=== PATIENT | male | born 1945 | race Two or more races ===

== ENCOUNTER 2020-03-31 09:46 | Inpatient (IN) | payer MEDICARE, MEDICAID ==
[~2020-03-31] VITALS: Ht 182.9 cm; Wt 80.6 kg
[~2020-03-31 09:46] MED LIST: 8 HOUR650 MG ORAL; AMIODARONE HCL400 M1 ORAL; ARTIFICIAL TEAR15 ML BOTH EYES; ASCORBIC ACID500 MG ORAL; ASPIRIN81 MG ORAL; BISACODYL10 M1 RC; CEFEPIME-D2 GM/50 ML IVPB; CIPROFLOXACIN500 M2 ORAL; CRESTOR10 M2 ORAL; DOCUSATE SODIU100 MG ORAL; FAMOTIDINE20 MG ORAL; FLOMAX0.4 MG ORAL; GABAPENTIN400 MG ORAL; HEPARIN 50100 UNIT/1 SUBQ; HEPARIN SO5000 UNIT2 SUBQ; Iron Supplement ORAL; JANUVIA25 MG ORAL; LANTUS SOL100 UNIT/1 SUBQ; LIDODERM700 M1 TOPIC; MAGNESIUM OXID400 M1 ORAL; MECLIZINE HCL12.5 MG ORAL; METOPROLOL SUCC25 MG ORAL; METOPROLOL TART25 MG ORAL; METRONIDAZOLE500 MG ORAL; MIRALAX17 G2 ORAL; MULTIVITAMIN1 EACH PO; NAHCO3650 MG ORAL; NEPHROVITE1 TAB ORAL; PRO-STAT LIQUID30 ML ORAL; SODIUM BICARBO650 MG PO; VANCOMYCIN1.5 GM/300 IV; ZINC SULFATE220 M1 ORAL
[2020-03-31 10:08] VITALS: BP 108/62
[2020-03-31 14:24] LABS: BASOPHILS % (AUTO) 2.4 % (0.0-2.0); HEMATOCRIT 30.4 % (42.0-52.0); HEMOGLOBIN 10.1 G/DL (14.2-18.0); LYMPHOCYTES % (AUTO) 18.6 % (20.0-45.0); MEAN CORPUSCULAR VOLUME 93 FL (80-99); MONOCYTES % (AUTO) 6.8 % (1.0-10.0); NEUTROPHILS % (AUTO) 71.3 % (45.0-75.0); PLATELET COUNT 199 K/UL (150-450); RED BLOOD COUNT 3.28 M/UL (4.70-6.10); RED CELL DISTRIBUTION WIDTH 16.6 % (11.6-14.8); WHITE BLOOD COUNT 9.3 K/UL (4.8-10.8)
--- NOTE | 2020-03-31 14:32 | Diagnostic Imaging Report ---
Indication: Cough Technique: One view of the chest Comparison: 03/02/2020 Findings: Hypoventilatory exam, resulting in crowding of bronchovascular markings. Interim development of right infrahilar infiltrate. There may be some infiltrate at the left medial lung base, although suspect that this appearance is an artifact of lack of inflation. Impression: Right basilar infiltrate, suspicious for pneumonia Possible left basilar infiltrate as well
[2020-03-31 14:43] LABS: CALCIUM 8.1 MG/DL (8.5-10.1); CREATININE 1.5 MG/DL (0.55-1.30); POTASSIUM 3.8 MMOL/L (3.5-5.1)
[2020-03-31 14:47] LABS: ALBUMIN 2.2 G/DL (3.4-5.0); ALBUMIN/GLOBULIN RATIO 0.5 (1.0-2.7); BILIRUBIN,TOTAL 0.3 MG/DL (0.2-1.0)
[2020-03-31] MEDS ORDERED: Miralax 17gm pkt ORAL PRN (15:00)
[2020-03-31] MEDS ORDERED: Zolpidem 5mg tab ORAL PRN (15:00)
--- NOTE | 2020-03-31 15:46 | Emergency Room Report ---
History of Present Illness General Chief Complaint: Male Urogenital Problems Source: Patient, EMS Present Illness HPI 74 yo M presents to ED for suprapubic catheter. [facility]. Patient pulled out a suprapubic catheter last night. Patient denies pain. Denies fevers or chills. Denies dysuria. No other aggravating relieving factors. No other associated symptoms Allergies: Coded Allergies: No Known Allergies (Unverified , 03/01/20) COVID-19 Screening Contact w/high risk pt: No Experienced COVID-19 symptoms?: No COVID-19 Testing performed VOIP ENGINEER: No Patient History Past Medical History: DM, HTN Past Surgical History: other - suprapubic catheter Pertinent Family History: none Social History: Denies: smoking, alcohol use, drug use Immunizations: UTD Reviewed Nursing Documentation: PMH: Agreed; PSxH: Agreed Nursing Documentation-PMH Hx Hypertension: Yes Hx Diabetes: Yes Hx Dialysis: Yes - UTI, ckd Review of Systems All Other Systems: negative except mentioned in HPI Physical Exam Vital Signs Date Time Temp Pulse Resp B/P (MAP) Pulse Ox O2 Delivery O2 Flow Rate FiO2 03/31/20 09:49 98.6 69 18 108/62 (77) 92 Room Air Sp02 EP Interpretation: reviewed, normal General Appearance: no apparent distress, alert, GCS 15, non-toxic Head: normocephalic, atraumatic Eyes: bilateral eye normal inspection, bilateral eye PERRL ENT: hearing grossly normal, normal pharynx, no angioedema, normal voice Neck: full range of motion, supple/symm/no masses Respiratory: chest non-tender, lungs clear, normal breath sounds, speaking full sentences Cardiovascular #1: regular rate, rhythm, no edema Cardiovascular #2: 2+ carotid (R), 2+ carotid (L), 2+ radial (R), 2+ radial (L), 2+ dorsalis pedis (R), 2+ dorsalis pedis (L) Gastrointestinal: normal bowel sounds, non tender, soft, non-distended, no guarding, no rebound, other - Suprapubic catheter site clean/dry/intact Rectal: deferred Genitourinary: normal inspection, no CVA tenderness Musculoskeletal: back normal, normal range of motion, gait/station normal, non- tender Neurologic: alert, motor strength/tone normal, oriented x3, sensory intact, responsive, speech normal Psychiatric: judgement/insight normal, memory normal, mood/affect normal, no s uicidal/homicidal ideation Reflexes: 3+ bicep (R), 3+ bicep (L), 3+ tricep (R), 3+ tricep (L), 3+ knee (R) , 3+ knee (L) Skin: other - See skin nursing notes Lymphatic: no adenopathy Medical Decision Making Diagnostic Impression: Primary Impression: BPH (benign prostatic hyperplasia) Qualified Codes: N40.0 - Benign prostatic hyperplasia without lower urinary tract symptoms Additional Impressions: Renal insufficiency Suprapubic catheter dysfunction Qualified Codes: T83.010A - Breakdown (mechanical) of cystostomy catheter, initial encounter ER Course Hospital Course 74-year-old male presents for suprapubic catheter placement patient came yesterday Clinical course Patient placed on stretcher. After initial history and physical, I attempted to replace suprapubic catheter. However given time that it was out of place I am unable to replace the catheter Labs reviewed-no leukocytosis, hemoglobin/hematocrit stable, BUN/Cr elevated Dr Herndon consulted (urology). Case discussed with Dr. Watts and he agreed to accept the patient to his service for further care and support Diagnosis - BPH, renal insufficiency,suprapubic catheter dysfunction Admitted to floor in serious condition Laboratory Tests Test 03/31/20 13:50 White Blood Count 9.3 K/UL (4.8-10.8) Red Blood Count 3.28 M/UL (4.70-6.10) L Hemoglobin 10.1 G/DL (14.2-18.0) L Hematocrit 30.4 % (42.0-52.0) L Mean Corpuscular Volume 93 FL (80-99) Mean Corpuscular Hemoglobin 30.7 PG (27.0-31.0) Mean Corpuscular Hemoglobin Concent 33.1 G/DL (32.0-36.0) Red Cell Distribution Width 16.6 % (11.6-14.8) H Platelet Count 199 K/UL (150-450) Mean Platelet Volume 6.3 FL (6.5-10.1) L Neutrophils (%) (Auto) 71.3 % (45.0-75.0) Lymphocytes (%) (Auto) 18.6 % (20.0-45.0) L Monocytes (%) (Auto) 6.8 % (1.0-10.0) Eosinophils (%) (Auto) 1.0 % (0.0-3.0) Basophils (%) (Auto) 2.4 % (0.0-2.0) H Prothrombin Time 21.3 SEC (9.30-11.50) H Prothromb Time International Ratio 2.0 (0.9-1.1) H Activated Partial Thromboplast Time 46 SEC (23-33) H Sodium Level 140 MMOL/L (136-145) Potassium Level 3.8 MMOL/L (3.5-5.1) Chloride Level 105 MMOL/L (98-107) Carbon Dioxide Level 26 MMOL/L (21-32) Anion Gap 9 mmol/L (5-15) Blood Urea Nitrogen 20 mg/dL (7-18) H Creatinine 1.5 MG/DL (0.55-1.30) H Estimat Glomerular Filtration Rate 45.6 mL/min (>60) Glucose Level 133 MG/DL (74-106) H Calcium Level 8.1 MG/DL (8.5-10.1) L Total Bilirubin 0.3 MG/DL (0.2-1.0) Aspartate Amino Transf (AST/SGOT) 32 U/L (15-37) Alanine Aminotransferase (ALT/SGPT) 11 U/L (12-78) L Alkaline Phosphatase 96 U/L (46-116) Total Protein 6.7 G/DL (6.4-8.2) Albumin 2.2 G/DL (3.4-5.0) L Globulin 4.5 g/dL Albumin/Globulin Ratio 0.5 (1.0-2.7) L Lipase 46 U/L (73-393) L EKG Diagnostic Results Rate: normal Rhythm: NSR ST Segments: no acute changes ASA given to the pt in ED: No Rhythm Strip Diag. Results EP Interpretation: yes Rhythm: NSR, no PVC's, no ectopy Last Vital Signs Date Time Temp Pulse Resp B/P (MAP) Pulse Ox O2 Delivery O2 Flow Rate FiO2 03/31/20 10:08 98.6 89 18 108/62 92 Room Air Status: improved Disposition: ADMITTED INPATIENT Condition: Serious Referrals: Alfred Watts MD (PCP) Stefan Valentin MD Mar 31, 2020 15:46
[2020-03-31 16:00] VITALS: BP 112/57
[2020-03-31] MEDS: NovoLOG Insulin Flexpen SUBQ SCH ×2 (16:30→20:47)
[2020-03-31 20:01] VITALS: BP 98/54
[2020-03-31] MEDS: Metoprolol Tartrate 12.5mg TAB ORAL SCH (21:00)
[2020-03-31] MEDS: Amiodarone 200mg tab ORAL SCH (21:01)
[2020-03-31] MEDS: Heparin 5000 units/ml inj SUBQ SCH (21:04)
--- NOTE | 2020-03-31 22:44 | Consultation ---
DATE OF CONSULTATION: 03/31/2020 CONSULTING PHYSICIAN: Diego Herndon MD. PREOPERATIVE DIAGNOSIS: Urinary retention, pulled out suprapubic catheter. The patient was seen on the fourth floor. I was asked to see patient for the fact that he pulled out his suprapubic catheter and was in retention. Patient is a poor historian. I was not able to collect the previous history from him as well as the past medical history. MEDICATIONS: Reconciled from the chart. PHYSICAL EXAMINATION: VITAL SIGNS: He is afebrile. Vital signs were stable. LUNGS: Clear. CARDIOVASCULAR: Regular rate and rhythm. ABDOMEN: Soft. Slightly distended in the suprapubic area. Suprapubic site is somewhat has mucous erosions, otherwise intact. RECTAL: Deferred. LABORATORY DATA: Reviewed as well as x-ray. ASSESSMENT: Patient has urinary retention. PROCEDURE: First, we decided to attempt to replace the suprapubic tube several manipulations with original 16-Qatari Sanabria catheter through the existing channel did not work out. After that, 16-Qatari catheter was successfully placed through the urethra into the bladder and left indwelling. Infected looking urine was expressed approximately 300 mL. RECOMMENDATIONS: Patient at least should send the cultures of his urine to see if there is any resistant bacteria. He will need renal ultrasound to assess his renal anatomy and I would recommend antibiotics to cover possible UTI or other infections. Diego Herndon M.D. DR: NUHA JOB#: [id number] CC:
[2020-04-01 04:00] VITALS: BP 101/52
[2020-04-01] MEDS: NovoLOG Insulin Flexpen SUBQ SCH ×4 (05:55→20:47)
[2020-04-01 08:00] VITALS: BP 110/58
[2020-04-01 08:36] LABS: BASOPHILS % (AUTO) 1.9 % (0.0-2.0); EOSINOPHILS % (AUTO) 2.1 % (0.0-3.0); HEMATOCRIT 27.1 % (42.0-52.0); HEMOGLOBIN 8.8 G/DL (14.2-18.0); LYMPHOCYTES % (AUTO) 24.2 % (20.0-45.0); MEAN CORPUSCULAR VOLUME 93 FL (80-99); MONOCYTES % (AUTO) 9.3 % (1.0-10.0); NEUTROPHILS % (AUTO) 62.5 % (45.0-75.0); PLATELET COUNT 193 K/UL (150-450); RED BLOOD COUNT 2.93 M/UL (4.70-6.10); RED CELL DISTRIBUTION WIDTH 16.2 % (11.6-14.8); WHITE BLOOD COUNT 8.2 K/UL (4.8-10.8)
[2020-04-01] MEDS: sitaGLIPtin 25mg tab ORAL SCH (08:39)
[2020-04-01] MEDS: Amiodarone 200mg tab ORAL SCH ×2 (08:39→20:46)
[2020-04-01] MEDS: Metoprolol Tartrate 12.5mg TAB ORAL SCH ×2 (08:40→20:47)
[2020-04-01] MEDS: Heparin 5000 units/ml inj SUBQ SCH ×2 (08:41→20:47)
[2020-04-01 08:57] LABS: ALANINE AMINOTRANSFERASE 14 U/L (12-78); ALBUMIN 1.9 G/DL (3.4-5.0); ALBUMIN/GLOBULIN RATIO 0.6 (1.0-2.7); ALKALINE PHOSPHATASE 84 U/L (46-116); ANION GAP 4 mmol/L (5-15); ASPARTATE AMINO TRANSFERASE 27 U/L (15-37); BILIRUBIN,TOTAL 0.4 MG/DL (0.2-1.0); BLOOD UREA NITROGEN 20 mg/dL (7-18); CALCIUM 7.7 MG/DL (8.5-10.1); CARBON DIOXIDE 28 MMOL/L (21-32); CHLORIDE 107 MMOL/L (98-107); CHOLESTEROL 80 MG/DL (< 200); CREATININE 1.6 MG/DL (0.55-1.30); HDL CHOLESTEROL 23 MG/DL (40-60); POTASSIUM 3.5 MMOL/L (3.5-5.1); SODIUM 139 MMOL/L (136-145); TRIGLYCERIDES 56 MG/DL (30-150)
[2020-04-01 12:00] VITALS: BP 100/53
--- NOTE | 2020-04-01 12:28 | Consultation ---
History of Present Illness General Date patient seen: Apr 01, 2020 Chief Complaint: Male Urogenital Problems Present Illness HPI 74 year old male with hx of DM, BPH, suprapubic catheter, longterm resident presented to ED for suprapubic catheter replacement. Patient pulled out a suprapubic catheter last night. Patient denies pain. Denies fevers or chills. Denies dysuria. The urologist cathleen was called to insert it. But he was not successful. Instead he put a Sanabria and some 300 cc of infected urine came out. Allergies: Coded Allergies: No Known Allergies (Unverified , 03/01/20) Medication History Scheduled Amino Acids/Protein Hydrolys (Pro-Stat Liquid), 30 ML ORAL THREE TIMES A DAY, (Reported) Amiodarone Hcl* (Amiodarone Hcl*), 200 MG ORAL EVERY 12 HOURS, (Reported) Ascorbic Acid* (Ascorbic Acid*), 500 MG ORAL DAILY, (Reported) Aspirin* (Aspirin*), 81 MG ORAL DAILY, (Reported) Cefepime Hcl/D5w (Cefepime-Dextrose 2 Gm/50 Ml), 2 GM IVPB Q24H Ciprofloxacin Hcl* (Ciprofloxacin Hcl*), 500 MG ORAL EVERY 12 HOURS, (Reported) Docusate Sodium* (Docusate Sodium*), 100 MG ORAL TWICE A DAY, (Reported) Gabapentin* (Gabapentin*), 300 MG ORAL QHS, (Reported) Heparin Sod (Porcine) (Heparin Sodium*), 5,000 UNITS SUBQ EVERY 8 HOURS, (Reported) Insulin Glargine (Lantus), 4 UNITS SUBQ EVERY MORNING, (Reported) Magnesium Oxide (Magnesium Oxide), 400 MG ORAL DAILY, (Reported) Metoprolol Tartrate* (Metoprolol Tartrate*), 12.5 MG ORAL EVERY 12 HOURS, (Reported) Metronidazole* (Flagyl*), 500 MG ORAL BID, (Reported) Multivitamin (Multivitamin), 1 EACH PO DAILY, (Reported) Rosuvastatin Calcium* (Crestor*), 5 MG ORAL QHS, (Reported) Sitagliptin* (Januvia*), 25 MG ORAL DAILY, (Reported) Sodium Bicarbonate (Sodium Bicarbonate), 650 MG ORAL THREE TIMES A DAY Tamsulosin HCl (Flomax), 0.4 MG ORAL DAILY, (Reported) Vancomycin/Water For Inj (Vancomycin 1.5 Gram/300 ml Bag), 1.5 GM IV EVERY 36 HOURS, (Reported) Vitamin B Cmplx/Vit C/Folic AC (Nephro-Alberto Tablet), 1 TAB ORAL DAILY, (Reported) Zinc Sulfate (Zinc Sulfate*), 220 MG ORAL DAILY, (Reported) [Iron Supplement], ORAL DAILY, (Reported) Scheduled PRN Acetaminophen (8 Hour), 650 MG ORAL EVERY 6 HOURS PRN for For Pain, (Reported) Bisacodyl (Bisacodyl), 10 MG RC for Constipation, (Reported) Dextran 70/Hypromellose (Artificial Tears Eye Drops*), 1 DROP BOTH EYES for Dry Eyes, (Reported) Famotidine* (Pepcid 20mg tablet*), 20 MG ORAL DAILY PRN for GERD, (Reported) Lidocaine Patch* (Lidoderm Patch*), 1 PATCH TOPIC DAILY PRN for Mild Pain (Pain Scale 1-3), (Reported) Meclizine Hcl* (Meclizine*), 12.5 MG ORAL TWICE A DAY PRN for for dizziness, (Reported) Polyethylene Glycol 3350* (Miralax*), 17 GM ORAL DAILY PRN for Constipation, (Reported) Patient History Healthcare decision maker Resuscitation status Advanced Directive on File Past Medical/Surgical History Past Medical/Surgical History: (1) Suprapubic catheter (2) BPH (benign prostatic hyperplasia) (3) Diabetes mellitus Review of Systems All Other Systems: negative except mentioned in HPI Physical Exam General Appearance: cachetic, thin Lines, tubes and drains: peripheral, central line Neck: non-tender, normal alignment Respiratory/Chest: chest wall non-tender, lungs clear, normal breath sounds Breasts: no masses Cardiovascular/Chest: normal peripheral pulses Abdomen: normal bowel sounds, non tender Genitourinary/Rectal: normal genital exam, normal rectal exam Extremities: normal range of motion, non-tender Skin Exam: normal pigmentation Neurologic: hog ribber II-XII grossly normal Last 24 Hour Vital Signs Date Time Temp Pulse Resp B/P (MAP) Pulse Ox O2 Delivery O2 Flow Rate FiO2 04/01/20 12:00 98.0 70 18 100/53 (69) 97 04/01/20 09:00 Room Air 04/01/20 08:40 70 110/58 04/01/20 08:00 97.7 70 18 110/58 (75) 97 04/01/20 04:00 97.6 67 17 101/52 (68) 97 03/31/20 21:00 70 98/54 03/31/20 20:37 Room Air 03/31/20 20:01 97.2 70 18 98/54 (69) 98 03/31/20 18:24 Room Air 03/31/20 16:00 97.9 74 18 112/57 (75) 97 03/31/20 16:00 97.9 74 18 112/57 (75) 97 03/31/20 15:44 98.6 89 18 108/62 92 Room Air Intake and Output 03/31/20 04/01/20 19:00 07:00 Intake Total 100 ml Output Total 100 ml 1200 ml Balance 0 ml -1200 ml Intake Oral 100 ml Output Urine Total 100 ml 1200 ml # Voids 1 Laboratory Tests Test 03/31/20 13:50 03/31/20 16:56 04/01/20 08:30 04/01/20 11:10 White Blood Count 9.3 K/UL (4.8-10.8) 8.2 K/UL (4.8-10.8) Red Blood Count 3.28 M/UL (4.70-6.10) L 2.93 M/UL (4.70-6.10) L Hemoglobin 10.1 G/DL (14.2-18.0) L 8.8 G/DL (14.2-18.0) L Hematocrit 30.4 % (42.0-52.0) L 27.1 % (42.0-52.0) L Mean Corpuscular Volume 93 FL (80-99) 93 FL (80-99) Mean Corpuscular Hemoglobin 30.7 PG (27.0-31.0) 30.0 PG (27.0-31.0) Mean Corpuscular Hemoglobin Concent 33.1 G/DL (32.0-36.0) 32.4 G/DL (32.0-36.0) Red Cell Distribution Width 16.6 % (11.6-14.8) H 16.2 % (11.6-14.8) H Platelet Count 199 K/UL (150-450) 193 K/UL (150-450) Mean Platelet Volume 6.3 FL (6.5-10.1) L 6.2 FL (6.5-10.1) L Neutrophils (%) (Auto) 71.3 % (45.0-75.0) 62.5 % (45.0-75.0) Lymphocytes (%) (Auto) 18.6 % (20.0-45.0) L 24.2 % (20.0-45.0) Monocytes (%) (Auto) 6.8 % (1.0-10.0) 9.3 % (1.0-10.0) Eosinophils (%) (Auto) 1.0 % (0.0-3.0) 2.1 % (0.0-3.0) Basophils (%) (Auto) 2.4 % (0.0-2.0) H 1.9 % (0.0-2.0) Prothrombin Time 21.3 SEC (9.30-11.50) H Prothromb Time International Ratio 2.0 (0.9-1.1) H Activated Partial Thromboplast Time 46 SEC (23-33) H Sodium Level 140 MMOL/L (136-145) 139 MMOL/L (136-145) Potassium Level 3.8 MMOL/L (3.5-5.1) 3.5 MMOL/L (3.5-5.1) Chloride Level 105 MMOL/L (98-107) 107 MMOL/L (98-107) Carbon Dioxide Level 26 MMOL/L (21-32) 28 MMOL/L (21-32) Anion Gap 9 mmol/L (5-15) 4 mmol/L (5-15) L Blood Urea Nitrogen 20 mg/dL (7-18) H 20 mg/dL (7-18) H Creatinine 1.5 MG/DL (0.55-1.30) H 1.6 MG/DL (0.55-1.30) H Estimat Glomerular Filtration Rate 45.6 mL/min (>60) 42.3 mL/min (>60) Glucose Level 133 MG/DL (74-106) H 100 MG/DL (74-106) Calcium Level 8.1 MG/DL (8.5-10.1) L 7.7 MG/DL (8.5-10.1) L Total Bilirubin 0.3 MG/DL (0.2-1.0) 0.4 MG/DL (0.2-1.0) Aspartate Amino Transf (AST/SGOT) 32 U/L (15-37) 27 U/L (15-37) Alanine Aminotransferase (ALT/SGPT) 11 U/L (12-78) L 14 U/L (12-78) Alkaline Phosphatase 96 U/L (46-116) 84 U/L (46-116) Total Protein 6.7 G/DL (6.4-8.2) 5.2 G/DL (6.4-8.2) L Albumin 2.2 G/DL (3.4-5.0) L 1.9 G/DL (3.4-5.0) L Globulin 4.5 g/dL 3.3 g/dL Albumin/Globulin Ratio 0.5 (1.0-2.7) L 0.6 (1.0-2.7) L Lipase 46 U/L (73-393) L POC Whole Blood Glucose Pending 101 MG/DL (74-106) Triglycerides Level 56 MG/DL (30-150) Cholesterol Level 80 MG/DL (< 200) LDL Cholesterol 49 mg/dL (<100) HDL Cholesterol 23 MG/DL (40-60) L Cholesterol/HDL Ratio 3.5 (3.3-4.4) Height (Feet): 6 Height (Inches): 0.00 Weight (Pounds): 220 Medications Current Medications Medications (Trade) Dose Ordered Sig/Lauren Route PRN Reason Start Time Stop Time Status Last Admin Dose Admin Acetaminophen (Tylenol) 650 mg Q4H PRN ORAL fever 03/31/20 15:00 04/30/20 14:59 Amiodarone HCl (Cordarone) 200 mg EVERY 12 HOURS ORAL 03/31/20 21:00 06/29/20 20:59 04/01/20 08:39 Dextrose (Dextrose 50%) 25 ml Q30M PRN IV Hypoglycemia 03/31/20 15:00 06/29/20 14:59 Dextrose (Dextrose 50%) 50 ml Q30M PRN IV Hypoglycemia 03/31/20 15:00 06/29/20 14:59 Gabapentin (Neurontin) 300 mg QHS ORAL 03/31/20 21:00 04/30/20 20:59 9/21/20 21:01 Heparin Sodium (Porcine) (Heparin 5000 units/ml) 5,000 units EVERY 12 HOURS SUBQ 03/31/20 21:00 05/15/20 20:59 04/01/20 08:41 Insulin Aspart (NovoLOG) BEFORE MEALS AND HS SUBQ 03/31/20 16:30 06/29/20 16:29 Metoprolol Tartrate (Lopressor) 12.5 mg EVERY 12 HOURS ORAL 03/31/20 21:00 06/29/20 20:59 04/01/20 08:40 Ondansetron HCl (Zofran) 4 mg Q6H PRN IVP Nausea & Vomiting 03/31/20 15:00 04/30/20 14:59 Polyethylene Glycol (Miralax) 17 gm HSPRN PRN ORAL Constipation 03/31/20 15:00 04/30/20 14:59 Sitagliptin Phosphate (Januvia) 25 mg DAILY ORAL 04/01/20 09:00 05/01/20 08:59 04/01/20 08:39 Zolpidem Tartrate (Ambien) 5 mg HSPRN PRN ORAL Insomnia 03/31/20 15:00 04/07/20 14:59 Assessment/Plan Problem List: (1) UTI (urinary tract infection) ICD Codes: N39.0 - Urinary tract infection, site not specified SNOMED: 62643078 (2) Suprapubic catheter dysfunction ICD Codes: T83.010A - Breakdown (mechanical) of cystostomy catheter, initial encounter SNOMED: 358476535 Qualifiers: Qualified Codes: T83.010A - Breakdown (mechanical) of cystostomy catheter, initial encounter (3) Diabetes mellitus ICD Codes: E11.9 - Type 2 diabetes mellitus without complications SNOMED: 26076849 (4) Hypothyroidism ICD Codes: E03.9 - Hypothyroidism, unspecified SNOMED: 77472449 (5) BPH (benign prostatic hyperplasia) ICD Codes: N40.0 - Benign prostatic hyperplasia without lower urinary tract symptoms SNOMED: 629318083 Qualifiers: Qualified Codes: N40.0 - Benign prostatic hyperplasia without lower urinary tract symptoms Assessment/Plan: symptomatic treatment send urine for UA and C/s iv abx pain management sliding scale diabetic diet dvt prophylaxis check last daily, f/u bun/creatinine Miguel Bagley MD Apr 01, 2020 12:28
[2020-04-01 12:52] LABS: APPEARANCE,URINE CLOUDY; BILIRUBIN, URINE NEGATIVE (NEGATIVE); COLOR,URINE PALE YELLOW; GLUCOSE, URINE (UA) NEGATIVE (NEGATIVE); KETONES,URINE NEGATIVE (NEGATIVE); LEUKOCYTE ESTERASE ,URINE 3+ (NEGATIVE); NITRITE,URINE NEGATIVE (NEGATIVE); PH,URINE 5 (4.5-8.0); PROTEIN,URINE 2+ (NEGATIVE); UROBILINOGEN,URINE NORMAL MG/DL (0.0-1.0)
[2020-04-01 12:55] LABS: CREATINE KINASE 32 U/L (26-308)
--- NOTE | 2020-04-01 14:26 | Consultation ---
History of Present Illness General Date patient seen: Apr 01, 2020 Reason for Hospitalization: Male Urogenital Problems Present Illness HPI This is a 74-year-old male multi-medical committees who is a senior living resident that presented after he pulled a suprapubic catheter. Patient was admitted for the care management. Surgery was called to evaluate assist with care. Patient seen, patient evaluated, chart reviewed. Allergies: Coded Allergies: No Known Allergies (Unverified , 03/01/20) COVID-19 Screening Contact w/high risk pt: No Experienced COVID-19 symptoms?: No Medication History Scheduled Amino Acids/Protein Hydrolys (Pro-Stat Liquid), 30 ML ORAL THREE TIMES A DAY, (Reported) Amiodarone Hcl* (Amiodarone Hcl*), 200 MG ORAL EVERY 12 HOURS, (Reported) Ascorbic Acid* (Ascorbic Acid*), 500 MG ORAL DAILY, (Reported) Aspirin* (Aspirin*), 81 MG ORAL DAILY, (Reported) Cefepime Hcl/D5w (Cefepime-Dextrose 2 Gm/50 Ml), 2 GM IVPB Q24H Ciprofloxacin Hcl* (Ciprofloxacin Hcl*), 500 MG ORAL EVERY 12 HOURS, (Reported) Docusate Sodium* (Docusate Sodium*), 100 MG ORAL TWICE A DAY, (Reported) Gabapentin* (Gabapentin*), 300 MG ORAL QHS, (Reported) Heparin Sod (Porcine) (Heparin Sodium*), 5,000 UNITS SUBQ EVERY 8 HOURS, (Reported) Insulin Glargine (Lantus), 4 UNITS SUBQ EVERY MORNING, (Reported) Magnesium Oxide (Magnesium Oxide), 400 MG ORAL DAILY, (Reported) Metoprolol Tartrate* (Metoprolol Tartrate*), 12.5 MG ORAL EVERY 12 HOURS, (Reported) Metronidazole* (Flagyl*), 500 MG ORAL BID, (Reported) Multivitamin (Multivitamin), 1 EACH PO DAILY, (Reported) Rosuvastatin Calcium* (Crestor*), 5 MG ORAL QHS, (Reported) Sitagliptin* (Januvia*), 25 MG ORAL DAILY, (Reported) Sodium Bicarbonate (Sodium Bicarbonate), 650 MG ORAL THREE TIMES A DAY Tamsulosin HCl (Flomax), 0.4 MG ORAL DAILY, (Reported) Vancomycin/Water For Inj (Vancomycin 1.5 Gram/300 ml Bag), 1.5 GM IV EVERY 36 HOURS, (Reported) Vitamin B Cmplx/Vit C/Folic AC (Nephro-Alberto Tablet), 1 TAB ORAL DAILY, (Reported) Zinc Sulfate (Zinc Sulfate*), 220 MG ORAL DAILY, (Reported) [Iron Supplement], ORAL DAILY, (Reported) Scheduled PRN Acetaminophen (8 Hour), 650 MG ORAL EVERY 6 HOURS PRN for For Pain, (Reported) Bisacodyl (Bisacodyl), 10 MG RC for Constipation, (Reported) Dextran 70/Hypromellose (Artificial Tears Eye Drops*), 1 DROP BOTH EYES for Dry Eyes, (Reported) Famotidine* (Pepcid 20mg tablet*), 20 MG ORAL DAILY PRN for GERD, (Reported) Lidocaine Patch* (Lidoderm Patch*), 1 PATCH TOPIC DAILY PRN for Mild Pain (Pain Scale 1-3), (Reported) Meclizine Hcl* (Meclizine*), 12.5 MG ORAL TWICE A DAY PRN for for dizziness, (Reported) Polyethylene Glycol 3350* (Miralax*), 17 GM ORAL DAILY PRN for Constipation, (Reported) Patient History Limited by: medical condition History Provided By: Medical Record, PMD Healthcare decision maker Resuscitation status Advanced Directive on File Past Medical/Surgical History Past Medical/Surgical History: (1) Suprapubic catheter (2) UTI (urinary tract infection) (3) Osteomyelitis (4) Uncontrolled diabetes mellitus (5) Hypothyroidism (6) Sacral decubitus ulcer (7) Diabetes mellitus (8) Renal insufficiency (9) Suprapubic catheter dysfunction (10) BPH (benign prostatic hyperplasia) (11) Urinary retention Family History Family History: FH: CAD (coronary artery disease) Review of Systems Review of Symptoms General ROS: no weight loss or fever Psychological ROS: no depression or mood changes, no memory loss Ophthalmic ROS: no visual changes or eye irritation ENT ROS: no nasal congestion, hearing loss, dizziness Allergy and Immunology ROS: no allergic symptoms or urticaria Hematological and Lymphatic ROS: no swollen glands, unusual bleeding or bruising Endocrine ROS: no polyuria, polydipsia, weight changes, temperature intolerance Respiratory ROS: no cough, shortness of breath, or wheezing Cardiovascular ROS: no chest pain or dyspnea on exertion Gastrointestinal ROS: denies abdominal pain, bright red blood in stool. Musculoskeletal ROS: no myalgias or arthralgias Neurological ROS: no TIA or stroke symptoms Dermatological ROS: no new or changing skin lesions, rashes or pruritis Limited given patient's medical condition baseline Physical Exam Physical Exam General appearance: alert, cooperative, no distress, appears stated age Head: Normocephalic, without obvious abnormality, atraumatic Eyes: conjunctivae/corneas clear. PERRL, EOM's intact. Fundi benign Throat: Lips, mucosa, and tongue normal. Teeth and gums normal Neck: supple, symmetrical, trachea midline, no adenopathy, thyroid: not enlarged, symmetric, no tenderness/mass/nodules, no carotid bruit and no JVD Lungs: clear to auscultation bilaterally Heart: regular rate and rhythm, S1, S2 normal, no murmur, click, rub or gallop Abdomen: soft, non-tender. Bowel sounds normal. No masses, no organomegaly Extremities: extremities normal, atraumatic, no cyanosis or edema Pulses: 2+ and symmetric Skin: Skin see Neurologic: Grossly normal Last 24 Hour Vital Signs Date Time Temp Pulse Resp B/P (MAP) Pulse Ox O2 Delivery O2 Flow Rate FiO2 04/01/20 12:00 98.0 70 18 100/53 (69) 97 04/01/20 09:00 Room Air 04/01/20 08:40 70 110/58 04/01/20 08:00 97.7 70 18 110/58 (75) 97 04/01/20 04:00 97.6 67 17 101/52 (68) 97 03/31/20 21:00 70 98/54 03/31/20 20:37 Room Air 03/31/20 20:01 97.2 70 18 98/54 (69) 98 03/31/20 18:24 Room Air 03/31/20 16:00 97.9 74 18 112/57 (75) 97 03/31/20 16:00 97.9 74 18 112/57 (75) 97 03/31/20 15:44 98.6 89 18 108/62 92 Room Air Intake and Output 03/31/20 04/01/20 19:00 07:00 Intake Total 100 ml Output Total 100 ml 1200 ml Balance 0 ml -1200 ml Intake Oral 100 ml Output Urine Total 100 ml 1200 ml # Voids 1 Laboratory Tests Test 03/31/20 16:56 9/22/20 08:30 04/01/20 11:10 04/01/20 12:45 POC Whole Blood Glucose Pending 101 MG/DL (74-106) White Blood Count 8.2 K/UL (4.8-10.8) Red Blood Count 2.93 M/UL (4.70-6.10) L Hemoglobin 8.8 G/DL (14.2-18.0) L Hematocrit 27.1 % (42.0-52.0) L Mean Corpuscular Volume 93 FL (80-99) Mean Corpuscular Hemoglobin 30.0 PG (27.0-31.0) Mean Corpuscular Hemoglobin Concent 32.4 G/DL (32.0-36.0) Red Cell Distribution Width 16.2 % (11.6-14.8) H Platelet Count 193 K/UL (150-450) Mean Platelet Volume 6.2 FL (6.5-10.1) L Neutrophils (%) (Auto) 62.5 % (45.0-75.0) Lymphocytes (%) (Auto) 24.2 % (20.0-45.0) Monocytes (%) (Auto) 9.3 % (1.0-10.0) Eosinophils (%) (Auto) 2.1 % (0.0-3.0) Basophils (%) (Auto) 1.9 % (0.0-2.0) Sodium Level 139 MMOL/L (136-145) Potassium Level 3.5 MMOL/L (3.5-5.1) Chloride Level 107 MMOL/L (98-107) Carbon Dioxide Level 28 MMOL/L (21-32) Anion Gap 4 mmol/L (5-15) L Blood Urea Nitrogen 20 mg/dL (7-18) H Creatinine 1.6 MG/DL (0.55-1.30) H Estimat Glomerular Filtration Rate 42.3 mL/min (>60) Glucose Level 100 MG/DL (74-106) Uric Acid 2.8 MG/DL (2.6-7.2) Calcium Level 7.7 MG/DL (8.5-10.1) L Total Bilirubin 0.4 MG/DL (0.2-1.0) Aspartate Amino Transf (AST/SGOT) 27 U/L (15-37) Alanine Aminotransferase (ALT/SGPT) 14 U/L (12-78) Alkaline Phosphatase 84 U/L (46-116) Total Creatine Kinase 32 U/L (26-308) Total Protein 5.2 G/DL (6.4-8.2) L Albumin 1.9 G/DL (3.4-5.0) L Globulin 3.3 g/dL Albumin/Globulin Ratio 0.6 (1.0-2.7) L Triglycerides Level 56 MG/DL (30-150) Cholesterol Level 80 MG/DL (< 200) LDL Cholesterol 49 mg/dL (<100) HDL Cholesterol 23 MG/DL (40-60) L Cholesterol/HDL Ratio 3.5 (3.3-4.4) Urine Color Pale yellow Urine Appearance Cloudy Urine pH 5 (4.5-8.0) Urine Specific [place] 1.015 (1.005-1.035) Urine Protein 2+ (NEGATIVE) H Urine Glucose (UA) Negative (NEGATIVE) Urine Ketones Negative (NEGATIVE) Urine Blood 5+ (NEGATIVE) H Urine Nitrite Negative (NEGATIVE) Urine Bilirubin Negative (NEGATIVE) Urine Urobilinogen Normal MG/DL (0.0-1.0) Urine Leukocyte Esterase 3+ (NEGATIVE) H Urine RBC 10-15 /HPF (0 - 0) H Urine WBC Tntc /HPF (0 - 0) H Urine Squamous Epithelial Cells Occasional /LPF Urine Bacteria Few /HPF (NONE) Urine Yeast Few /HPF (NONE) H Height (Feet): 6 Height (Inches): 0.00 Weight (Pounds): 220 Medications Current Medications Medications (Trade) Dose Ordered Sig/Lauren Route PRN Reason Start Time Stop Time Status Last Admin Dose Admin Acetaminophen (Tylenol) 650 mg Q4H PRN ORAL fever 03/31/20 15:00 04/30/20 14:59 Amiodarone HCl (Cordarone) 200 mg EVERY 12 HOURS ORAL 03/31/20 21:00 06/29/20 20:59 04/01/20 08:39 Dextrose (Dextrose 50%) 25 ml Q30M PRN IV Hypoglycemia 03/31/20 15:00 06/29/20 14:59 Dextrose (Dextrose 50%) 50 ml Q30M PRN IV Hypoglycemia 03/31/20 15:00 06/29/20 14:59 Gabapentin (Neurontin) 300 mg QHS ORAL 03/31/20 21:00 04/30/20 20:59 03/31/20 21:01 Heparin Sodium (Porcine) (Heparin 5000 units/ml) 5,000 units EVERY 12 HOURS SUBQ 03/31/20 21:00 05/15/20 20:59 04/01/20 08:41 Insulin Aspart (NovoLOG) BEFORE MEALS AND HS SUBQ 03/31/20 16:30 06/29/20 16:29 Metoprolol Tartrate (Lopressor) 12.5 mg EVERY 12 HOURS ORAL 03/31/20 21:00 06/29/20 20:59 04/01/20 08:40 Ondansetron HCl (Zofran) 4 mg Q6H PRN IVP Nausea & Vomiting 03/31/20 15:00 04/30/20 14:59 Polyethylene Glycol (Miralax) 17 gm HSPRN PRN ORAL Constipation 03/31/20 15:00 04/30/20 14:59 Sitagliptin Phosphate (Januvia) 25 mg DAILY ORAL 04/01/20 09:00 05/01/20 08:59 04/01/20 08:39 Zolpidem Tartrate (Ambien) 5 mg HSPRN PRN ORAL Insomnia 03/31/20 15:00 04/07/20 14:59 Assessment/Plan Problem List: (1) Suprapubic catheter ICD Codes: Z93.59 - Other cystostomy status SNOMED: 282415901, 121664781 (2) UTI (urinary tract infection) ICD Codes: N39.0 - Urinary tract infection, site not specified SNOMED: 79994081 (3) Osteomyelitis ICD Codes: M86.9 - Osteomyelitis, unspecified SNOMED: 24119494 (4) Uncontrolled diabetes mellitus ICD Codes: E11.65 - Type 2 diabetes mellitus with hyperglycemia SNOMED: 17292640, 978343483 (5) Hypothyroidism ICD Codes: E03.9 - Hypothyroidism, unspecified SNOMED: 79139433 (6) Diabetes mellitus ICD Codes: E11.9 - Type 2 diabetes mellitus without complications SNOMED: 57896207 (7) Sacral decubitus ulcer Assessment & Plan: Pt presented on admission with multiple Pressure Injuries. Resolving Pressure Sacral Pressure Injury.Clusters of full thickness pressure ulcers in close proximity that are moist and pink at bases. Surrounding maroon borders but without induration.(L)10.5cm x (W)10cm. BIlat lower ext are edematous. DTPI distal/lateral L Tibia(L)11.4cm x (W)2.7cm. Base of injury is purpuric with maroon borders. DTPI lateral L Malleolus(L)1cm x (W)0.7cm. Base of injury is maroon and indurated. Non-Blanchable erythema without induration or fluctuance medial L foot (L)1.6cm x (W)1cm. Unstageable Pressure injury R heel(L)7.7cm x (W)6.8cm. Base of is 70%necrotic and dry,10% slough with remaining 20% alyssia base. Marginal erythema along edges.Periwound is fluctuant with pale skin color. DTPI Lateral R Malleolus(L)2.6cm x (W)1.4cm. Base of injury is purpuric with maroon borders. DTPI medial R Malleolus(L)2.5cm x (W)2.4cm. Base of injury is purpuric with maroon borders. DTPI medial R foot (L)1.3cm x (W)3.6cm. Base of injury is indurated purpuric with surrounding maroon borders that are irregular. DTPI lateral R foot (L)0.7cm x (W)0.9cm. Base of injury is maroon in colour with marginal erythema. DTPI noted to tip of R 1st metatarsal(L)1.4cm x (W)1.2cm. Base of injury presents as an intact blood Blister. Unstageable Pressure injury lateral R 1st metatarsal(L)0.5cm x (W)0.8cm. Dry eschar with marginal erythema along edges. DTPI tip of R 2nd metatarsal.(L)1cm x (W)1.3cm. Base of injury presents as an intact blood blister with marginal erythema along edges. Surgical incisions noted to R hip, R femur and R knee. Incision sites approximated with oswaldo that are intact and dry. No erythema noted. Tx.Plan: Apply Moisture Barrier Paste to Sacrum. Cover with Optifoam drsgs. Change every 3 days and prn. Apply Betadine to DTPI's L Tibia, R and L feet. Cover each site with Optifoam drsgs. Change every 7 days and prn. Cleanse R Heel with Saline. Apply TheraHoney.Apply Maxsorb Extra(calcium Alginate. Apply Cavilon Skin Barrier periwound. Cover with Abd Pad and wrap with Kerlix Daily and prn. Reposition at least every 2hours or as tolerated. Off-load heels with pillows. ICD Codes: L89.159 - Pressure ulcer of sacral region, unspecified stage SNOMED: 830716961 (8) Renal insufficiency ICD Codes: N28.9 - Disorder of kidney and ureter, unspecified SNOMED: 837145774, 082773079 (9) Suprapubic catheter dysfunction Assessment & Plan: changed by urology catheter in now good uop monitor ICD Codes: T83.010A - Breakdown (mechanical) of cystostomy catheter, initial encounter SNOMED: 422999781 Qualifiers: Qualified Codes: T83.010A - Breakdown (mechanical) of cystostomy catheter, initial encounter (10) BPH (benign prostatic hyperplasia) ICD Codes: N40.0 - Benign prostatic hyperplasia without lower urinary tract symptoms SNOMED: 479564894 Qualifiers: Qualified Codes: N40.0 - Benign prostatic hyperplasia without lower urinary tract symptoms (11) Urinary retention ICD Codes: R33.9 - Retention of urine, unspecified SNOMED: 449885813 [facility] Hospital declaration \ Guy Oakley Apr 01, 2020 14:26
--- NOTE | 2020-04-01 15:43 | Consultation ---
History of Present Illness General Date patient seen: Apr 01, 2020 Chief Complaint: Male Urogenital Problems Present Illness HPI 74 y/o M with hx of DM2, HTN, BPH, CKD, urinary retention sp suprapubic catheter, [place] resident presented to ED on 03/31 for suprapubic catheter replacem ent after he pulled his catheter. Urologist attempted SPC replacement but was unsuccessful and a shabazz instead was placed; there was mention of return of 300mL urine that looked suspicious for infection Denied f/c, dysuria Allergies: Coded Allergies: No Known Allergies (Unverified , 03/01/20) Medication History Scheduled Amiodarone Hcl* (Cordarone*), 200 MG ORAL DAILY, (Reported) Aspirin* (Aspirin*), 81 MG ORAL DAILY, (Reported) Atorvastatin Calcium* (Lipitor*), 80 MG ORAL BEDTIME, (Reported) Docusate Sodium* (Docusate Sodium*), 250 MG ORAL DAILY, (Reported) Furosemide* (Lasix*), 40 MG ORAL DAILY, (Reported) Glycopyrrolate (Glycopyrrolate), 1 MG PO DAILY, (Reported) Levothyroxine Sodium* (Levothyroxine Sodium*), 75 MCG ORAL DAILY, (Reported) Sertraline Hcl* (Sertraline Hcl*), 25 MG ORAL DAILY, (Reported) Scheduled PRN Meclizine Hcl* (Meclizine*), 12.5 MG ORAL TID PRN for for dizziness, (Reported) Discontinued Medications Acetaminophen (8 Hour), 650 MG ORAL EVERY 6 HOURS PRN for For Pain, (Reported) Discontinued Reason: Pt stopped taking med Amino Acids/Protein Hydrolys (Pro-Stat Liquid), 30 ML ORAL THREE TIMES A DAY, (Reported) Discontinued Reason: Pt stopped taking med Amiodarone Hcl* (Amiodarone Hcl*), 200 MG ORAL EVERY 12 HOURS, (Reported) Discontinued Reason: Prescription changed Ascorbic Acid* (Ascorbic Acid*), 500 MG ORAL DAILY, (Reported) Discontinued Reason: Pt stopped taking med Bisacodyl (Bisacodyl), 10 MG RC for Constipation, (Reported) Discontinued Reason: Pt stopped taking med Cefepime Hcl/D5w (Cefepime-Dextrose 2 Gm/50 Ml), 2 GM IVPB Q24H Discontinued Reason: Pt stopped taking med Ciprofloxacin Hcl* (Ciprofloxacin Hcl*), 500 MG ORAL EVERY 12 HOURS, (Reported) Discontinued Reason: Pt stopped taking med Dextran 70/Hypromellose (Artificial Tears Eye Drops*), 1 DROP BOTH EYES for Dry Eyes, (Reported) Discontinued Reason: Pt stopped taking med Docusate Sodium* (Docusate Sodium*), 100 MG ORAL TWICE A DAY, (Reported) Discontinued Reason: Pt stopped taking med Famotidine* (Pepcid 20mg tablet*), 20 MG ORAL DAILY PRN for GERD, (Reported) Discontinued Reason: Pt stopped taking med Gabapentin* (Gabapentin*), 300 MG ORAL QHS, (Reported) Discontinued Reason: Pt stopped taking med Heparin Sod (Porcine) (Heparin Sodium*), 5,000 UNITS SUBQ EVERY 8 HOURS, (Reported) Discontinued Reason: Pt stopped taking med Insulin Glargine (Lantus), 4 UNITS SUBQ EVERY MORNING, (Reported) Discontinued Reason: Pt stopped taking med Lidocaine Patch* (Lidoderm Patch*), 1 PATCH TOPIC DAILY PRN for Mild Pain (Pain Scale 1-3), (Reported) Discontinued Reason: Pt stopped taking med Magnesium Oxide (Magnesium Oxide), 400 MG ORAL DAILY, (Reported) Discontinued Reason: Pt stopped taking med Metoprolol Tartrate* (Metoprolol Tartrate*), 12.5 MG ORAL EVERY 12 HOURS, (Reported) Discontinued Reason: Pt stopped taking med Metronidazole* (Flagyl*), 500 MG ORAL BID, (Reported) Discontinued Reason: Pt stopped taking med Multivitamin (Multivitamin), 1 EACH PO DAILY, (Reported) Discontinued Reason: Pt stopped taking med Polyethylene Glycol 3350* (Miralax*), 17 GM ORAL DAILY PRN for Constipation, (Reported) Discontinued Reason: Pt stopped taking med Rosuvastatin Calcium* (Crestor*), 5 MG ORAL QHS, (Reported) Discontinued Reason: Pt stopped taking med Sitagliptin* (Januvia*), 25 MG ORAL DAILY, (Reported) Discontinued Reason: Pt stopped taking med Sodium Bicarbonate (Sodium Bicarbonate), 650 MG ORAL THREE TIMES A DAY Discontinued Reason: Pt stopped taking med Tamsulosin HCl (Flomax), 0.4 MG ORAL DAILY, (Reported) Discontinued Reason: Pt stopped taking med Vancomycin/Water For Inj (Vancomycin 1.5 Gram/300 ml Bag), 1.5 GM IV EVERY 36 HOURS, (Reported) Discontinued Reason: Pt stopped taking med Vitamin B Cmplx/Vit C/Folic AC (Nephro-Alberto Tablet), 1 TAB ORAL DAILY, (Reported) Discontinued Reason: Pt stopped taking med Zinc Sulfate (Zinc Sulfate*), 220 MG ORAL DAILY, (Reported) Discontinued Reason: Pt stopped taking med [Iron Supplement], ORAL DAILY, (Reported) Discontinued Reason: Pt stopped taking med Patient History Healthcare decision maker Resuscitation status Advanced Directive on File Patient History Narrative . Pmhx: as above Shx: Denies: smoking, alcohol use, drug use Fhx: non contributory Review of Systems All Other Systems: negative except mentioned in HPI Physical Exam Physical Exam Narrative LUNGS: Clear. CARDIOVASCULAR: Regular rate and rhythm. ABDOMEN: Soft. Slightly distended in the suprapubic area. Suprapubic site is somewhat has mucous erosions, otherwise intact. Last 24 Hour Vital Signs Date Time Temp Pulse Resp B/P (MAP) Pulse Ox O2 Delivery O2 Flow Rate FiO2 04/01/20 12:00 98.0 70 18 100/53 (69) 97 04/01/20 09:00 Room Air 04/01/20 08:40 70 110/58 04/01/20 08:00 97.7 70 18 110/58 (75) 97 04/01/20 04:00 97.6 67 17 101/52 (68) 97 03/31/20 21:00 70 98/54 03/31/20 20:37 Room Air 03/31/20 20:01 97.2 70 18 98/54 (69) 98 03/31/20 18:24 Room Air 03/31/20 16:00 97.9 74 18 112/57 (75) 97 03/31/20 16:00 97.9 74 18 112/57 (75) 97 03/31/20 15:44 98.6 89 18 108/62 92 Room Air Intake and Output0 03/31/20 04/01/20 19:00 07:00 Intake Total 100 ml Output Total 100 ml 1200 ml Balance 0 ml -1200 ml Intake Oral 100 ml Output Urine Total 100 ml 1200 ml # Voids 1 Laboratory Tests Test 03/31/20 16:56 04/01/20 08:30 04/01/20 11:10 04/01/20 12:45 POC Whole Blood Glucose Pending 101 MG/DL (74-106) White Blood Count 8.2 K/UL (4.8-10.8) Red Blood Count 2.93 M/UL (4.70-6.10) L Hemoglobin 8.8 G/DL (14.2-18.0) L Hematocrit 27.1 % (42.0-52.0) L Mean Corpuscular Volume 93 FL (80-99) Mean Corpuscular Hemoglobin 30.0 PG (27.0-31.0) Mean Corpuscular Hemoglobin Concent 32.4 G/DL (32.0-36.0) Red Cell Distribution Width 16.2 % (11.6-14.8) H Platelet Count 193 K/UL (150-450) Mean Platelet Volume 6.2 FL (6.5-10.1) L Neutrophils (%) (Auto) 62.5 % (45.0-75.0) Lymphocytes (%) (Auto) 24.2 % (20.0-45.0) Monocytes (%) (Auto) 9.3 % (1.0-10.0) Eosinophils (%) (Auto) 2.1 % (0.0-3.0) Basophils (%) (Auto) 1.9 % (0.0-2.0) Sodium Level 139 MMOL/L (136-145) Potassium Level 3.5 MMOL/L (3.5-5.1) Chloride Level 107 MMOL/L (98-107) Carbon Dioxide Level 28 MMOL/L (21-32) Anion Gap 4 mmol/L (5-15) L Blood Urea Nitrogen 20 mg/dL (7-18) H Creatinine 1.6 MG/DL (0.55-1.30) H Estimat Glomerular Filtration Rate 42.3 mL/min (>60) Glucose Level 100 MG/DL (74-106) Uric Acid 2.8 MG/DL (2.6-7.2) Calcium Level 7.7 MG/DL (8.5-10.1) L Total Bilirubin 0.4 MG/DL (0.2-1.0) Aspartate Amino Transf (AST/SGOT) 27 U/L (15-37) Alanine Aminotransferase (ALT/SGPT) 14 U/L (12-78) Alkaline Phosphatase 84 U/L (46-116) Total Creatine Kinase 32 U/L (26-308) Total Protein 5.2 G/DL (6.4-8.2) L Albumin 1.9 G/DL (3.4-5.0) L Globulin 3.3 g/dL Albumin/Globulin Ratio 0.6 (1.0-2.7) L Triglycerides Level 56 MG/DL (30-150) Cholesterol Level 80 MG/DL (< 200) LDL Cholesterol 49 mg/dL (<100) HDL Cholesterol 23 MG/DL (40-60) L Cholesterol/HDL Ratio 3.5 (3.3-4.4) Urine Color Pale yellow Urine Appearance Cloudy Urine pH 5 (4.5-8.0) Urine Specific [place] 1.015 (1.005-1.035) Urine Protein 2+ (NEGATIVE) H Urine Glucose (UA) Negative (NEGATIVE) Urine Ketones Negative (NEGATIVE) Urine Blood 5+ (NEGATIVE) H Urine Nitrite Negative (NEGATIVE) Urine Bilirubin Negative (NEGATIVE) Urine Urobilinogen Normal MG/DL (0.0-1.0) Urine Leukocyte Esterase 3+ (NEGATIVE) H Urine RBC 10-15 /HPF (0 - 0) H Urine WBC Tntc /HPF (0 - 0) H Urine Squamous Epithelial Cells Occasional /LPF Urine Bacteria Few /HPF (NONE) Urine Yeast Few /HPF (NONE) H Height (Feet): 6 Height (Inches): 0.00 Weight (Pounds): 220 Medications Current Medications Medications (Trade) Dose Ordered Sig/Lauren Route PRN Reason Start Time Stop Time Status Last Admin Dose Admin Acetaminophen (Tylenol) 650 mg Q4H PRN ORAL fever 03/31/20 15:00 04/30/20 14:59 Amiodarone HCl (Cordarone) 200 mg EVERY 12 HOURS ORAL 03/31/20 21:00 06/29/20 20:59 04/01/20 08:39 Dextrose (Dextrose 50%) 25 ml Q30M PRN IV Hypoglycemia 03/31/20 15:00 06/29/20 14:59 Dextrose (Dextrose 50%) 50 ml Q30M PRN IV Hypoglycemia 03/31/20 15:00 06/29/20 14:59 Gabapentin (Neurontin) 300 mg QHS ORAL 03/31/20 21:00 04/30/20 20:59 03/31/20 21:01 Heparin Sodium (Porcine) (Heparin 5000 units/ml) 5,000 units EVERY 12 HOURS SUBQ 03/31/20 21:00 05/15/20 20:59 04/01/20 08:41 Insulin Aspart (NovoLOG) BEFORE MEALS AND HS SUBQ 03/31/20 16:30 06/29/20 16:29 Metoprolol Tartrate (Lopressor) 12.5 mg EVERY 12 HOURS ORAL 03/31/20 21:00 06/29/20 20:59 04/01/20 08:40 Ondansetron HCl (Zofran) 4 mg Q6H PRN IVP Nausea & Vomiting 03/31/20 15:00 04/30/20 14:59 Polyethylene Glycol (Miralax) 17 gm HSPRN PRN ORAL Constipation 03/31/20 15:00 04/30/20 14:59 Sitagliptin Phosphate (Januvia) 25 mg DAILY ORAL 04/01/20 09:00 05/01/20 08:59 04/01/20 08:39 Zolpidem Tartrate (Ambien) 5 mg HSPRN PRN ORAL Insomnia 03/31/20 15:00 04/07/20 14:59 Assessment/Plan Assessment/Plan: Abx: None Assessment: UTI -u/a wbc tnct, nit neg, leuk +3; ucx p Probable PNA- r/o COVID19 -CXR: Right basilar infiltrate, suspicious for pneumonia/ Possible left basilar infiltrate as well Afebrile No leukocytosis Urinary retention Sp accidental removal SPC w/ unsuccessful replacement -s/p Shabazz insertion DM2 HTN BPH CKD urinary retention sp suprapubic catheter [place] resident ([facility]) Plan: -Start Cefepime pending ucx -f/u cx -Monitor CBC/CMP, temperatures -Uro f/u -COVID19 isolation and testing Thank you for this consultation. Will continue to follow along with you. Discussed with Yudelka Fonseca M.D. Apr 01, 2020 15:43
[2020-04-01 16:00] VITALS: BP 98/58
[2020-04-01] MEDS: Cefepime HCl 1 GM in D5W 55 ML IVPB SCH (17:17)
[2020-04-01] MEDS ORDERED: AMIODARONE HCL200 MG ORAL (17:30)
[2020-04-01] MEDS ORDERED: FUROSEMIDE40 MG ORAL (17:30)
[2020-04-01] MEDS ORDERED: SERTRALINE HCL25 MG ORAL (17:30)
[2020-04-01] MEDS ORDERED: ATORVASTATIN CA80 MG ORAL (17:32)
[2020-04-01] MEDS ORDERED: LEVOTHYROXINE75 MCG ORAL (17:32)
[2020-04-01] MEDS ORDERED: GLYCOPYRROLATE2 MG PO (17:34)
[2020-04-01] MEDS ORDERED: DOCUSATE SODIU250 MG ORAL (17:36)
--- NOTE | 2020-04-01 18:14 | History and Physical Report ---
DATE OF ADMISSION: 03/31/2020 CHIEF COMPLAINT: The patient is a 74-year-old male, who presents with a chief complaint of suprapubic catheter malfunction. HISTORY OF PRESENT ILLNESS: The patient was admitted to [facility] from March 02 to March 04, 2020. Please see history and physical and discharge summary dictated at that time. The patient has a history of right femur fracture in January of 2020. The patient is status post right femur IM nail removal and distal femur replacement on January 28, 2020. The patient was then admitted to [facility] on March 02, 2020 for renal failure and urinary tract infection. The patient is a resident of [facility]. Apparently, the patient pulled out his suprapubic catheter on March 30, 2020. The patient presented to [place] emergency room on March 31, 2020. The patient is admitted with malfunction of suprapubic catheter. REVIEW OF SYSTEMS: Unable to assess secondary to the patient's mental status. PAST MEDICAL HISTORY: Significant for: 1. Type 2 diabetes. 2. Hypothyroidism. 3. Chronic kidney disease. 4. Hypertension. 5. Benign prostatic hypertrophy. 6. Diastolic congestive heart failure. PAST SURGICAL HISTORY: Significant for right femur IM nail removal and distal femur replacement on January 28, 2020. CURRENT MEDICATIONS: 1. Tylenol 650 mg p.o. q.8 h. p.r.n. 2. Amiodarone 400 mg p.o. twice daily. 3. Vitamin C 500 mg p.o. daily. 4. Aspirin 81 mg p.o. daily. 5. Bisacodyl 10 mg p.o. p.r.n. 6. Ciprofloxacin 500 mg p.o. twice daily. 7. Cefepime 2 g IV q.24 h. 8. Docusate 100 mg p.o. twice daily. 9. Famotidine 20 mg p.o. daily. 10. Gabapentin 300 mg p.o. nightly. 11. Heparin 5000 units subcutaneously q.8 h. 12. Lantus insulin 4 units subcutaneously q.a.m. 13. Lidoderm patch applied daily. 14. Magnesium oxide 400 mg p.o. daily. 15. Meclizine 12.5 mg p.o. twice daily. 16. Metoprolol 12.5 mg p.o. twice daily. 17. Metronidazole 500 mg p.o. twice daily. 18. MiraLAX 17 g p.o. daily. 19. Crestor 5 mg p.o. nightly. 20. Januvia 25 mg p.o. daily. 21. Sodium bicarb 650 mg p.o. three times daily. 22. Flomax 0.4 mg p.o. daily. 23. Vancomycin 1.5 g IV q.36 h. 24. Vitamin B complex daily. 25. Zinc sulfate 220 mg p.o. daily. ALLERGIES: No known drug allergies. SOCIAL HISTORY: The patient is and is a resident of [facility]. PHYSICAL EXAMINATION: VITAL SIGNS: Temperature 98.6, respirations 18, pulse 69, blood pressure 108/62. GENERAL: The patient is a well-developed and well-nourished male, in no apparent distress. HEENT: Eyes, pupils are equal and responsive to light and accommodation. Extraocular movements are intact. NECK: Supple without lymphadenopathy. CHEST: Lungs are clear to auscultation bilaterally without wheezes or rales. CARDIOVASCULAR: Regular rate. S1, S2 normal without murmurs, rubs, or gallops. ABDOMEN: Soft, nontender, and nondistended. Positive bowel sounds. No evidence of hepatosplenomegaly. Currently, no rebound or guarding noted. EXTREMITIES: Negative for clubbing, cyanosis, or edema. RECTAL/GENITAL: Not performed. NEUROLOGIC: Cranial nerves II through XII are grossly intact without focal deficits. Motor strength is 5/5 bilaterally. Deep tendon reflexes are 2+ plantar. LABORATORY STUDIES: WBC 9.3, hemoglobin 10.1, hematocrit 38.4, and platelets 199,000. Sodium 140, potassium 3.8, chloride 105, CO2 26, BUN 20, creatinine 1.5. Glucose 133. Urinalysis showed 2+ protein, 5+ blood, 3+ leukocyte esterase with wbc's too numerous to count. Chest x-ray showed right basilar infiltrate suspicious for pneumonia. ASSESSMENT: This is a 74-year-old male with: 1. Suprapubic catheter malfunction. 2. Urinary tract infection. 3. Right pneumonia. 4. Diabetes type 2. 5. Hypothyroidism. 6. Chronic renal failure. 7. Hypertension. 8. Benign prostatic hypertrophy. 9. Diastolic congestive heart failure. TREATMENT: 1. Suprapubic catheter malfunction. A Urology consultation has been obtained with Dr. Herndon. Follow recommendations of Urology. 2. Urinary tract infection. A urine culture is pending. The patient has been started empirically on intravenous cefepime. Await urine culture results. An Infectious Disease consultation has been obtained with Dr. Nicole. 3. Pneumonia. A Pulmonary consultation has been obtained with Dr. Miguel Bagley. As above, the patient has been placed empirically on cefepime. Follow recommendations of Pulmonary. 4. Diabetes type 2. NovoLog sliding scale has been instituted. 5. Hypothyroidism. Continue Synthroid as above. 6. Chronic renal failure. 7. Hypertension. Continue metoprolol as above. 8. Benign prostatic hypertrophy. Continue Flomax as above. A Urology consultation has been obtained with Dr. Herndon. 9. Diastolic congestive heart failure. Brennan Haley M.D. DR: SERA JOB#: [id number] CC:
[2020-04-01 19:53] VITALS: BP 96/61
[2020-04-02] VITALS: BP 98/52
[2020-04-02 04:00] VITALS: BP 96/57
[2020-04-02] MEDS: NovoLOG Insulin Flexpen SUBQ SCH ×4 (06:20→20:37)
[2020-04-02 08:00] VITALS: BP 100/53
[2020-04-02 08:41] LABS: HEMOGLOBIN 9.2 G/DL (14.2-18.0); MEAN CORPUSCULAR VOLUME 93 FL (80-99); PLATELET COUNT 195 K/UL (150-450); RED BLOOD COUNT 3.01 M/UL (4.70-6.10); RED CELL DISTRIBUTION WIDTH 16.2 % (11.6-14.8)
[2020-04-02 08:48] LABS: INR 1.1 (0.9-1.1)
[2020-04-02 08:59] LABS: CALCIUM 8.1 MG/DL (8.5-10.1); CREATININE 1.7 MG/DL (0.55-1.30); POTASSIUM 3.4 MMOL/L (3.5-5.1)
[2020-04-02] MEDS: Amiodarone 200mg tab ORAL SCH ×2 (09:00→21:00)
[2020-04-02] MEDS: Metoprolol Tartrate 12.5mg TAB ORAL SCH ×2 (09:00→21:00)
[2020-04-02 09:03] LABS: LACTATE DEHYDROGENASE 280 U/L (81-234)
[2020-04-02 09:47] LABS: % IRON SATURATION 31 % (15-50); IRON 36 ug/dL (50-175); TOTAL IRON BINDING CAPACITY 118 ug/dL (250-450)
[2020-04-02] MEDS: Heparin 5000 units/ml inj SUBQ SCH ×2 (09:56→21:00)
[2020-04-02] MEDS: sitaGLIPtin 25mg tab ORAL SCH (09:58)
[2020-04-02 12:00] VITALS: BP 123/53
[2020-04-02 16:00] VITALS: BP 111/59
--- NOTE | 2020-04-02 16:09 | Surgery Progress Note ---
Surgery Progress Note Subjective Additional Comments no acute events comfortable stable no n/v/f/c Objective Last 24 Hour Vital Signs Date Time Temp Pulse Resp B/P (MAP) Pulse Ox O2 Delivery O2 Flow Rate FiO2 04/02/20 12:00 97.5 64 19 123/53 (76) 99 04/02/20 09:00 Room Air 04/02/20 09:00 64 89/43 04/02/20 08:00 98.7 66 17 100/53 (69) 99 04/02/20 04:00 98.2 64 16 96/57 (70) 96 04/02/20 00:00 98.5 66 17 98/52 (67) 96 04/01/20 20:47 60 96/61 04/01/20 20:26 Room Air 04/01/20 19:53 98.2 60 17 96/61 (73) 97 I&O Intake and Output 04/01/20 04/02/20 19:00 07:00 Intake Total 200 ml 360 ml Output Total 400 ml 1100 ml Balance -200 ml -740 ml Intake Oral 200 ml 360 ml Output Urine Total 400 ml 1100 ml # Voids 1 Dressing: other Wound: other Cardiovascular: RSR Respiratory: decreased breath sounds Abdomen: soft, non-tender, present bowel sounds Extremities: no tenderness, no cyanosis Laboratory Tests Test 04/02/20 05:28 04/02/20 07:50 04/02/20 09:47 04/02/20 12:16 POC Whole Blood Glucose 100 MG/DL (74-106) Pending 132 MG/DL (74-106) H White Blood Count 8.0 K/UL (4.8-10.8) Red Blood Count 3.01 M/UL (4.70-6.10) L Hemoglobin 9.2 G/DL (14.2-18.0) L Hematocrit 28.0 % (42.0-52.0) L Mean Corpuscular Volume 93 FL (80-99) Mean Corpuscular Hemoglobin 30.6 PG (27.0-31.0) Mean Corpuscular Hemoglobin Concent 32.9 G/DL (32.0-36.0) Red Cell Distribution Width 16.2 % (11.6-14.8) H Platelet Count 195 K/UL (150-450) Mean Platelet Volume 6.5 FL (6.5-10.1) Neutrophils (%) (Auto) % (45.0-75.0) Lymphocytes (%) (Auto) % (20.0-45.0) Monocytes (%) (Auto) % (1.0-10.0) Eosinophils (%) (Auto) % (0.0-3.0) Basophils (%) (Auto) % (0.0-2.0) Differential Total Cells Counted 100 Neutrophils % (Manual) 73 % (45-75) Lymphocytes % (Manual) 17 % (20-45) L Monocytes % (Manual) 8 % (1-10) Eosinophils % (Manual) 2 % (0-3) Basophils % (Manual) 0 % (0-2) Band Neutrophils 0 % (0-8) Platelet Estimate Adequate Platelet Morphology Normal Anisocytosis 1+ Erythrocyte Sedimentation Rate 69 MM/HR (0-20) H Reticulocyte Count 0.8 % (0.5-2.0) Prothrombin Time 12.5 SEC (9.30-11.50) H Prothromb Time International Ratio 1.1 (0.9-1.1) Activated Partial Thromboplast Time 34 SEC (23-33) H Sodium Level 142 MMOL/L (136-145) Potassium Level 3.4 MMOL/L (3.5-5.1) L Chloride Level 106 MMOL/L (98-107) Carbon Dioxide Level 29 MMOL/L (21-32) Anion Gap 7 mmol/L (5-15) Blood Urea Nitrogen 22 mg/dL (7-18) H Creatinine 1.7 MG/DL (0.55-1.30) H Estimat Glomerular Filtration Rate 39.5 mL/min (>60) Glucose Level 97 MG/DL (74-106) Calcium Level 8.1 MG/DL (8.5-10.1) L Phosphorus Level 3.0 MG/DL (2.5-4.9) Magnesium Level 1.6 MG/DL (1.8-2.4) L Iron Level 36 ug/dL (50-175) L Total Iron Binding Capacity 118 ug/dL (250-450) L Percent Iron Saturation 31 % (15-50) Unsaturated Iron Binding 82 ug/dL (112-346) L Lactate Dehydrogenase 280 U/L (81-234) H C-Reactive Protein, Quantitative 8.0 mg/dL (0.00-0.90) H Carcinoembryonic Antigen Pending Vitamin B12 Level 925 PG/ML (193-986) Folate 18.5 NG/ML (8.6-58.9) Plan Problems: (1) Suprapubic catheter (2) UTI (urinary tract infection) (3) Osteomyelitis (4) Uncontrolled diabetes mellitus (5) Hypothyroidism (6) Diabetes mellitus (7) Sacral decubitus ulcer Assessment & Plan: Pt presented on admission with multiple Pressure Injuries. Resolving Pressure Sacral Pressure Injury.Clusters of full thickness pressure ulcers in close proximity that are moist and pink at bases. Surrounding maroon borders but without induration.(L)10.5cm x (W)10cm. BIlat lower ext are edematous. DTPI distal/lateral L Tibia(L)11.4cm x (W)2.7cm. Base of injury is purpuric with maroon borders. DTPI lateral L Malleolus(L)1cm x (W)0.7cm. Base of injury is maroon and indurated. Non-Blanchable erythema without induration or fluctuance medial L foot (L)1.6cm x (W)1cm. Unstageable Pressure injury R heel(L)7.7cm x (W)6.8cm. Base of is 70%necrotic and dry,10% slough with remaining 20% alyssia base. Marginal erythema along edges.Periwound is fluctuant with pale skin color. DTPI Lateral R Malleolus(L)2.6cm x (W)1.4cm. Base of injury is purpuric with maroon borders. DTPI medial R Malleolus(L)2.5cm x (W)2.4cm. Base of injury is purpuric with maroon borders. DTPI medial R foot (L)1.3cm x (W)3.6cm. Base of injury is indurated purpuric with surrounding maroon borders that are irregular. DTPI lateral R foot (L)0.7cm x (W)0.9cm. Base of injury is maroon in colour with marginal erythema. DTPI noted to tip of R 1st metatarsal(L)1.4cm x (W)1.2cm. Base of injury presents as an intact blood Blister. Unstageable Pressure injury lateral R 1st metatarsal(L)0.5cm x (W)0.8cm. Dry eschar with marginal erythema along edges. DTPI tip of R 2nd metatarsal.(L)1cm x (W)1.3cm. Base of injury presents as an intact blood blister with marginal erythema along edges. Surgical incisions noted to R hip, R femur and R knee. Incision sites approximated with oswaldo that are intact and dry. No erythema noted. Tx.Plan: Apply Moisture Barrier Paste to Sacrum. Cover with Optifoam drsgs. Change every 3 days and prn. Apply Betadine to DTPI's L Tibia, R and L feet. Cover each site with Optifoam drsgs. Change every 7 days and prn. Cleanse R Heel with Saline. Apply TheraHoney.Apply Maxsorb Extra(calcium Alginate. Apply Cavilon Skin Barrier periwound. Cover with Abd Pad and wrap with Kerlix Daily and prn. Reposition at least every 2hours or as tolerated. Off-load heels with pillows. (8) Renal insufficiency (9) Suprapubic catheter dysfunction Assessment & Plan: changed by urology catheter in now good uop monitor (10) BPH (benign prostatic hyperplasia) (11) Urinary retention Guy Oakley Apr 02, 2020 16:09
[2020-04-02] MEDS: Cefepime HCl 1 GM in D5W 55 ML IVPB SCH (17:23)
--- NOTE | 2020-04-02 17:39 | Infectious Diseases Prog Note ---
Assessment/Plan Assessment: UTI -u/a wbc tnct, nit neg, leuk +3; ucx >100k yeast, >100k TNR Probable PNA -04/01 rapid COVID PCR neg -CXR: Right basilar infiltrate, suspicious for pneumonia/ Possible left basilar infiltrate as well Afebrile No leukocytosis Urinary retention Sp accidental removal SPC w/ unsuccessful replacement -s/p Barnett insertion DM2 HTN BPH CKD urinary retention sp suprapubic catheter [facility] resident ([facility]) Plan: -Cont Cefepime #2 pending ucx -f/u cx -Monitor CBC/CMP, temperatures -Uro f/u -COVID19 neg x1 -CXR am Thank you for this consultation. Will continue to follow along with you. Discussed with RN Subjective Allergies: Coded Allergies: No Known Allergies (Unverified , 03/01/20) afebrile no leukcoytosis Objective Last 24 Hour Vital Signs Date Time Temp Pulse Resp B/P (MAP) Pulse Ox O2 Delivery O2 Flow Rate FiO2 04/02/20 16:00 97.7 65 18 111/59 (76) 99 04/02/20 12:00 97.5 64 19 123/53 (76) 99 04/02/20 09:00 Room Air 04/02/20 09:00 64 89/43 04/02/20 08:00 98.7 66 17 100/53 (69) 99 04/02/20 04:00 98.2 64 16 96/57 (70) 96 04/02/20 00:00 98.5 66 17 98/52 (67) 96 04/01/20 20:47 60 96/61 04/01/20 20:26 Room Air 04/01/20 19:53 98.2 60 17 96/61 (73) 97 Height (Feet): 6 Height (Inches): 0.00 Weight (Pounds): 220 LUNGS: Clear. CARDIOVASCULAR: Regular rate and rhythm. ABDOMEN: Soft. Slightly distended in the suprapubic area. Suprapubic site is somewhat has mucous erosions, otherwise intact. Microbiology Date/Time Source Procedure Growth Status 04/01/20 16:10 Nasopharynx SARS-CoV-2 RdRp Gene Assay - Final Complete 04/01/20 12:45 Urine,Clean Catch Urine Culture - Preliminary Gram Negative Ajay Resulted 04/01/20 09:00 Rectum - Final NO CARBAPENEM-RESISTANT ENTEROBACTERI... Complete 03/31/20 19:30 Indwelling Cath Urine Culture - Preliminary Yeast Species Resulted 03/31/20 15:15 Rectum VRE Culture - Final Enterococcus Faecium - Vre Complete 03/31/20 15:15 Nasal Nares MRSA Culture - Final NO METHICILLIN RESISTANT STAPH AUREUS... Complete Laboratory Tests Test 04/02/20 05:28 04/02/20 07:50 04/02/20 09:47 04/02/20 12:16 POC Whole Blood Glucose 100 MG/DL (74-106) Pending 132 MG/DL (74-106) H White Blood Count 8.0 K/UL (4.8-10.8) Red Blood Count 3.01 M/UL (4.70-6.10) L Hemoglobin 9.2 G/DL (14.2-18.0) L Hematocrit 28.0 % (42.0-52.0) L Mean Corpuscular Volume 93 FL (80-99) Mean Corpuscular Hemoglobin 30.6 PG (27.0-31.0) Mean Corpuscular Hemoglobin Concent 32.9 G/DL (32.0-36.0) Red Cell Distribution Width 16.2 % (11.6-14.8) H Platelet Count 195 K/UL (150-450) Mean Platelet Volume 6.5 FL (6.5-10.1) Neutrophils (%) (Auto) % (45.0-75.0) Lymphocytes (%) (Auto) % (20.0-45.0) Monocytes (%) (Auto) % (1.0-10.0) Eosinophils (%) (Auto) % (0.0-3.0) Basophils (%) (Auto) % (0.0-2.0) Differential Total Cells Counted 100 Neutrophils % (Manual) 73 % (45-75) Lymphocytes % (Manual) 17 % (20-45) L Monocytes % (Manual) 8 % (1-10) Eosinophils % (Manual) 2 % (0-3) Basophils % (Manual) 0 % (0-2) Band Neutrophils 0 % (0-8) Platelet Estimate Adequate Platelet Morphology Normal Anisocytosis 1+ Erythrocyte Sedimentation Rate 69 MM/HR (0-20) H Reticulocyte Count 0.8 % (0.5-2.0) Prothrombin Time 12.5 SEC (9.30-11.50) H Prothromb Time International Ratio 1.1 (0.9-1.1) Activated Partial Thromboplast Time 34 SEC (23-33) H Sodium Level 142 MMOL/L (136-145) Potassium Level 3.4 MMOL/L (3.5-5.1) L Chloride Level 106 MMOL/L (98-107) Carbon Dioxide Level 29 MMOL/L (21-32) Anion Gap 7 mmol/L (5-15) Blood Urea Nitrogen 22 mg/dL (7-18) H Creatinine 1.7 MG/DL (0.55-1.30) H Estimat Glomerular Filtration Rate 39.5 mL/min (>60) Glucose Level 97 MG/DL (74-106) Calcium Level 8.1 MG/DL (8.5-10.1) L Phosphorus Level 3.0 MG/DL (2.5-4.9) Magnesium Level 1.6 MG/DL (1.8-2.4) L Iron Level 36 ug/dL (50-175) L Total Iron Binding Capacity 118 ug/dL (250-450) L Percent Iron Saturation 31 % (15-50) Unsaturated Iron Binding 82 ug/dL (112-346) L Lactate Dehydrogenase 280 U/L (81-234) H C-Reactive Protein, Quantitative 8.0 mg/dL (0.00-0.90) H Carcinoembryonic Antigen Pending Vitamin B12 Level 925 PG/ML (193-986) Folate 18.5 NG/ML (8.6-58.9) Current Medications Medications (Trade) Dose Ordered Sig/Lauren Route PRN Reason Start Time Stop Time Status Last Admin Dose Admin Acetaminophen (Tylenol) 650 mg Q4H PRN ORAL fever 03/31/20 15:00 04/30/20 14:59 Amiodarone HCl (Cordarone) 200 mg EVERY 12 HOURS ORAL 03/31/20 21:00 06/29/20 20:59 04/01/20 20:46 Cefepime HCl 1 gm/ Dextrose 55 ml @ 110 mls/hr Q24H IVPB 04/01/20 17:00 04/08/20 16:59 04/02/20 17:23 Dextrose (Dextrose 50%) 25 ml Q30M PRN IV Hypoglycemia 03/31/20 15:00 06/29/20 14:59 Dextrose (Dextrose 50%) 50 ml Q30M PRN IV Hypoglycemia 03/31/20 15:00 06/29/20 14:59 Gabapentin (Neurontin) 300 mg QHS ORAL 03/31/20 21:00 04/30/20 20:59 04/01/20 20:46 Heparin Sodium (Porcine) (Heparin 5000 units/ml) 5,000 units EVERY 12 HOURS SUBQ 03/31/20 21:00 05/15/20 20:59 04/02/20 09:56 Insulin Aspart (NovoLOG) BEFORE MEALS AND HS SUBQ 03/31/20 16:30 06/29/20 16:29 Metoprolol Tartrate (Lopressor) 12.5 mg EVERY 12 HOURS ORAL 03/31/20 21:00 06/29/20 20:59 04/01/20 08:40 Ondansetron HCl (Zofran) 4 mg Q6H PRN IVP Nausea & Vomiting 03/31/20 15:00 04/30/20 14:59 Polyethylene Glycol (Miralax) 17 gm HSPRN PRN ORAL Constipation 03/31/20 15:00 04/30/20 14:59 Sitagliptin Phosphate (Januvia) 25 mg DAILY ORAL 04/01/20 09:00 05/01/20 08:59 04/02/20 09:58 Zolpidem Tartrate (Ambien) 5 mg HSPRN PRN ORAL Insomnia 03/31/20 15:00 04/07/20 14:59 Yudelka Nicole M.D. Apr 02, 2020 17:39
--- NOTE | 2020-04-02 17:51 | Pulmonology Progress Note ---
Subjective ROS Limited/Unobtainable: Yes Allergies: Coded Allergies: No Known Allergies (Unverified , 03/01/20) Objective Last 24 Hour Vital Signs Date Time Temp Pulse Resp B/P (MAP) Pulse Ox O2 Delivery O2 Flow Rate FiO2 04/02/20 16:00 97.7 65 18 111/59 (76) 99 04/02/20 12:00 97.5 64 19 123/53 (76) 99 04/02/20 09:00 Room Air 04/02/20 09:00 64 89/43 04/02/20 08:00 98.7 66 17 100/53 (69) 99 04/02/20 04:00 98.2 64 16 96/57 (70) 96 04/02/20 00:00 98.5 66 17 98/52 (67) 96 04/01/20 20:47 60 96/61 04/01/20 20:26 Room Air 04/01/20 19:53 98.2 60 17 96/61 (73) 97 Intake and Output 04/01/20 04/02/20 19:00 07:00 Intake Total 200 ml 360 ml Output Total 400 ml 1100 ml Balance -200 ml -740 ml Intake Oral 200 ml 360 ml Output Urine Total 400 ml 1100 ml # Voids 1 General Appearance: WD/WN HEENT: normocephalic, atraumatic Respiratory: chest wall non-tender, lungs clear Cardiovascular: normal peripheral pulses, normal rate Abdomen: normal bowel sounds, soft, non tender Genitourinary: normal external genitalia Extremities: no cyanosis Neurologic: office receptionist II-XII grossly normal Lymphatic: no groin adenopathy Microbiology Date/Time Source Procedure Growth Status 04/01/20 16:10 Nasopharynx SARS-CoV-2 RdRp Gene Assay - Final Complete 04/01/20 12:45 Urine,Clean Catch Urine Culture - Preliminary Gram Negative Ajay Resulted 04/01/20 09:00 Rectum - Final NO CARBAPENEM-RESISTANT ENTEROBACTERI... Complete 03/31/20 19:30 Indwelling Cath Urine Culture - Preliminary Yeast Species Resulted 03/31/20 15:15 Rectum VRE Culture - Final Enterococcus Faecium - Vre Complete 03/31/20 15:15 Nasal Nares MRSA Culture - Final NO METHICILLIN RESISTANT STAPH AUREUS... Complete Laboratory Tests 04/02/20 05:28: POC Whole Blood Glucose 100 04/02/20 07:50: White Blood Count 8.0, Red Blood Count 3.01L, Hemoglobin 9.2L, Hematocrit 28.0L, Mean Corpuscular Volume 93, Mean Corpuscular Hemoglobin 30.6, Mean Corpuscular Hemoglobin Concent 32.9, Red Cell Distribution Width 16.2H, Platelet Count 195, Mean Platelet Volume 6.5, Neutrophils (%) (Auto) , Lymphocytes (%) (Auto) , Monocytes (%) (Auto) , Eosinophils (%) (Auto) , Basophils (%) (Auto) , Differential Total Cells Counted 100, Neutrophils % (Manual) 73, Lymphocytes % (Manual) 17L, Monocytes % (Manual) 8, Eosinophils % (Manual) 2, Basophils % (Manual) 0, Band Neutrophils 0, Platelet Estimate Adequate, Platelet Morphology Normal, Anisocytosis 1+, Erythrocyte Sedimentation Rate 69H, Reticulocyte Count 0.8, Prothrombin Time 12.5H, Prothromb Time International Ratio 1.1, Activated Partial Thromboplast Time 34H, Sodium Level 142, Potassium Level 3.4L, Chloride Level 106, Carbon Dioxide Level 29, Anion Gap 7, Blood Urea Nitrogen 22H, Creatinine 1.7H, Estimat Glomerular Filtration Rate 39.5, Glucose Level 97, Calcium Level 8.1L, Phosphorus Level 3.0, Magnesium Level 1.6L, Iron Level 36L, Total Iron Binding Capacity 118L, Percent Iron Saturation 31, Unsaturated Iron Binding 82L, Lactate Dehydrogenase 280H, C-Reactive Protein, Quantitative 8.0H, Carcinoembryonic Antigen [Pending], Vitamin B12 Level 925, Folate 18.5 04/02/20 09:47: POC Whole Blood Glucose [Pending] 04/02/20 12:16: POC Whole Blood Glucose 132H Current Medications Medications (Trade) Dose Ordered Sig/Lauren Route PRN Reason Start Time Stop Time Status Last Admin Dose Admin Acetaminophen (Tylenol) 650 mg Q4H PRN ORAL fever 03/31/20 15:00 04/30/20 14:59 Amiodarone HCl (Cordarone) 200 mg EVERY 12 HOURS ORAL 03/31/20 21:00 06/29/20 20:59 04/01/20 20:46 Cefepime HCl 1 gm/ Dextrose 55 ml @ 110 mls/hr Q24H IVPB 04/01/20 17:00 04/08/20 16:59 04/02/20 17:23 Dextrose (Dextrose 50%) 25 ml Q30M PRN IV Hypoglycemia 03/31/20 15:00 06/29/20 14:59 Dextrose (Dextrose 50%) 50 ml Q30M PRN IV Hypoglycemia 03/31/20 15:00 06/29/20 14:59 Gabapentin (Neurontin) 300 mg QHS ORAL 03/31/20 21:00 04/30/20 20:59 04/01/20 20:46 Heparin Sodium (Porcine) (Heparin 5000 units/ml) 5,000 units EVERY 12 HOURS SUBQ 03/31/20 21:00 05/15/20 20:59 04/02/20 09:56 Insulin Aspart (NovoLOG) BEFORE MEALS AND HS SUBQ 03/31/20 16:30 06/29/20 16:29 Metoprolol Tartrate (Lopressor) 12.5 mg EVERY 12 HOURS ORAL 03/31/20 21:00 06/29/20 20:59 04/01/20 08:40 Ondansetron HCl (Zofran) 4 mg Q6H PRN IVP Nausea & Vomiting 03/31/20 15:00 04/30/20 14:59 Polyethylene Glycol (Miralax) 17 gm HSPRN PRN ORAL Constipation 03/31/20 15:00 04/30/20 14:59 Sitagliptin Phosphate (Januvia) 25 mg DAILY ORAL 04/01/20 09:00 05/01/20 08:59 04/02/20 09:58 Zolpidem Tartrate (Ambien) 5 mg HSPRN PRN ORAL Insomnia 03/31/20 15:00 04/07/20 14:59 Assessment/Plan Problems: (1) UTI (urinary tract infection) (2) Suprapubic catheter dysfunction (3) Diabetes mellitus (4) Hypothyroidism (5) BPH (benign prostatic hyperplasia) Assessment/Plan was hyptensive earlier, but responded to NS bolus start on IV fluids + K supplement symptomatic treatment send urine for UA and C/s iv abx pain management sliding scale diabetic diet dvt prophylaxis check last daily, f/u bun/creatinine Miguel Bagley MD Apr 02, 2020 17:51
--- NOTE | 2020-04-02 18:53 | Internal Med Progress Note ---
Subjective Date of Service: Apr 02, 2020 Physician Name HaleyBrennan Attending Physician Alfred Watts MD Current Medications Medications (Trade) Dose Ordered Sig/Lauren Route PRN Reason Start Time Stop Time Status Last Admin Dose Admin Acetaminophen (Tylenol) 650 mg Q4H PRN ORAL fever 03/31/20 15:00 04/30/20 14:59 Amiodarone HCl (Cordarone) 200 mg EVERY 12 HOURS ORAL 03/31/20 21:00 06/29/20 20:59 04/01/20 20:46 Cefepime HCl 1 gm/ Dextrose 55 ml @ 110 mls/hr Q24H IVPB 04/01/20 17:00 04/08/20 16:59 04/02/20 17:23 Dextrose (Dextrose 50%) 25 ml Q30M PRN IV Hypoglycemia 03/31/20 15:00 06/29/20 14:59 Dextrose (Dextrose 50%) 50 ml Q30M PRN IV Hypoglycemia 03/31/20 15:00 06/29/20 14:59 Dextrose/ Electrolytes 1,000 ml @ 100 mls/hr Q10H IV 04/02/20 18:30 05/02/20 18:29 Gabapentin (Neurontin) 300 mg QHS ORAL 03/31/20 21:00 04/30/20 20:59 04/01/20 20:46 Heparin Sodium (Porcine) (Heparin 5000 units/ml) 5,000 units EVERY 12 HOURS SUBQ 03/31/20 21:00 05/15/20 20:59 04/02/20 09:56 Insulin Aspart (NovoLOG) BEFORE MEALS AND HS SUBQ 03/31/20 16:30 06/29/20 16:29 Metoprolol Tartrate (Lopressor) 12.5 mg EVERY 12 HOURS ORAL 03/31/20 21:00 06/29/20 20:59 04/01/20 08:40 Ondansetron HCl (Zofran) 4 mg Q6H PRN IVP Nausea & Vomiting 03/31/20 15:00 04/30/20 14:59 Polyethylene Glycol (Miralax) 17 gm HSPRN PRN ORAL Constipation 03/31/20 15:00 04/30/20 14:59 Sitagliptin Phosphate (Januvia) 25 mg DAILY ORAL 04/01/20 09:00 05/01/20 08:59 04/02/20 09:58 Zolpidem Tartrate (Ambien) 5 mg HSPRN PRN ORAL Insomnia 03/31/20 15:00 04/07/20 14:59 Allergies: Coded Allergies: No Known Allergies (Unverified , 03/01/20) ROS Limited/Unobtainable: Yes Subjective 74 YO M admitted with suprapubic catheter malfunction. Now UTI. Cover for Int Ryan-Dr Watts Objective Last Vital Signs Date Time Temp Pulse Resp B/P (MAP) Pulse Ox O2 Delivery O2 Flow Rate FiO2 04/02/20 16:00 97.7 65 18 111/59 (76) 99 04/02/20 09:00 Room Air Laboratory Tests Test 04/02/20 05:28 04/02/20 07:50 04/02/20 09:47 04/02/20 12:16 POC Whole Blood Glucose 100 MG/DL (74-106) Pending 132 MG/DL (74-106) H White Blood Count 8.0 K/UL (4.8-10.8) Red Blood Count 3.01 M/UL (4.70-6.10) L Hemoglobin 9.2 G/DL (14.2-18.0) L Hematocrit 28.0 % (42.0-52.0) L Mean Corpuscular Volume 93 FL (80-99) Mean Corpuscular Hemoglobin 30.6 PG (27.0-31.0) Mean Corpuscular Hemoglobin Concent 32.9 G/DL (32.0-36.0) Red Cell Distribution Width 16.2 % (11.6-14.8) H Platelet Count 195 K/UL (150-450) Mean Platelet Volume 6.5 FL (6.5-10.1) Neutrophils (%) (Auto) % (45.0-75.0) Lymphocytes (%) (Auto) % (20.0-45.0) Monocytes (%) (Auto) % (1.0-10.0) Eosinophils (%) (Auto) % (0.0-3.0) Basophils (%) (Auto) % (0.0-2.0) Differential Total Cells Counted 100 Neutrophils % (Manual) 73 % (45-75) Lymphocytes % (Manual) 17 % (20-45) L Monocytes % (Manual) 8 % (1-10) Eosinophils % (Manual) 2 % (0-3) Basophils % (Manual) 0 % (0-2) Band Neutrophils 0 % (0-8) Platelet Estimate Adequate Platelet Morphology Normal Anisocytosis 1+ Erythrocyte Sedimentation Rate 69 MM/HR (0-20) H Reticulocyte Count 0.8 % (0.5-2.0) Prothrombin Time 12.5 SEC (9.30-11.50) H Prothromb Time International Ratio 1.1 (0.9-1.1) Activated Partial Thromboplast Time 34 SEC (23-33) H Sodium Level 142 MMOL/L (136-145) Potassium Level 3.4 MMOL/L (3.5-5.1) L Chloride Level 106 MMOL/L (98-107) Carbon Dioxide Level 29 MMOL/L (21-32) Anion Gap 7 mmol/L (5-15) Blood Urea Nitrogen 22 mg/dL (7-18) H Creatinine 1.7 MG/DL (0.55-1.30) H Estimat Glomerular Filtration Rate 39.5 mL/min (>60) Glucose Level 97 MG/DL (74-106) Calcium Level 8.1 MG/DL (8.5-10.1) L Phosphorus Level 3.0 MG/DL (2.5-4.9) Magnesium Level 1.6 MG/DL (1.8-2.4) L Iron Level 36 ug/dL (50-175) L Total Iron Binding Capacity 118 ug/dL (250-450) L Percent Iron Saturation 31 % (15-50) Unsaturated Iron Binding 82 ug/dL (112-346) L Lactate Dehydrogenase 280 U/L (81-234) H C-Reactive Protein, Quantitative 8.0 mg/dL (0.00-0.90) H Carcinoembryonic Antigen Pending Vitamin B12 Level 925 PG/ML (193-986) Folate 18.5 NG/ML (8.6-58.9) Microbiology Date/Time Source Procedure Growth Status 04/01/20 16:10 Nasopharynx SARS-CoV-2 RdRp Gene Assay - Final Complete 04/01/20 12:45 Urine,Clean Catch Urine Culture - Preliminary Gram Negative Ajay Resulted 04/01/20 09:00 Rectum - Final NO CARBAPENEM-RESISTANT ENTEROBACTERI... Complete 03/31/20 19:30 Indwelling Cath Urine Culture - Preliminary Yeast Species Resulted 03/31/20 15:15 Rectum VRE Culture - Final Enterococcus Faecium - Vre Complete 03/31/20 15:15 Nasal Nares MRSA Culture - Final NO METHICILLIN RESISTANT STAPH AUREUS... Complete Intake and Output 04/01/20 04/02/20 19:00 07:00 Intake Total 200 ml 360 ml Output Total 400 ml 1100 ml Balance -200 ml -740 ml Intake Oral 200 ml 360 ml Output Urine Total 400 ml 1100 ml # Voids 1 Objective PHYSICAL EXAMINATION: GENERAL: The patient is a well-developed and well-nourished male, in no apparent distress. HEENT: Eyes, pupils are equal and responsive to light and accommodation. Extraocular movements are intact. NECK: Supple without lymphadenopathy. CHEST: Lungs are clear to auscultation bilaterally without wheezes or rales. CARDIOVASCULAR: Regular rate. S1, S2 normal without murmurs, rubs, or gallops. ABDOMEN: Soft, nontender, and nondistended. Positive bowel sounds. No evidence of hepatosplenomegaly. Currently, no rebound or guarding noted. EXTREMITIES: Negative for clubbing, cyanosis, or edema. RECTAL/GENITAL: Not performed. NEUROLOGIC: Cranial nerves II through XII are grossly intact without focal deficits. Motor strength is 5/5 bilaterally. Deep tendon reflexes are 2+ plantar. Assessment/Plan Assessment/Plan ASSESSMENT: This is a 74-year-old male with: 1. Suprapubic catheter malfunction. 2. Urinary tract infection=gram neg ajay 3. Right pneumonia. 4. Diabetes type 2. 5. Hypothyroidism. 6. Chronic renal failure. 7. Hypertension. 8. Benign prostatic hypertrophy. 9. Diastolic congestive heart failure. TREATMENT: 1. Suprapubic catheter malfunction. Failed reinsertion attempt by Urology = Dr. Herndon. Urethral shabazz catheter in place. Follow recommendations of Urology. 2. Urinary tract infection. Gram neg ajay. ID and sensitivities are pending. The patient has been started empirically on intravenous cefepime. An Infectious Disease consultation has been obtained with Dr. Nicole. 3. Pneumonia. A Pulmonary consultation has been obtained with Dr. Miguel Bagley. As above, the patient has been placed empirically on cefepime. Follow recommendations of Pulmonary. 4. Diabetes type 2. NovoLog sliding scale has been instituted. 5. Hypothyroidism. Continue Synthroid as above. 6. Chronic renal failure. 7. Hypertension. Continue metoprolol as above. 8. Benign prostatic hypertrophy. Continue Flomax as above. A Urology consultation has been obtained with Dr. Herndon. 9. Diastolic congestive heart failure. Brennan Haley MD Apr 02, 2020 18:53
[2020-04-02] MEDS: D5 1/2NS w/KCl 20mEq 1,000 ML IV SCH (19:11)
[2020-04-02 20:00] VITALS: BP 104/58
[2020-04-03] VITALS: BP 116/64
[2020-04-03] MEDS: D5 1/2NS w/KCl 20mEq 1,000 ML IV SCH ×2 (04:30→15:35)
[2020-04-03] MEDS: NovoLOG Insulin Flexpen SUBQ SCH ×4 (05:16→21:00)
[2020-04-03 06:25] LABS: BASOPHILS % (AUTO) 3.1 % (0.0-2.0); EOSINOPHILS % (AUTO) 1.9 % (0.0-3.0); HEMATOCRIT 26.7 % (42.0-52.0); HEMOGLOBIN 8.9 G/DL (14.2-18.0); LYMPHOCYTES % (AUTO) 17.9 % (20.0-45.0); MEAN CORPUSCULAR VOLUME 93 FL (80-99); MONOCYTES % (AUTO) 8.1 % (1.0-10.0); NEUTROPHILS % (AUTO) 69.1 % (45.0-75.0); PLATELET COUNT 183 K/UL (150-450); RED BLOOD COUNT 2.88 M/UL (4.70-6.10); WHITE BLOOD COUNT 8.9 K/UL (4.8-10.8)
[2020-04-03 07:40] LABS: ALBUMIN 1.9 G/DL (3.4-5.0); ALBUMIN/GLOBULIN RATIO 0.5 (1.0-2.7); BILIRUBIN,TOTAL 0.2 MG/DL (0.2-1.0); CALCIUM 7.6 MG/DL (8.5-10.1); CREATININE 1.7 MG/DL (0.55-1.30); PHOSPHORUS 2.7 MG/DL (2.5-4.9); POTASSIUM 3.6 MMOL/L (3.5-5.1)
[2020-04-03] MEDS: Amiodarone 200mg tab ORAL SCH ×2 (08:49→21:00)
[2020-04-03] MEDS: Metoprolol Tartrate 12.5mg TAB ORAL SCH ×3 (08:49→21:00)
[2020-04-03] MEDS: sitaGLIPtin 25mg tab ORAL SCH (08:49)
[2020-04-03] MEDS: Heparin 5000 units/ml inj SUBQ SCH ×2 (08:50→21:00)
[2020-04-03 08:54] VITALS: BP 101/51
--- NOTE | 2020-04-03 10:55 | Infectious Diseases Prog Note ---
Assessment/Plan Assessment: UTI -u/a wbc tnct, nit neg, leuk +3; ucx >100k yeast, >100k TNR Probable PNA -04/01 rapid COVID PCR neg -CXR: Right basilar infiltrate, suspicious for pneumonia/ Possible left basilar infiltrate as well Afebrile No leukocytosis Urinary retention Sp accidental removal SPC w/ unsuccessful replacement -s/p Barnett insertion DM2 HTN BPH CKD urinary retention sp suprapubic catheter [facility] resident ([facility]) Plan: -Cont Cefepime #3 pending ucx -f/u cx -Monitor CBC/CMP, temperatures -Uro f/u -COVID19 neg x1 -CXR am Thank you for this consultation. Will continue to follow along with you. Discussed with RN Subjective Allergies: Coded Allergies: No Known Allergies (Unverified , 03/01/20) Afebrile No Leukocytosis Urine Cx results still pending Objective Last 24 Hour Vital Signs Date Time Temp Pulse Resp B/P (MAP) Pulse Ox O2 Delivery O2 Flow Rate FiO2 04/03/20 09:00 Room Air 04/03/20 08:54 97.5 71 18 101/51 (68) 98 04/03/20 08:51 71 101/51 04/03/20 00:00 98.2 74 18 116/64 (81) 95 04/02/20 21:00 69 104/57 04/02/20 21:00 Room Air 04/02/20 20:00 97.7 69 18 104/58 (73) 98 04/02/20 16:00 97.7 65 18 111/59 (76) 99 04/02/20 12:00 97.5 64 19 123/53 (76) 99 Height (Feet): 6 Height (Inches): 0.00 Weight (Pounds): 220 GENERAL: NAD on 2L nC HEENT: NCAT, MMM, EOMI LUNGS: Equal rise and fall of chest B/L no accessory muscle use ABDOMEN: Soft, nondistended, Suprapubic site has mucous erosions EXTREMITIES: No cyanosis, clubbing, or edema. Microbiology Date/Time Source Procedure Growth Status 04/01/20 16:10 Nasopharynx SARS-CoV-2 RdRp Gene Assay - Final Complete 04/01/20 12:45 Urine,Clean Catch Urine Culture - Preliminary Gram Negative Ajay Resulted 04/01/20 09:00 Rectum - Final NO CARBAPENEM-RESISTANT ENTEROBACTERI... Complete 03/31/20 19:30 Indwelling Cath Urine Culture - Final Chaparrita Albicans Complete 03/31/20 15:15 Rectum VRE Culture - Final Enterococcus Faecium - Vre Complete 03/31/20 15:15 Nasal Nares MRSA Culture - Final NO METHICILLIN RESISTANT STAPH AUREUS... Complete Laboratory Tests Test 04/02/20 12:16 04/02/20 17:05 04/03/20 05:13 04/03/20 05:30 POC Whole Blood Glucose 132 MG/DL (74-106) H Pending 155 MG/DL (74-106) H White Blood Count 8.9 K/UL (4.8-10.8) Red Blood Count 2.88 M/UL (4.70-6.10) L Hemoglobin 8.9 G/DL (14.2-18.0) L Hematocrit 26.7 % (42.0-52.0) L Mean Corpuscular Volume 93 FL (80-99) Mean Corpuscular Hemoglobin 30.9 PG (27.0-31.0) Mean Corpuscular Hemoglobin Concent 33.3 G/DL (32.0-36.0) Red Cell Distribution Width 16.0 % (11.6-14.8) H Platelet Count 183 K/UL (150-450) Mean Platelet Volume 5.9 FL (6.5-10.1) L Neutrophils (%) (Auto) 69.1 % (45.0-75.0) Lymphocytes (%) (Auto) 17.9 % (20.0-45.0) L Monocytes (%) (Auto) 8.1 % (1.0-10.0) Eosinophils (%) (Auto) 1.9 % (0.0-3.0) Basophils (%) (Auto) 3.1 % (0.0-2.0) H Erythrocyte Sedimentation Rate 68 MM/HR (0-20) H Sodium Level 139 MMOL/L (136-145) Potassium Level 3.6 MMOL/L (3.5-5.1) Chloride Level 106 MMOL/L (98-107) Carbon Dioxide Level 25 MMOL/L (21-32) Anion Gap 8 mmol/L (5-15) Blood Urea Nitrogen 23 mg/dL (7-18) H Creatinine 1.7 MG/DL (0.55-1.30) H Estimat Glomerular Filtration Rate 39.5 mL/min (>60) Glucose Level 154 MG/DL (74-106) H Calcium Level 7.6 MG/DL (8.5-10.1) L Phosphorus Level 2.7 MG/DL (2.5-4.9) Magnesium Level 1.6 MG/DL (1.8-2.4) L Total Bilirubin 0.2 MG/DL (0.2-1.0) Aspartate Amino Transf (AST/SGOT) 32 U/L (15-37) Alanine Aminotransferase (ALT/SGPT) 12 U/L (12-78) Alkaline Phosphatase 81 U/L (46-116) C-Reactive Protein, Quantitative 6.0 mg/dL (0.00-0.90) H Total Protein 5.5 G/DL (6.4-8.2) L Albumin 1.9 G/DL (3.4-5.0) L Globulin 3.6 g/dL Albumin/Globulin Ratio 0.5 (1.0-2.7) L Current Medications Medications (Trade) Dose Ordered Sig/Lauren Route PRN Reason Start Time Stop Time Status Last Admin Dose Admin Acetaminophen (Tylenol) 650 mg Q4H PRN ORAL fever 03/31/20 15:00 04/30/20 14:59 Amiodarone HCl (Cordarone) 200 mg EVERY 12 HOURS ORAL 03/31/20 21:00 06/29/20 20:59 04/03/20 08:49 Cefepime HCl 1 gm/ Dextrose 55 ml @ 110 mls/hr Q24H IVPB 04/01/20 17:00 04/08/20 16:59 04/02/20 17:23 Dextrose (Dextrose 50%) 25 ml Q30M PRN IV Hypoglycemia 03/31/20 15:00 06/29/20 14:59 Dextrose (Dextrose 50%) 50 ml Q30M PRN IV Hypoglycemia 03/31/20 15:00 06/29/20 14:59 Dextrose/ Electrolytes 1,000 ml @ 100 mls/hr Q10H IV 04/02/20 18:30 05/02/20 18:29 04/03/20 04:30 Gabapentin (Neurontin) 300 mg QHS ORAL 03/31/20 21:00 04/30/20 20:59 04/01/20 20:46 Heparin Sodium (Porcine) (Heparin 5000 units/ml) 5,000 units EVERY 12 HOURS SUBQ 03/31/20 21:00 05/15/20 20:59 04/03/20 08:50 Insulin Aspart (NovoLOG) BEFORE MEALS AND HS SUBQ 03/31/20 16:30 06/29/20 16:29 04/02/20 20:37 Metoprolol Tartrate (Lopressor) 12.5 mg EVERY 12 HOURS ORAL 03/31/20 21:00 06/29/20 20:59 04/01/20 08:40 Ondansetron HCl (Zofran) 4 mg Q6H PRN IVP Nausea & Vomiting 03/31/20 15:00 04/30/20 14:59 Polyethylene Glycol (Miralax) 17 gm HSPRN PRN ORAL Constipation 03/31/20 15:00 04/30/20 14:59 Sitagliptin Phosphate (Januvia) 25 mg DAILY ORAL 04/01/20 09:00 05/01/20 08:59 04/03/20 08:49 Zolpidem Tartrate (Ambien) 5 mg HSPRN PRN ORAL Insomnia 03/31/20 15:00 04/07/20 14:59 Ruperto White MD Apr 03, 2020 10:55
--- NOTE | 2020-04-03 12:25 | Pulmonology Progress Note ---
Subjective ROS Limited/Unobtainable: No Constitutional: Reports: no symptoms Allergies: Coded Allergies: No Known Allergies (Unverified , 03/01/20) Objective Last 24 Hour Vital Signs Date Time Temp Pulse Resp B/P (MAP) Pulse Ox O2 Delivery O2 Flow Rate FiO2 04/03/20 09:00 Room Air 04/03/20 08:54 97.5 71 18 101/51 (68) 98 04/03/20 08:51 71 101/51 04/03/20 00:00 98.2 74 18 116/64 (81) 95 04/02/20 21:00 69 104/57 04/02/20 21:00 Room Air 04/02/20 20:00 97.7 69 18 104/58 (73) 98 04/02/20 16:00 97.7 65 18 111/59 (76) 99 Intake and Output 04/02/20 04/03/20 18:59 06:59 Intake Total 1600 ml 500 ml Output Total 1000 ml 500 ml Balance 600 ml 0 ml Intake Oral 500 ml IV Total 1000 ml Other 600 ml Output Urine Total 1000 ml 500 ml General Appearance: WD/WN HEENT: normocephalic, atraumatic Respiratory: chest wall non-tender, lungs clear Cardiovascular: normal peripheral pulses, normal rate Abdomen: normal bowel sounds, soft, non tender Genitourinary: normal external genitalia Extremities: no cyanosis 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 Complete 03/31/20 19:30 Indwelling Cath Urine Culture - Final Chaparrita Albicans Complete 03/31/20 15:15 Rectum VRE Culture - Final Enterococcus Faecium - Vre Complete 03/31/20 15:15 Nasal Nares MRSA Culture - Final NO METHICILLIN RESISTANT STAPH AUREUS... Complete Laboratory Tests 04/02/20 17:05: POC Whole Blood Glucose [Pending] 04/03/20 05:13: POC Whole Blood Glucose 155H 04/03/20 05:30: White Blood Count 8.9, Red Blood Count 2.88L, Hemoglobin 8.9L, Hematocrit 26.7L, Mean Corpuscular Volume 93, Mean Corpuscular Hemoglobin 30.9, Mean Corpuscular Hemoglobin Concent 33.3, Red Cell Distribution Width 16.0H, Platelet Count 183, Mean Platelet Volume 5.9L, Neutrophils (%) (Auto) 69.1, Lymphocytes (%) (Auto) 17.9L, Monocytes (%) (Auto) 8.1, Eosinophils (%) (Auto) 1.9, Basophils (%) (Auto) 3.1H, Erythrocyte Sedimentation Rate 68H, Sodium Level 139, Potassium Level 3.6, Chloride Level 106, Carbon Dioxide Level 25, Anion Gap 8, Blood Urea Nitrogen 23H, Creatinine 1.7H, Estimat Glomerular Filtration Rate 39.5, Glucose Level 154H, Calcium Level 7.6L, Phosphorus Level 2.7, Magnesium Level 1.6L, Total Bilirubin 0.2, Aspartate Amino Transf (AST/SGOT) 32, Alanine Aminotransferase (ALT/SGPT) 12, Alkaline Phosphatase 81, C-Reactive Protein, Quantitative 6.0H, Total Protein 5.5L, Albumin 1.9L, Globulin 3.6, Albumin/Globulin Ratio 0.5L Current Medications Medications (Trade) Dose Ordered Sig/Lauren Route PRN Reason Start Time Stop Time Status Last Admin Dose Admin Acetaminophen (Tylenol) 650 mg Q4H PRN ORAL fever 03/31/20 15:00 04/30/20 14:59 Amiodarone HCl (Cordarone) 200 mg EVERY 12 HOURS ORAL 03/31/20 21:00 06/29/20 20:59 04/03/20 08:49 Cefepime HCl 1 gm/ Dextrose 55 ml @ 110 mls/hr Q24H IVPB 04/01/20 17:00 04/08/20 16:59 04/02/20 17:23 Dextrose (Dextrose 50%) 25 ml Q30M PRN IV Hypoglycemia 03/31/20 15:00 06/29/20 14:59 Dextrose (Dextrose 50%) 50 ml Q30M PRN IV Hypoglycemia 03/31/20 15:00 06/29/20 14:59 Dextrose/ Electrolytes 1,000 ml @ 100 mls/hr Q10H IV 04/02/20 18:30 05/02/20 18:29 04/03/20 04:30 Gabapentin (Neurontin) 300 mg QHS ORAL 03/31/20 21:00 04/30/20 20:59 04/01/20 20:46 Heparin Sodium (Porcine) (Heparin 5000 units/ml) 5,000 units EVERY 12 HOURS SUBQ 03/31/20 21:00 05/15/20 20:59 04/03/20 08:50 Insulin Aspart (NovoLOG) BEFORE MEALS AND HS SUBQ 03/31/20 16:30 06/29/20 16:29 04/03/20 11:58 Magnesium Sulfate 100 ml @ 100 mls/hr ONCE IVPB 04/03/20 12:00 04/03/20 13:00 04/03/20 12:00 Metoprolol Tartrate (Lopressor) 12.5 mg EVERY 12 HOURS ORAL 03/31/20 21:00 06/29/20 20:59 04/01/20 08:40 Ondansetron HCl (Zofran) 4 mg Q6H PRN IVP Nausea & Vomiting 03/31/20 15:00 04/30/20 14:59 Polyethylene Glycol (Miralax) 17 gm HSPRN PRN ORAL Constipation 03/31/20 15:00 04/30/20 14:59 Sitagliptin Phosphate (Januvia) 25 mg DAILY ORAL 04/01/20 09:00 05/01/20 08:59 04/03/20 08:49 Zolpidem Tartrate (Ambien) 5 mg HSPRN PRN ORAL Insomnia 03/31/20 15:00 04/07/20 14:59 Assessment/Plan Problems: (1) UTI (urinary tract infection) (2) Suprapubic catheter dysfunction (3) Diabetes mellitus (4) Hypothyroidism (5) BPH (benign prostatic hyperplasia) Assessment/Plan no new complains doing better start on IV fluids + K supplement symptomatic treatment send urine for UA and C/s iv abx pain management sliding scale diabetic diet dvt prophylaxis check last daily, f/u bun/creatinine Miguel Bagley MD Apr 03, 2020 12:25
--- NOTE | 2020-04-03 13:56 | Surgery Progress Note ---
Surgery Progress Note Subjective Symptoms: improved, tolerating diet, voiding well, passing flatus Objective Last 24 Hour Vital Signs Date Time Temp Pulse Resp B/P (MAP) Pulse Ox O2 Delivery O2 Flow Rate FiO2 04/03/20 09:00 Room Air 04/03/20 08:54 97.5 71 18 101/51 (68) 98 04/03/20 08:51 71 101/51 04/03/20 00:00 98.2 74 18 116/64 (81) 95 04/02/20 21:00 69 104/57 04/02/20 21:00 Room Air 04/02/20 20:00 97.7 69 18 104/58 (73) 98 04/02/20 16:00 97.7 65 18 111/59 (76) 99 I&O Intake and Output 04/02/20 04/03/20 19:00 07:00 Intake Total 1600 ml 500 ml Output Total 1000 ml 500 ml Balance 600 ml 0 ml Intake Oral 500 ml IV Total 1000 ml Other 600 ml Output Urine Total 1000 ml 500 ml Dressing: saturated Cardiovascular: RSR Respiratory: decreased breath sounds Abdomen: soft, non-tender, present bowel sounds Extremities: no edema, no tenderness, no cyanosis Laboratory Tests Test 04/02/20 17:05 04/03/20 05:13 04/03/20 05:30 POC Whole Blood Glucose Pending 155 MG/DL (74-106) H White Blood Count 8.9 K/UL (4.8-10.8) Red Blood Count 2.88 M/UL (4.70-6.10) L Hemoglobin 8.9 G/DL (14.2-18.0) L Hematocrit 26.7 % (42.0-52.0) L Mean Corpuscular Volume 93 FL (80-99) Mean Corpuscular Hemoglobin 30.9 PG (27.0-31.0) Mean Corpuscular Hemoglobin Concent 33.3 G/DL (32.0-36.0) Red Cell Distribution Width 16.0 % (11.6-14.8) H Platelet Count 183 K/UL (150-450) Mean Platelet Volume 5.9 FL (6.5-10.1) L Neutrophils (%) (Auto) 69.1 % (45.0-75.0) Lymphocytes (%) (Auto) 17.9 % (20.0-45.0) L Monocytes (%) (Auto) 8.1 % (1.0-10.0) Eosinophils (%) (Auto) 1.9 % (0.0-3.0) Basophils (%) (Auto) 3.1 % (0.0-2.0) H Erythrocyte Sedimentation Rate 68 MM/HR (0-20) H Sodium Level 139 MMOL/L (136-145) Potassium Level 3.6 MMOL/L (3.5-5.1) Chloride Level 106 MMOL/L (98-107) Carbon Dioxide Level 25 MMOL/L (21-32) Anion Gap 8 mmol/L (5-15) Blood Urea Nitrogen 23 mg/dL (7-18) H Creatinine 1.7 MG/DL (0.55-1.30) H Estimat Glomerular Filtration Rate 39.5 mL/min (>60) Glucose Level 154 MG/DL (74-106) H Calcium Level 7.6 MG/DL (8.5-10.1) L Phosphorus Level 2.7 MG/DL (2.5-4.9) Magnesium Level 1.6 MG/DL (1.8-2.4) L Total Bilirubin 0.2 MG/DL (0.2-1.0) Aspartate Amino Transf (AST/SGOT) 32 U/L (15-37) Alanine Aminotransferase (ALT/SGPT) 12 U/L (12-78) Alkaline Phosphatase 81 U/L (46-116) C-Reactive Protein, Quantitative 6.0 mg/dL (0.00-0.90) H Total Protein 5.5 G/DL (6.4-8.2) L Albumin 1.9 G/DL (3.4-5.0) L Globulin 3.6 g/dL Albumin/Globulin Ratio 0.5 (1.0-2.7) L Plan Problems: (1) Suprapubic catheter (2) UTI (urinary tract infection) (3) Osteomyelitis (4) Uncontrolled diabetes mellitus (5) Hypothyroidism (6) Diabetes mellitus (7) Sacral decubitus ulcer Assessment & Plan: Pt presented on admission with multiple Pressure Injuries. Resolving Pressure Sacral Pressure Injury.Clusters of full thickness pressure ulcers in close proximity that are moist and pink at bases. Surrounding maroon borders but without induration.(L)10.5cm x (W)10cm. BIlat lower ext are edematous. DTPI distal/lateral L Tibia(L)11.4cm x (W)2.7cm. Base of injury is purpuric with maroon borders. DTPI lateral L Malleolus(L)1cm x (W)0.7cm. Base of injury is maroon and indurated. Non-Blanchable erythema without induration or fluctuance medial L foot (L)1.6cm x (W)1cm. Unstageable Pressure injury R heel(L)7.7cm x (W)6.8cm. Base of is 70%necrotic and dry,10% slough with remaining 20% alyssia base. Marginal erythema along edges.Periwound is fluctuant with pale skin color. DTPI Lateral R Malleolus(L)2.6cm x (W)1.4cm. Base of injury is purpuric with maroon borders. DTPI medial R Malleolus(L)2.5cm x (W)2.4cm. Base of injury is purpuric with maroon borders. DTPI medial R foot (L)1.3cm x (W)3.6cm. Base of injury is indurated purpuric with surrounding maroon borders that are irregular. DTPI lateral R foot (L)0.7cm x (W)0.9cm. Base of injury is maroon in colour with marginal erythema. DTPI noted to tip of R 1st metatarsal(L)1.4cm x (W)1.2cm. Base of injury prese nts as an intact blood Blister. Unstageable Pressure injury lateral R 1st metatarsal(L)0.5cm x (W)0.8cm. Dry eschar with marginal erythema along edges. DTPI tip of R 2nd metatarsal.(L)1cm x (W)1.3cm. Base of injury presents as an intact blood blister with marginal erythema along edges. Surgical incisions noted to R hip, R femur and R knee. Incision sites approximated with oswaldo that are intact and dry. No erythema noted. Tx.Plan: Apply Moisture Barrier Paste to Sacrum. Cover with Optifoam drsgs. Change every 3 days and prn. Apply Betadine to DTPI's L Tibia, R and L feet. Cover each site with Optifoam drsgs. Change every 7 days and prn. Cleanse R Heel with Saline. Apply TheraHoney.Apply Maxsorb Extra(calcium Alginate. Apply Cavilon Skin Barrier periwound. Cover with Abd Pad and wrap with Kerlix Daily and prn. Reposition at least every 2hours or as tolerated. Off-load heels with pillows. (8) Renal insufficiency (9) Suprapubic catheter dysfunction Assessment & Plan: changed by urology catheter in now good uop monitor (10) BPH (benign prostatic hyperplasia) (11) Urinary retention Guy Oakley Apr 03, 2020 13:56
[2020-04-03 16:00] VITALS: BP 113/54
[2020-04-03] MEDS ORDERED: Cefepime 1gm vial ONE (17:19)
--- NOTE | 2020-04-03 17:31 | Internal Med Progress Note ---
Subjective Date of Service: Apr 03, 2020 Physician Name Brennan Haley Attending Physician Alfred Watts MD Current Medications Medications (Trade) Dose Ordered Sig/Lauren Route PRN Reason Start Time Stop Time Status Last Admin Dose Admin Acetaminophen (Tylenol) 650 mg Q4H PRN ORAL fever 03/31/20 15:00 04/30/20 14:59 Amiodarone HCl (Cordarone) 200 mg EVERY 12 HOURS ORAL 03/31/20 21:00 06/29/20 20:59 04/03/20 08:49 Cefepime HCl 1 gm/ Dextrose 55 ml @ 110 mls/hr Q24H IVPB 04/01/20 17:00 04/08/20 16:59 04/02/20 17:23 Dextrose (Dextrose 50%) 25 ml Q30M PRN IV Hypoglycemia 03/31/20 15:00 06/29/20 14:59 Dextrose (Dextrose 50%) 50 ml Q30M PRN IV Hypoglycemia 03/31/20 15:00 06/29/20 14:59 Dextrose/ Electrolytes 1,000 ml @ 100 mls/hr Q10H IV 04/02/20 18:30 05/02/20 18:29 04/03/20 15:35 Gabapentin (Neurontin) 300 mg QHS ORAL 03/31/20 21:00 04/30/20 20:59 04/01/20 20:46 Heparin Sodium (Porcine) (Heparin 5000 units/ml) 5,000 units EVERY 12 HOURS SUBQ 03/31/20 21:00 05/15/20 20:59 04/03/20 08:50 Insulin Aspart (NovoLOG) BEFORE MEALS AND HS SUBQ 03/31/20 16:30 06/29/20 16:29 04/03/20 11:58 Metoprolol Tartrate (Lopressor) 12.5 mg EVERY 12 HOURS ORAL 03/31/20 21:00 06/29/20 20:59 04/01/20 08:40 Ondansetron HCl (Zofran) 4 mg Q6H PRN IVP Nausea & Vomiting 03/31/20 15:00 04/30/20 14:59 Polyethylene Glycol (Miralax) 17 gm HSPRN PRN ORAL Constipation 03/31/20 15:00 04/30/20 14:59 Sitagliptin Phosphate (Januvia) 25 mg DAILY ORAL 04/01/20 09:00 05/01/20 08:59 04/03/20 08:49 Zolpidem Tartrate (Ambien) 5 mg HSPRN PRN ORAL Insomnia 03/31/20 15:00 04/07/20 14:59 Allergies: Coded Allergies: No Known Allergies (Unverified , 03/01/20) ROS Limited/Unobtainable: No Constitutional: Reports: no symptoms HEENT: Reports: no symptoms Cardiovascular: Reports: no symptoms Respiratory: Reports: no symptoms Gastrointestinal/Abdominal: Reports: no symptoms Genitourinary: Reports: no symptoms Neurologic/Psychiatric: Reports: no symptoms Subjective 74 YO M admitted with suprapubic catheter malfunction. Now UTI. Cover for Int Ryan-Dr Watts Objective Last Vital Signs Date Time Temp Pulse Resp B/P (MAP) Pulse Ox O2 Delivery O2 Flow Rate FiO2 04/03/20 16:00 97.7 68 18 113/54 (73) 100 04/03/20 09:00 Room Air Laboratory Tests Test 04/03/20 05:13 04/03/20 05:30 POC Whole Blood Glucose 155 MG/DL (74-106) H White Blood Count 8.9 K/UL (4.8-10.8) Red Blood Count 2.88 M/UL (4.70-6.10) L Hemoglobin 8.9 G/DL (14.2-18.0) L Hematocrit 26.7 % (42.0-52.0) L Mean Corpuscular Volume 93 FL (80-99) Mean Corpuscular Hemoglobin 30.9 PG (27.0-31.0) Mean Corpuscular Hemoglobin Concent 33.3 G/DL (32.0-36.0) Red Cell Distribution Width 16.0 % (11.6-14.8) H Platelet Count 183 K/UL (150-450) Mean Platelet Volume 5.9 FL (6.5-10.1) L Neutrophils (%) (Auto) 69.1 % (45.0-75.0) Lymphocytes (%) (Auto) 17.9 % (20.0-45.0) L Monocytes (%) (Auto) 8.1 % (1.0-10.0) Eosinophils (%) (Auto) 1.9 % (0.0-3.0) Basophils (%) (Auto) 3.1 % (0.0-2.0) H Erythrocyte Sedimentation Rate 68 MM/HR (0-20) H Sodium Level 139 MMOL/L (136-145) Potassium Level 3.6 MMOL/L (3.5-5.1) Chloride Level 106 MMOL/L (98-107) Carbon Dioxide Level 25 MMOL/L (21-32) Anion Gap 8 mmol/L (5-15) Blood Urea Nitrogen 23 mg/dL (7-18) H Creatinine 1.7 MG/DL (0.55-1.30) H Estimat Glomerular Filtration Rate 39.5 mL/min (>60) Glucose Level 154 MG/DL (74-106) H Calcium Level 7.6 MG/DL (8.5-10.1) L Phosphorus Level 2.7 MG/DL (2.5-4.9) Magnesium Level 1.6 MG/DL (1.8-2.4) L Total Bilirubin 0.2 MG/DL (0.2-1.0) Aspartate Amino Transf (AST/SGOT) 32 U/L (15-37) Alanine Aminotransferase (ALT/SGPT) 12 U/L (12-78) Alkaline Phosphatase 81 U/L (46-116) C-Reactive Protein, Quantitative 6.0 mg/dL (0.00-0.90) H Total Protein 5.5 G/DL (6.4-8.2) L Albumin 1.9 G/DL (3.4-5.0) L Globulin 3.6 g/dL Albumin/Globulin Ratio 0.5 (1.0-2.7) L Microbiology Date/Time Source Procedure Growth Status 04/01/20 16:10 Nasopharynx SARS-CoV-2 RdRp Gene Assay - Final Complete 04/01/20 12:45 Urine,Clean Catch Urine Culture - Preliminary Gram Negative Ajay Resulted 04/01/20 09:00 Rectum - Final NO CARBAPENEM-RESISTANT ENTEROBACTERI... Complete 03/31/20 19:30 Indwelling Cath Urine Culture - Final Chaparrita Albicans Complete Intake and Output 04/02/20 04/03/20 19:00 07:00 Intake Total 1600 ml 500 ml Output Total 1000 ml 500 ml Balance 600 ml 0 ml Intake Oral 500 ml IV Total 1000 ml Other 600 ml Output Urine Total 1000 ml 500 ml Objective PHYSICAL EXAMINATION: GENERAL: The patient is a well-developed and well-nourished male, in no apparent distress. HEENT: Eyes, pupils are equal and responsive to light and accommodation. Extraocular movements are intact. NECK: Supple without lymphadenopathy. CHEST: Lungs are clear to auscultation bilaterally without wheezes or rales. CARDIOVASCULAR: Regular rate. S1, S2 normal without murmurs, rubs, or gallops. ABDOMEN: Soft, nontender, and nondistended. Positive bowel sounds. No evidence of hepatosplenomegaly. Currently, no rebound or guarding noted. EXTREMITIES: Negative for clubbing, cyanosis, or edema. RECTAL/GENITAL: Not performed. NEUROLOGIC: Cranial nerves II through XII are grossly intact without focal deficits. Motor strength is 5/5 bilaterally. Deep tendon reflexes are 2+ plantar. Assessment/Plan Assessment/Plan ASSESSMENT: This is a 74-year-old male with: 1. Suprapubic catheter malfunction. 2. Urinary tract infection=gram neg ajay 3. Right pneumonia. 4. Diabetes type 2. 5. Hypothyroidism. 6. Chronic renal failure. 7. Hypertension. 8. Benign prostatic hypertrophy. 9. Diastolic congestive heart failure. TREATMENT: 1. Suprapubic catheter malfunction. Failed reinsertion attempt by Urology = Dr. Herndon. Urethral shabazz catheter in place. Follow recommendations of Urology. 2. Urinary tract infection. Gram neg ajay. ID and sensitivities are pending. The patient has been started empirically on intravenous cefepime. An Infectious Disease consultation has been obtained with Dr. Nicole. 3. Pneumonia. A Pulmonary consultation has been obtained with Dr. Miguel Bagley. As above, the patient has been placed empirically on cefepime. Follow recommendations of Pulmonary. 4. Diabetes type 2. NovoLog sliding scale has been instituted. 5. Hypothyroidism. Continue Synthroid as above. 6. Chronic renal failure. 7. Hypertension. Continue metoprolol as above. 8. Benign prostatic hypertrophy. Continue Flomax as above. A Urology consultation has been obtained with Dr. Herndon. 9. Diastolic congestive heart failure. Brennan Haley MD Apr 03, 2020 17:31
[2020-04-03] MEDS: Cefepime HCl 1 GM in D5W 55 ML IVPB SCH (17:39)
[2020-04-03 20:00] VITALS: BP 113/57
[2020-04-04] VITALS: BP 106/52
[2020-04-04] MEDS: D5 1/2NS w/KCl 20mEq 1,000 ML IV SCH ×3 (00:55→21:00)
[2020-04-04 04:00] VITALS: BP 99/47
[2020-04-04] MEDS: NovoLOG Insulin Flexpen SUBQ SCH ×4 (06:25→20:40)
[2020-04-04 06:35] LABS: BASOPHILS % (AUTO) 1.9 % (0.0-2.0); EOSINOPHILS % (AUTO) 2.6 % (0.0-3.0); HEMATOCRIT 26.1 % (42.0-52.0); HEMOGLOBIN 8.7 G/DL (14.2-18.0); LYMPHOCYTES % (AUTO) 20.4 % (20.0-45.0); MEAN CORPUSCULAR VOLUME 92 FL (80-99); MONOCYTES % (AUTO) 11.2 % (1.0-10.0); NEUTROPHILS % (AUTO) 63.9 % (45.0-75.0); PLATELET COUNT 182 K/UL (150-450); RED BLOOD COUNT 2.85 M/UL (4.70-6.10); RED CELL DISTRIBUTION WIDTH 16.1 % (11.6-14.8); WHITE BLOOD COUNT 8.5 K/UL (4.8-10.8)
[2020-04-04 06:40] LABS: CALCIUM 7.9 MG/DL (8.5-10.1); CREATININE 1.6 MG/DL (0.55-1.30); POTASSIUM 3.8 MMOL/L (3.5-5.1)
[2020-04-04 08:00] VITALS: BP 107/53
[2020-04-04] MEDS: Amiodarone 200mg tab ORAL SCH ×2 (08:52→20:32)
[2020-04-04] MEDS: Metoprolol Tartrate 12.5mg TAB ORAL SCH ×2 (08:52→21:41)
[2020-04-04] MEDS: sitaGLIPtin 25mg tab ORAL SCH (08:53)
[2020-04-04] MEDS: Heparin 5000 units/ml inj SUBQ SCH ×2 (09:26→20:35)
--- NOTE | 2020-04-04 10:54 | Infectious Diseases Prog Note ---
Assessment/Plan Assessment: UTI -u/a wbc tnct, nit neg, leuk +3; ucx >100k yeast, >100k TNR Probable PNA -04/01 rapid COVID PCR neg -CXR: Right basilar infiltrate, suspicious for pneumonia/ Possible left basilar infiltrate as well Afebrile No leukocytosis Urinary retention Sp accidental removal SPC w/ unsuccessful replacement -s/p Barnett insertion DM2 HTN BPH CKD urinary retention sp suprapubic catheter [place] resident ([facility]) Plan: -Cont Cefepime #4 pending ucx -f/u cx -Monitor CBC/CMP, temperatures -Uro f/u -COVID19 neg x1 -CXR am Thank you for this consultation. Will continue to follow along with you. Discussed with RN Subjective Allergies: Coded Allergies: No Known Allergies (Unverified , 03/01/20) Afebrile No Leukocytosis Urine Cx results still pending sensitivities Objective Last 24 Hour Vital Signs Date Time Temp Pulse Resp B/P (MAP) Pulse Ox O2 Delivery O2 Flow Rate FiO2 04/04/20 09:00 Room Air 04/04/20 08:52 74 107/53 04/04/20 08:00 97.8 74 18 107/53 (71) 98 04/04/20 04:00 97.6 73 20 99/47 (64) 97 04/04/20 00:00 97.5 73 20 106/52 (70) 98 04/03/20 21:00 Room Air 04/03/20 21:00 79 118/58 04/03/20 20:00 98.1 77 20 113/57 (75) 100 04/03/20 16:00 97.7 68 18 113/54 (73) 100 Height (Feet): 6 Height (Inches): 0.00 Weight (Pounds): 220 GENERAL: NAD on RA NC HEENT: NCAT, MMM, EOMI LUNGS: Equal rise and fall of chest B/L no accessory muscle use ABDOMEN: Soft, nondistended, Suprapubic site has mucous erosions EXTREMITIES: No cyanosis, clubbing, or edema. Microbiology Date/Time Source Procedure Growth Status 04/01/20 16:10 Nasopharynx SARS-CoV-2 RdRp Gene Assay - Final Complete 04/01/20 12:45 Urine,Clean Catch Urine Culture - Preliminary Proteus Mirabilis Resulted Laboratory Tests Test 04/04/20 01:00 04/04/20 05:52 04/04/20 06:00 Urine Random Sodium 73 mmol/L (20-110) Urine Potassium Timed 23 mmol/L (12-62) POC Whole Blood Glucose 141 MG/DL (74-106) H White Blood Count 8.5 K/UL (4.8-10.8) Red Blood Count 2.85 M/UL (4.70-6.10) L Hemoglobin 8.7 G/DL (14.2-18.0) L Hematocrit 26.1 % (42.0-52.0) L Mean Corpuscular Volume 92 FL (80-99) Mean Corpuscular Hemoglobin 30.5 PG (27.0-31.0) Mean Corpuscular Hemoglobin Concent 33.3 G/DL (32.0-36.0) Red Cell Distribution Width 16.1 % (11.6-14.8) H Platelet Count 182 K/UL (150-450) Mean Platelet Volume 6.9 FL (6.5-10.1) Neutrophils (%) (Auto) 63.9 % (45.0-75.0) Lymphocytes (%) (Auto) 20.4 % (20.0-45.0) Monocytes (%) (Auto) 11.2 % (1.0-10.0) H Eosinophils (%) (Auto) 2.6 % (0.0-3.0) Basophils (%) (Auto) 1.9 % (0.0-2.0) Sodium Level 136 MMOL/L (136-145) Potassium Level 3.8 MMOL/L (3.5-5.1) Chloride Level 105 MMOL/L (98-107) Carbon Dioxide Level 26 MMOL/L (21-32) Anion Gap 5 mmol/L (5-15) Blood Urea Nitrogen 20 mg/dL (7-18) H Creatinine 1.6 MG/DL (0.55-1.30) H Estimat Glomerular Filtration Rate 42.3 mL/min (>60) Glucose Level 150 MG/DL (74-106) H Calcium Level 7.9 MG/DL (8.5-10.1) L Current Medications Medications (Trade) Dose Ordered Sig/Lauren Route PRN Reason Start Time Stop Time Status Last Admin Dose Admin Acetaminophen (Tylenol) 650 mg Q4H PRN ORAL fever 03/31/20 15:00 04/30/20 14:59 Amiodarone HCl (Cordarone) 200 mg EVERY 12 HOURS ORAL 03/31/20 21:00 06/29/20 20:59 04/04/20 08:52 Cefepime HCl 1 gm/ Dextrose 55 ml @ 110 mls/hr Q24H IVPB 04/01/20 17:00 04/08/20 16:59 04/03/20 17:39 Dextrose (Dextrose 50%) 25 ml Q30M PRN IV Hypoglycemia 03/31/20 15:00 06/29/20 14:59 Dextrose (Dextrose 50%) 50 ml Q30M PRN IV Hypoglycemia 03/31/20 15:00 06/29/20 14:59 Dextrose/ Electrolytes 1,000 ml @ 100 mls/hr Q10H IV 04/02/20 18:30 05/02/20 18:29 04/04/20 10:39 Gabapentin (Neurontin) 300 mg QHS ORAL 03/31/20 21:00 04/30/20 20:59 04/01/20 20:46 Heparin Sodium (Porcine) (Heparin 5000 units/ml) 5,000 units EVERY 12 HOURS SUBQ 03/31/20 21:00 05/15/20 20:59 04/04/20 09:26 Insulin Aspart (NovoLOG) BEFORE MEALS AND HS SUBQ 03/31/20 16:30 06/29/20 16:29 04/04/20 06:25 Metoprolol Tartrate (Lopressor) 12.5 mg EVERY 12 HOURS ORAL 03/31/20 21:00 06/29/20 20:59 04/04/20 08:52 Ondansetron HCl (Zofran) 4 mg Q6H PRN IVP Nausea & Vomiting 03/31/20 15:00 04/30/20 14:59 Polyethylene Glycol (Miralax) 17 gm HSPRN PRN ORAL Constipation 03/31/20 15:00 04/30/20 14:59 Sitagliptin Phosphate (Januvia) 25 mg DAILY ORAL 04/01/20 09:00 05/01/20 08:59 04/04/20 08:53 Zolpidem Tartrate (Ambien) 5 mg HSPRN PRN ORAL Insomnia 03/31/20 15:00 04/07/20 14:59 Ruperto White MD Apr 04, 2020 10:54
[2020-04-04 12:00] VITALS: BP 109/56
--- NOTE | 2020-04-04 12:29 | Pulmonology Progress Note ---
Subjective ROS Limited/Unobtainable: No Constitutional: Reports: no symptoms Allergies: Coded Allergies: No Known Allergies (Unverified , 03/01/20) Objective Last 24 Hour Vital Signs Date Time Temp Pulse Resp B/P (MAP) Pulse Ox O2 Delivery O2 Flow Rate FiO2 04/04/20 12:00 98.2 80 18 109/56 (73) 98 04/04/20 09:00 Room Air 04/04/20 08:52 74 107/53 04/04/20 08:00 97.8 74 18 107/53 (71) 98 04/04/20 04:00 97.6 73 20 99/47 (64) 97 04/04/20 00:00 97.5 73 20 106/52 (70) 98 04/03/20 21:00 Room Air 04/03/20 21:00 79 118/58 04/03/20 20:00 98.1 77 20 113/57 (75) 100 04/03/20 16:00 97.7 68 18 113/54 (73) 100 Intake and Output 04/03/20 04/04/20 19:00 07:00 Intake Total 1470 ml 1560 ml Output Total 3100 ml Balance 1470 ml -1540 ml Intake Oral 360 ml IV Total 1110 ml 1200 ml Other 360 ml Output Urine Total 3100 ml General Appearance: WD/WN HEENT: normocephalic, atraumatic Respiratory: chest wall non-tender, lungs clear Cardiovascular: normal peripheral pulses, normal rate Abdomen: normal bowel sounds, soft, non tender Genitourinary: normal external genitalia Extremities: no cyanosis Neurologic: client support representative II-XII grossly normal Lymphatic: no groin adenopathy Microbiology Date/Time Source Procedure Growth Status 04/01/20 16:10 Nasopharynx SARS-CoV-2 RdRp Gene Assay - Final Complete 04/01/20 12:45 Urine,Clean Catch Urine Culture - Preliminary Proteus Mirabilis Resulted Laboratory Tests 04/04/20 01:00: Urine Random Sodium 73, Urine Potassium Timed 23 04/04/20 05:52: POC Whole Blood Glucose 141H 04/04/20 06:00: White Blood Count 8.5, Red Blood Count 2.85L, Hemoglobin 8.7L, Hematocrit 26.1L, Mean Corpuscular Volume 92, Mean Corpuscular Hemoglobin 30.5, Mean Corpuscular Hemoglobin Concent 33.3, Red Cell Distribution Width 16.1H, Platelet Count 182, Mean Platelet Volume 6.9, Neutrophils (%) (Auto) 63.9, Lymphocytes (%) (Auto) 20.4, Monocytes (%) (Auto) 11.2H, Eosinophils (%) (Auto) 2.6, Basophils (%) (Auto) 1.9, Sodium Level 136, Potassium Level 3.8, Chloride Level 105, Carbon Dioxide Level 26, Anion Gap 5, Blood Urea Nitrogen 20H, Creatinine 1.6H, Estimat Glomerular Filtration Rate 42.3, Glucose Level 150H, Calcium Level 7.9L Current Medications Medications (Trade) Dose Ordered Sig/Lauren Route PRN Reason Start Time Stop Time Status Last Admin Dose Admin Acetaminophen (Tylenol) 650 mg Q4H PRN ORAL fever 03/31/20 15:00 04/30/20 14:59 Amiodarone HCl (Cordarone) 200 mg EVERY 12 HOURS ORAL 03/31/20 21:00 06/29/20 20:59 04/04/20 08:52 Cefepime HCl 1 gm/ Dextrose 55 ml @ 110 mls/hr Q24H IVPB 04/01/20 17:00 04/08/20 16:59 04/03/20 17:39 Dextrose (Dextrose 50%) 25 ml Q30M PRN IV Hypoglycemia 03/31/20 15:00 06/29/20 14:59 Dextrose (Dextrose 50%) 50 ml Q30M PRN IV Hypoglycemia 03/31/20 15:00 06/29/20 14:59 Dextrose/ Electrolytes 1,000 ml @ 100 mls/hr Q10H IV 04/02/20 18:30 05/02/20 18:29 04/04/20 10:39 Gabapentin (Neurontin) 300 mg QHS ORAL 03/31/20 21:00 04/30/20 20:59 04/01/20 20:46 Heparin Sodium (Porcine) (Heparin 5000 units/ml) 5,000 units EVERY 12 HOURS SUBQ 03/31/20 21:00 05/15/20 20:59 04/04/20 09:26 Insulin Aspart (NovoLOG) BEFORE MEALS AND HS SUBQ 03/31/20 16:30 06/29/20 16:29 04/04/20 06:25 Metoprolol Tartrate (Lopressor) 12.5 mg EVERY 12 HOURS ORAL 03/31/20 21:00 06/29/20 20:59 04/04/20 08:52 Ondansetron HCl (Zofran) 4 mg Q6H PRN IVP Nausea & Vomiting 03/31/20 15:00 04/30/20 14:59 Polyethylene Glycol (Miralax) 17 gm HSPRN PRN ORAL Constipation 03/31/20 15:00 04/30/20 14:59 Sitagliptin Phosphate (Januvia) 25 mg DAILY ORAL 04/01/20 09:00 05/01/20 08:59 04/04/20 08:53 Zolpidem Tartrate (Ambien) 5 mg HSPRN PRN ORAL Insomnia 03/31/20 15:00 04/07/20 14:59 Assessment/Plan Problems: (1) UTI (urinary tract infection) (2) Suprapubic catheter dysfunction (3) Diabetes mellitus (4) Hypothyroidism (5) BPH (benign prostatic hyperplasia) Assessment/Plan creatinine decreasing doing better start on IV fluids + K supplement symptomatic treatment send urine for UA and C/s iv abx pain management sliding scale diabetic diet dvt prophylaxis check last daily, f/u bun/creatinine Miguel Bagley MD Apr 04, 2020 12:29
--- NOTE | 2020-04-04 12:50 | Consultation ---
Consult Note Consult Note I am asked to evaluate the patient at the request of Dr. Watts for renal failure Data reviewed Patient examined Additional labs ordered for today 74 y/o M with hx of DM2, HTN, BPH, CKD, urinary retention sp suprapubic catheter, [place] resident presented to ED on 03/31 for suprapubic catheter replacement after he pulled his catheter. Urologist attempted SPC replacement but was unsuccessful and a shabazz instead was placed; there was mention of return of 300mL urine that looked suspicious for infection Allergies: No Known Allergies (Unverified , 03/01/20) COVID-19 Screening Contact w/high risk pt: No Experienced COVID-19 symptoms?: No COVID-19 Testing performed [employer] SPECIALIST: No Past Medical History: DM, HTN Past Surgical History: other - suprapubic catheter Hx Hypertension: Yes Hx Diabetes: Yes Hx Dialysis: Yes - UTI, ckd Physical examination: Patient afebrile, BP 112/74, heart rate 72, respiratory rate 19 LUNGS: Clear. Creased breath sound over the bases CARDIOVASCULAR: Regular rate and rhythm. Occasional irregular beats ABDOMEN: Soft. Slightly distended in the suprapubic area. Suprapubic site is somewhat has mucous erosions, otherwise intact. Pt presented on admission with multiple Pressure Injuries. Resolving Pressure Sacral Pressure Injury.Clusters of full thickness pressure ulcers in close proximity that are moist and pink at bases. Surrounding maroon borders refer to wound care note . Assessment/Plan Impression Acute on chronic renal failure, serum creatinine 1.5-1.7 Supra pubic catheter malfunction, urinary retention UTI, Proteus UTI Diabetes mellitus Hypertension Anemia of chronic disease Hypothyroidism Hypoalbuminemia Suggestions: Slow hydrate, Monitor renal parameters Avoid nephrotoxic's Watch heart rate as the patient is on amiodarone and Lopressor Check TSH level as the patient is on amiodarone and has history of hypothyroidism Per orders Steve Suarez MD Apr 04, 2020 12:50
[2020-04-04 13:32] LABS: ALANINE AMINOTRANSFERASE 15 U/L (12-78); ALKALINE PHOSPHATASE 78 U/L (46-116); ASPARTATE AMINO TRANSFERASE 29 U/L (15-37); BILIRUBIN,DIRECT < 0.1 MG/DL (0.0-0.3); BILIRUBIN,TOTAL 0.3 MG/DL (0.2-1.0); FERRITIN 451 NG/ML (8-388); GAMMA GLUTAMYL TRANSPEPTIDASE 38 U/L (5-85)
[2020-04-04 13:47] LABS: % IRON SATURATION 23 % (15-50); IRON 30 ug/dL (50-175); TOTAL IRON BINDING CAPACITY 130 ug/dL (250-450)
--- NOTE | 2020-04-04 15:23 | Internal Med Progress Note ---
Subjective Physician Name Alfred Watts Attending Physician Alfred Watts MD Current Medications Medications (Trade) Dose Ordered Sig/Lauren Route PRN Reason Start Time Stop Time Status Last Admin Dose Admin Acetaminophen (Tylenol) 650 mg Q4H PRN ORAL fever 03/31/20 15:00 04/30/20 14:59 Amiodarone HCl (Cordarone) 200 mg EVERY 12 HOURS ORAL 03/31/20 21:00 06/29/20 20:59 04/04/20 08:52 Cefepime HCl 1 gm/ Dextrose 55 ml @ 110 mls/hr Q24H IVPB 04/01/20 17:00 04/08/20 16:59 04/03/20 17:39 Dextrose (Dextrose 50%) 25 ml Q30M PRN IV Hypoglycemia 03/31/20 15:00 06/29/20 14:59 Dextrose (Dextrose 50%) 50 ml Q30M PRN IV Hypoglycemia 03/31/20 15:00 06/29/20 14:59 Dextrose/ Electrolytes 1,000 ml @ 100 mls/hr Q10H IV 04/02/20 18:30 05/02/20 18:29 04/04/20 10:39 Gabapentin (Neurontin) 300 mg QHS ORAL 03/31/20 21:00 04/30/20 20:59 04/01/20 20:46 Heparin Sodium (Porcine) (Heparin 5000 units/ml) 5,000 units EVERY 12 HOURS SUBQ 03/31/20 21:00 05/15/20 20:59 04/04/20 09:26 Insulin Aspart (NovoLOG) BEFORE MEALS AND HS SUBQ 03/31/20 16:30 06/29/20 16:29 04/04/20 12:30 Metoprolol Tartrate (Lopressor) 12.5 mg EVERY 12 HOURS ORAL 03/31/20 21:00 06/29/20 20:59 04/04/20 08:52 Ondansetron HCl (Zofran) 4 mg Q6H PRN IVP Nausea & Vomiting 03/31/20 15:00 04/30/20 14:59 Polyethylene Glycol (Miralax) 17 gm HSPRN PRN ORAL Constipation 03/31/20 15:00 04/30/20 14:59 Sitagliptin Phosphate (Januvia) 25 mg DAILY ORAL 04/01/20 09:00 05/01/20 08:59 04/04/20 08:53 Zolpidem Tartrate (Ambien) 5 mg HSPRN PRN ORAL Insomnia 03/31/20 15:00 04/07/20 14:59 Allergies: Coded Allergies: No Known Allergies (Unverified , 03/01/20) Subjective awake, responsive, no acute distress, poor vision, hemoglobin: 8.7. Objective Last Vital Signs Date Time Temp Pulse Resp B/P (MAP) Pulse Ox O2 Delivery O2 Flow Rate FiO2 04/04/20 12:00 98.2 80 18 109/56 (73) 98 04/04/20 09:00 Room Air Laboratory Tests Test 04/04/20 01:00 04/04/20 05:52 04/04/20 06:00 Urine Random Sodium 73 mmol/L (20-110) Urine Potassium Timed 23 mmol/L (12-62) POC Whole Blood Glucose 141 MG/DL (74-106) H White Blood Count 8.5 K/UL (4.8-10.8) Red Blood Count 2.85 M/UL (4.70-6.10) L Hemoglobin 8.7 G/DL (14.2-18.0) L Hematocrit 26.1 % (42.0-52.0) L Mean Corpuscular Volume 92 FL (80-99) Mean Corpuscular Hemoglobin 30.5 PG (27.0-31.0) Mean Corpuscular Hemoglobin Concent 33.3 G/DL (32.0-36.0) Red Cell Distribution Width 16.1 % (11.6-14.8) H Platelet Count 182 K/UL (150-450) Mean Platelet Volume 6.9 FL (6.5-10.1) Neutrophils (%) (Auto) 63.9 % (45.0-75.0) Lymphocytes (%) (Auto) 20.4 % (20.0-45.0) Monocytes (%) (Auto) 11.2 % (1.0-10.0) H Eosinophils (%) (Auto) 2.6 % (0.0-3.0) Basophils (%) (Auto) 1.9 % (0.0-2.0) Sodium Level 136 MMOL/L (136-145) Potassium Level 3.8 MMOL/L (3.5-5.1) Chloride Level 105 MMOL/L (98-107) Carbon Dioxide Level 26 MMOL/L (21-32) Anion Gap 5 mmol/L (5-15) Blood Urea Nitrogen 20 mg/dL (7-18) H Creatinine 1.6 MG/DL (0.55-1.30) H Estimat Glomerular Filtration Rate 42.3 mL/min (>60) Glucose Level 150 MG/DL (74-106) H Hemoglobin A1c 5.8 % (4.3-6.0) Uric Acid 2.5 MG/DL (2.6-7.2) L Calcium Level 7.9 MG/DL (8.5-10.1) L Phosphorus Level 2.0 MG/DL (2.5-4.9) L Magnesium Level 1.8 MG/DL (1.8-2.4) Iron Level 30 ug/dL (50-175) L Total Iron Binding Capacity 130 ug/dL (250-450) L Percent Iron Saturation 23 % (15-50) Unsaturated Iron Binding 100 ug/dL (112-346) L Ferritin 451 NG/ML (8-388) H Total Bilirubin 0.3 MG/DL (0.2-1.0) Direct Bilirubin < 0.1 MG/DL (0.0-0.3) Gamma Glutamyl Transpeptidase 38 U/L (5-85) Aspartate Amino Transf (AST/SGOT) 29 U/L (15-37) Alanine Aminotransferase (ALT/SGPT) 15 U/L (12-78) Alkaline Phosphatase 78 U/L (46-116) Total Protein 5.9 G/DL (6.4-8.2) L Albumin 2.0 G/DL (3.4-5.0) L Vitamin B12 Level 841 PG/ML (193-986) Folate 13.0 NG/ML (8.6-58.9) Microbiology Date/Time Source Procedure Growth Status 04/01/20 16:10 Nasopharynx SARS-CoV-2 RdRp Gene Assay - Final Complete Intake and Output 04/03/20 04/04/20 19:00 07:00 Intake Total 1470 ml 1560 ml Output Total 3100 ml Balance 1470 ml -1540 ml Intake Oral 360 ml IV Total 1110 ml 1200 ml Other 360 ml Output Urine Total 3100 ml Objective General: No acute distress, awake and responsive. HEENT: NCAT, sclera anicteric, PERRL, EOMI. Neck: Supple, no significant jugular venous distention, Lungs: fair respiratory effort, decreased air in the bas, no Wheeze or Rales. Heart: Regular rate and rhythm, normal S1/S2, no murmurs. Abdomen: soft, nontender, nondistended. Normoactive bowel sounds. suprapubic s ite intact Extremities: No Cyanosis , clubbing, right lower extremity ed, right heel dressing intact. Neuro: A&O x 2, Able to move all extremities slowly Skin: warm, no rash. Assessment/Plan Assessment/Plan ASSESSMENT: This is a 74-year-old male with: 1. Suprapubic catheter malfunction. 2. Proteus mirabilis acute Urinary tract infection 3. Right pneumonia. 4. Diabetes type 2. 5. Hypothyroidism. 6. Chronic renal failure. 7. Hypertension. 8. Benign prostatic hypertrophy. 9. Diastolic congestive heart failure. TREATMENT: 1. Suprapubic catheter malfunction. Failed reinsertion attempt by Urology = Dr. Herndon. Urethral shabazz catheter in place. Follow recommendations of Urology. 2. Urinary tract infection. Abx: cefepime IV An Infectious Disease consultation has been obtained with Dr. White 3. Pneumonia. A Pulmonary consultation has been obtained with Dr. Miguel Bagley. As above, the patient has been placed empirically on cefepime. Follow recommendations of Pulmonary. 4. Diabetes type 2. NovoLog sliding scale has been instituted. 5. Hypothyroidism. Continue Synthroid as above. 6. Chronic renal failure. 7. Hypertension. Continue metoprolol as above. 8. Benign prostatic hypertrophy. Continue Flomax as above. A Urology consultation has been obtained with Dr. Herndon. 9. Diastolic congestive heart failure. Alfred Watts MD Apr 04, 2020 15:23
--- NOTE | 2020-04-04 15:38 | Surgery Progress Note ---
Surgery Progress Note Subjective Symptoms: improved, tolerating diet, passing flatus Objective Last 24 Hour Vital Signs Date Time Temp Pulse Resp B/P (MAP) Pulse Ox O2 Delivery O2 Flow Rate FiO2 04/04/20 12:00 98.2 80 18 109/56 (73) 98 04/04/20 09:00 Room Air 04/04/20 08:52 74 107/53 04/04/20 08:00 97.8 74 18 107/53 (71) 98 04/04/20 04:00 97.6 73 20 99/47 (64) 97 04/04/20 00:00 97.5 73 20 106/52 (70) 98 04/03/20 21:00 Room Air 04/03/20 21:00 79 118/58 04/03/20 20:00 98.1 77 20 113/57 (75) 100 04/03/20 16:00 97.7 68 18 113/54 (73) 100 I&O Intake and Output 04/03/20 04/04/20 19:00 07:00 Intake Total 1470 ml 1560 ml Output Total 3100 ml Balance 1470 ml -1540 ml Intake Oral 360 ml IV Total 1110 ml 1200 ml Other 360 ml Output Urine Total 3100 ml Dressing: dry Wound: clean Cardiovascular: RSR Respiratory: decreased breath sounds Abdomen: soft, non-tender, present bowel sounds Extremities: no edema, no tenderness, no cyanosis Laboratory Tests Test 04/04/20 01:00 04/04/20 05:52 04/04/20 06:00 Urine Random Sodium 73 mmol/L (20-110) Urine Potassium Timed 23 mmol/L (12-62) POC Whole Blood Glucose 141 MG/DL (74-106) H White Blood Count 8.5 K/UL (4.8-10.8) Red Blood Count 2.85 M/UL (4.70-6.10) L Hemoglobin 8.7 G/DL (14.2-18.0) L Hematocrit 26.1 % (42.0-52.0) L Mean Corpuscular Volume 92 FL (80-99) Mean Corpuscular Hemoglobin 30.5 PG (27.0-31.0) Mean Corpuscular Hemoglobin Concent 33.3 G/DL (32.0-36.0) Red Cell Distribution Width 16.1 % (11.6-14.8) H Platelet Count 182 K/UL (150-450) Mean Platelet Volume 6.9 FL (6.5-10.1) Neutrophils (%) (Auto) 63.9 % (45.0-75.0) Lymphocytes (%) (Auto) 20.4 % (20.0-45.0) Monocytes (%) (Auto) 11.2 % (1.0-10.0) H Eosinophils (%) (Auto) 2.6 % (0.0-3.0) Basophils (%) (Auto) 1.9 % (0.0-2.0) Sodium Level 136 MMOL/L (136-145) Potassium Level 3.8 MMOL/L (3.5-5.1) Chloride Level 105 MMOL/L (98-107) Carbon Dioxide Level 26 MMOL/L (21-32) Anion Gap 5 mmol/L (5-15) Blood Urea Nitrogen 20 mg/dL (7-18) H Creatinine 1.6 MG/DL (0.55-1.30) H Estimat Glomerular Filtration Rate 42.3 mL/min (>60) Glucose Level 150 MG/DL (74-106) H Hemoglobin A1c 5.8 % (4.3-6.0) Uric Acid 2.5 MG/DL (2.6-7.2) L Calcium Level 7.9 MG/DL (8.5-10.1) L Phosphorus Level 2.0 MG/DL (2.5-4.9) L Magnesium Level 1.8 MG/DL (1.8-2.4) Iron Level 30 ug/dL (50-175) L Total Iron Binding Capacity 130 ug/dL (250-450) L Percent Iron Saturation 23 % (15-50) Unsaturated Iron Binding 100 ug/dL (112-346) L Ferritin 451 NG/ML (8-388) H Total Bilirubin 0.3 MG/DL (0.2-1.0) Direct Bilirubin < 0.1 MG/DL (0.0-0.3) Gamma Glutamyl Transpeptidase 38 U/L (5-85) Aspartate Amino Transf (AST/SGOT) 29 U/L (15-37) Alanine Aminotransferase (ALT/SGPT) 15 U/L (12-78) Alkaline Phosphatase 78 U/L (46-116) Total Protein 5.9 G/DL (6.4-8.2) L Albumin 2.0 G/DL (3.4-5.0) L Vitamin B12 Level 841 PG/ML (193-986) Folate 13.0 NG/ML (8.6-58.9) Plan Problems: (1) Suprapubic catheter (2) UTI (urinary tract infection) (3) Osteomyelitis (4) Uncontrolled diabetes mellitus (5) Hypothyroidism (6) Diabetes mellitus (7) Sacral decubitus ulcer Assessment & Plan: Pt presented on admission with multiple Pressure Injuries. Resolving Pressure Sacral Pressure Injury.Clusters of full thickness pressure ulcers in close proximity that are moist and pink at bases. Surrounding maroon borders but without induration.(L)10.5cm x (W)10cm. BIlat lower ext are edematous. DTPI distal/lateral L Tibia(L)11.4cm x (W)2.7cm. Base of injury is purpuric with maroon borders. DTPI lateral L Malleolus(L)1cm x (W)0.7cm. Base of injury is maroon and indurated. Non-Blanchable erythema without induration or fluctuance medial L foot (L)1.6cm x (W)1cm. Unstageable Pressure injury R heel(L)7.7cm x (W)6.8cm. Base of is 70%necrotic and dry,10% slough with remaining 20% alyssia base. Marginal erythema along edges.Periwound is fluctuant with pale skin color. DTPI Lateral R Malleolus(L)2.6cm x (W)1.4cm. Base of injury is purpuric with maroon borders. DTPI medial R Malleolus(L)2.5cm x (W)2.4cm. Base of injury is purpuric with maroon borders. DTPI medial R foot (L)1.3cm x (W)3.6cm. Base of injury is indurated purpuric with surrounding maroon borders that are irregular. DTPI lateral R foot (L)0.7cm x (W)0.9cm. Base of injury is maroon in colour with marginal erythema. DTPI noted to tip of R 1st metatarsal(L)1.4cm x (W)1.2cm. Base of injury presents as an intact blood Blister. Unstageable Pressure injury lateral R 1st metatarsal(L)0.5cm x (W)0.8cm. Dry eschar with marginal erythema along edges. DTPI tip of R 2nd metatarsal.(L)1cm x (W)1.3cm. Base of injury presents as an intact blood blister with marginal erythema along edges. Surgical incisions noted to R hip, R femur and R knee. Incision sites approximated with oswaldo that are intact and dry. No erythema noted. Tx.Plan: Apply Moisture Barrier Paste to Sacrum. Cover with Optifoam drsgs. Change every 3 days and prn. Apply Betadine to DTPI's L Tibia, R and L feet. Cover each site with Optifoam drsgs. Change every 7 days and prn. Cleanse R Heel with Saline. Apply TheraHoney.Apply Maxsorb Extra(calcium Alginate. Apply Cavilon Skin Barrier periwound. Cover with Abd Pad and wrap with Kerlix Daily and prn. Reposition at least every 2hours or as tolerated. Off-load heels with pillows. (8) Renal insufficiency (9) Suprapubic catheter dysfunction Assessment & Plan: changed by urology catheter in now good uop monitor (10) BPH (benign prostatic hyperplasia) (11) Urinary retention Guy Oakley Apr 04, 2020 15:38
[2020-04-04 16:00] VITALS: BP 112/54
[2020-04-04] MEDS: Cefepime HCl 1 GM in D5W 55 ML IVPB SCH (16:59)
[2020-04-04] MEDS ORDERED: Albumin Human 5% 250ml IV SCH (17:15)
[2020-04-04] MEDS ORDERED: Potassium Phosphate 21 MM in NS 275 ML IV ONE (18:00)
[2020-04-04 20:00] VITALS: BP 105/73
[2020-04-05] VITALS: BP 105/70
[2020-04-05 04:00] VITALS: BP 110/72
[2020-04-05] MEDS: NovoLOG Insulin Flexpen SUBQ SCH ×4 (05:58→21:00)
[2020-04-05] MEDS: D5 1/2NS w/KCl 20mEq 1,000 ML IV SCH (06:43)
--- NOTE | 2020-04-05 07:49 | Infectious Diseases Prog Note ---
Assessment/Plan Assessment: UTI -u/a wbc tnct, nit neg, leuk +3; ucx >100k yeast, >100k ESBL P.mirabilis S- bactrim Probable PNA -04/01 rapid COVID PCR neg -CXR: Right basilar infiltrate, suspicious for pneumonia/ Possible left basilar infiltrate as well Afebrile No leukocytosis Urinary retention Sp accidental removal SPC w/ unsuccessful replacement -s/p Barnett insertion DM2 HTN BPH CKD urinary retention sp suprapubic catheter [place] resident ([facility]) Plan: Stop cefepime #4 Start ertapenem #/3 for ESBL P.mirabilis UTI, continue for 3 more days to complete 7 day course given pt has remains AF and HDS without leukocytosis on cefepime, this was likely working -f/u cx -Monitor CBC/CMP, temperatures -Uro f/u -COVID19 neg x1 Thank you for this consultation. Will continue to follow along with you. Subjective Allergies: Coded Allergies: No Known Allergies (Unverified , 03/01/20) AF RA No leukocytosis Calm, sleeping Objective Last 24 Hour Vital Signs Date Time Temp Pulse Resp B/P (MAP) Pulse Ox O2 Delivery O2 Flow Rate FiO2 04/05/20 04:00 98.6 79 18 110/72 (85) 97 04/05/20 00:00 98.6 80 18 105/70 (82) 97 04/04/20 21:41 75 105/73 04/04/20 21:15 Room Air 04/04/20 20:00 98.6 75 18 105/73 (84) 97 04/04/20 16:00 98.6 72 18 112/54 (73) 98 04/04/20 12:00 98.2 80 18 109/56 (73) 98 04/04/20 09:00 Room Air 04/04/20 08:52 74 107/53 04/04/20 08:00 97.8 74 18 107/53 (71) 98 Height (Feet): 6 Height (Inches): 0.00 Weight (Pounds): 220 Gen: NAD in bed HEENT: NCAT Pulm: BL chest rise Abd: Soft, NTND Ext: No c/c/e Neuro: Sleeping Current Medications Medications (Trade) Dose Ordered Sig/Lauren Route PRN Reason Start Time Stop Time Status Last Admin Dose Admin Acetaminophen (Tylenol) 650 mg Q4H PRN ORAL fever 03/31/20 15:00 04/30/20 14:59 Amiodarone HCl (Cordarone) 200 mg EVERY 12 HOURS ORAL 03/31/20 21:00 06/29/20 20:59 04/04/20 20:32 Cefepime HCl 1 gm/ Dextrose 55 ml @ 110 mls/hr Q24H IVPB 04/01/20 17:00 04/08/20 16:59 04/04/20 16:59 Dextrose (Dextrose 50%) 25 ml Q30M PRN IV Hypoglycemia 03/31/20 15:00 06/29/20 14:59 Dextrose (Dextrose 50%) 50 ml Q30M PRN IV Hypoglycemia 03/31/20 15:00 06/29/20 14:59 Dextrose/ Electrolytes 1,000 ml @ 100 mls/hr Q10H IV 04/02/20 18:30 05/02/20 18:29 04/05/20 06:43 Gabapentin (Neurontin) 300 mg QHS ORAL 03/31/20 21:00 04/30/20 20:59 04/04/20 20:32 Heparin Sodium (Porcine) (Heparin 5000 units/ml) 5,000 units EVERY 12 HOURS SUBQ 03/31/20 21:00 05/15/20 20:59 04/04/20 20:35 Insulin Aspart (NovoLOG) BEFORE MEALS AND HS SUBQ 03/31/20 16:30 06/29/20 16:29 04/04/20 17:00 Metoprolol Tartrate (Lopressor) 12.5 mg EVERY 12 HOURS ORAL 03/31/20 21:00 06/29/20 20:59 04/04/20 21:41 Ondansetron HCl (Zofran) 4 mg Q6H PRN IVP Nausea & Vomiting 03/31/20 15:00 04/30/20 14:59 Polyethylene Glycol (Miralax) 17 gm HSPRN PRN ORAL Constipation 03/31/20 15:00 04/30/20 14:59 Sitagliptin Phosphate (Januvia) 25 mg DAILY ORAL 04/01/20 09:00 05/01/20 08:59 04/04/20 08:53 Zolpidem Tartrate (Ambien) 5 mg HSPRN PRN ORAL Insomnia 03/31/20 15:00 04/07/20 14:59 Justa Parsons M.D. Apr 05, 2020 07:49
[2020-04-05 08:00] VITALS: BP 103/52
--- NOTE | 2020-04-05 08:29 | Pulmonology Progress Note ---
Subjective ROS Limited/Unobtainable: No Constitutional: Reports: no symptoms Allergies: Coded Allergies: No Known Allergies (Unverified , 03/01/20) Subjective remains afebrile, pulse ox stable on RA no leukocytosis good output from [facility] creat at baseline Objective Last 24 Hour Vital Signs Date Time Temp Pulse Resp B/P (MAP) Pulse Ox O2 Delivery O2 Flow Rate FiO2 04/05/20 04:00 98.6 79 18 110/72 (85) 97 04/05/20 00:00 98.6 80 18 105/70 (82) 97 04/04/20 21:41 75 105/73 04/04/20 21:15 Room Air 04/04/20 20:00 98.6 75 18 105/73 (84) 97 04/04/20 16:00 98.6 72 18 112/54 (73) 98 04/04/20 12:00 98.2 80 18 109/56 (73) 98 04/04/20 09:00 Room Air 04/04/20 08:52 74 107/53 Intake and Output 04/04/20 04/05/20 19:00 07:00 Intake Total 1420 ml Output Total 1200 ml 1300 ml Balance 220 ml -1300 ml Intake Oral 720 ml IV Total 700 ml Output Urine Total 1200 ml 1300 ml # Voids 1 General Appearance: WD/WN HEENT: normocephalic, atraumatic Respiratory: chest wall non-tender, lungs clear Cardiovascular: normal peripheral pulses, normal rate Abdomen: normal bowel sounds, soft, non tender, other - abd dressing C/D/I on the site of prior s/p catheter Genitourinary: normal external genitalia, other - Sanabria cath Extremities: no edema Skin: other - multiple pressure injury POA Neurologic: abnormal gait, alert, responsive Lymphatic: no groin adenopathy Current Medications Medications (Trade) Dose Ordered Sig/Lauren Route PRN Reason Start Time Stop Time Status Last Admin Dose Admin Acetaminophen (Tylenol) 650 mg Q4H PRN ORAL fever 03/31/20 15:00 04/30/20 14:59 Amiodarone HCl (Cordarone) 200 mg EVERY 12 HOURS ORAL 03/31/20 21:00 06/29/20 20:59 04/04/20 20:32 Dextrose (Dextrose 50%) 25 ml Q30M PRN IV Hypoglycemia 03/31/20 15:00 06/29/20 14:59 Dextrose (Dextrose 50%) 50 ml Q30M PRN IV Hypoglycemia 03/31/20 15:00 06/29/20 14:59 Dextrose/ Electrolytes 1,000 ml @ 100 mls/hr Q10H IV 04/02/20 18:30 05/02/20 18:29 04/05/20 06:43 Ertapenem 1 gm/ Sodium Chloride 55 ml @ 110 mls/hr Q24H IV 04/05/20 09:00 04/10/20 08:59 Gabapentin (Neurontin) 300 mg QHS ORAL 03/31/20 21:00 04/30/20 20:59 04/04/20 20:32 Heparin Sodium (Porcine) (Heparin 5000 units/ml) 5,000 units EVERY 12 HOURS SUBQ 03/31/20 21:00 05/15/20 20:59 04/04/20 20:35 Insulin Aspart (NovoLOG) BEFORE MEALS AND HS SUBQ 03/31/20 16:30 06/29/20 16:29 04/04/20 17:00 Metoprolol Tartrate (Lopressor) 12.5 mg EVERY 12 HOURS ORAL 03/31/20 21:00 06/29/20 20:59 04/04/20 21:41 Ondansetron HCl (Zofran) 4 mg Q6H PRN IVP Nausea & Vomiting 03/31/20 15:00 04/30/20 14:59 Polyethylene Glycol (Miralax) 17 gm HSPRN PRN ORAL Constipation 03/31/20 15:00 04/30/20 14:59 Sitagliptin Phosphate (Januvia) 25 mg DAILY ORAL 04/01/20 09:00 05/01/20 08:59 04/04/20 08:53 Zolpidem Tartrate (Ambien) 5 mg HSPRN PRN ORAL Insomnia 03/31/20 15:00 04/07/20 14:59 Assessment/Plan Assessment/Plan ASSESSMENT Suprapubic catheter dysfunction Urinary retention Proteus UTI Probably pneumonia Acute kidney injury vs chronic kidney disease DM HTN Anemia of chronic disease Hypothyroidism Sacral decubitus ulcer , POA PLAN OF CARE MS floor s/p accidental removal of s/p cath and failure to reinsert by urologist, now with Sanabria cath, monitor output CXR with R base infiltrate , probably pneumonia abx as per ID recs COVID 19 04/01 NGT fup with CXR 04/07 UCX 03/31+ Chaparrita, UCX 04/01 + Proteus DVT prophylaxis BP management with BB and optimize further as needed continue Synthroid monitor renal parameters, correct electrolytes as needed and avoid nephrotoxic fup with nephro recommendation renal US consider Flomax BS management with Januvia and SSI monitor HH with goal to keep Hgb >7 anemia w/up c/w anemia of chronic disease, check stool OB, CEA slightly elevated wound care as per surgery recs supportive care case discussed and evaluated by supervising physician Gianna Wolf NP Apr 05, 2020 08:29
[2020-04-05] MEDS: sitaGLIPtin 25mg tab ORAL SCH (08:48)
[2020-04-05] MEDS: Metoprolol Tartrate 12.5mg TAB ORAL SCH ×2 (08:48→21:09)
[2020-04-05] MEDS: Amiodarone 200mg tab ORAL SCH ×2 (08:48→21:08)
[2020-04-05] MEDS: Heparin 5000 units/ml inj SUBQ SCH ×2 (08:51→21:12)
[2020-04-05] MEDS: Ertapenem 1 GM in NS 55 ML IV SCH (08:51)
--- NOTE | 2020-04-05 10:20 | Nephrology Progress Note ---
Assessment/Plan Problem List: (1) Renal failure (ARF), acute on chronic (2) Suprapubic catheter dysfunction (3) BPH (benign prostatic hyperplasia) (4) Hypothyroidism (5) UTI (urinary tract infection) Assessment Acute on chronic renal failure, serum creatinine 1.5-1.7 Supra pubic catheter malfunction, urinary retention UTI, Proteus UTI Diabetes mellitus Hypertension Anemia of chronic disease Hypothyroidism Hypoalbuminemia Plan Change IV to normal saline. Watch heart rate as patient is on amiodarone and Lopressor Monitor renal parameters Avoid nephrotoxic's Per orders Subjective ROS Limited/Unobtainable: No Constitutional: Reports: malaise, weakness Objective Objective Last 24 Hour Vital Signs Date Time Temp Pulse Resp B/P (MAP) Pulse Ox O2 Delivery O2 Flow Rate FiO2 04/05/20 08:48 61 103/52 04/05/20 08:00 98.1 61 18 103/52 (69) 98 04/05/20 04:00 98.6 79 18 110/72 (85) 97 04/05/20 00:00 98.6 80 18 105/70 (82) 97 04/04/20 21:41 75 105/73 04/04/20 21:15 Room Air 04/04/20 20:00 98.6 75 18 105/73 (84) 97 04/04/20 16:00 98.6 72 18 112/54 (73) 98 04/04/20 12:00 98.2 80 18 109/56 (73) 98 Intake and Output0 04/04/20 04/05/20 19:00 07:00 Intake Total 1420 ml Output Total 1200 ml 1300 ml Balance 220 ml -1300 ml Intake Oral 720 ml IV Total 700 ml Output Urine Total 1200 ml 1300 ml # Voids 1 Current Medications Medications (Trade) Dose Ordered Sig/Lauren Route PRN Reason Start Time Stop Time Status Last Admin Dose Admin Acetaminophen (Tylenol) 650 mg Q4H PRN ORAL fever 03/31/20 15:00 04/30/20 14:59 Amiodarone HCl (Cordarone) 200 mg EVERY 12 HOURS ORAL 03/31/20 21:00 06/29/20 20:59 04/05/20 08:48 Dextrose (Dextrose 50%) 25 ml Q30M PRN IV Hypoglycemia 03/31/20 15:00 06/29/20 14:59 Dextrose (Dextrose 50%) 50 ml Q30M PRN IV Hypoglycemia 03/31/20 15:00 06/29/20 14:59 Dextrose/ Electrolytes 1,000 ml @ 100 mls/hr Q10H IV 04/02/20 18:30 05/02/20 18:29 04/05/20 06:43 Ertapenem 1 gm/ Sodium Chloride 55 ml @ 110 mls/hr Q24H IV 04/05/20 09:00 04/10/20 08:59 04/05/20 08:51 Gabapentin (Neurontin) 300 mg QHS ORAL 03/31/20 21:00 04/30/20 20:59 04/04/20 20:32 Heparin Sodium (Porcine) (Heparin 5000 units/ml) 5,000 units EVERY 12 HOURS SUBQ 03/31/20 21:00 05/15/20 20:59 04/05/20 08:51 Insulin Aspart (NovoLOG) BEFORE MEALS AND HS SUBQ 03/31/20 16:30 06/29/20 16:29 04/04/20 17:00 Metoprolol Tartrate (Lopressor) 12.5 mg EVERY 12 HOURS ORAL 03/31/20 21:00 06/29/20 20:59 04/05/20 08:48 Ondansetron HCl (Zofran) 4 mg Q6H PRN IVP Nausea & Vomiting 03/31/20 15:00 04/30/20 14:59 Polyethylene Glycol (Miralax) 17 gm HSPRN PRN ORAL Constipation 03/31/20 15:00 04/30/20 14:59 Sitagliptin Phosphate (Januvia) 25 mg DAILY ORAL 04/01/20 09:00 05/01/20 08:59 04/05/20 08:48 Zolpidem Tartrate (Ambien) 5 mg HSPRN PRN ORAL Insomnia 03/31/20 15:00 04/07/20 14:59 No chemistry panel done today Height (Feet): 6 Height (Inches): 0.00 Weight (Pounds): 220 Cardiovascular: normal rate, arrhythmia Respiratory/Chest: decreased breath sounds Abdomen: soft Steve Suarez MD Apr 05, 2020 10:20
[2020-04-05 12:00] VITALS: BP 114/55
--- NOTE | 2020-04-05 12:10 | Diagnostic Imaging Report ---
EXAM: US Retroperitoneal Complete, Renal CLINICAL HISTORY: TR URINE TECHNIQUE: Real-time complete ultrasound of the retroperitoneum with image documentation. COMPARISON: Renal ultrasound on 03/03/2020 FINDINGS: Right kidney: Right kidney measures 9.8 cm in length. No hydronephrosis or stone. Left kidney: Left kidney measures 11.5 cm in length. No hydronephrosis or stone. Evaluation of the left kidney is limited due to patient body habitus. Bladder: Suprapubic catheter within an underdistended bladder which is not well evaluated. Pleural space: Right pleural effusion incidentally noted. IMPRESSION: No hydronephrosis or stone. Right pleural effusion incidentally noted.
--- NOTE | 2020-04-05 13:08 | Internal Med Progress Note ---
Subjective Date of Service: Apr 05, 2020 Physician Name HaleyBrennan Attending Physician Alfred Watts MD Current Medications Medications (Trade) Dose Ordered Sig/Lauren Route PRN Reason Start Time Stop Time Status Last Admin Dose Admin Acetaminophen (Tylenol) 650 mg Q4H PRN ORAL fever 03/31/20 15:00 04/30/20 14:59 Amiodarone HCl (Cordarone) 200 mg EVERY 12 HOURS ORAL 03/31/20 21:00 06/29/20 20:59 04/05/20 08:48 Dextrose (Dextrose 50%) 25 ml Q30M PRN IV Hypoglycemia 03/31/20 15:00 06/29/20 14:59 Dextrose (Dextrose 50%) 50 ml Q30M PRN IV Hypoglycemia 03/31/20 15:00 06/29/20 14:59 Ertapenem 1 gm/ Sodium Chloride 55 ml @ 110 mls/hr Q24H IV 04/05/20 09:00 04/10/20 08:59 04/05/20 08:51 Gabapentin (Neurontin) 300 mg QHS ORAL 03/31/20 21:00 04/30/20 20:59 04/04/20 20:32 Heparin Sodium (Porcine) (Heparin 5000 units/ml) 5,000 units EVERY 12 HOURS SUBQ 03/31/20 21:00 05/15/20 20:59 04/05/20 08:51 Insulin Aspart (NovoLOG) BEFORE MEALS AND HS SUBQ 03/31/20 16:30 06/29/20 16:29 04/04/20 17:00 Metoprolol Tartrate (Lopressor) 12.5 mg EVERY 12 HOURS ORAL 03/31/20 21:00 06/29/20 20:59 04/05/20 08:48 Ondansetron HCl (Zofran) 4 mg Q6H PRN IVP Nausea & Vomiting 03/31/20 15:00 04/30/20 14:59 Polyethylene Glycol (Miralax) 17 gm HSPRN PRN ORAL Constipation 03/31/20 15:00 04/30/20 14:59 Sitagliptin Phosphate (Januvia) 25 mg DAILY ORAL 04/01/20 09:00 05/01/20 08:59 04/05/20 08:48 Zolpidem Tartrate (Ambien) 5 mg HSPRN PRN ORAL Insomnia 03/31/20 15:00 04/07/20 14:59 Allergies: Coded Allergies: No Known Allergies (Unverified , 03/01/20) ROS Limited/Unobtainable: No Constitutional: Reports: no symptoms HEENT: Reports: no symptoms Cardiovascular: Reports: no symptoms Respiratory: Reports: no symptoms Gastrointestinal/Abdominal: Reports: no symptoms Genitourinary: Reports: no symptoms Neurologic/Psychiatric: Reports: no symptoms Subjective 74 YO M admitted with suprapubic catheter malfunction. Now UTI. Cover for Int Med-Dr Watts Objective Last Vital Signs Date Time Temp Pulse Resp B/P (MAP) Pulse Ox O2 Delivery O2 Flow Rate FiO2 04/05/20 12:00 98.6 67 19 114/55 (74) 99 04/05/20 09:00 Room Air Intake and Output 04/04/20 04/05/20 19:00 07:00 Intake Total 1420 ml Output Total 1200 ml 1300 ml Balance 220 ml -1300 ml Intake Oral 720 ml IV Total 700 ml Output Urine Total 1200 ml 1300 ml # Voids 1 Objective PHYSICAL EXAMINATION: GENERAL: The patient is a well-developed and well-nourished male, in no apparent distress. HEENT: Eyes, pupils are equal and responsive to light and accommodation. Extraocular movements are intact. NECK: Supple without lymphadenopathy. CHEST: Lungs are clear to auscultation bilaterally without wheezes or rales. CARDIOVASCULAR: Regular rate. S1, S2 normal without murmurs, rubs, or gallops. ABDOMEN: Soft, nontender, and nondistended. Positive bowel sounds. No evidence of hepatosplenomegaly. Currently, no rebound or guarding noted. EXTREMITIES: Negative for clubbing, cyanosis, or edema. RECTAL/GENITAL: Not performed. NEUROLOGIC: Cranial nerves II through XII are grossly intact without focal deficits. Motor strength is 5/5 bilaterally. Deep tendon reflexes are 2+ plantar. Assessment/Plan Assessment/Plan ASSESSMENT: This is a 74-year-old male with: 1. Suprapubic catheter malfunction. 2. Urinary tract infection=ESBL proteus mirabilis 3. Right pneumonia. 4. Diabetes type 2. 5. Hypothyroidism. 6. Chronic renal failure. 7. Hypertension. 8. Benign prostatic hypertrophy. 9. Diastolic congestive heart failure. TREATMENT: 1. Suprapubic catheter malfunction. Failed reinsertion attempt by Urology = Dr. Herndon. Urethral shabazz catheter in place. Follow recommendations of Urology. 2. Urinary tract infection=ESBL proteus. ABX=ertapenem; S/P cefepime An Infectious Disease consultation has been obtained with Dr. Nicole. 3. Pneumonia. A Pulmonary consultation has been obtained with Dr. Miguel Bagley. ABX=ertapenem 4. Diabetes type 2. NovoLog sliding scale has been instituted. 5. Hypothyroidism. Continue Synthroid as above. 6. Chronic renal failure. 7. Hypertension. Continue metoprolol as above. 8. Benign prostatic hypertrophy. Continue Flomax as above. A Urology consultation has been obtained with Dr. Herndon. 9. Diastolic congestive heart failure. Brennan Haley MD Apr 05, 2020 13:08
[2020-04-05 16:00] VITALS: BP 109/58
[2020-04-05 20:00] VITALS: BP 117/60
--- NOTE | 2020-04-05 20:01 | Surgery Progress Note ---
Surgery Progress Note Subjective Symptoms: improved, tolerating diet, passing flatus Objective Last 24 Hour Vital Signs Date Time Temp Pulse Resp B/P (MAP) Pulse Ox O2 Delivery O2 Flow Rate FiO2 04/05/20 16:00 97.8 73 18 109/58 (75) 99 04/05/20 12:00 98.6 67 19 114/55 (74) 99 04/05/20 09:00 Room Air 04/05/20 08:48 61 103/52 04/05/20 08:00 98.1 61 18 103/52 (69) 98 04/05/20 04:00 98.6 79 18 110/72 (85) 97 04/05/20 00:00 98.6 80 18 105/70 (82) 97 04/04/20 21:41 75 105/73 04/04/20 21:15 Room Air I&O Intake and Output 04/04/20 04/05/20 19:00 07:00 Intake Total 1420 ml Output Total 1200 ml 1300 ml Balance 220 ml -1300 ml Intake Oral 720 ml IV Total 700 ml Output Urine Total 1200 ml 1300 ml # Voids 1 Dressing: saturated Cardiovascular: RSR Respiratory: clear Abdomen: soft, non-tender, present bowel sounds Extremities: no edema, no tenderness, no cyanosis Plan Problems: (1) Suprapubic catheter (2) UTI (urinary tract infection) (3) Osteomyelitis (4) Uncontrolled diabetes mellitus (5) Hypothyroidism (6) Diabetes mellitus (7) Sacral decubitus ulcer Assessment & Plan: Pt presented on admission with multiple Pressure Injuries. Resolving Pressure Sacral Pressure Injury.Clusters of full thickness pressure ulcers in close proximity that are moist and pink at bases. Surrounding maroon borders but without induration.(L)10.5cm x (W)10cm. BIlat lower ext are edematous. DTPI distal/lateral L Tibia(L)11.4cm x (W)2.7cm. Base of injury is purpuric with maroon borders. DTPI lateral L Malleolus(L)1cm x (W)0.7cm. Base of injury is maroon and indurated. Non-Blanchable erythema without induration or fluctuance medial L foot (L)1.6cm x (W)1cm. Unstageable Pressure injury R heel(L)7.7cm x (W)6.8cm. Base of is 70%necrotic and dry,10% slough with remaining 20% alyssia base. Marginal erythema along edges.Periwound is fluctuant with pale skin color. DTPI Lateral R Malleolus(L)2.6cm x (W)1.4cm. Base of injury is purpuric with maroon borders. DTPI medial R Malleolus(L)2.5cm x (W)2.4cm. Base of injury is purpuric with maroon borders. DTPI medial R foot (L)1.3cm x (W)3.6cm. Base of injury is indurated purpuric with surrounding maroon borders that are irregular. DTPI lateral R foot (L)0.7cm x (W)0.9cm. Base of injury is maroon in colour with marginal erythema. DTPI noted to tip of R 1st metatarsal(L)1.4cm x (W)1.2cm. Base of injury presents as an intact blood Blister. Unstageable Pressure injury lateral R 1st metatarsal(L)0.5cm x (W)0.8cm. Dry eschar with marginal erythema along edges. DTPI tip of R 2nd metatarsal.(L)1cm x (W)1.3cm. Base of injury presents as an intact blood blister with marginal erythema along edges. Surgical incisions noted to R hip, R femur and R knee. Incision sites approximated with oswaldo that are intact and dry. No erythema noted. Tx.Plan: Apply Moisture Barrier Paste to Sacrum. Cover with Optifoam drsgs. Change every 3 days and prn. Apply Betadine to DTPI's L Tibia, R and L feet. Cover each site with Optifoam drsgs. Change every 7 days and prn. Cleanse R Heel with Saline. Apply TheraHoney.Apply Maxsorb Extra(calcium Alginate. Apply Cavilon Skin Barrier periwound. Cover with Abd Pad and wrap with Kerlix Daily and prn. Reposition at least every 2hours or as tolerated. Off-load heels with pillows. (8) Renal insufficiency (9) Suprapubic catheter dysfunction Assessment & Plan: changed by urology catheter in now good uop monitor (10) BPH (benign prostatic hyperplasia) (11) Urinary retention Guy Oakley Apr 05, 2020 20:01
[2020-04-05] MEDS ORDERED: Miralax 17gm pkt ORAL PRN (20:45)
[2020-04-05] MEDS: Docusate 100mg cap ORAL SCH (21:09)
[2020-04-06] VITALS: BP_SYST 115; BP_SYST 98; BP_DIAS 49; BP_DIAS 58
[2020-04-06 04:00] VITALS: BP 98/49
[2020-04-06] MEDS: NovoLOG Insulin Flexpen SUBQ SCH ×4 (05:53→20:54)
[2020-04-06 07:12] LABS: EOSINOPHILS % (AUTO) 3.8 % (0.0-3.0); HEMATOCRIT 27.2 % (42.0-52.0); HEMOGLOBIN 9.1 G/DL (14.2-18.0); LYMPHOCYTES % (AUTO) 22.4 % (20.0-45.0); MEAN CORPUSCULAR VOLUME 92 FL (80-99); MONOCYTES % (AUTO) 11.4 % (1.0-10.0); NEUTROPHILS % (AUTO) 61.5 % (45.0-75.0); PLATELET COUNT 184 K/UL (150-450); RED BLOOD COUNT 2.96 M/UL (4.70-6.10); RED CELL DISTRIBUTION WIDTH 16.1 % (11.6-14.8)
[2020-04-06 07:33] LABS: PHOSPHORUS 2.8 MG/DL (2.5-4.9)
[2020-04-06 07:49] LABS: ALBUMIN 2.1 G/DL (3.4-5.0); ALBUMIN/GLOBULIN RATIO 0.5 (1.0-2.7); BILIRUBIN,TOTAL 0.3 MG/DL (0.2-1.0); CALCIUM 8.2 MG/DL (8.5-10.1); CREATININE 1.6 MG/DL (0.55-1.30); POTASSIUM 4.6 MMOL/L (3.5-5.1)
[2020-04-06 08:00] VITALS: BP 90/47
--- NOTE | 2020-04-06 08:09 | Surgery Progress Note ---
Surgery Progress Note Subjective Symptoms: improved, tolerating diet, passing flatus, BM Objective Last 24 Hour Vital Signs Date Time Temp Pulse Resp B/P (MAP) Pulse Ox O2 Delivery O2 Flow Rate FiO2 04/06/20 04:00 98.0 78 19 98/49 (65) 97 04/06/20 00:00 99.0 80 19 115/58 (77) 97 04/05/20 21:09 81 105/61 04/05/20 21:00 Room Air 04/05/20 20:00 98.2 81 20 117/60 (79) 98 04/05/20 16:00 97.8 73 18 109/58 (75) 99 04/05/20 12:00 98.6 67 19 114/55 (74) 99 04/05/20 09:00 Room Air 04/05/20 08:48 61 103/52 I&O Intake and Output 04/05/20 04/06/20 19:00 07:00 Intake Total 800 ml Output Total 1100 ml 600 ml Balance -300 ml -600 ml Intake Oral 800 ml Output Urine Total 1100 ml 600 ml Dressing: saturated Cardiovascular: RSR Respiratory: clear, decreased breath sounds Abdomen: soft, non-tender, present bowel sounds Extremities: no edema, no tenderness, no cyanosis Laboratory Tests Test 04/06/20 01:59 04/06/20 06:40 Stool Occult Blood Pending White Blood Count 9.0 K/UL (4.8-10.8) Red Blood Count 2.96 M/UL (4.70-6.10) L Hemoglobin 9.1 G/DL (14.2-18.0) L Hematocrit 27.2 % (42.0-52.0) L Mean Corpuscular Volume 92 FL (80-99) Mean Corpuscular Hemoglobin 30.8 PG (27.0-31.0) Mean Corpuscular Hemoglobin Concent 33.5 G/DL (32.0-36.0) Red Cell Distribution Width 16.1 % (11.6-14.8) H Platelet Count 184 K/UL (150-450) Mean Platelet Volume 6.9 FL (6.5-10.1) Neutrophils (%) (Auto) 61.5 % (45.0-75.0) Lymphocytes (%) (Auto) 22.4 % (20.0-45.0) Monocytes (%) (Auto) 11.4 % (1.0-10.0) H Eosinophils (%) (Auto) 3.8 % (0.0-3.0) H Basophils (%) (Auto) 1.0 % (0.0-2.0) Sodium Level 137 MMOL/L (136-145) Potassium Level 4.6 MMOL/L (3.5-5.1) Chloride Level 104 MMOL/L (98-107) Carbon Dioxide Level 26 MMOL/L (21-32) Anion Gap 7 mmol/L (5-15) Blood Urea Nitrogen 34 mg/dL (7-18) H Creatinine 1.6 MG/DL (0.55-1.30) H Estimat Glomerular Filtration Rate 42.3 mL/min (>60) Glucose Level 164 MG/DL (74-106) H Hemoglobin A1c 5.9 % (4.3-6.0) Uric Acid 2.6 MG/DL (2.6-7.2) Calcium Level 8.2 MG/DL (8.5-10.1) L Phosphorus Level 2.8 MG/DL (2.5-4.9) Magnesium Level 1.7 MG/DL (1.8-2.4) L Total Bilirubin 0.3 MG/DL (0.2-1.0) Aspartate Amino Transf (AST/SGOT) 30 U/L (15-37) Alanine Aminotransferase (ALT/SGPT) 14 U/L (12-78) Alkaline Phosphatase 84 U/L (46-116) Total Protein 6.2 G/DL (6.4-8.2) L Albumin 2.1 G/DL (3.4-5.0) L Globulin 4.1 g/dL Albumin/Globulin Ratio 0.5 (1.0-2.7) L Thyroid Stimulating Hormone (TSH) 25.054 uiU/mL (0.358-3.740) Plan Problems: (1) Suprapubic catheter (2) UTI (urinary tract infection) (3) Osteomyelitis (4) Uncontrolled diabetes mellitus (5) Hypothyroidism (6) Diabetes mellitus (7) Sacral decubitus ulcer Assessment & Plan: Pt presented on admission with multiple Pressure Injuries. Resolving Pressure Sacral Pressure Injury.Clusters of full thickness pressure ulcers in close proximity that are moist and pink at bases. Surrounding maroon borders but without induration.(L)10.5cm x (W)10cm. BIlat lower ext are edematous. DTPI distal/lateral L Tibia(L)11.4cm x (W)2.7cm. Base of injury is purpuric with maroon borders. DTPI lateral L Malleolus(L)1cm x (W)0.7cm. Base of injury is maroon and indurated. Non-Blanchable erythema without induration or fluctuance medial L foot (L)1.6cm x (W)1cm. Unstageable Pressure injury R heel(L)7.7cm x (W)6.8cm. Base of is 70%necrotic and dry,10% slough with remaining 20% alyssia base. Marginal erythema along edges.Periwound is fluctuant with pale skin color. DTPI Lateral R Malleolus(L)2.6cm x (W)1.4cm. Base of injury is purpuric with maroon borders. DTPI medial R Malleolus(L)2.5cm x (W)2.4cm. Base of injury is purpuric with maroon borders. DTPI medial R foot (L)1.3cm x (W)3.6cm. Base of injury is indurated purpuric with surrounding maroon borders that are irregular. DTPI lateral R foot (L)0.7cm x (W)0.9cm. Base of injury is maroon in colour with marginal erythema. DTPI noted to tip of R 1st metatarsal(L)1.4cm x (W)1.2cm. Base of injury presents as an intact blood Blister. Unstageable Pressure injury lateral R 1st metatarsal(L)0.5cm x (W)0.8cm. Dry eschar with marginal erythema along edges. DTPI tip of R 2nd metatarsal.(L)1cm x (W)1.3cm. Base of injury presents as an intact blood blister with marginal erythema along edges. Surgical incisions noted to R hip, R femur and R knee. Incision sites approximated with oswaldo that are intact and dry. No erythema noted. Tx.Plan: Apply Moisture Barrier Paste to Sacrum. Cover with Optifoam drsgs. Change every 3 days and prn. Apply Betadine to DTPI's L Tibia, R and L feet. Cover each site with Optifoam drsgs. Change every 7 days and prn. Cleanse R Heel with Saline. Apply TheraHoney.Apply Maxsorb Extra(calcium Alginate. Apply Cavilon Skin Barrier periwound. Cover with Abd Pad and wrap with Kerlix Daily and prn. Reposition at least every 2hours or as tolerated. Off-load heels with pillows. (8) Renal insufficiency (9) Suprapubic catheter dysfunction Assessment & Plan: changed by urology catheter in now good uop monitor (10) BPH (benign prostatic hyperplasia) (11) Urinary retention Guy Oakley Apr 06, 2020 08:09
[2020-04-06] MEDS: Ertapenem 1 GM in NS 55 ML IV SCH (08:28)
[2020-04-06] MEDS: sitaGLIPtin 25mg tab ORAL SCH (08:49)
[2020-04-06] MEDS: Docusate 100mg cap ORAL SCH ×2 (08:49→17:03)
[2020-04-06] MEDS: Amiodarone 200mg tab ORAL SCH ×2 (08:50→20:42)
[2020-04-06] MEDS: Metoprolol Tartrate 12.5mg TAB ORAL SCH ×2 (08:50→20:42)
[2020-04-06] MEDS: D5 1/2NS w/KCl 20mEq 1,000 ML IV SCH ×2 (08:50→17:03)
[2020-04-06] MEDS: Heparin 5000 units/ml inj SUBQ SCH ×2 (08:53→21:01)
--- NOTE | 2020-04-06 10:44 | Pulmonology Progress Note ---
Subjective ROS Limited/Unobtainable: No Constitutional: Reports: no symptoms Allergies: Coded Allergies: No Known Allergies (Unverified , 03/01/20) Subjective remains afebrile, pulse ox stable on RA no leukocytosis good output from [facility] creat at baseline Objective Last 24 Hour Vital Signs Date Time Temp Pulse Resp B/P (MAP) Pulse Ox O2 Delivery O2 Flow Rate FiO2 04/06/20 08:50 69 90/47 04/06/20 08:00 97.7 69 18 90/47 (61) 98 04/06/20 04:00 98.0 78 19 98/49 (65) 97 04/06/20 00:00 99.0 80 19 115/58 (77) 97 04/05/20 21:09 81 105/61 04/05/20 21:00 Room Air 04/05/20 20:00 98.2 81 20 117/60 (79) 98 04/05/20 16:00 97.8 73 18 109/58 (75) 99 04/05/20 12:00 98.6 67 19 114/55 (74) 99 Intake and Output 04/05/20 04/06/20 19:00 07:00 Intake Total 800 ml Output Total 1100 ml 600 ml Balance -300 ml -600 ml Intake Oral 800 ml Output Urine Total 1100 ml 600 ml General Appearance: WD/WN HEENT: normocephalic, atraumatic Respiratory: chest wall non-tender, lungs clear Cardiovascular: normal peripheral pulses, normal rate Abdomen: normal bowel sounds, soft, non tender, other - abd dressing C/D/I on the site of prior s/p catheter Genitourinary: normal external genitalia, other - Sanabria cath Extremities: no edema Skin: other - multiple pressure injury POA Neurologic: abnormal gait, alert, responsive Lymphatic: no groin adenopathy Laboratory Tests 04/06/20 01:59: Stool Occult Blood [Pending] 04/06/20 06:40: White Blood Count 9.0, Red Blood Count 2.96L, Hemoglobin 9.1L, Hematocrit 27.2L, Mean Corpuscular Volume 92, Mean Corpuscular Hemoglobin 30.8, Mean Corpuscular Hemoglobin Concent 33.5, Red Cell Distribution Width 16.1H, Platelet Count 184, Mean Platelet Volume 6.9, Neutrophils (%) (Auto) 61.5, Lymphocytes (%) (Auto) 22.4, Monocytes (%) (Auto) 11.4H, Eosinophils (%) (Auto) 3.8H, Basophils (%) (Auto) 1.0, Sodium Level 137, Potassium Level 4.6, Chloride Level 104, Carbon Dioxide Level 26, Anion Gap 7, Blood Urea Nitrogen 34H, Creatinine 1.6H, Estimat Glomerular Filtration Rate 42.3, Glucose Level 164H, Hemoglobin A1c 5.9, Uric Acid 2.6, Calcium Level 8.2L, Phosphorus Level 2.8, Magnesium Level 1.7L, Total Bilirubin 0.3, Aspartate Amino Transf (AST/SGOT) 30, Alanine Aminotransferase (ALT/SGPT) 14, Alkaline Phosphatase 84, Total Protein 6.2L, Albumin 2.1L, Globu jayleen 4.1, Albumin/Globulin Ratio 0.5L, Thyroid Stimulating Hormone (TSH) 25.054H Current Medications Medications (Trade) Dose Ordered Sig/Lauren Route PRN Reason Start Time Stop Time Status Last Admin Dose Admin Acetaminophen (Tylenol) 650 mg Q4H PRN ORAL fever 03/31/20 15:00 04/30/20 14:59 Amiodarone HCl (Cordarone) 200 mg EVERY 12 HOURS ORAL 03/31/20 21:00 06/29/20 20:59 04/05/20 21:08 Dextrose (Dextrose 50%) 25 ml Q30M PRN IV Hypoglycemia 03/31/20 15:00 06/29/20 14:59 Dextrose (Dextrose 50%) 50 ml Q30M PRN IV Hypoglycemia 03/31/20 15:00 06/29/20 14:59 Dextrose/ Electrolytes 1,000 ml @ 100 mls/hr Q10H IV 04/06/20 09:00 05/06/20 08:59 04/06/20 08:50 Docusate Sodium (Colace) 100 mg BID ORAL 04/05/20 21:00 05/05/20 20:59 04/06/20 08:49 Ertapenem 1 gm/ Sodium Chloride 55 ml @ 110 mls/hr Q24H IV 04/05/20 09:00 04/10/20 08:59 04/06/20 08:28 Gabapentin (Neurontin) 300 mg QHS ORAL 03/31/20 21:00 04/30/20 20:59 04/05/20 21:08 Heparin Sodium (Porcine) (Heparin 5000 units/ml) 5,000 units EVERY 12 HOURS SUBQ 03/31/20 21:00 05/15/20 20:59 04/06/20 08:53 Insulin Aspart (NovoLOG) BEFORE MEALS AND HS SUBQ 03/31/20 16:30 06/29/20 16:29 04/04/20 17:00 Metoprolol Tartrate (Lopressor) 12.5 mg EVERY 12 HOURS ORAL 03/31/20 21:00 06/29/20 20:59 04/05/20 21:09 Ondansetron HCl (Zofran) 4 mg Q6H PRN IVP Nausea & Vomiting 03/31/20 15:00 04/30/20 14:59 Polyethylene Glycol (Miralax) 17 gm DAILY PRN ORAL Constipation 04/05/20 20:45 04/30/20 14:59 Sitagliptin Phosphate (Januvia) 25 mg DAILY ORAL 04/01/20 09:00 05/01/20 08:59 04/06/20 08:49 Zolpidem Tartrate (Ambien) 5 mg HSPRN PRN ORAL Insomnia 03/31/20 15:00 04/07/20 14:59 Assessment/Plan Assessment/Plan ASSESSMENT Suprapubic catheter dysfunction Urinary retention Proteus UTI Probably pneumonia Acute kidney injury vs chronic kidney disease DM HTN Anemia of chronic disease Hypothyroidism Sacral decubitus ulcer , POA PLAN OF CARE MS floor s/p accidental removal of s/p cath and failure to reinsert by urologist, now with [facility]ria cath, monitor output CXR with R base infiltrate , probably pneumonia abx as per ID recs COVID 19 04/01 NGT fup with CXR 04/07 UCX 03/31+ Chaparrita, UCX 04/01 + Proteus DVT prophylaxis BP management with BB and optimize further as needed continue Synthroid monitor renal parameters, correct electrolytes as needed and avoid nephrotoxic fup with nephro recommendation renal US consider Flomax BS management with Januvia and SSI monitor HH with goal to keep Hgb >7 anemia w/up c/w anemia of chronic disease, check stool OB, CEA slightly elevated wound care as per surgery recs supportive care case discussed and evaluated by supervising physician Gianna Wolf [employer] Apr 06, 2020 10:44
[2020-04-06 12:05] VITALS: BP 90/46
--- NOTE | 2020-04-06 13:10 | Internal Med Progress Note ---
Subjective Date of Service: Apr 06, 2020 Physician Name Haley,Brennan Attending Physician Alfred Watts MD Current Medications Medications (Trade) Dose Ordered Sig/Lauren Route PRN Reason Start Time Stop Time Status Last Admin Dose Admin Acetaminophen (Tylenol) 650 mg Q4H PRN ORAL fever 03/31/20 15:00 04/30/20 14:59 Amiodarone HCl (Cordarone) 200 mg EVERY 12 HOURS ORAL 03/31/20 21:00 06/29/20 20:59 04/05/20 21:08 Dextrose (Dextrose 50%) 25 ml Q30M PRN IV Hypoglycemia 03/31/20 15:00 06/29/20 14:59 Dextrose (Dextrose 50%) 50 ml Q30M PRN IV Hypoglycemia 03/31/20 15:00 06/29/20 14:59 Dextrose/ Electrolytes 1,000 ml @ 100 mls/hr Q10H IV 04/06/20 09:00 05/06/20 08:59 04/06/20 08:50 Docusate Sodium (Colace) 100 mg BID ORAL 04/05/20 21:00 05/05/20 20:59 04/06/20 08:49 Ertapenem 1 gm/ Sodium Chloride 55 ml @ 110 mls/hr Q24H IV 04/05/20 09:00 04/10/20 08:59 04/06/20 08:28 Gabapentin (Neurontin) 300 mg QHS ORAL 03/31/20 21:00 04/30/20 20:59 04/05/20 21:08 Heparin Sodium (Porcine) (Heparin 5000 units/ml) 5,000 units EVERY 12 HOURS SUBQ 03/31/20 21:00 05/15/20 20:59 04/06/20 08:53 Insulin Aspart (NovoLOG) BEFORE MEALS AND HS SUBQ 03/31/20 16:30 06/29/20 16:29 04/06/20 12:25 Metoprolol Tartrate (Lopressor) 12.5 mg EVERY 12 HOURS ORAL 03/31/20 21:00 06/29/20 20:59 04/05/20 21:09 Ondansetron HCl (Zofran) 4 mg Q6H PRN IVP Nausea & Vomiting 03/31/20 15:00 04/30/20 14:59 Polyethylene Glycol (Miralax) 17 gm DAILY PRN ORAL Constipation 04/05/20 20:45 04/30/20 14:59 Sitagliptin Phosphate (Januvia) 25 mg DAILY ORAL 04/01/20 09:00 05/01/20 08:59 04/06/20 08:49 Zolpidem Tartrate (Ambien) 5 mg HSPRN PRN ORAL Insomnia 03/31/20 15:00 04/07/20 14:59 Allergies: Coded Allergies: No Known Allergies (Unverified , 03/01/20) ROS Limited/Unobtainable: No Constitutional: Reports: no symptoms HEENT: Reports: no symptoms Cardiovascular: Reports: no symptoms Respiratory: Reports: no symptoms Gastrointestinal/Abdominal: Reports: no symptoms Genitourinary: Reports: no symptoms Neurologic/Psychiatric: Reports: no symptoms Subjective 74 YO M admitted with suprapubic catheter malfunction. Now UTI. Cover for Int Ryan-Dr Watts Objective Last Vital Signs Date Time Temp Pulse Resp B/P (MAP) Pulse Ox O2 Delivery O2 Flow Rate FiO2 04/06/20 12:05 96.3 65 20 90/46 (61) 98 04/06/20 09:00 Room Air Laboratory Tests Test 04/06/20 01:59 04/06/20 06:40 Stool Occult Blood Pending White Blood Count 9.0 K/UL (4.8-10.8) Red Blood Count 2.96 M/UL (4.70-6.10) L Hemoglobin 9.1 G/DL (14.2-18.0) L Hematocrit 27.2 % (42.0-52.0) L Mean Corpuscular Volume 92 FL (80-99) Mean Corpuscular Hemoglobin 30.8 PG (27.0-31.0) Mean Corpuscular Hemoglobin Concent 33.5 G/DL (32.0-36.0) Red Cell Distribution Width 16.1 % (11.6-14.8) H Platelet Count 184 K/UL (150-450) Mean Platelet Volume 6.9 FL (6.5-10.1) Neutrophils (%) (Auto) 61.5 % (45.0-75.0) Lymphocytes (%) (Auto) 22.4 % (20.0-45.0) Monocytes (%) (Auto) 11.4 % (1.0-10.0) H Eosinophils (%) (Auto) 3.8 % (0.0-3.0) H Basophils (%) (Auto) 1.0 % (0.0-2.0) Sodium Level 137 MMOL/L (136-145) Potassium Level 4.6 MMOL/L (3.5-5.1) Chloride Level 104 MMOL/L (98-107) Carbon Dioxide Level 26 MMOL/L (21-32) Anion Gap 7 mmol/L (5-15) Blood Urea Nitrogen 34 mg/dL (7-18) H Creatinine 1.6 MG/DL (0.55-1.30) H Estimat Glomerular Filtration Rate 42.3 mL/min (>60) Glucose Level 164 MG/DL (74-106) H Hemoglobin A1c 5.9 % (4.3-6.0) Uric Acid 2.6 MG/DL (2.6-7.2) Calcium Level 8.2 MG/DL (8.5-10.1) L Phosphorus Level 2.8 MG/DL (2.5-4.9) Magnesium Level 1.7 MG/DL (1.8-2.4) L Total Bilirubin 0.3 MG/DL (0.2-1.0) Aspartate Amino Transf (AST/SGOT) 30 U/L (15-37) Alanine Aminotransferase (ALT/SGPT) 14 U/L (12-78) Alkaline Phosphatase 84 U/L (46-116) Total Protein 6.2 G/DL (6.4-8.2) L Albumin 2.1 G/DL (3.4-5.0) L Globulin 4.1 g/dL Albumin/Globulin Ratio 0.5 (1.0-2.7) L Thyroid Stimulating Hormone (TSH) 25.054 uiU/mL (0.358-3.740) Intake and Output 04/05/20 04/06/20 19:00 07:00 Intake Total 800 ml Output Total 1100 ml 600 ml Balance -300 ml -600 ml Intake Oral 800 ml Output Urine Total 1100 ml 600 ml Objective PHYSICAL EXAMINATION: GENERAL: The patient is a well-developed and well-nourished male, in no apparent distress. HEENT: Eyes, pupils are equal and responsive to light and accommodation. Extraocular movements are intact. NECK: Supple without lymphadenopathy. CHEST: Lungs are clear to auscultation bilaterally without wheezes or rales. CARDIOVASCULAR: Regular rate. S1, S2 normal without murmurs, rubs, or gallops. ABDOMEN: Soft, nontender, and nondistended. Positive bowel sounds. No evidence of hepatosplenomegaly. Currently, no rebound or guarding noted. EXTREMITIES: Negative for clubbing, cyanosis, or edema. RECTAL/GENITAL: Not performed. NEUROLOGIC: Cranial nerves II through XII are grossly intact without focal deficits. Motor strength is 5/5 bilaterally. Deep tendon reflexes are 2+ plantar. Assessment/Plan Assessment/Plan ASSESSMENT: This is a 74-year-old male with: 1. Suprapubic catheter malfunction. 2. Urinary tract infection=ESBL proteus mirabilis 3. Right pneumonia. 4. Diabetes type 2. 5. Hypothyroidism. 6. Chronic renal failure. 7. Hypertension. 8. Benign prostatic hypertrophy. 9. Diastolic congestive heart failure. TREATMENT: 1. Suprapubic catheter malfunction. Failed reinsertion attempt by Urology = Dr. Herndon. Urethral shabazz catheter in place. Follow recommendations of Urology. 2. Urinary tract infection=ESBL proteus. ABX=ertapenem; S/P cefepime An Infectious Disease consultation has been obtained with Dr. Nicole. 3. Pneumonia. A Pulmonary consultation has been obtained with Dr. Miguel Bagley. ABX=ertapenem 4. Diabetes type 2. NovoLog sliding scale has been instituted. 5. Hypothyroidism. Continue Synthroid as above. 6. Chronic renal failure. 7. Hypertension. Continue metoprolol as above. 8. Benign prostatic hypertrophy. Continue Flomax as above. A Urology consultation has been obtained with Dr. Herndon. 9. Diastolic congestive heart failure. Brennan Haley MD Apr 06, 2020 13:09
--- NOTE | 2020-04-06 13:27 | Nephrology Progress Note ---
Assessment/Plan Problem List: (1) Renal failure (ARF), acute on chronic (2) Suprapubic catheter dysfunction (3) BPH (benign prostatic hyperplasia) (4) Hypothyroidism (5) UTI (urinary tract infection) Assessment Acute on chronic renal failure, serum creatinine 1.5-1.7 Supra pubic catheter malfunction, urinary retention UTI, Proteus UTI Diabetes mellitus Hypertension Anemia of chronic disease Hypothyroidism Hypoalbuminemia Plan April 06: Labs reviewed. Serum creatinine 1.6 stable. Remains anemic however hemoglobin 9.1 stable. Low magnesium supplemented. Continue per consultants. Change IV to normal saline. Watch heart rate as patient is on amiodarone and Lopressor Monitor renal parameters Avoid nephrotoxic's Per orders Subjective ROS Limited/Unobtainable: No Constitutional: Reports: malaise Objective Objective Last 24 Hour Vital Signs Date Time Temp Pulse Resp B/P (MAP) Pulse Ox O2 Delivery O2 Flow Rate FiO2 04/06/20 12:05 96.3 65 20 90/46 (61) 98 04/06/20 09:00 Room Air 04/06/20 08:50 69 90/47 04/06/20 08:00 97.7 69 18 90/47 (61) 98 04/06/20 04:00 98.0 78 19 98/49 (65) 97 04/06/20 00:00 99.0 80 19 115/58 (77) 97 04/05/20 21:09 81 105/61 04/05/20 21:00 Room Air 04/05/20 20:00 98.2 81 20 117/60 (79) 98 04/05/20 16:00 97.8 73 18 109/58 (75) 99 Intake and Output 04/05/20 04/06/20 19:00 07:00 Intake Total 800 ml Output Total 1100 ml 600 ml Balance -300 ml -600 ml Intake Oral 800 ml Output Urine Total 1100 ml 600 ml Laboratory Tests 04/06/20 01:59: Stool Occult Blood [Pending] 04/06/20 06:40: White Blood Count 9.0, Red Blood Count 2.96L, Hemoglobin 9.1L, Hematocrit 27.2L, Mean Corpuscular Volume 92, Mean Corpuscular Hemoglobin 30.8, Mean Corpuscular Hemoglobin Concent 33.5, Red Cell Distribution Width 16.1H, Platelet Count 184, Mean Platelet Volume 6.9, Neutrophils (%) (Auto) 61.5, Lymphocytes (%) (Auto) 22.4, Monocytes (%) (Auto) 11.4H, Eosinophils (%) (Auto) 3.8H, Basophils (%) (Auto) 1.0, Sodium Level 137, Potassium Level 4.6, Chloride Level 104, Carbon Dioxide Level 26, Anion Gap 7, Blood Urea Nitrogen 34H, Creatinine 1.6H, Estimat Glomerular Filtration Rate 42.3, Glucose Level 164H, Hemoglobin A1c 5.9, Uric Acid 2.6, Calcium Level 8.2L, Phosphorus Level 2.8, Magnesium Level 1.7L, Total Bilirubin 0.3, Aspartate Amino Transf (AST/SGOT) 30, Alanine Aminotransferase (ALT/SGPT) 14, Alkaline Phosphatase 84, Total Protein 6.2L, Albumin 2.1L, Globulin 4.1, Albumin/Globulin Ratio 0.5L, Thyroid Stimulating Hormone (TSH) 25.054H Height (Feet): 6 Height (Inches): 0.00 Weight (Pounds): 220 General Appearance: no apparent distress Cardiovascular: normal rate Respiratory/Chest: decreased breath sounds Abdomen: soft Steve Suarez MD Apr 06, 2020 13:26
[2020-04-06 15:54] VITALS: BP 98/62
[2020-04-06 20:00] VITALS: BP 104/51
[2020-04-06] MEDS ORDERED: Zolpidem 5mg tab ORAL PRN (21:00)
[2020-04-07] VITALS: BP 110/54
[2020-04-07 04:00] VITALS: BP 100/58
[2020-04-07] MEDS: NovoLOG Insulin Flexpen SUBQ SCH ×4 (05:43→20:06)
[2020-04-07] MEDS: D5 1/2NS w/KCl 20mEq 1,000 ML IV SCH ×3 (05:46→23:54)
[2020-04-07 08:00] VITALS: BP 114/58
[2020-04-07] MEDS: sitaGLIPtin 25mg tab ORAL SCH (09:12)
[2020-04-07] MEDS: Amiodarone 200mg tab ORAL SCH ×2 (09:12→20:07)
[2020-04-07] MEDS: Ertapenem 1 GM in NS 55 ML IV SCH (09:12)
[2020-04-07] MEDS: Metoprolol Tartrate 12.5mg TAB ORAL SCH ×2 (09:12→20:07)
[2020-04-07] MEDS: Docusate 100mg cap ORAL SCH ×2 (09:12→17:10)
[2020-04-07] MEDS: Heparin 5000 units/ml inj SUBQ SCH ×2 (09:13→20:08)
--- NOTE | 2020-04-07 11:40 | Infectious Diseases Prog Note ---
Assessment/Plan Assessment: UTI -u/a wbc tnct, nit neg, leuk +3; ucx >100k yeast, >100k ESBL P.mirabilis S- bactrim Probable PNA -04/01 rapid COVID PCR neg -CXR: Right basilar infiltrate, suspicious for pneumonia/ Possible left basilar infiltrate as well Afebrile No leukocytosis Urinary retention Sp accidental removal SPC w/ unsuccessful replacement -s/p Barnett insertion DM2 HTN BPH CKD urinary retention sp suprapubic catheter [facility] resident ([facility]) Plan: Continue ertapenem #3/3 for ESBL P.mirabilis UTI, continue for 3 more days to complete 7 day course given pt has remains AF and HDS without leukocytosis on cefepime, this was likely working 04/05/20 SP cefepime #4 -f/u cx -Monitor CBC/CMP, temperatures -Uro f/u -COVID19 neg x1 Thank you for this consultation. Will continue to follow along with you. Subjective Allergies: Coded Allergies: No Known Allergies (Unverified , 03/01/20) Afebrile No Leukocytosis Objective Last 24 Hour Vital Signs Date Time Temp Pulse Resp B/P (MAP) Pulse Ox O2 Delivery O2 Flow Rate FiO2 04/07/20 09:12 73 114/58 04/07/20 09:00 Room Air 04/07/20 08:00 97.4 73 17 114/58 (76) 99 04/07/20 04:00 98.1 63 16 100/58 (72) 98 04/07/20 00:00 97.9 61 15 110/54 (72) 98 04/06/20 21:00 Room Air 04/06/20 20:42 65 104/51 04/06/20 20:00 98.2 65 17 104/51 (68) 99 04/06/20 15:54 97.0 69 18 98/62 (74) 99 04/06/20 12:05 96.3 65 20 90/46 (61) 98 Height (Feet): 6 Height (Inches): 0.00 Weight (Pounds): 220 GENERAL: NAD HEENT: NCAT, MMM, EOMI LUNGS: Equal rise and fall of chest B/L no accessory muscle use ABDOMEN: Soft, nondistended, Suprapubic site has mucous erosions EXTREMITIES: No cyanosis, clubbing, or edema. Current Medications Medications (Trade) Dose Ordered Sig/Lauren Route PRN Reason Start Time Stop Time Status Last Admin Dose Admin Acetaminophen (Tylenol) 650 mg Q4H PRN ORAL fever 03/31/20 15:00 04/30/20 14:59 Amiodarone HCl (Cordarone) 200 mg EVERY 12 HOURS ORAL 03/31/20 21:00 06/29/20 20:59 04/07/20 09:12 Dextrose (Dextrose 50%) 25 ml Q30M PRN IV Hypoglycemia 03/31/20 15:00 06/29/20 14:59 Dextrose (Dextrose 50%) 50 ml Q30M PRN IV Hypoglycemia 03/31/20 15:00 06/29/20 14:59 Dextrose/ Electrolytes 1,000 ml @ 100 mls/hr Q10H IV 04/06/20 09:00 05/06/20 08:59 04/07/20 05:46 Docusate Sodium (Colace) 100 mg BID ORAL 04/05/20 21:00 05/05/20 20:59 04/07/20 09:12 Ertapenem 1 gm/ Sodium Chloride 55 ml @ 110 mls/hr Q24H IV 04/05/20 09:00 04/10/20 08:59 04/07/20 09:12 Gabapentin (Neurontin) 300 mg QHS ORAL 03/31/20 21:00 04/30/20 20:59 04/05/20 21:08 Heparin Sodium (Porcine) (Heparin 5000 units/ml) 5,000 units EVERY 12 HOURS SUBQ 03/31/20 21:00 05/15/20 20:59 04/07/20 09:13 Insulin Aspart (NovoLOG) BEFORE MEALS AND HS SUBQ 03/31/20 16:30 06/29/20 16:29 04/06/20 12:25 Metoprolol Tartrate (Lopressor) 12.5 mg EVERY 12 HOURS ORAL 03/31/20 21:00 06/29/20 20:59 04/07/20 09:12 Ondansetron HCl (Zofran) 4 mg Q6H PRN IVP Nausea & Vomiting 03/31/20 15:00 04/30/20 14:59 Polyethylene Glycol (Miralax) 17 gm DAILY PRN ORAL Constipation 9/26/20 20:45 04/30/20 14:59 Sitagliptin Phosphate (Januvia) 25 mg DAILY ORAL 04/01/20 09:00 05/01/20 08:59 04/07/20 09:12 Zolpidem Tartrate (Ambien) 5 mg HSPRN PRN ORAL Insomnia 04/06/20 21:00 04/13/20 20:59 Ruperto White MD Apr 07, 2020 11:40
--- NOTE | 2020-04-07 11:48 | Nephrology Progress Note ---
Assessment/Plan Problem List: (1) Renal failure (ARF), acute on chronic (2) Suprapubic catheter dysfunction (3) BPH (benign prostatic hyperplasia) (4) Hypothyroidism (5) UTI (urinary tract infection) Assessment Acute on chronic renal failure, serum creatinine 1.5-1.7 Supra pubic catheter malfunction, urinary retention UTI, Proteus UTI Diabetes mellitus Hypertension Anemia of chronic disease Hypothyroidism Hypoalbuminemia Plan April 07: No chemistry panel drawn today. Most recent serum creatinine 1.6. Will repeat the renal parameters tomorrow. Continue as is. April 06: Labs reviewed. Serum creatinine 1.6 stable. Remains anemic however hemoglobin 9.1 stable. Low magnesium supplemented. Continue per consultants. Change IV to normal saline. Watch heart rate as patient is on amiodarone and Lopressor Monitor renal parameters Avoid nephrotoxic's Per orders Subjective ROS Limited/Unobtainable: No Constitutional: Reports: malaise Objective Objective Last 24 Hour Vital Signs Date Time Temp Pulse Resp B/P (MAP) Pulse Ox O2 Delivery O2 Flow Rate FiO2 04/07/20 09:12 73 114/58 04/07/20 09:00 Room Air 04/07/20 08:00 97.4 73 17 114/58 (76) 99 04/07/20 04:00 98.1 63 16 100/58 (72) 98 04/07/20 00:00 97.9 61 15 110/54 (72) 98 04/06/20 21:00 Room Air 04/06/20 20:42 65 104/51 04/06/20 20:00 98.2 65 17 104/51 (68) 99 04/06/20 15:54 97.0 69 18 98/62 (74) 99 04/06/20 12:05 96.3 65 20 90/46 (61) 98 Intake and Output 04/06/20 04/07/20 19:00 07:00 Intake Total 2230 ml 900 ml Output Total 500 ml 1200 ml Balance 1730 ml -300 ml Intake Oral 1220 ml IV Total 1010 ml 900 ml Output Urine Total 500 ml 1200 ml # Voids 2 1 # Bowel Movements 2 No chemistry panel drawn today Height (Feet): 6 Height (Inches): 0.00 Weight (Pounds): 220 General Appearance: no apparent distress Cardiovascular: normal rate Respiratory/Chest: decreased breath sounds Abdomen: soft Objective No change Fouladian,Steve MD Apr 07, 2020 11:48
[2020-04-07 12:00] VITALS: BP 123/59
--- NOTE | 2020-04-07 12:38 | Pulmonology Progress Note ---
Subjective ROS Limited/Unobtainable: No Constitutional: Reports: no symptoms HEENT: Repors: no symptoms Allergies: Coded Allergies: No Known Allergies (Unverified , 03/01/20) Objective Last 24 Hour Vital Signs Date Time Temp Pulse Resp B/P (MAP) Pulse Ox O2 Delivery O2 Flow Rate FiO2 04/07/20 12:00 97.7 81 18 123/59 (80) 99 04/07/20 09:12 73 114/58 04/07/20 09:00 Room Air 04/07/20 08:00 97.4 73 17 114/58 (76) 99 04/07/20 04:00 98.1 63 16 100/58 (72) 98 04/07/20 00:00 97.9 61 15 110/54 (72) 98 04/06/20 21:00 Room Air 04/06/20 20:42 65 104/51 04/06/20 20:00 98.2 65 17 104/51 (68) 99 04/06/20 15:54 97.0 69 18 98/62 (74) 99 Intake and Output 04/06/20 04/07/20 18:59 06:59 Intake Total 2230 ml 900 ml Output Total 500 ml 1200 ml Balance 1730 ml -300 ml Intake Oral 1220 ml IV Total 1010 ml 900 ml Output Urine Total 500 ml 1200 ml # Voids 2 1 # Bowel Movements 2 General Appearance: WD/WN HEENT: normocephalic, atraumatic Respiratory: chest wall non-tender, lungs clear Cardiovascular: normal peripheral pulses, normal rate Abdomen: normal bowel sounds, soft, non tender, other - abd dressing C/D/I on the site of prior s/p catheter Genitourinary: normal external genitalia, other - Sanabria cath Extremities: no edema Skin: other - multiple pressure injury POA Neurologic: abnormal gait, alert, responsive Lymphatic: no groin adenopathy Current Medications Medications (Trade) Dose Ordered Sig/Lauren Route PRN Reason Start Time Stop Time Status Last Admin Dose Admin Acetaminophen (Tylenol) 650 mg Q4H PRN ORAL fever 03/31/20 15:00 04/30/20 14:59 Amiodarone HCl (Cordarone) 200 mg EVERY 12 HOURS ORAL 03/31/20 21:00 06/29/20 20:59 04/07/20 09:12 Dextrose (Dextrose 50%) 25 ml Q30M PRN IV Hypoglycemia 03/31/20 15:00 06/29/20 14:59 Dextrose (Dextrose 50%) 50 ml Q30M PRN IV Hypoglycemia 03/31/20 15:00 06/29/20 14:59 Dextrose/ Electrolytes 1,000 ml @ 100 mls/hr Q10H IV 04/06/20 09:00 05/06/20 08:59 04/07/20 05:46 Docusate Sodium (Colace) 100 mg BID ORAL 04/05/20 21:00 05/05/20 20:59 04/07/20 09:12 Ertapenem 1 gm/ Sodium Chloride 55 ml @ 110 mls/hr Q24H IV 04/05/20 09:00 04/10/20 08:59 04/07/20 09:12 Gabapentin (Neurontin) 300 mg QHS ORAL 03/31/20 21:00 04/30/20 20:59 04/05/20 21:08 Heparin Sodium (Porcine) (Heparin 5000 units/ml) 5,000 units EVERY 12 HOURS SUBQ 03/31/20 21:00 05/15/20 20:59 04/07/20 09:13 Insulin Aspart (NovoLOG) BEFORE MEALS AND HS SUBQ 03/31/20 16:30 06/29/20 16:29 04/06/20 12:25 Metoprolol Tartrate (Lopressor) 12.5 mg EVERY 12 HOURS ORAL 03/31/20 21:00 06/29/20 20:59 04/07/20 09:12 Ondansetron HCl (Zofran) 4 mg Q6H PRN IVP Nausea & Vomiting 03/31/20 15:00 04/30/20 14:59 Polyethylene Glycol (Miralax) 17 gm DAILY PRN ORAL Constipation 04/05/20 20:45 04/30/20 14:59 Sitagliptin Phosphate (Januvia) 25 mg DAILY ORAL 04/01/20 09:00 05/01/20 08:59 04/07/20 09:12 Zolpidem Tartrate (Ambien) 5 mg HSPRN PRN ORAL Insomnia 04/06/20 21:00 04/13/20 20:59 Assessment/Plan Problems: (1) UTI (urinary tract infection) (2) Suprapubic catheter dysfunction (3) Diabetes mellitus (4) Hypothyroidism (5) BPH (benign prostatic hyperplasia) Assessment/Plan OB positive doing better start on IV fluids + K supplement symptomatic treatment send urine for UA and C/s iv abx pain management sliding scale diabetic diet dvt prophylaxis check last daily, f/u bun/creatinine Miguel Bagley MD Apr 07, 2020 12:38
[2020-04-07 13:15] LABS: BASOPHILS % (AUTO) 1.5 % (0.0-2.0); EOSINOPHILS % (AUTO) 2.4 % (0.0-3.0); HEMATOCRIT 30.8 % (42.0-52.0); HEMOGLOBIN 10.2 G/DL (14.2-18.0); LYMPHOCYTES % (AUTO) 20.3 % (20.0-45.0); MEAN CORPUSCULAR VOLUME 93 FL (80-99); MONOCYTES % (AUTO) 6.7 % (1.0-10.0); NEUTROPHILS % (AUTO) 69.1 % (45.0-75.0); PLATELET COUNT 205 K/UL (150-450); RED BLOOD COUNT 3.31 M/UL (4.70-6.10); RED CELL DISTRIBUTION WIDTH 16.2 % (11.6-14.8); WHITE BLOOD COUNT 10.5 K/UL (4.8-10.8)
[2020-04-07 13:34] LABS: CALCIUM 8.5 MG/DL (8.5-10.1); CREATININE 1.5 MG/DL (0.55-1.30); POTASSIUM 4.7 MMOL/L (3.5-5.1)
[2020-04-07 13:43] LABS: ALANINE AMINOTRANSFERASE 23 U/L (12-78); ALBUMIN 2.2 G/DL (3.4-5.0); ALKALINE PHOSPHATASE 93 U/L (46-116); ASPARTATE AMINO TRANSFERASE 20 U/L (15-37); BILIRUBIN,DIRECT < 0.1 MG/DL (0.0-0.3); BILIRUBIN,TOTAL 0.2 MG/DL (0.2-1.0); PHOSPHORUS 2.9 MG/DL (2.5-4.9)
[2020-04-07 16:00] VITALS: BP 104/53
--- NOTE | 2020-04-07 17:21 | Diagnostic Imaging Report ---
Indication: Shortness of breath Technique: One view of the chest Comparison: none Findings: Current film is less heavily exposed. Allowing for differences in exposure technique, suspect slightly increased bilateral streaky parenchymal opacities in a peribronchovascular distribution. The pleural spaces are probably clear. The heart size is normal. Impression: Slightly increased bilateral infiltrates, likely pneumonia, as described
--- NOTE | 2020-04-07 19:16 | Internal Med Progress Note ---
Subjective Date of Service: Apr 07, 2020 Physician Name SudhaBrennan Attending Physician Alfred Watts MD Current Medications Medications (Trade) Dose Ordered Sig/Lauren Route PRN Reason Start Time Stop Time Status Last Admin Dose Admin Acetaminophen (Tylenol) 650 mg Q4H PRN ORAL fever 03/31/20 15:00 04/30/20 14:59 Amiodarone HCl (Cordarone) 200 mg EVERY 12 HOURS ORAL 03/31/20 21:00 06/29/20 20:59 04/07/20 09:12 Dextrose (Dextrose 50%) 25 ml Q30M PRN IV Hypoglycemia 03/31/20 15:00 06/29/20 14:59 Dextrose (Dextrose 50%) 50 ml Q30M PRN IV Hypoglycemia 03/31/20 15:00 06/29/20 14:59 Dextrose/ Electrolytes 1,000 ml @ 100 mls/hr Q10H IV 04/06/20 09:00 05/06/20 08:59 04/07/20 14:55 Docusate Sodium (Colace) 100 mg BID ORAL 04/05/20 21:00 05/05/20 20:59 04/07/20 09:12 Ertapenem 1 gm/ Sodium Chloride 55 ml @ 110 mls/hr Q24H IV 04/05/20 09:00 04/10/20 08:59 04/07/20 09:12 Gabapentin (Neurontin) 300 mg QHS ORAL 03/31/20 21:00 04/30/20 20:59 04/05/20 21:08 Heparin Sodium (Porcine) (Heparin 5000 units/ml) 5,000 units EVERY 12 HOURS SUBQ 03/31/20 21:00 05/15/20 20:59 04/07/20 09:13 Insulin Aspart (NovoLOG) BEFORE MEALS AND HS SUBQ 03/31/20 16:30 06/29/20 16:29 04/06/20 12:25 Metoprolol Tartrate (Lopressor) 12.5 mg EVERY 12 HOURS ORAL 03/31/20 21:00 06/29/20 20:59 04/07/20 09:12 Ondansetron HCl (Zofran) 4 mg Q6H PRN IVP Nausea & Vomiting 03/31/20 15:00 04/30/20 14:59 Polyethylene Glycol (Miralax) 17 gm DAILY PRN ORAL Constipation 04/05/20 20:45 04/30/20 14:59 Sitagliptin Phosphate (Januvia) 25 mg DAILY ORAL 04/01/20 09:00 05/01/20 08:59 04/07/20 09:12 Zolpidem Tartrate (Ambien) 5 mg HSPRN PRN ORAL Insomnia 04/06/20 21:00 04/13/20 20:59 Allergies: Coded Allergies: No Known Allergies (Unverified , 03/01/20) ROS Limited/Unobtainable: No Constitutional: Reports: no symptoms HEENT: Reports: no symptoms Cardiovascular: Reports: no symptoms Respiratory: Reports: no symptoms Gastrointestinal/Abdominal: Reports: no symptoms Genitourinary: Reports: no symptoms Neurologic/Psychiatric: Reports: no symptoms Subjective 74 YO M admitted with suprapubic catheter malfunction. Now UTI. Cover for Int Ryan-Dr Watts Objective Last Vital Signs Date Time Temp Pulse Resp B/P (MAP) Pulse Ox O2 Delivery O2 Flow Rate FiO2 04/07/20 16:00 98.1 75 18 104/53 (70) 97 04/07/20 09:00 Room Air Laboratory Tests Test 04/07/20 12:45 White Blood Count 10.5 K/UL (4.8-10.8) Red Blood Count 3.31 M/UL (4.70-6.10) L Hemoglobin 10.2 G/DL (14.2-18.0) L Hematocrit 30.8 % (42.0-52.0) L Mean Corpuscular Volume 93 FL (80-99) Mean Corpuscular Hemoglobin 30.6 PG (27.0-31.0) Mean Corpuscular Hemoglobin Concent 33.0 G/DL (32.0-36.0) Red Cell Distribution Width 16.2 % (11.6-14.8) H Platelet Count 205 K/UL (150-450) Mean Platelet Volume 6.7 FL (6.5-10.1) Neutrophils (%) (Auto) 69.1 % (45.0-75.0) Lymphocytes (%) (Auto) 20.3 % (20.0-45.0) Monocytes (%) (Auto) 6.7 % (1.0-10.0) Eosinophils (%) (Auto) 2.4 % (0.0-3.0) Basophils (%) (Auto) 1.5 % (0.0-2.0) Sodium Level 137 MMOL/L (136-145) Potassium Level 4.7 MMOL/L (3.5-5.1) Chloride Level 105 MMOL/L (98-107) Carbon Dioxide Level 26 MMOL/L (21-32) Anion Gap 6 mmol/L (5-15) Blood Urea Nitrogen 30 mg/dL (7-18) H Creatinine 1.5 MG/DL (0.55-1.30) H Estimat Glomerular Filtration Rate 45.6 mL/min (>60) Glucose Level 150 MG/DL (74-106) H Calcium Level 8.5 MG/DL (8.5-10.1) Phosphorus Level 2.9 MG/DL (2.5-4.9) Magnesium Level 2.0 MG/DL (1.8-2.4) Total Bilirubin 0.2 MG/DL (0.2-1.0) Direct Bilirubin < 0.1 MG/DL (0.0-0.3) Aspartate Amino Transf (AST/SGOT) 20 U/L (15-37) Alanine Aminotransferase (ALT/SGPT) 23 U/L (12-78) Alkaline Phosphatase 93 U/L (46-116) Total Protein 5.7 G/DL (6.4-8.2) L Albumin 2.2 G/DL (3.4-5.0) L Intake and Output 04/06/20 04/07/20 19:00 07:00 Intake Total 2230 ml 900 ml Output Total 500 ml 1200 ml Balance 1730 ml -300 ml Intake Oral 1220 ml IV Total 1010 ml 900 ml Output Urine Total 500 ml 1200 ml # Voids 2 1 # Bowel Movements 2 Objective PHYSICAL EXAMINATION: GENERAL: The patient is a well-developed and well-nourished male, in no apparent distress. HEENT: Eyes, pupils are equal and responsive to light and accommodation. Extraocular movements are intact. NECK: Supple without lymphadenopathy. CHEST: Lungs are clear to auscultation bilaterally without wheezes or rales. CARDIOVASCULAR: Regular rate. S1, S2 normal without murmurs, rubs, or gallops. ABDOMEN: Soft, nontender, and nondistended. Positive bowel sounds. No evidence of hepatosplenomegaly. Currently, no rebound or guarding noted. EXTREMITIES: Negative for clubbing, cyanosis, or edema. RECTAL/GENITAL: Not performed. NEUROLOGIC: Cranial nerves II through XII are grossly intact without focal deficits. Motor strength is 5/5 bilaterally. Deep tendon reflexes are 2+ plantar. Assessment/Plan Assessment/Plan ASSESSMENT: This is a 74-year-old male with: 1. Suprapubic catheter malfunction. 2. Urinary tract infection=ESBL proteus mirabilis 3. Right pneumonia. 4. Diabetes type 2. 5. Hypothyroidism. 6. Chronic renal failure. 7. Hypertension. 8. Benign prostatic hypertrophy. 9. Diastolic congestive heart failure. TREATMENT: 1. Suprapubic catheter malfunction. Failed reinsertion attempt by Urology = Dr. Herndon. Urethral shabazz catheter in place. Follow recommendations of Urology. 2. Urinary tract infection=ESBL proteus. ABX=ertapenem; S/P cefepime An Infectious Disease consultation has been obtained with Dr. Nicole. 3. Pneumonia. A Pulmonary consultation has been obtained with Dr. Miguel Bagley. ABX=ertapenem 4. Diabetes type 2. NovoLog sliding scale has been instituted. 5. Hypothyroidism. Continue Synthroid as above. 6. Chronic renal failure. 7. Hypertension. Continue metoprolol as above. 8. Benign prostatic hypertrophy. Continue Flomax as above. A Urology consultation has been obtained with Dr. Herndon. 9. Diastolic congestive heart failure. Brennan Haley MD Apr 07, 2020 19:16
[2020-04-07 20:00] VITALS: BP 90/51
--- NOTE | 2020-04-07 21:28 | Surgery Progress Note ---
Surgery Progress Note Subjective Symptoms: improved, tolerating diet Objective Last 24 Hour Vital Signs Date Time Temp Pulse Resp B/P (MAP) Pulse Ox O2 Delivery O2 Flow Rate FiO2 04/07/20 21:00 Room Air 04/07/20 20:07 74 90/51 04/07/20 20:00 98.1 74 18 90/51 (64) 98 04/07/20 16:00 98.1 75 18 104/53 (70) 97 04/07/20 12:00 97.7 81 18 123/59 (80) 99 04/07/20 09:12 73 114/58 04/07/20 09:00 Room Air 04/07/20 08:00 97.4 73 17 114/58 (76) 99 04/07/20 04:00 98.1 63 16 100/58 (72) 98 04/07/20 00:00 97.9 61 15 110/54 (72) 98 I&O Intake and Output 04/06/20 04/07/20 19:00 07:00 Intake Total 2230 ml 900 ml Output Total 500 ml 1200 ml Balance 1730 ml -300 ml Intake Oral 1220 ml IV Total 1010 ml 900 ml Output Urine Total 500 ml 1200 ml # Voids 2 1 # Bowel Movements 2 Cardiovascular: RSR Respiratory: decreased breath sounds Abdomen: non-tender, present bowel sounds Extremities: no cyanosis Laboratory Tests Test 04/07/20 12:45 White Blood Count 10.5 K/UL (4.8-10.8) Red Blood Count 3.31 M/UL (4.70-6.10) L Hemoglobin 10.2 G/DL (14.2-18.0) L Hematocrit 30.8 % (42.0-52.0) L Mean Corpuscular Volume 93 FL (80-99) Mean Corpuscular Hemoglobin 30.6 PG (27.0-31.0) Mean Corpuscular Hemoglobin Concent 33.0 G/DL (32.0-36.0) Red Cell Distribution Width 16.2 % (11.6-14.8) H Platelet Count 205 K/UL (150-450) Mean Platelet Volume 6.7 FL (6.5-10.1) Neutrophils (%) (Auto) 69.1 % (45.0-75.0) Lymphocytes (%) (Auto) 20.3 % (20.0-45.0) Monocytes (%) (Auto) 6.7 % (1.0-10.0) Eosinophils (%) (Auto) 2.4 % (0.0-3.0) Basophils (%) (Auto) 1.5 % (0.0-2.0) Sodium Level 137 MMOL/L (136-145) Potassium Level 4.7 MMOL/L (3.5-5.1) Chloride Level 105 MMOL/L (98-107) Carbon Dioxide Level 26 MMOL/L (21-32) Anion Gap 6 mmol/L (5-15) Blood Urea Nitrogen 30 mg/dL (7-18) H Creatinine 1.5 MG/DL (0.55-1.30) H Estimat Glomerular Filtration Rate 45.6 mL/min (>60) Glucose Level 150 MG/DL (74-106) H Calcium Level 8.5 MG/DL (8.5-10.1) Phosphorus Level 2.9 MG/DL (2.5-4.9) Magnesium Level 2.0 MG/DL (1.8-2.4) Total Bilirubin 0.2 MG/DL (0.2-1.0) Direct Bilirubin < 0.1 MG/DL (0.0-0.3) Aspartate Amino Transf (AST/SGOT) 20 U/L (15-37) Alanine Aminotransferase (ALT/SGPT) 23 U/L (12-78) Alkaline Phosphatase 93 U/L (46-116) Total Protein 5.7 G/DL (6.4-8.2) L Albumin 2.2 G/DL (3.4-5.0) L Plan Problems: (1) Suprapubic catheter (2) UTI (urinary tract infection) (3) Osteomyelitis (4) Uncontrolled diabetes mellitus (5) Hypothyroidism (6) Diabetes mellitus (7) Sacral decubitus ulcer Assessment & Plan: Pt presented on admission with multiple Pressure Injuries. Resolving Pressure Sacral Pressure Injury.Clusters of full thickness pressure ulcers in close proximity that are moist and pink at bases. Surrounding maroon borders but without induration.(L)10.5cm x (W)10cm. BIlat lower ext are edematous. DTPI distal/lateral L Tibia(L)11.4cm x (W)2.7cm. Base of injury is purpuric with maroon borders. DTPI lateral L Malleolus(L)1cm x (W)0.7cm. Base of injury is maroon and indurated. Non-Blanchable erythema without induration or fluctuance medial L foot (L)1.6cm x (W)1cm. Unstageable Pressure injury R heel(L)7.7cm x (W)6.8cm. Base of is 70%necrotic and dry,10% slough with remaining 20% alyssia base. Marginal erythema along edges.Periwound is fluctuant with pale skin color. DTPI Lateral R Malleolus(L)2.6cm x (W)1.4cm. Base of injury is purpuric with maroon borders. DTPI medial R Malleolus(L)2.5cm x (W)2.4cm. Base of injury is purpuric with maroon borders. DTPI medial R foot (L)1.3cm x (W)3.6cm. Base of injury is indurated purpuric with surrounding maroon borders that are irregular. DTPI lateral R foot (L)0.7cm x (W)0.9cm. Base of injury is maroon in colour with marginal erythema. DTPI noted to tip of R 1st metatarsal(L)1.4cm x (W)1.2cm. Base of injury presents as an intact blood Blister. Unstageable Pressure injury lateral R 1st metatarsal(L)0.5cm x (W)0.8cm. Dry eschar with marginal erythema along edges. DTPI tip of R 2nd metatarsal.(L)1cm x (W)1.3cm. Base of injury presents as an intact blood blister with marginal erythema along edges. Surgical incisions noted to R hip, R femur and R knee. Incision sites approxim ated with oswaldo that are intact and dry. No erythema noted. Tx.Plan: Apply Moisture Barrier Paste to Sacrum. Cover with Optifoam drsgs. Change every 3 days and prn. Apply Betadine to DTPI's L Tibia, R and L feet. Cover each site with Optifoam drsgs. Change every 7 days and prn. Cleanse R Heel with Saline. Apply TheraHoney.Apply Maxsorb Extra(calcium Al ginate. Apply Cavilon Skin Barrier periwound. Cover with Abd Pad and wrap with Kerlix Daily and prn. Reposition at least every 2hours or as tolerated. Off-load heels with pillows. (8) Renal insufficiency (9) Suprapubic catheter dysfunction Assessment & Plan: changed by urology catheter in now good uop monitor (10) BPH (benign prostatic hyperplasia) (11) Urinary retention Guy Oakley Apr 07, 2020 21:28
[2020-04-08] VITALS (7 sets, daily range): BP systolic 94–103; BP diastolic 45–57
[2020-04-08] MEDS: NovoLOG Insulin Flexpen SUBQ SCH ×4 (05:52→21:00)
[2020-04-08 06:26] LABS: HEMATOCRIT 26.4 % (42.0-52.0); HEMOGLOBIN 8.6 G/DL (14.2-18.0); LYMPHOCYTES % (AUTO) 30.6 % (20.0-45.0); MEAN CORPUSCULAR VOLUME 93 FL (80-99); MONOCYTES % (AUTO) 10.3 % (1.0-10.0); NEUTROPHILS % (AUTO) 55.2 % (45.0-75.0); PLATELET COUNT 207 K/UL (150-450); RED BLOOD COUNT 2.83 M/UL (4.70-6.10); RED CELL DISTRIBUTION WIDTH 15.6 % (11.6-14.8); WHITE BLOOD COUNT 9.3 K/UL (4.8-10.8)
[2020-04-08 07:06] LABS: CALCIUM 8.1 MG/DL (8.5-10.1); CREATININE 1.7 MG/DL (0.55-1.30); POTASSIUM 5.4 MMOL/L (3.5-5.1)
[2020-04-08] MEDS ORDERED: Sodium Polystyrene Sulfonate 15gm Powder ORAL SCH (07:30)
[2020-04-08] MEDS: sitaGLIPtin 25mg tab ORAL SCH (08:16)
[2020-04-08] MEDS: Ertapenem 1 GM in NS 55 ML IV SCH (08:17)
[2020-04-08] MEDS: Docusate 100mg cap ORAL SCH ×3 (08:17→17:29)
[2020-04-08] MEDS: Amiodarone 200mg tab ORAL SCH ×2 (08:17→21:00)
[2020-04-08] MEDS: D5NS 1,000 ML IV SCH ×2 (08:18→17:37)
[2020-04-08] MEDS: Heparin 5000 units/ml inj SUBQ SCH ×2 (08:31→21:00)
[2020-04-08] MEDS: Metoprolol Tartrate 12.5mg TAB ORAL SCH ×2 (08:32→21:00)
[2020-04-08] MEDS ORDERED: Albumin Human 5% 250ml IV SCH (09:00)
--- NOTE | 2020-04-08 10:17 | Nephrology Progress Note ---
Assessment/Plan Problem List: (1) Renal failure (ARF), acute on chronic (2) Suprapubic catheter dysfunction (3) BPH (benign prostatic hyperplasia) (4) Hypothyroidism (5) UTI (urinary tract infection) Assessment Acute on chronic renal failure, serum creatinine 1.5-1.7 Supra pubic catheter malfunction, urinary retention UTI, Proteus UTI Diabetes mellitus Hypertension Anemia of chronic disease Hypothyroidism Hypoalbuminemia Plan April 08: Labs reviewed. Elevated serum potassium addressed by changing the IV fluid. 1 dose of Kayexalate given. Fluid challenge for low blood pressure given. Continue to monitor renal parameters. April 07: No chemistry panel drawn today. Most recent serum creatinine 1.6. Will repeat the renal parameters tomorrow. Continue as is. April 06: Labs reviewed. Serum creatinine 1.6 stable. Remains anemic however hemoglobin 9.1 stable. Low magnesium supplemented. Continue per consultants. Change IV to normal saline. Watch heart rate as patient is on amiodarone and Lopressor Monitor renal parameters Avoid nephrotoxic's Per orders Subjective ROS Limited/Unobtainable: No Constitutional: Reports: malaise Objective Objective Last 24 Hour Vital Signs Date Time Temp Pulse Resp B/P (MAP) Pulse Ox O2 Delivery O2 Flow Rate FiO2 04/08/20 08:32 67 98/45 04/08/20 08:00 97.9 66 20 103/53 (70) 97 04/08/20 04:00 97.7 67 16 98/45 (62) 98 04/08/20 00:00 98.2 72 18 94/49 (64) 97 04/07/20 21:00 Room Air 04/07/20 20:07 74 90/51 04/07/20 20:00 98.1 74 18 90/51 (64) 98 04/07/20 16:00 98.1 75 18 104/53 (70) 97 04/07/20 12:00 97.7 81 18 123/59 (80) 99 Intake and Output 04/07/20 04/08/20 18:59 06:59 Intake Total 600 ml 1460 ml Output Total 1000 ml 1800 ml Balance -400 ml -340 ml Intake Oral 600 ml IV Total 1100 ml Other 360 ml Output Urine Total 1000 ml 1800 ml # Voids 1 # Bowel Movements 1 Laboratory Tests 04/07/20 12:45: White Blood Count 10.5, Red Blood Count 3.31L, Hemoglobin 10.2L, Hematocrit 30.8L, Mean Corpuscular Volume 93, Mean Corpuscular Hemoglobin 30.6, Mean Corpuscular Hemoglobin Concent 33.0, Red Cell Distribution Width 16.2H, Platelet Count 205, Mean Platelet Volume 6.7, Neutrophils (%) (Auto) 69.1, Lymphocytes (%) (Auto) 20.3, Monocytes (%) (Auto) 6.7, Eosinophils (%) (Auto) 2.4, Basophils (%) (Auto) 1.5, Sodium Level 137, Potassium Level 4.7, Chloride Level 105, Carbon Dioxide Level 26, Anion Gap 6, Blood Urea Nitrogen 30H, Creatinine 1.5H, Estimat Glomerular Filtration Rate 45.6, Glucose Level 150H, Calcium Level 8.5, Phosphorus Level 2.9, Magnesium Level 2.0, Total Bilirubin 0.2, Direct Bilirubin < 0.1, Aspartate Amino Transf (AST/SGOT) 20, Alanine Aminotransferase (ALT/SGPT) 23, Alkaline Phosphatase 93, Total Protein 5.7L, Albumin 2.2L 04/08/20 05:35: White Blood Count 9.3, Red Blood Count 2.83L, Hemoglobin 8.6L, Hematocrit 26.4L, Mean Corpuscular Volume 93, Mean Corpuscular Hemoglobin 30.6, Mean Corpuscular Hemoglobin Concent 32.8, Red Cell Distribution Width 15.6H, Platelet Count 207, Mean Platelet Volume 6.4L, Neutrophils (%) (Auto) 55.2, Lymphocytes (%) (Auto) 30.6, Monocytes (%) (Auto) 10.3H, Eosinophils (%) (Auto) 3.0, Basophils (%) (Auto) 1.0, Sodium Level 137, Potassium Level 5.4H, Chloride Level 106, Carbon Dioxide Level 27, Anion Gap 4L, Blood Urea Nitrogen 32H, Creatinine 1.7H, Estimat Glomerular Filtration Rate 39.5, Glucose Level 134H, Calcium Level 8.1L Height (Feet): 6 Height (Inches): 0.00 Weight (Pounds): 220 General Appearance: no apparent distress Objective No change Steve Suarez MD Apr 08, 2020 10:17
--- NOTE | 2020-04-08 11:41 | Infectious Diseases Prog Note ---
Assessment/Plan Assessment: UTI -u/a wbc tnct, nit neg, leuk +3; ucx >100k yeast, >100k ESBL P.mirabilis S- bactrim Probable PNA -04/01 rapid COVID PCR neg -CXR: Right basilar infiltrate, suspicious for pneumonia/ Possible left basilar infiltrate as well Afebrile No leukocytosis Urinary retention Sp accidental removal SPC w/ unsuccessful replacement -s/p Barnett insertion DM2 HTN BPH CKD urinary retention sp suprapubic catheter [facility] resident ([facility]) Plan: Monitor off Abx 04/06/20 SP ertapenem #3 04/05/20 SP cefepime #4 -f/u cx -Monitor CBC/CMP, temperatures -Uro f/u -COVID19 neg x1 Thank you for this consultation. Will continue to follow along with you. Subjective Allergies: Coded Allergies: No Known Allergies (Unverified , 03/01/20) Afebrile No Leukocytosis BERNARD Objective Last 24 Hour Vital Signs Date Time Temp Pulse Resp B/P (MAP) Pulse Ox O2 Delivery O2 Flow Rate FiO2 04/08/20 09:00 Room Air 04/08/20 08:32 67 98/45 04/08/20 08:00 97.9 66 20 103/53 (70) 97 04/08/20 04:00 97.7 67 16 98/45 (62) 98 04/08/20 00:00 98.2 72 18 94/49 (64) 97 04/07/20 21:00 Room Air 04/07/20 20:07 74 90/51 04/07/20 20:00 98.1 74 18 90/51 (64) 98 04/07/20 16:00 98.1 75 18 104/53 (70) 97 04/07/20 12:00 97.7 81 18 123/59 (80) 99 Height (Feet): 6 Height (Inches): 0.00 Weight (Pounds): 220 GENERAL: NAD on RA HEENT: NCAT, MMM, EOMI LUNGS: Equal rise and fall of chest B/L no accessory muscle use ABDOMEN: Soft, nondistended, Suprapubic site has mucous erosions EXTREMITIES: No cyanosis, clubbing, or edema. Laboratory Tests Test 04/07/20 12:45 04/08/20 05:35 White Blood Count 10.5 K/UL (4.8-10.8) 9.3 K/UL (4.8-10.8) Red Blood Count 3.31 M/UL (4.70-6.10) L 2.83 M/UL (4.70-6.10) L Hemoglobin 10.2 G/DL (14.2-18.0) L 8.6 G/DL (14.2-18.0) L Hematocrit 30.8 % (42.0-52.0) L 26.4 % (42.0-52.0) L Mean Corpuscular Volume 93 FL (80-99) 93 FL (80-99) Mean Corpuscular Hemoglobin 30.6 PG (27.0-31.0) 30.6 PG (27.0-31.0) Mean Corpuscular Hemoglobin Concent 33.0 G/DL (32.0-36.0) 32.8 G/DL (32.0-36.0) Red Cell Distribution Width 16.2 % (11.6-14.8) H 15.6 % (11.6-14.8) H Platelet Count 205 K/UL (150-450) 207 K/UL (150-450) Mean Platelet Volume 6.7 FL (6.5-10.1) 6.4 FL (6.5-10.1) L Neutrophils (%) (Auto) 69.1 % (45.0-75.0) 55.2 % (45.0-75.0) Lymphocytes (%) (Auto) 20.3 % (20.0-45.0) 30.6 % (20.0-45.0) Monocytes (%) (Auto) 6.7 % (1.0-10.0) 10.3 % (1.0-10.0) H Eosinophils (%) (Auto) 2.4 % (0.0-3.0) 3.0 % (0.0-3.0) Basophils (%) (Auto) 1.5 % (0.0-2.0) 1.0 % (0.0-2.0) Sodium Level 137 MMOL/L (136-145) 137 MMOL/L (136-145) Potassium Level 4.7 MMOL/L (3.5-5.1) 5.4 MMOL/L (3.5-5.1) H Chloride Level 105 MMOL/L (98-107) 106 MMOL/L (98-107) Carbon Dioxide Level 26 MMOL/L (21-32) 27 MMOL/L (21-32) Anion Gap 6 mmol/L (5-15) 4 mmol/L (5-15) L Blood Urea Nitrogen 30 mg/dL (7-18) H 32 mg/dL (7-18) H Creatinine 1.5 MG/DL (0.55-1.30) H 1.7 MG/DL (0.55-1.30) H Estimat Glomerular Filtration Rate 45.6 mL/min (>60) 39.5 mL/min (>60) Glucose Level 150 MG/DL (74-106) H 134 MG/DL (74-106) H Calcium Level 8.5 MG/DL (8.5-10.1) 8.1 MG/DL (8.5-10.1) L Phosphorus Level 2.9 MG/DL (2.5-4.9) Magnesium Level 2.0 MG/DL (1.8-2.4) Total Bilirubin 0.2 MG/DL (0.2-1.0) Direct Bilirubin < 0.1 MG/DL (0.0-0.3) Aspartate Amino Transf (AST/SGOT) 20 U/L (15-37) Alanine Aminotransferase (ALT/SGPT) 23 U/L (12-78) Alkaline Phosphatase 93 U/L (46-116) Total Protein 5.7 G/DL (6.4-8.2) L Albumin 2.2 G/DL (3.4-5.0) L Current Medications Medications (Trade) Dose Ordered Sig/Lauren Route PRN Reason Start Time Stop Time Status Last Admin Dose Admin Acetaminophen (Tylenol) 650 mg Q4H PRN ORAL fever 03/31/20 15:00 04/30/20 14:59 Amiodarone HCl (Cordarone) 200 mg EVERY 12 HOURS ORAL 03/31/20 21:00 06/29/20 20:59 04/08/20 08:17 Dextrose (Dextrose 50%) 25 ml Q30M PRN IV Hypoglycemia 03/31/20 15:00 06/29/20 14:59 Dextrose (Dextrose 50%) 50 ml Q30M PRN IV Hypoglycemia 03/31/20 15:00 06/29/20 14:59 Dextrose/Sodium Chloride 1,000 ml @ 100 mls/hr Q10H IV 04/08/20 07:30 05/08/20 07:29 04/08/20 08:18 Docusate Sodium (Colace) 100 mg TID ORAL 04/08/20 09:00 05/05/20 20:59 Ertapenem 1 gm/ Sodium Chloride 55 ml @ 110 mls/hr Q24H IV 04/05/20 09:00 04/10/20 08:59 04/08/20 08:17 Gabapentin (Neurontin) 300 mg QHS ORAL 03/31/20 21:00 04/30/20 20:59 04/07/20 20:03 Heparin Sodium (Porcine) (Heparin 5000 units/ml) 5,000 units EVERY 12 HOURS SUBQ 03/31/20 21:00 05/15/20 20:59 04/08/20 08:31 Insulin Aspart (NovoLOG) BEFORE MEALS AND HS SUBQ 03/31/20 16:30 06/29/20 16:29 04/06/20 12:25 Metoprolol Tartrate (Lopressor) 12.5 mg EVERY 12 HOURS ORAL 03/31/20 21:00 06/29/20 20:59 04/07/20 09:12 Ondansetron HCl (Zofran) 4 mg Q6H PRN IVP Nausea & Vomiting 03/31/20 15:00 04/30/20 14:59 Polyethylene Glycol (Miralax) 17 gm DAILY PRN ORAL Constipation 04/05/20 20:45 04/30/20 14:59 Sitagliptin Phosphate (Januvia) 25 mg DAILY ORAL 04/01/20 09:00 05/01/20 08:59 04/08/20 08:16 Zolpidem Tartrate (Ambien) 5 mg HSPRN PRN ORAL Insomnia 04/06/20 21:00 04/13/20 20:59 Ruperto White MD Apr 08, 2020 11:40
--- NOTE | 2020-04-08 13:06 | Surgery Progress Note ---
Surgery Progress Note Subjective Symptoms: improved, tolerating diet, passing flatus, BM Objective Last 24 Hour Vital Signs Date Time Temp Pulse Resp B/P (MAP) Pulse Ox O2 Delivery O2 Flow Rate FiO2 04/08/20 09:00 Room Air 04/08/20 08:32 67 98/45 04/08/20 08:00 97.9 66 20 103/53 (70) 97 04/08/20 04:00 97.7 67 16 98/45 (62) 98 04/08/20 00:00 98.2 72 18 94/49 (64) 97 04/07/20 21:00 Room Air 04/07/20 20:07 74 90/51 04/07/20 20:00 98.1 74 18 90/51 (64) 98 04/07/20 16:00 98.1 75 18 104/53 (70) 97 I&O Intake and Output 04/07/20 04/08/20 19:00 07:00 Intake Total 700 ml 1360 ml Output Total 1000 ml 1800 ml Balance -300 ml -440 ml Intake Oral 600 ml IV Total 100 ml 1000 ml Other 360 ml Output Urine Total 1000 ml 1800 ml # Voids 1 # Bowel Movements 1 Dressing: saturated Wound: clean Cardiovascular: RSR Respiratory: clear, decreased breath sounds Abdomen: soft, non-tender, present bowel sounds Extremities: no edema, no tenderness, no cyanosis Laboratory Tests Test 04/08/20 05:35 White Blood Count 9.3 K/UL (4.8-10.8) Red Blood Count 2.83 M/UL (4.70-6.10) L Hemoglobin 8.6 G/DL (14.2-18.0) L Hematocrit 26.4 % (42.0-52.0) L Mean Corpuscular Volume 93 FL (80-99) Mean Corpuscular Hemoglobin 30.6 PG (27.0-31.0) Mean Corpuscular Hemoglobin Concent 32.8 G/DL (32.0-36.0) Red Cell Distribution Width 15.6 % (11.6-14.8) H Platelet Count 207 K/UL (150-450) Mean Platelet Volume 6.4 FL (6.5-10.1) L Neutrophils (%) (Auto) 55.2 % (45.0-75.0) Lymphocytes (%) (Auto) 30.6 % (20.0-45.0) Monocytes (%) (Auto) 10.3 % (1.0-10.0) H Eosinophils (%) (Auto) 3.0 % (0.0-3.0) Basophils (%) (Auto) 1.0 % (0.0-2.0) Sodium Level 137 MMOL/L (136-145) Potassium Level 5.4 MMOL/L (3.5-5.1) H Chloride Level 106 MMOL/L (98-107) Carbon Dioxide Level 27 MMOL/L (21-32) Anion Gap 4 mmol/L (5-15) L Blood Urea Nitrogen 32 mg/dL (7-18) H Creatinine 1.7 MG/DL (0.55-1.30) H Estimat Glomerular Filtration Rate 39.5 mL/min (>60) Glucose Level 134 MG/DL (74-106) H Calcium Level 8.1 MG/DL (8.5-10.1) L Plan Problems: (1) Suprapubic catheter (2) UTI (urinary tract infection) (3) Osteomyelitis (4) Uncontrolled diabetes mellitus (5) Hypothyroidism (6) Diabetes mellitus (7) Sacral decubitus ulcer Assessment & Plan: Pt presented on admission with multiple Pressure Injuries. Resolving Pressure Sacral Pressure Injury.Clusters of full thickness pressure ulcers in close proximity that are moist and pink at bases. Surrounding maroon borders but without induration.(L)10.5cm x (W)10cm. BIlat lower ext are edematous. DTPI distal/lateral L Tibia(L)11.4cm x (W)2.7cm. Base of injury is purpuric with maroon borders. DTPI lateral L Malleolus(L)1cm x (W)0.7cm. Base of injury is maroon and indurated. Non-Blanchable erythema without induration or fluctuance medial L foot (L)1.6cm x (W)1cm. Unstageable Pressure injury R heel(L)7.7cm x (W)6.8cm. Base of is 70%necrotic and dry,10% slough with remaining 20% alyssia base. Marginal erythema along edges.Periwound is fluctuant with pale skin color. DTPI Lateral R Malleolus(L)2.6cm x (W)1.4cm. Base of injury is purpuric with maroon borders. DTPI medial R Malleolus(L)2.5cm x (W)2.4cm. Base of injury is purpuric with maroon borders. DTPI medial R foot (L)1.3cm x (W)3.6cm. Base of injury is indurated purpuric with surrounding maroon borders that are irregular. DTPI lateral R foot (L)0.7cm x (W)0.9cm. Base of injury is maroon in colour with marginal erythema. DTPI noted to tip of R 1st metatarsal(L)1.4cm x (W)1.2cm. Base of injury presents as an intact blood Blister. Unstageable Pressure injury lateral R 1st metatarsal(L)0.5cm x (W)0.8cm. Dry eschar with marginal erythema along edges. DTPI tip of R 2nd metatarsal.(L)1cm x (W)1.3cm. Base of injury presents as an intact blood blister with marginal erythema along edges. Surgical incisions noted to R hip, R femur and R knee. Incision sites approximated with oswaldo that are intact and dry. No erythema noted. Tx.Plan: Apply Moisture Barrier Paste to Sacrum. Cover with Optifoam drsgs. Change every 3 days and prn. Apply Betadine to DTPI's L Tibia, R and L feet. Cover each site with Optifoam d rsgs. Change every 7 days and prn. Cleanse R Heel with Saline. Apply TheraHoney.Apply Maxsorb Extra(calcium Alginat e. Apply Cavilon Skin Barrier periwound. Cover with Abd Pad and wrap with Kerlix Daily and prn. Reposition at least every 2hours or as tolerated. Off-load heels with pillows. (8) Renal insufficiency (9) Suprapubic catheter dysfunction Assessment & Plan: changed by urology catheter in now good uop monitor (10) BPH (benign prostatic hyperplasia) (11) Urinary retention Guy Oakley Apr 08, 2020 13:05
--- NOTE | 2020-04-08 14:15 | Pulmonology Progress Note ---
Subjective ROS Limited/Unobtainable: No Constitutional: Reports: no symptoms HEENT: Repors: no symptoms Respiratory: Reports: no symptoms Allergies: Coded Allergies: No Known Allergies (Unverified , 03/01/20) Objective Last 24 Hour Vital Signs Date Time Temp Pulse Resp B/P (MAP) Pulse Ox O2 Delivery O2 Flow Rate FiO2 04/08/20 12:00 97.9 67 20 102/56 (71) 97 04/08/20 09:00 Room Air 04/08/20 08:32 67 98/45 04/08/20 08:00 97.9 66 20 103/53 (70) 97 04/08/20 04:00 97.7 67 16 98/45 (62) 98 04/08/20 00:00 98.2 72 18 94/49 (64) 97 04/07/20 21:00 Room Air 04/07/20 20:07 74 90/51 04/07/20 20:00 98.1 74 18 90/51 (64) 98 04/07/20 16:00 98.1 75 18 104/53 (70) 97 l Intake and Output 04/07/20 04/08/20 18:59 06:59 Intake Total 600 ml 1460 ml Output Total 1000 ml 1800 ml Balance -400 ml -340 ml Intake Oral 600 ml IV Total 1100 ml Other 360 ml Output Urine Total 1000 ml 1800 ml # Voids 1 # Bowel Movements 1 General Appearance: WD/WN HEENT: normocephalic, atraumatic Respiratory: chest wall non-tender, lungs clear Cardiovascular: normal peripheral pulses, normal rate Abdomen: normal bowel sounds, soft, non tender, other - abd dressing C/D/I on the site of prior s/p catheter Genitourinary: normal external genitalia, other - Sanabria cath Extremities: no edema Skin: other - multiple pressure injury POA Neurologic: abnormal gait, alert, responsive Lymphatic: no groin adenopathy Laboratory Tests 04/08/20 05:35: White Blood Count 9.3, Red Blood Count 2.83L, Hemoglobin 8.6L, Hematocrit 26.4L, Mean Corpuscular Volume 93, Mean Corpuscular Hemoglobin 30.6, Mean Corpuscular Hemoglobin Concent 32.8, Red Cell Distribution Width 15.6H, Platelet Count 207, Mean Platelet Volume 6.4L, Neutrophils (%) (Auto) 55.2, Lymphocytes (%) (Auto) 30.6, Monocytes (%) (Auto) 10.3H, Eosinophils (%) (Auto) 3.0, Basophils (%) (Auto) 1.0, Sodium Level 137, Potassium Level 5.4H, Chloride Level 106, Carbon Dioxide Level 27, Anion Gap 4L, Blood Urea Nitrogen 32H, Creatinine 1.7H, Estimat Glomerular Filtration Rate 39.5, Glucose Level 134H, Calcium Level 8.1L Current Medications Medications (Trade) Dose Ordered Sig/Lauren Route PRN Reason Start Time Stop Time Status Last Admin Dose Admin Acetaminophen (Tylenol) 650 mg Q4H PRN ORAL fever 03/31/20 15:00 04/30/20 14:59 Amiodarone HCl (Cordarone) 200 mg EVERY 12 HOURS ORAL 03/31/20 21:00 06/29/20 20:59 04/08/20 08:17 Dextrose (Dextrose 50%) 25 ml Q30M PRN IV Hypoglycemia 03/31/20 15:00 06/29/20 14:59 Dextrose (Dextrose 50%) 50 ml Q30M PRN IV Hypoglycemia 03/31/20 15:00 06/29/20 14:59 Dextrose/Sodium Chloride 1,000 ml @ 100 mls/hr Q10H IV 04/08/20 07:30 05/08/20 07:29 04/08/20 08:18 Docusate Sodium (Colace) 100 mg TID ORAL 04/08/20 09:00 05/05/20 20:59 Ertapenem 1 gm/ Sodium Chloride 55 ml @ 110 mls/hr Q24H IV 04/05/20 09:00 04/08/20 23:00 04/08/20 08:17 Gabapentin (Neurontin) 300 mg QHS ORAL 03/31/20 21:00 04/30/20 20:59 04/07/20 20:03 Heparin Sodium (Porcine) (Heparin 5000 units/ml) 5,000 units EVERY 12 HOURS SUBQ 03/31/20 21:00 05/15/20 20:59 04/08/20 08:31 Insulin Aspart (NovoLOG) BEFORE MEALS AND HS SUBQ 03/31/20 16:30 06/29/20 16:29 04/06/20 12:25 Metoprolol Tartrate (Lopressor) 12.5 mg EVERY 12 HOURS ORAL 03/31/20 21:00 06/29/20 20:59 04/07/20 09:12 Ondansetron HCl (Zofran) 4 mg Q6H PRN IVP Nausea & Vomiting 03/31/20 15:00 04/30/20 14:59 Polyethylene Glycol (Miralax) 17 gm DAILY PRN ORAL Constipation 04/05/20 20:45 04/30/20 14:59 Sitagliptin Phosphate (Januvia) 25 mg DAILY ORAL 04/01/20 09:00 05/01/20 08:59 04/08/20 08:16 Zolpidem Tartrate (Ambien) 5 mg HSPRN PRN ORAL Insomnia 04/06/20 21:00 04/13/20 20:59 Assessment/Plan Problems: (1) UTI (urinary tract infection) (2) Suprapubic catheter dysfunction (3) Diabetes mellitus (4) Hypothyroidism (5) BPH (benign prostatic hyperplasia) Assessment/Plan OB positive dc iv fluids doing better symptomatic treatment send urine for UA and C/s iv abx pain management sliding scale diabetic diet dvt prophylaxis check last daily, f/u bun/creatinine Miguel Bagley MD Apr 08, 2020 14:15
[2020-04-08] MEDS ORDERED: JANUVIA25 MG ORAL (17:34)
[2020-04-08] MEDS ORDERED: LOPRESSOR25 M1 ORAL (17:34)
--- NOTE | 2020-04-08 17:37 | Internal Med Progress Note ---
Subjective Date of Service: Apr 08, 2020 Physician Name SudhaBrennan Attending Physician Alfred Watts MD Current Medications Medications (Trade) Dose Ordered Sig/Lauren Route PRN Reason Start Time Stop Time Status Last Admin Dose Admin Acetaminophen (Tylenol) 650 mg Q4H PRN ORAL fever 03/31/20 15:00 04/30/20 14:59 Amiodarone HCl (Cordarone) 200 mg EVERY 12 HOURS ORAL 03/31/20 21:00 06/29/20 20:59 04/08/20 08:17 Dextrose (Dextrose 50%) 25 ml Q30M PRN IV Hypoglycemia 03/31/20 15:00 06/29/20 14:59 Dextrose (Dextrose 50%) 50 ml Q30M PRN IV Hypoglycemia 03/31/20 15:00 06/29/20 14:59 Dextrose/Sodium Chloride 1,000 ml @ 100 mls/hr Q10H IV 04/08/20 07:30 05/08/20 07:29 04/08/20 08:18 Docusate Sodium (Colace) 100 mg TID ORAL 04/08/20 09:00 05/05/20 20:59 Ertapenem 1 gm/ Sodium Chloride 55 ml @ 110 mls/hr Q24H IV 04/05/20 09:00 04/08/20 23:00 04/08/20 08:17 Gabapentin (Neurontin) 300 mg QHS ORAL 03/31/20 21:00 04/30/20 20:59 04/07/20 20:03 Heparin Sodium (Porcine) (Heparin 5000 units/ml) 5,000 units EVERY 12 HOURS SUBQ 03/31/20 21:00 05/15/20 20:59 04/08/20 08:31 Insulin Aspart (NovoLOG) BEFORE MEALS AND HS SUBQ 03/31/20 16:30 06/29/20 16:29 04/06/20 12:25 Metoprolol Tartrate (Lopressor) 12.5 mg EVERY 12 HOURS ORAL 03/31/20 21:00 06/29/20 20:59 04/07/20 09:12 Ondansetron HCl (Zofran) 4 mg Q6H PRN IVP Nausea & Vomiting 03/31/20 15:00 04/30/20 14:59 Polyethylene Glycol (Miralax) 17 gm DAILY PRN ORAL Constipation 04/05/20 20:45 04/30/20 14:59 Sitagliptin Phosphate (Januvia) 25 mg DAILY ORAL 04/01/20 09:00 05/01/20 08:59 04/08/20 08:16 Zolpidem Tartrate (Ambien) 5 mg HSPRN PRN ORAL Insomnia 04/06/20 21:00 04/13/20 20:59 Allergies: Coded Allergies: No Known Allergies (Unverified , 03/01/20) ROS Limited/Unobtainable: No Constitutional: Reports: no symptoms HEENT: Reports: no symptoms Cardiovascular: Reports: no symptoms Respiratory: Reports: no symptoms Gastrointestinal/Abdominal: Reports: no symptoms Genitourinary: Reports: no symptoms Neurologic/Psychiatric: Reports: no symptoms Subjective 74 YO M admitted with suprapubic catheter malfunction. Now UTI. Cover for Int Ryan-Dr Watts Objective Last Vital Signs Date Time Temp Pulse Resp B/P (MAP) Pulse Ox O2 Delivery O2 Flow Rate FiO2 04/08/20 16:00 98.1 67 20 100/50 (67) 97 04/08/20 09:00 Room Air Laboratory Tests Test 04/08/20 05:35 White Blood Count 9.3 K/UL (4.8-10.8) Red Blood Count 2.83 M/UL (4.70-6.10) L Hemoglobin 8.6 G/DL (14.2-18.0) L Hematocrit 26.4 % (42.0-52.0) L Mean Corpuscular Volume 93 FL (80-99) Mean Corpuscular Hemoglobin 30.6 PG (27.0-31.0) Mean Corpuscular Hemoglobin Concent 32.8 G/DL (32.0-36.0) Red Cell Distribution Width 15.6 % (11.6-14.8) H Platelet Count 207 K/UL (150-450) Mean Platelet Volume 6.4 FL (6.5-10.1) L Neutrophils (%) (Auto) 55.2 % (45.0-75.0) Lymphocytes (%) (Auto) 30.6 % (20.0-45.0) Monocytes (%) (Auto) 10.3 % (1.0-10.0) H Eosinophils (%) (Auto) 3.0 % (0.0-3.0) Basophils (%) (Auto) 1.0 % (0.0-2.0) Sodium Level 137 MMOL/L (136-145) Potassium Level 5.4 MMOL/L (3.5-5.1) H Chloride Level 106 MMOL/L (98-107) Carbon Dioxide Level 27 MMOL/L (21-32) Anion Gap 4 mmol/L (5-15) L Blood Urea Nitrogen 32 mg/dL (7-18) H Creatinine 1.7 MG/DL (0.55-1.30) H Estimat Glomerular Filtration Rate 39.5 mL/min (>60) Glucose Level 134 MG/DL (74-106) H Calcium Level 8.1 MG/DL (8.5-10.1) L Intake and Output 04/07/20 04/08/20 19:00 07:00 Intake Total 700 ml 1360 ml Output Total 1000 ml 1800 ml Balance -300 ml -440 ml Intake Oral 600 ml IV Total 100 ml 1000 ml Other 360 ml Output Urine Total 1000 ml 1800 ml # Voids 1 # Bowel Movements 1 Objective PHYSICAL EXAMINATION: GENERAL: The patient is a well-developed and well-nourished male, in no apparent distress. HEENT: Eyes, pupils are equal and responsive to light and accommodation. Extraocular movements are intact. NECK: Supple without lymphadenopathy. CHEST: Lungs are clear to auscultation bilaterally without wheezes or rales. CARDIOVASCULAR: Regular rate. S1, S2 normal without murmurs, rubs, or gallops. ABDOMEN: Soft, nontender, and nondistended. Positive bowel sounds. No evidence of hepatosplenomegaly. Currently, no rebound or guarding noted. EXTREMITIES: Negative for clubbing, cyanosis, or edema. RECTAL/GENITAL: Not performed. NEUROLOGIC: Cranial nerves II through XII are grossly intact without focal deficits. Motor strength is 5/5 bilaterally. Deep tendon reflexes are 2+ plantar. Assessment/Plan Assessment/Plan ASSESSMENT: This is a 74-year-old male with: 1. Suprapubic catheter malfunction. 2. Urinary tract infection=ESBL proteus mirabilis 3. Right pneumonia. 4. Diabetes type 2. 5. Hypothyroidism. 6. Chronic renal failure. 7. Hypertension. 8. Benign prostatic hypertrophy. 9. Diastolic congestive heart failure. TREATMENT: 1. Suprapubic catheter malfunction. Failed reinsertion attempt by Urology = Dr. Herndon. Urethral shabazz catheter in place. Follow recommendations of Urology. 2. Urinary tract infection=ESBL proteus. ABX=S/P ertapenem; S/P cefepime An Infectious Disease consultation has been obtained with Dr. Nicole. 3. Pneumonia. A Pulmonary consultation has been obtained with Dr. Miguel Bagley. ABX=ertapenem 4. Diabetes type 2. NovoLog sliding scale has been instituted. 5. Hypothyroidism. Continue Synthroid as above. 6. Chronic renal failure. 7. Hypertension. Continue metoprolol as above. 8. Benign prostatic hypertrophy. Continue Flomax as above. A Urology consultation has been obtained with Dr. Herndon. 9. Diastolic congestive heart failure. 10. Discharge to [facility] today Brennan Haley MD Apr 08, 2020 17:37
--- NOTE | 2020-04-09 14:25 | Discharge Summary ---
Discharge Summary Discharge Summary _ DATE OF ADMISSION: 03/31/2020 DATE OF DISCHARGE: 04/08/2020 DISCHARGED BY: REASON FOR ADMISSION: 74 years old male with past medical history of hypertension, diabetes mellitus, chronic kidney disease, suprapubic catheter due to urinary retention , [facility] he accidentally pulled out his suprapubic catheter. He denied pain. He denied fever and chills. No dysuria. Upon evaluation vital signs were stable. Laboratory work-up revealed no leukocytosis , hemoglobin 10.1, hematocrit 30.4 , platelet count 199. Urinalysis revealed +3 leukocyte esterase, +2 protein, pyuria , few bacteria and few yeast. BUN 20, creatinine 1.5. Glucose 133. Stable LFT Chest x-ray revealed right basilar infiltrate suspicious for pneumonia. Possible left basilar infiltrate as well. Urologist consulted . Emergency room physician was unable to replace the catheter. Urologist was unable to replace suprapubic catheter . Subsequently 16 Bengali Sanabria catheter was placed and left indwelling. Patient subsequently admitted for further management. CONSULTANTS: pulmonary/critical care Dr. Bagley ID specialist Dr. Nicole social organization professor Dr. Suarez surgery Dr. Lo [facility]: Patient admitted to medical surgical floor and started on IVF and empiric antibiotic. Urinary output was closely monitored. COVID-19 on 04/01 was negative. Urine culture revealed Chaparrita and Proteus. Antibiotic regimen optimized as per ID specialist recommendation. Supplemental oxygen provided and titrated to keep pulse oximetry above 92%. Pulmonary toilet provided. Follow-up chest x-ray revealed slightly increased bilateral infiltrates likely pneumonia. Patient had no leukocytosis, no fever. Antibiotics completed while in the hospital. Blood pressure was managed with beta-otto. DVT prophylaxis provided. Blood sugar was managed with Januvia and sliding scale of insulin. Hemoglobin A1c at goal -5.8. Renal parameters and electrolytes were closely monitored, electrolytes corrected as needed, nephrotoxic's were avoided. Renal ultrasound revealed no hydronephrosis. Anemia work-up was consistent with anemia of chronic disease. Stool for occult blood was positive. Hemoglobin and hematocrit remained stable: prior to discharge hemoglobin 9.2, hematocrit 28. Consider outpatient GI work-up, given positive stool for occult blood. Wound care for present on admission sacral decubitus ulcer, provided as per surgeon recommendation. Continue wound care at the facility. Patient clinically stabilized and was ready for [facility] of care. FINAL DIAGNOSES: Suprapubic catheter dysfunction Urinary retention Proteus UTI Probably pneumonia Acute kidney injury on chronic kidney disease Diabetes mellitus Hypertension BPH Hypothyroidism Sacral decubitus ulcer present on admission DISCHARGE MEDICATIONS: See Medication Reconciliation list. DISCHARGE INSTRUCTIONS: [facility]. Follow up with medical doctor at the facility. 74 years old male Gianna Wolf CLIENT SERVICE SUPERVISOR Apr 09, 2020 14:25
== END 2020-04-08 22:20 | DRG 698 ==
LOC: EDBD 09:46 → EMR 13:38 → 4E 13:44 → EDBEDREQ 14:28 → 4E 17:08
DX: T83.010A Breakdown (mechanical) of cystostomy catheter, initial encounter (principal); L89.93 Pressure ulcer of unspecified site, stage 3; J18.9 Pneumonia, unspecified organism; L89.153 Pressure ulcer of sacral region, stage 3; N39.0 Urinary tract infection, site not specified; I13.0 Hypertensive heart and chronic kidney disease with heart failure and stage 1 through stage 4 chronic kidney disease, or unspecified chronic kidney disease; I50.30 Unspecified diastolic (congestive) heart failure; N17.9 Acute kidney failure, unspecified; Z16.12 Extended spectrum beta lactamase (ESBL) resistance; L89.159 Pressure ulcer of sacral region, unspecified stage; T83.098A Other mechanical complication of other urinary catheter, initial encounter; E03.9 Hypothyroidism, unspecified; N18.9 Chronic kidney disease, unspecified; Z79.82 Long term (current) use of aspirin; Z79.4 Long term (current) use of insulin; E11.22 Type 2 diabetes mellitus with diabetic chronic kidney disease; B96.4 Proteus (mirabilis) (morganii) as the cause of diseases classified elsewhere; N40.1 Benign prostatic hyperplasia with lower urinary tract symptoms; R33.8 Other retention of urine; E88.09 Other disorders of plasma-protein metabolism, not elsewhere classified; E11.65 Type 2 diabetes mellitus with hyperglycemia; L89.526 Pressure-induced deep tissue damage of left ankle; L89.516 Pressure-induced deep tissue damage of right ankle; L89.896 Pressure-induced deep tissue damage of other site
CPT/HCPCS: 36415; 71045; 76770; 80048; 80053; 80061; 80076; 81003; 82270; 82378; 82550; 82607; 82728; 82746; 82962; 82977; 83036; 83540; 83550; 83615; 83690; 83735; 84100; 84133; 84300; 84443; 84550; 85007; 85025; 85044; 85060; 85610; 85651; 85730; 86140; 86850; 86900; 86901; 87081; 87086; 87181; 93005; 99285; J1815; U0002

== ENCOUNTER 2020-05-05 09:52 | Inpatient (IN) | payer MEDICARE, MEDICAID ==
[~2020-05-05] VITALS: Ht 175.3 cm; Wt 74.6 kg
[~2020-05-05 09:52] MED LIST changes: +AMIODARONE HCL200 MG ORAL; +ATORVASTATIN CA80 MG ORAL; +DOCUSATE SODIU250 MG ORAL; +FUROSEMIDE40 MG ORAL; +GLYCOPYRROLATE2 MG PO; +LEVOTHYROXINE75 MCG ORAL; +LOPRESSOR25 M1 ORAL; +SERTRALINE HCL25 MG ORAL
[2020-05-05] MEDS ORDERED: OYSTER SHELL 51 EAC1 PO (10:27)
[2020-05-05] MEDS ORDERED: JANUVIA25 MG ORAL (10:27)
[2020-05-05] MEDS ORDERED: MIRALAX17 G2 ORAL (10:27)
[2020-05-05] MEDS ORDERED: VITAMIN C250 MG ORAL (10:27)
[2020-05-05] MEDS ORDERED: MAGNESIUM OXID400 M2 PO (10:27)
[2020-05-05 10:33] LABS: APPEARANCE,URINE CLOUDY; BILIRUBIN, URINE NEGATIVE (NEGATIVE); COLOR,URINE PALE YELLOW; GLUCOSE, URINE (UA) NEGATIVE (NEGATIVE); KETONES,URINE NEGATIVE (NEGATIVE); LEUKOCYTE ESTERASE ,URINE 3+ (NEGATIVE); NITRITE,URINE POSITIVE (NEGATIVE); PH,URINE 9 (4.5-8.0); PROTEIN,URINE 2+ (NEGATIVE); UROBILINOGEN,URINE NORMAL MG/DL (0.0-1.0)
[2020-05-05 10:37] LABS: BASOPHILS % (AUTO) 0.8 % (0.0-2.0); EOSINOPHILS % (AUTO) 2.3 % (0.0-3.0); HEMATOCRIT 29.1 % (42.0-52.0); HEMOGLOBIN 9.6 G/DL (14.2-18.0); LYMPHOCYTES % (AUTO) 17.7 % (20.0-45.0); MEAN CORPUSCULAR VOLUME 95 FL (80-99); MONOCYTES % (AUTO) 7.9 % (1.0-10.0); NEUTROPHILS % (AUTO) 71.3 % (45.0-75.0); PLATELET COUNT 279 K/UL (150-450); RED BLOOD COUNT 3.06 M/UL (4.70-6.10); RED CELL DISTRIBUTION WIDTH 13.8 % (11.6-14.8); WHITE BLOOD COUNT 10.5 K/UL (4.8-10.8)
[2020-05-05] MEDS ORDERED: Ertapenem 1 GM in NS 55 ML IV ONE (10:45)
[2020-05-05 10:46] LABS: CALCIUM 7.6 MG/DL (8.5-10.1); CREATININE 1.2 MG/DL (0.55-1.30); POTASSIUM 3.6 MMOL/L (3.5-5.1)
--- NOTE | 2020-05-05 10:47 | Emergency Room Report ---
History of Present Illness General Chief Complaint: Abdominal Pain Source: Patient Present Illness HPI 74-year-old male here with abnormal labs. The patient was at a shelter and lab work today revealed a low sodium. Patient received 1 L bolus of IV normal saline and sodium remained low. Patient was recently here in the hospital approximately 1 month ago due to urinary tract infection of his suprapubic catheter with ESBL. He denies any complaints at this time. No fevers, chills, chest pain, palpitation shortness breath, back pain, abdominal pain, nausea, vomiting, diarrhea. 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 Nursing Documentation-[facility] Past Medical History: No History, Except For Hx Cardiac Problems: Yes - a FIB Hx Hypertension: Yes Hx Diabetes: Yes Hx Cancer: No - benign prostate Hx Gastrointestinal Problems: No Hx Dialysis: Yes - UTI, ckd Hx Neurological Problems: No Review of Systems All Other Systems: negative except mentioned in HPI Physical Exam Vital Signs Date Time Temp Pulse Resp B/P (MAP) Pulse Ox O2 Delivery O2 Flow Rate FiO2 05/05/20 09:50 98.1 68 18 122/52 (75) 96 Room Air Sp02 EP Interpretation: reviewed, normal General Appearance: no apparent distress, alert, non-toxic Head: normocephalic, atraumatic Eyes: bilateral eye normal inspection, bilateral eye PERRL ENT: hearing grossly normal, normal pharynx, no angioedema, normal voice Neck: full range of motion, supple/symm/no masses Respiratory: chest non-tender, lungs clear, normal breath sounds, speaking full sentences Cardiovascular #1: regular rate, rhythm, no edema Cardiovascular #2: 2+ carotid (R), 2+ carotid (L), 2+ radial (R), 2+ radial (L), 2+ dorsalis pedis (R), 2+ dorsalis pedis (L) Gastrointestinal: normal bowel sounds, non tender, soft, non-distended, no guarding, no rebound Rectal: deferred Genitourinary: normal inspection, no CVA tenderness, other - Suprapubic catheter in place. No surrounding erythema or induration or tenderness on pa lpation Musculoskeletal: back normal, normal range of motion, gait/station normal, non- tender Neurologic: alert, motor strength/tone normal, oriented x3, sensory intact, responsive, speech normal Psychiatric: judgement/insight normal, memory normal, mood/affect normal, no suicidal/homicidal ideation Lymphatic: no adenopathy Medical Decision Making Diagnostic Impression: Primary Impression: Suprapubic catheter Additional Impressions: UTI (urinary tract infection) Hyponatremia Dehydration ER Course EKG: NSR, no ischemia, QTC 509. No ectopy Rhythm strip: patient monitored for arrhythmias - no malignant dysrhythmias, runs of PVCs, nor pauses noted Chest x-ray: No infiltrate/effusion. Mediastinum within normal limits, no free air under the diaphragm. No consolidation or pulmonary vascular congestion Laboratory Tests Test 05/05/20 10:10 White Blood Count 10.5 K/UL (4.8-10.8) Red Blood Count 3.06 M/UL (4.70-6.10) L Hemoglobin 9.6 G/DL (14.2-18.0) L Hematocrit 29.1 % (42.0-52.0) L Mean Corpuscular Volume 95 FL (80-99) Mean Corpuscular Hemoglobin 31.2 PG (27.0-31.0) H Mean Corpuscular Hemoglobin Concent 32.8 G/DL (32.0-36.0) Red Cell Distribution Width 13.8 % (11.6-14.8) Platelet Count 279 K/UL (150-450) Mean Platelet Volume 6.7 FL (6.5-10.1) Neutrophils (%) (Auto) 71.3 % (45.0-75.0) Lymphocytes (%) (Auto) 17.7 % (20.0-45.0) L Monocytes (%) (Auto) 7.9 % (1.0-10.0) Eosinophils (%) (Auto) 2.3 % (0.0-3.0) Basophils (%) (Auto) 0.8 % (0.0-2.0) Urine Color Pale yellow Urine Appearance Cloudy Urine pH 9 (4.5-8.0) Urine Specific [place] 1.010 (1.005-1.035) Urine Protein 2+ (NEGATIVE) H Urine Glucose (UA) Negative (NEGATIVE) Urine Ketones Negative (NEGATIVE) Urine Blood 4+ (NEGATIVE) H Urine Nitrite Positive (NEGATIVE) H Urine Bilirubin Negative (NEGATIVE) Urine Urobilinogen Normal MG/DL (0.0-1.0) Urine Leukocyte Esterase 3+ (NEGATIVE) H Urine RBC 5-10 /HPF (0 - 0) H Urine WBC 10-15 /HPF (0 - 0) H Urine Squamous Epithelial Cells Occasional /LPF Urine Amorphous Sediment Few /LPF (NONE) H Urine Bacteria Many /HPF (NONE) H Sodium Level 124 MMOL/L (136-145) L Potassium Level 3.6 MMOL/L (3.5-5.1) Chloride Level 93 MMOL/L (98-107) L Carbon Dioxide Level 28 MMOL/L (21-32) Anion Gap 3 mmol/L (5-15) L Blood Urea Nitrogen 27 mg/dL (7-18) H Creatinine 1.2 MG/DL (0.55-1.30) Estimated Glomerular Filtration Rate 59.0 mL/min (>60) Glucose Level 149 MG/DL (74-106) H Calcium Level 7.6 MG/DL (8.5-10.1) L Total Bilirubin 0.3 MG/DL (0.2-1.0) Aspartate Amino Transferase (AST) 49 U/L (15-37) H Alanine Aminotransferase (ALT) 30 U/L (12-78) Alkaline Phosphatase 113 U/L (46-116) Troponin I 0.010 ng/mL (0.000-0.056) Total Protein 6.8 G/DL (6.4-8.2) Albumin 2.3 G/DL (3.4-5.0) L Globulin 4.5 g/dL Albumin/Globulin Ratio 0.5 (1.0-2.7) L 74-year-old male here for evaluation of hyponatremia. Patient was in no distress whatsoever here in the emergency department. He had a suprapubic catheter with cloudy urine. Urinalysis revealed evidence of urinary tract infection versus colonization. Review of old records reveal ESBL UTI that was gregory resistant and sensitive only to ertapenem which she had received at his previous hospital stay. He was given 1 dose of ertapenem here in the emergency department. Chest x-ray did not reveal any signs of acute pneumonia. CBC largely unremarkable. CMP however revealed evidence of dehydration and hyponatremia and hypochloremia. Sodium 124, chloride 91. BUN 27 with normal creatinine. Patient was given 1 L IV normal saline in the emergency department. Admitted to telemetry. Last Vital Signs Date Time Temp Pulse Resp B/P (MAP) Pulse Ox O2 Delivery O2 Flow Rate FiO2 05/05/20 10:18 68 18 Room Air 05/05/20 09:50 98.1 122/52 (33) 96 Referrals: Lizbet Jack MD (PCP) Partha Johnson M.D. May 05, 2020 10:47
[2020-05-05 10:51] LABS: ALBUMIN 2.3 G/DL (3.4-5.0); ALBUMIN/GLOBULIN RATIO 0.5 (1.0-2.7); BILIRUBIN,TOTAL 0.3 MG/DL (0.2-1.0)
[2020-05-05 11:05] VITALS: BP 132/57
[2020-05-05 11:30] VITALS: BP 141/60
--- NOTE | 2020-05-05 12:08 | History and Physical ---
History of Present Illness General Reason for Hospitalization: Abdominal Pain Present Illness HPI Mr. Rodriguez is a 74M with PMH hypertension, diabetes mellitus, chronic kidney disease, suprapubic catheter due to urinary retention who presents from [facility] for hyponatremia. Patient is a poor historian and majority of history taken after discussion with nurse, ED physician,'s SNF [facility]. Per SNF [facility], patient was noted to have hyponatremia of 121 at the outside SNF in which they gave him a bag of NS that improve the sodium to 124 before [place] [facility]. In the hospital, patient hemodynamically stable in no acute distress. Upon questioning he does not complain of anything, however difficult to obtain accurate history. Further work-up with UA shows likely catheter asso ciated UTI and he was given a dose of ertapenem after recent history showed ESBL UTI. Will be further admitted for hyponatremia evaluation and UTI treatment. Past medical history: Hypertension, diabetes, CKD, suprapubic catheter Past family history: Unable to obtain family history due to patient's poor historian. Past surgical history: Unable to obtain due to patient's poor historian. Social history: Unable to obtain as patient is poor historian Allergies: Coded Allergies: No Known Allergies (Unverified , 03/01/20) COVID-19 Screening Contact w/high risk pt: No Experienced COVID-19 symptoms?: No Medication History Scheduled Amiodarone Hcl* (Cordarone*), 200 MG ORAL DAILY, (Reported) Ascorbic Acid* (Vitamin C*), 250 MG ORAL DAILY, (Reported) Aspirin* (Aspirin*), 81 MG ORAL DAILY, (Reported) Atorvastatin Calcium* (Lipitor*), 80 MG ORAL BEDTIME, (Reported) Calcium Carbonate/Vitamin D3 (Oyster Shell 500 Mg + Vit D Tb), 1 EACH PO DAILY, (Reported) Docusate Sodium* (Docusate Sodium*), 250 MG ORAL DAILY, (Reported) Furosemide* (Lasix*), 40 MG ORAL DAILY, (Reported) Glycopyrrolate (Glycopyrrolate), 1 MG PO DAILY, (Reported) Levothyroxine Sodium* (Synthorid*), 75 MCG ORAL DAILY, (Reported) Magnesium Oxide (Magnesium Oxide), 400 MG PO DAILY, (Reported) Metoprolol Tartrate (Metoprolol Tartrate), 12.5 MG ORAL EVERY 12 HOURS Polyethylene Glycol 3350* (Miralax*), 17 GM ORAL DAILY, (Reported) Sertraline Hcl* (Sertraline Hcl*), 25 MG ORAL DAILY, (Reported) Sitagliptin* (Januvia*), 25 MG ORAL DAILY Sitagliptin* (Januvia*), 25 MG ORAL DAILY, (Reported) Scheduled PRN Meclizine Hcl* (Meclizine*), 12.5 MG ORAL TID PRN for for dizziness, (Reported) Patient History Healthcare decision maker Resuscitation status Advanced Directive on File Family History Family History: FH: CAD (coronary artery disease) Review of Systems Constitutional: Denies: no symptoms, see HPI, chills, sweats, fever, malaise, weakness, other Eye: Denies: no symptoms, see HPI, eye pain, blurred vision, tearing, double vision, nose pain, nose congestion, acuity changes, discharge, other ENT: Denies: no symptoms, see HPI, ear pain, ear discharge, nose pain, nose congestion, throat pain, throat swelling, mouth pain, hearing loss, nasal discharge, other Respiratory: Denies: no symptoms, see HPI, cough, orthopnea, shortness of breath, stridor, wheezing, ZUNIGA, sputum, other Cardiovascular: Denies: no symptoms, see HPI, chest pain, edema, palpitations, syncope, PND, other Gastrointestinal: Denies: no symptoms, see HPI, abdominal pain, constipation, diarrhea, nausea, vomiting, melena, hematemesis, other Genitourinary: Denies: no symptoms, see HPI, discharge, dysuria, frequency, hematuria, pain, retention, incontinence, urgency, vag bleed/dc, other Musculoskeletal: Denies: no symptoms, see HPI, back pain, gout, joint pain, joint swelling, muscle pain, muscle stiffness, other Skin: Denies: no symptoms, see HPI, rash, change in color, change in hair/nails, dryness, lesions, other Psychiatric: Denies: no symptoms, see HPI, prior hx, anxiety, depressed feelings, emotional problems, SI, HI, hallucinations, other Neurological: Denies: no symptoms, see HPI, headache, numbness, paresthesia, seizure, tingling, tremors, focal weakness, syncope, dizziness, other Endocrine: Denies: no symptoms, see HPI, excessive sweating, flushing, intolerance to temperature, increased thirst, increased urine, unexplained weight loss, other Hematologic/Lymphatic: Denies: no symptoms, see HPI, anemia, blood clots, easy bleeding, easy bruising, swollen glands, diathesis, other ROS Narrative Unable to accurately obtain of 10 point full review of systems due to patient's poor historian and inability to comprehend majority of questions. Physical Exam General Appearance: no apparent distress, alert, other - A0x2 HEENT: normocephalic, atraumatic, PERRL Neck: non-tender, normal inspection Respiratory/Chest: lungs clear, normal breath sounds, no respiratory distress Cardiovascular/Chest: normal rate, regular rhythm, no JVD Abdomen: normal bowel sounds, non tender, soft Genitourinary/Rectal: suprapubic catheter Extremities: non-tender Neurologic: childcare provider II-XII grossly normal, alert Last 24 Hour Vital Signs Date Time Temp Pulse Resp B/P (MAP) Pulse Ox O2 Delivery O2 Flow Rate FiO2 05/05/20 11:05 98.1 66 15 132/57 100 Room Air 05/05/20 10:18 68 18 Room Air 05/05/20 09:50 98.1 68 18 122/52 (75) 96 Room Air Laboratory Tests Test 05/05/20 10:10 White Blood Count 10.5 K/UL (4.8-10.8) Red Blood Count 3.06 M/UL (4.70-6.10) L Hemoglobin 9.6 G/DL (14.2-18.0) L Hematocrit 29.1 % (42.0-52.0) L Mean Corpuscular Volume 95 FL (80-99) Mean Corpuscular Hemoglobin 31.2 PG (27.0-31.0) H Mean Corpuscular Hemoglobin Concent 32.8 G/DL (32.0-36.0) Red Cell Distribution Width 13.8 % (11.6-14.8) Platelet Count 279 K/UL (150-450) Mean Platelet Volume 6.7 FL (6.5-10.1) Neutrophils (%) (Auto) 71.3 % (45.0-75.0) Lymphocytes (%) (Auto) 17.7 % (20.0-45.0) L Monocytes (%) (Auto) 7.9 % (1.0-10.0) Eosinophils (%) (Auto) 2.3 % (0.0-3.0) Basophils (%) (Auto) 0.8 % (0.0-2.0) Urine Color Pale yellow Urine Appearance Cloudy Urine pH 9 (4.5-8.0) Urine Specific [place] 1.010 (1.005-1.035) Urine Protein 2+ (NEGATIVE) H Urine Glucose (UA) Negative (NEGATIVE) Urine Ketones Negative (NEGATIVE) Urine Blood 4+ (NEGATIVE) H Urine Nitrite Positive (NEGATIVE) H Urine Bilirubin Negative (NEGATIVE) Urine Urobilinogen Normal MG/DL (0.0-1.0) Urine Leukocyte Esterase 3+ (NEGATIVE) H Urine RBC 5-10 /HPF (0 - 0) H Urine WBC 10-15 /HPF (0 - 0) H Urine Squamous Epithelial Cells Occasional /LPF Urine Amorphous Sediment Few /LPF (NONE) H Urine Bacteria Many /HPF (NONE) H Sodium Level 124 MMOL/L (136-145) L Potassium Level 3.6 MMOL/L (3.5-5.1) Chloride Level 93 MMOL/L (98-107) L Carbon Dioxide Level 28 MMOL/L (21-32) Anion Gap 3 mmol/L (5-15) L Blood Urea Nitrogen 27 mg/dL (7-18) H Creatinine 1.2 MG/DL (0.55-1.30) Estimat Glomerular Filtration Rate 59.0 mL/min (>60) Glucose Level 149 MG/DL (74-106) H Calcium Level 7.6 MG/DL (8.5-10.1) L Total Bilirubin 0.3 MG/DL (0.2-1.0) Aspartate Amino Transf (AST/SGOT) 49 U/L (15-37) H Alanine Aminotransferase (ALT/SGPT) 30 U/L (12-78) Alkaline Phosphatase 113 U/L (46-116) Troponin I 0.010 ng/mL (0.000-0.056) Total Protein 6.8 G/DL (6.4-8.2) Albumin 2.3 G/DL (3.4-5.0) L Globulin 4.5 g/dL Albumin/Globulin Ratio 0.5 (1.0-2.7) L Microbiology Date/Time Source Procedure Growth Status 05/05/20 11:00 Nasopharynx SARS-CoV-2 RdRp Gene Assay - Final Complete Height (Feet): 5 Height (Inches): 9.00 Weight (Pounds): 165 Assessment/Plan Diagnosis [place]: Me Rodriguez is 74 years old male with past medical history of hypertension, diabetes mellitus, chronic kidney disease, suprapubic catheter due to urinary retention admitted for hyponatremia from [facility], A: # Hypovolemic hyponatremia2/2 poor oral intake # Catheter associated UTI # Essential hypertension # Diabetes mellitus # CKD # Suprapubic catheter # Normocytic anemia 2/2 likley ACD versus CKD # ?Mild dementia # Depression # HLD P: - Hemodynamically stable, no respiratory compromise IVF Trend sodium Increase sodium by 8 mEq next 24 hours No signs of acute encephalopathy Follow-up urine cultures We will continue ertapenem with recent history of ESBL UTI Accu-Cheks Insulin sliding scale mild, Daily reassessment of insulin requirements Follow-up iron studies, B12, folic acid, TSH Continue home Synthroid 75 MCG's daily Continue home metoprolol 12.5 twice daily, statin, Zoloft, and aspirin We will hold home amiodarone 20 mg daily confirmed with SNF the patient is still on this medication and for what reason - Consult Dr. Crocker, recs [facility] Code: Full, for now given patient has no polst GI: None Fluids: NS 100 cc DVT prophylaxis: Heparin 5000 units twice daily Diet: Regular Dispo: Resolution of hyponatremia follow-up urine cultures, likely discharge in 1 to 2 days In addition to the usual care above I spent additional time reviewing records in the EMR and paper charts including physician documentation, nursing documentation, lab results, imaging and clinical documentation. Total time included was 25 min. Time spent on this encounter was 45 minutes which included 25 minutes of counseling and care coordination. I discussed with the nurse at bedside. Time of note may not reflect time patient was seen. Renan Chandra D.O May 05, 2020 12:08
[2020-05-05] MEDS ORDERED: Albuterol/Ipratropium 3ml neb HHN PRN (14:00)
[2020-05-05] MEDS ORDERED: Mylanta II UD 30ml ORAL PRN (14:00)
[2020-05-05] MEDS ORDERED: Miralax 17gm pkt ORAL PRN (14:00)
--- NOTE | 2020-05-05 15:48 | Diagnostic Imaging Report ---
Indication: Chest pain Technique: One view of the chest Comparison: 04/07/2020 Findings: Suboptimal inspiration. Normal heart size. Tortuous calcified aorta. No significant change Impression: No acute process
[2020-05-05] MEDS: NovoLOG Insulin Flexpen SUBQ SCH ×2 (17:44→21:00)
[2020-05-05 20:00] VITALS: BP 107/46
[2020-05-05] MEDS: Metoprolol Tartrate 12.5mg TAB ORAL SCH (21:00)
[2020-05-05] MEDS ORDERED: Heparin 5000 units/ml inj SUBQ SCH (21:00)
[2020-05-05] MEDS: Atorvastatin 80mg tab ORAL SCH (22:24)
[2020-05-05] MEDS: Meropenem 1gm in NS 55ml IVPB SCH (22:25)
[2020-05-06] VITALS (7 sets, daily range): BP systolic 95–114; BP diastolic 45–58
[2020-05-06] MEDS: Meropenem 1gm in NS 55ml IVPB SCH ×3 (06:10→21:29)
[2020-05-06] MEDS: NovoLOG Insulin Flexpen SUBQ SCH ×4 (06:30→21:00)
[2020-05-06 07:34] LABS: BASOPHILS % (AUTO) 0.6 % (0.0-2.0); EOSINOPHILS % (AUTO) 1.9 % (0.0-3.0); HEMATOCRIT 27.1 % (42.0-52.0); HEMOGLOBIN 9.1 G/DL (14.2-18.0); LYMPHOCYTES % (AUTO) 15.7 % (20.0-45.0); MEAN CORPUSCULAR VOLUME 94 FL (80-99); MONOCYTES % (AUTO) 8.4 % (1.0-10.0); NEUTROPHILS % (AUTO) 73.5 % (45.0-75.0); PLATELET COUNT 285 K/UL (150-450); RED BLOOD COUNT 2.88 M/UL (4.70-6.10); RED CELL DISTRIBUTION WIDTH 13.5 % (11.6-14.8); WHITE BLOOD COUNT 8.7 K/UL (4.8-10.8)
[2020-05-06 08:22] LABS: ANION GAP 7 mmol/L (5-15); BLOOD UREA NITROGEN 24 mg/dL (7-18); CALCIUM 7.5 MG/DL (8.5-10.1); CARBON DIOXIDE 26 MMOL/L (21-32); CHLORIDE 97 MMOL/L (98-107); CREATININE 1.3 MG/DL (0.55-1.30); FERRITIN 506 NG/ML (8-388); PHOSPHORUS 2.9 MG/DL (2.5-4.9); POTASSIUM 3.1 MMOL/L (3.5-5.1); SODIUM 130 MMOL/L (136-145)
[2020-05-06 08:40] LABS: % IRON SATURATION 59 % (15-50); IRON 72 ug/dL (50-175); TOTAL IRON BINDING CAPACITY 122 ug/dL (250-450)
[2020-05-06] MEDS: Aspirin Baby 81mg ORAL SCH (09:26)
[2020-05-06] MEDS: Metoprolol Tartrate 12.5mg TAB ORAL SCH ×2 (09:26→20:41)
[2020-05-06] MEDS: Xarelto 10mg tab ORAL SCH (09:27)
[2020-05-06] MEDS: Sertraline 50mg tab ORAL SCH (09:27)
--- NOTE | 2020-05-06 11:02 | General Progress Note ---
Subjective Date patient seen: May 06, 2020 ROS Limited/Unobtainable: No Constitutional: Denies: no symptoms, chills, diaphoresis, fever, malaise, weakness, other HEENT: Denies: no symptoms, eye pain, blurred vision, tearing, double vision, ear pain, ear discharge, nose pain, nose congestion, throat pain, throat swelling, mouth pain, mouth swelling, other Cardiovascular: Denies: no symptoms, chest pain, edema, irregular heart rate, lightheadedness, palpitations, syncope, other Respiratory: Denies: no symptoms, cough, orthopnea, shortness of breath, SOB with excertion, SOB at rest, sputum, stridor, wheezing, other Gastrointestinal/Abdominal: Denies: no symptoms, abdomen distended, abdominal pain, black stools, tarry stools, blood in stool, constipated, diarrhea, difficulty swallowing, nausea, poor appetite, poor fluid intake, rectal bleeding, vomiting, other Genitourinary: Denies: no symptoms, burning, discharge, frequency, flank pain, hematuria, incontinence, pain, urgency, other Neurologic/Psychiatric: Denies: no symptoms, anxiety, depressed, emotional p roblems, headache, numbness, paresthesia, pre-existing deficit, seizure, tingling, tremors, weakness, other Endocrine: Denies: no symptoms, excessive sweating, flushing, intolerance to cold, intolerance to heat, increased hunger, increased thirst, increased urine, unexplained weight gain, unexplained weight loss, other Hematologic/Lymphatic: Denies: no symptoms, anemia, easy bleeding, easy bruising, other Allergies: Coded Allergies: No Known Allergies (Unverified , 03/01/20) All Systems: reviewed and negative except above Subjective resting in bed comfortably without any symptoms. about to eat breakfast. Objective Last 24 Hour Vital Signs Date Time Temp Pulse Resp B/P (MAP) Pulse Ox O2 Delivery O2 Flow Rate FiO2 05/06/20 09:26 63 114/49 05/06/20 08:00 97.7 63 20 114/49 (70) 98 05/06/20 04:00 61 05/06/20 04:00 97.2 72 20 102/48 (66) 99 05/06/20 00:00 59 05/06/20 00:00 97.5 70 20 101/45 (63) 99 05/05/20 23:04 65 18 96 Room Air 21 05/05/20 21:00 66 107/46 05/05/20 21:00 Room Air 05/05/20 20:00 62 05/05/20 20:00 96.6 66 20 107/46 (66) 05/05/20 18:09 Room Air 05/05/20 16:00 68 05/05/20 14:13 70 20 131/57 100 Room Air 05/05/20 11:30 69 15 141/60 100 Room Air 05/05/20 11:05 98.1 66 15 132/57 100 Room Air Intake and Output 05/05/20 05/06/20 19:00 07:00 Intake Total 1175 ml 100 ml Output Total 400 ml 400 ml Balance 775 ml -300 ml Intake Oral 120 ml 100 ml IV Total 1055 ml Output Urine Total 400 ml 400 ml # Bowel Movements 3 1 Laboratory Tests 05/05/20 17:42: POC Whole Blood Glucose 135H 05/05/20 21:12: Sodium Level 127L 05/06/20 06:58: Sodium Level 130L, White Blood Count 8.7, Red Blood Count 2.88L, Hemoglobin 9.1L , Hematocrit 27.1L, Mean Corpuscular Volume 94, Mean Corpuscular Hemoglobin 31.5H, Mean Corpuscular Hemoglobin Concent 33.5, Red Cell Distribution Width 13.5, Platelet Count 285, Mean Platelet Volume 6.6, Neutrophils (%) (Auto) 73.5, Lymphocytes (%) (Auto) 15.7L, Monocytes (%) (Auto) 8.4, Eosinophils (%) (Auto) 1.9, Basophils (%) (Auto) 0.6, Potassium Level 3.1L, Chloride Level 97L, Carbon Dioxide Level 26, Anion Gap 7, Blood Urea Nitrogen 24H, Creatinine 1.3, Estimat Glomerular Filtration Rate 53.8, Glucose Level 126H, Calcium Level 7.5L, Phosphorus Level 2.9, Magnesium Level 1.5L, Iron Level 72, Total Iron Binding Capacity 122L, Percent Iron Saturation 59H, Unsaturated Iron Binding 50L, Ferritin 506H, Vitamin B12 Level 995H, Folate 8.9, Thyroid Stimulating Hormone (TSH) 18.348H Height (Feet): 5 Height (Inches): 9.00 Weight (Pounds): 165 General Appearance: no apparent distress, alert Neck: supple Cardiovascular: normal rate, regular rhythm Respiratory/Chest: lungs clear, normal breath sounds Abdomen: non tender, soft Neurologic: alert, responsive Assessment/Plan Problem List: (1) Renal failure (ARF), acute on chronic ICD Codes: N17.9 - Acute kidney failure, unspecified; N18.9 - Chronic kidney disease, unspecified SNOMED: 925267431 (2) Dehydration ICD Codes: E86.0 - Dehydration SNOMED: 18862000 (3) Hyponatremia ICD Codes: E87.1 - Hypo-osmolality and hyponatremia SNOMED: 00291506 (4) UTI (urinary tract infection) ICD Codes: N39.0 - Urinary tract infection, site not specified SNOMED: 87945670 (5) Hypothyroidism ICD Codes: E03.9 - Hypothyroidism, unspecified SNOMED: 89923031 (6) Diabetes mellitus ICD Codes: E11.9 - Type 2 diabetes mellitus without complications SNOMED: 83310233 (7) Renal insufficiency ICD Codes: N28.9 - Disorder of kidney and ureter, unspecified SNOMED: 980168837, 200016601 (8) BPH (benign prostatic hyperplasia) ICD Codes: N40.0 - Benign prostatic hyperplasia without lower urinary tract symptoms SNOMED: 276267763 (9) Suprapubic catheter dysfunction ICD Codes: T83.010A - Breakdown (mechanical) of cystostomy catheter, initial encounter SNOMED: 984787836 (10) Urinary retention ICD Codes: R33.9 - Retention of urine, unspecified SNOMED: 333249717 Status: stable, progressing Assessment/Plan: Me Rodriguez is 74 years old male with past medical history of hypertension, diabetes mellitus, chronic kidney disease, suprapubic catheter due to urinary retention admitted for hyponatremia from [facility], A: # Hypovolemic hyponatremia2/2 poor oral intake # Catheter associated UTI # Essential hypertension # Diabetes mellitus # CKD # Suprapubic catheter # Normocytic anemia 2/2 helena ACD versus CKD # ?Mild dementia # Depression # HLD P: continue IVF Trend sodium; improving Follow-up urine cultures; UA dirty. - ID following. appreciate recs. Continue meropenem given prior ESBL hx. Accu-Cheks Insulin sliding scale mild, Daily reassessment of insulin requirements Continue home Synthroid 75 MCG's daily Continue home metoprolol 12.5 twice daily, statin, Zoloft, and aspirin We will hold home amiodarone 20 mg daily confirmed with SNF the patient is st ill on this medication and for what reason Code: Full GI: None Fluids: NS 100 cc DVT prophylaxis: Heparin 5000 units twice daily Diet: Regular Dispo: Resolution of hyponatremia follow-up urine cultures, likely discharge in 1 to 2 days In addition to the usual care above I spent additional time reviewing records in the EMR and paper charts including physician documentation, nursing documentation, lab results, imaging and clinical documentation. Total time included was 32 mins. Time of note may not reflect time patient was seen. Branden Lopez MD May 06, 2020 11:02
--- NOTE | 2020-05-06 15:47 | Infectious Diseases Prog Note ---
Assessment/Plan Assessment/Plan Full consult dictated: A) 1) gram neg complicated uti 2) hx esbl 3) pmh noted 4) allergies - nkda P) 1) meropenem 2) f/u on urine culture 3) thank you Subjective Allergies: Coded Allergies: No Known Allergies (Unverified , 03/01/20) Objective Last 24 Hour Vital Signs Date Time Temp Pulse Resp B/P (MAP) Pulse Ox O2 Delivery O2 Flow Rate FiO2 05/06/20 12:00 59 05/06/20 11:51 98.1 63 18 95/48 (64) 97 05/06/20 09:26 63 114/49 05/06/20 09:00 Room Air 05/06/20 08:00 97.7 63 20 114/49 (70) 98 05/06/20 08:00 65 05/06/20 04:00 61 05/06/20 04:00 97.2 72 20 102/48 (66) 99 05/06/20 00:00 59 05/06/20 00:00 97.5 70 20 101/45 (63) 99 05/05/20 23:04 65 18 96 Room Air 21 05/05/20 21:00 66 107/46 05/05/20 21:00 Room Air 05/05/20 20:00 62 05/05/20 20:00 96.6 66 20 107/46 (66) 05/05/20 18:09 Room Air 05/05/20 16:00 68 Height (Feet): 5 Height (Inches): 9.00 Weight (Pounds): 165 Microbiology Date/Time Source Procedure Growth Status 05/05/20 13:30 Rectal Mucosa Received 05/05/20 11:00 Nasopharynx SARS-CoV-2 RdRp Gene Assay - Final Complete 05/05/20 10:10 Urine,Clean Catch Urine Culture - Preliminary Gram Negative Ajay Resulted Laboratory Tests Test 05/05/20 17:42 05/05/20 21:12 05/06/20 06:58 05/06/20 12:12 POC Whole Blood Glucose 135 MG/DL (74-106) H 147 MG/DL (74-106) H Sodium Level 127 MMOL/L (136-145) L 130 MMOL/L (136-145) L White Blood Count 8.7 K/UL (4.8-10.8) Red Blood Count 2.88 M/UL (4.70-6.10) L Hemoglobin 9.1 G/DL (14.2-18.0) L Hematocrit 27.1 % (42.0-52.0) L Mean Corpuscular Volume 94 FL (80-99) Mean Corpuscular Hemoglobin 31.5 PG (27.0-31.0) H Mean Corpuscular Hemoglobin Concent 33.5 G/DL (32.0-36.0) Red Cell Distribution Width 13.5 % (11.6-14.8) Platelet Count 285 K/UL (150-450) Mean Platelet Volume 6.6 FL (6.5-10.1) Neutrophils (%) (Auto) 73.5 % (45.0-75.0) Lymphocytes (%) (Auto) 15.7 % (20.0-45.0) L Monocytes (%) (Auto) 8.4 % (1.0-10.0) Eosinophils (%) (Auto) 1.9 % (0.0-3.0) Basophils (%) (Auto) 0.6 % (0.0-2.0) Potassium Level 3.1 MMOL/L (3.5-5.1) L Chloride Level 97 MMOL/L (98-107) L Carbon Dioxide Level 26 MMOL/L (21-32) Anion Gap 7 mmol/L (5-15) Blood Urea Nitrogen 24 mg/dL (7-18) H Creatinine 1.3 MG/DL (0.55-1.30) Estimat Glomerular Filtration Rate 53.8 mL/min (>60) Glucose Level 126 MG/DL (74-106) H Calcium Level 7.5 MG/DL (8.5-10.1) L Phosphorus Level 2.9 MG/DL (2.5-4.9) Magnesium Level 1.5 MG/DL (1.8-2.4) L Iron Level 72 ug/dL (50-175) Total Iron Binding Capacity 122 ug/dL (250-450) L Percent Iron Saturation 59 % (15-50) H Unsaturated Iron Binding 50 ug/dL (112-346) L Ferritin 506 NG/ML (8-388) H Vitamin B12 Level 995 PG/ML (193-986) H Folate 8.9 NG/ML (8.6-58.9) Thyroid Stimulating Hormone (TSH) 18.348 uiU/mL (0.358-3.740) Current Medications Medications (Trade) Dose Ordered Sig/Lauren Route PRN Reason Start Time Stop Time Status Last Admin Dose Admin Acetaminophen (Tylenol) 650 mg Q4H PRN ORAL Mild Pain (Pain Scale 1-3) 05/05/20 14:00 06/04/20 13:59 Acetaminophen (Tylenol) 650 mg Q4H PRN ORAL Temp >100.5 05/05/20 14:00 06/04/20 13:59 Al Hydroxide/Mg Hydroxide (Mylanta II) 30 ml Q6H PRN ORAL dyspepsia 05/05/20 14:00 06/04/20 13:59 Albuterol/ Ipratropium (Albuterol/ Ipratropium) 3 ml Q4H PRN HHN Shortness of Breath 05/05/20 14:00 05/10/20 13:59 Aspirin (ASA) 81 mg DAILY ORAL 05/06/20 09:00 06/20/20 08:59 05/06/20 09:26 Atorvastatin Calcium (Lipitor) 80 mg BEDTIME ORAL 05/05/20 21:00 08/03/20 20:59 05/05/20 22:24 Dextrose (Dextrose 50%) 25 ml Q30M PRN IV Hypoglycemia 05/05/20 14:00 08/03/20 13:59 Dextrose (Dextrose 50%) 50 ml Q30M PRN IV Hypoglycemia 05/05/20 14:00 08/03/20 13:59 Insulin Aspart (NovoLOG) BEFORE MEALS AND HS SUBQ 05/05/20 16:30 08/03/20 16:29 Levothyroxine Sodium (Synthroid) 75 mcg Q24H ORAL 05/06/20 06:30 06/05/20 06:29 05/06/20 06:45 Meropenem 1 gm/ Sodium Chloride 55 ml @ 110 mls/hr Q8HR IVPB 05/05/20 22:00 05/10/20 21:59 05/06/20 13:38 Metoprolol Tartrate (Lopressor) 12.5 mg EVERY 12 HOURS ORAL 05/05/20 21:00 08/03/20 20:59 05/06/20 09:26 Polyethylene Glycol (Miralax) 17 gm HSPRN PRN ORAL Constipation 05/05/20 14:00 06/04/20 13:59 Rivaroxaban (Xarelto) 20 mg DAILY ORAL 05/06/20 09:00 08/04/20 08:59 05/06/20 09:27 Sertraline HCl (Zoloft) 25 mg DAILY ORAL 05/06/20 09:00 06/05/20 08:59 05/06/20 09:27 Sodium Chloride 1,000 ml @ 100 mls/hr Q10H IVLG 05/05/20 15:00 06/04/20 14:59 05/05/20 15:00 Collin Quintero MD May 06, 2020 15:47
--- NOTE | 2020-05-06 17:30 | Consultation ---
DATE OF CONSULTATION: 05/06/2020 INFECTIOUS DISEASE CONSULTATION CONSULTING PHYSICIAN: Collin Quintero MD. ATTENDING PHYSICIAN: Lizbet Jack MD. REFERRING PHYSICIAN: Renan Chandra DO. REASON FOR CONSULTATION: Complicated gram-negative UTI. CHIEF COMPLAINT: The patient's chief complaint coming in the hospital is hypernatremia and complicated UTI. HISTORY OF PRESENT ILLNESS: This is a 74-year-old male who comes in to [facility] [address]. The patient was noted to have weakness and hypernatremia. Workup shows that it is significant for urinalysis and gram-negative organisms growing in urine culture. The patient likely has gram-negative UTI. He has history of ESBL organisms. Infectious Disease consultation is requested. I started the patient on meropenem yesterday, today is day #2. Discussed with Dr. Chandra and also pharmacy about authorization for meropenem. MAR was noted. Orders were noted. Notes were reviewed. Again, Infectious Disease consult requested because of history of ESBL UTI. The patient will be continued on meropenem for now. The patient has generalized weakness. She is responsive, not a very good historian. REVIEW OF SYSTEMS: CONSTITUTIONAL: Generalized fatigue and weakness. He has no fevers currently. No chills. He is responsive. HEAD AND NECK: No head pain or neck pain. CARDIAC: No chest pain. PULMONARY: No cough, congestion, or shortness of breath. No hemoptysis or secretions. GASTROINTESTINAL: No nausea, vomiting, abdominal pain, or diarrhea. GENITOURINARY: No CVA tenderness. He has a suprapubic catheter. EXTREMITIES: No extremity pain. SKIN: No rash. NEUROLOGIC: No seizures. PAST MEDICAL HISTORY: The patient has a past medical history of hypertension and diabetes. He has chronic kidney disease an suprapubic catheter for urinary retention. The patient has also past medical history of anemia, questionable dementia that is mild, depression, hyperlipidemia, anemia, chronic kidney disease, diabetes mellitus, essential hypertension, and history of ESBL UTI. He has history of hypothyroidism. ALLERGIES: He has no known drug allergies. No antibiotic allergies. SOCIAL HISTORY: Negative for smoking, alcohol, or drug abuse. FAMILY HISTORY: Noncontributory. Negative for tuberculosis or cancer. MEDICATIONS: Upon reviewing the MAR, the patient is on following medications. The patient is on Xarelto, Zoloft, aspirin, Synthroid, meropenem, metoprolol, atorvastatin, insulin, IV fluids, polyethylene glycol, acetaminophen, albuterol, antibiotics meropenem, Lipitor, levothyroxine or Synthroid. Outside medications noted and reconciliated. PHYSICAL EXAMINATION: VITAL SIGNS: Temperature is 98.1, pulse rate 69, respiratory rate 18, blood pressure 95/48. Saturation 97% on room air. GENERAL: The patient is alert, responsive, weak. HEAD AND NECK: Oral exam, no thrush. Eyes exam, no icterus. Normocephalic. Neck is supple. No JVD. HEART: Regular. No gallop or murmur. No friction rub. ABDOMEN: Soft. Positive bowel sounds. Nontender. LUNGS: Clear bilaterally. No rhonchi or rales. SKIN: No rash. MUSCULOSKELETAL: No effusions. No joint pain. Legs are without cellulitis. PERIPHERAL VASCULAR: No gangrene or cyanosis. No leg pain. GENITOURINARY: Has suprapubic catheter. Urine is cloudy. LINE SITES: Without phlebitis. NEUROLOGIC: Generalized weakness. Alert and responsive. LABORATORY DATA: white count 8.7, hemoglobin 9.1. Creatinine 1.3. Urinalysis had 10 to 15 white cells, many bacteria, positive nitrite, positive 3+ leukocyte esterase. Urine culture greater than 100,000 gram-negative rods. Identification is pending. SARS testing on nasal pharyngeal rapid testing is negative. IMAGING STUDIES: Chest x-ray shows no acute disease. ASSESSMENT AND PLAN: 1. The patient has gram-negative complicated UTI with weakness and hypernatremia. The patient has history of ESBL urinary tract infection. At this time, we will continue meropenem day #2 for complicated urinary tract infection. Continue meropenem for history of ESBL E. coli UTI. Check final urine culture with gram-negative complicated UTI. 2. Case was discussed with pharmacy and Dr. Chandra. 3. Hypothyroidism. Continue thyroid supplementation. 4. Chronic kidney disease. 5. Diabetes. 6. Hypertension. 7. Blood sugar and blood pressure treatment per primary care team for diabetes and hypertension. 8. Chronic kidney disease. 9. Hyperlipidemia. 10. Anemia. 11. Suprapubic catheter. 12. Dementia. 13. Depression. 14. Anti-lipid treatment per primary care team. 15. Continue treatment plan per primary consultants. 16. Skin care protocol. 17. Allergy is negative. 18. Social history is negative. 19. Family history is noncontributory. 20. MAR is noted. 21. Case was discussed with RN. Collin Quintero M.D. DR: NATALI JOB#: [id number] CC:
[2020-05-06] MEDS: Atorvastatin 80mg tab ORAL SCH (20:40)
[2020-05-07] VITALS: BP 109/50
[2020-05-07 04:00] VITALS: BP 107/50
[2020-05-07] MEDS: Meropenem 1gm in NS 55ml IVPB SCH ×2 (06:17→15:16)
[2020-05-07] MEDS: NovoLOG Insulin Flexpen SUBQ SCH ×4 (06:30→20:39)
[2020-05-07 07:27] LABS: BASOPHILS % (AUTO) 0.6 % (0.0-2.0); EOSINOPHILS % (AUTO) 2.3 % (0.0-3.0); HEMATOCRIT 24.3 % (42.0-52.0); HEMOGLOBIN 8.2 G/DL (14.2-18.0); LYMPHOCYTES % (AUTO) 20.9 % (20.0-45.0); MEAN CORPUSCULAR VOLUME 93 FL (80-99); MONOCYTES % (AUTO) 8.7 % (1.0-10.0); NEUTROPHILS % (AUTO) 67.6 % (45.0-75.0); PLATELET COUNT 279 K/UL (150-450); RED CELL DISTRIBUTION WIDTH 13.4 % (11.6-14.8); WHITE BLOOD COUNT 7.7 K/UL (4.8-10.8)
[2020-05-07 07:49] LABS: CALCIUM 7.6 MG/DL (8.5-10.1); CREATININE 1.3 MG/DL (0.55-1.30); PHOSPHORUS 2.2 MG/DL (2.5-4.9); POTASSIUM 3.4 MMOL/L (3.5-5.1)
[2020-05-07 08:00] VITALS: BP 109/45
[2020-05-07] MEDS: Metoprolol Tartrate 12.5mg TAB ORAL SCH ×2 (08:37→20:49)
[2020-05-07] MEDS: Xarelto 10mg tab ORAL SCH (08:38)
[2020-05-07] MEDS: Aspirin Baby 81mg ORAL SCH (08:38)
[2020-05-07] MEDS: Sertraline 50mg tab ORAL SCH (08:39)
[2020-05-07] MEDS: Potassium Phosphate 15mm/250ml 250 ML IVPB SCH ×2 (10:56→16:47)
[2020-05-07 12:00] VITALS: BP 95/38
[2020-05-07 13:00] LABS: BASOPHILS % (AUTO) 0.7 % (0.0-2.0); HEMATOCRIT 26.2 % (42.0-52.0); HEMOGLOBIN 8.6 G/DL (14.2-18.0); LYMPHOCYTES % (AUTO) 22.1 % (20.0-45.0); MEAN CORPUSCULAR VOLUME 97 FL (80-99); MONOCYTES % (AUTO) 9.2 % (1.0-10.0); NEUTROPHILS % (AUTO) 65.9 % (45.0-75.0); PLATELET COUNT 288 K/UL (150-450); RED BLOOD COUNT 2.71 M/UL (4.70-6.10); RED CELL DISTRIBUTION WIDTH 14.4 % (11.6-14.8); WHITE BLOOD COUNT 8.7 K/UL (4.8-10.8)
--- NOTE | 2020-05-07 14:06 | General Progress Note ---
Subjective Date patient seen: May 07, 2020 Constitutional: Denies: no symptoms, chills, diaphoresis, fever, malaise, weakness, other HEENT: Denies: no symptoms, eye pain, blurred vision, tearing, double vision, ear pain, ear discharge, nose pain, nose congestion, throat pain, throat swelling, mouth pain, mouth swelling, other Cardiovascular: Denies: no symptoms, chest pain, edema, irregular heart rate, lightheadedness, palpitations, syncope, other Respiratory: Denies: no symptoms, cough, orthopnea, shortness of breath, SOB with excertion, SOB at rest, sputum, stridor, wheezing, other Gastrointestinal/Abdominal: Denies: no symptoms, abdomen distended, abdominal pain, black stools, tarry stools, blood in stool, constipated, diarrhea, difficulty swallowing, nausea, poor appetite, poor fluid intake, rectal bleeding, vomiting, other Genitourinary: Reports: no symptoms, burning, discharge, frequency, flank pain, hematuria, incontinence, pain - pain with shabazz , urgency, other Neurologic/Psychiatric: Denies: no symptoms, anxiety, depressed, emotional problems, headache, numbness, paresthesia, pre-existing deficit, seizure, tingling, tremors, weakness, other Endocrine: Denies: no symptoms, excessive sweating, flushing, intolerance to cold, intolerance to heat, increased hunger, increased thirst, increased urine, unexplained weight gain, unexplained weight loss, other Allergies: Coded Allergies: No Known Allergies (Unverified , 03/01/20) Subjective resting in bed. complaining of pain with "peeing." Objective Last 24 Hour Vital Signs Date Time Temp Pulse Resp B/P (MAP) Pulse Ox O2 Delivery O2 Flow Rate FiO2 05/07/20 09:00 Room Air 05/07/20 08:37 67 109/45 05/07/20 08:00 99.0 67 20 109/45 (66) 100 05/07/20 08:00 65 05/07/20 04:00 98.2 68 16 107/50 (69) 100 05/07/20 04:00 61 05/07/20 00:00 61 05/07/20 00:00 98.1 63 16 109/50 (69) 100 05/06/20 21:00 Room Air 05/06/20 20:41 60 100/49 10/27/20 20:00 97.9 60 18 100/49 (66) 100 05/06/20 20:00 58 05/06/20 16:00 60 05/06/20 16:00 97.5 57 20 105/58 (74) 99 Intake and Output 05/06/20 05/07/20 19:00 07:00 Intake Total 360 ml 1360 ml Output Total 600 ml 720 ml Balance -240 ml 640 ml Intake Oral 360 ml 360 ml IV Total 1000 ml Output Urine Total 600 ml 720 ml # Bowel Movements 1 1 Laboratory Tests 05/06/20 16:53: POC Whole Blood Glucose 131H 05/07/20 05:11: POC Whole Blood Glucose 112H 05/07/20 06:26: White Blood Count 7.7, Red Blood Count 2.60L, Hemoglobin 8.2L, Hematocrit 24.3L, Mean Corpuscular Volume 93, Mean Corpuscular Hemoglobin 31.7H, Mean Corpuscular Hemoglobin Concent 34.0, Red Cell Distribution Width 13.4, Platelet Count 279, Mean Platelet Volume 6.5, Neutrophils (%) (Auto) 67.6, Lymphocytes (%) (Auto) 20.9, Monocytes (%) (Auto) 8.7, Eosinophils (%) (Auto) 2.3, Basophils (%) (Auto) 0.6, Sodium Level 129L, Potassium Level 3.4L, Chloride Level 99, Carbon Dioxide Level 27, Anion Gap 4L, Blood Urea Nitrogen 22H, Creatinine 1.3, Estimat Glomerular Filtration Rate 53.8, Glucose Level 115H, Calcium Level 7.6L, Phosphorus Level 2.2L, Magnesium Level 2.1 05/07/20 12:50: White Blood Count 8.7, Red Blood Count 2.71L, Hemoglobin 8.6L, Hematocrit 26.2L, Mean Corpuscular Volume 97, Mean Corpuscular Hemoglobin 31.7H, Mean Corpuscular Hemoglobin Concent 32.7, Red Cell Distribution Width 14.4, Platelet Count 288, Mean Platelet Volume 6.4L, Neutrophils (%) (Auto) 65.9, Lymphocytes (%) (Auto) 22.1, Monocytes (%) (Auto) 9.2, Eosinophils (%) (Auto) 2.0, Basophils (%) (Auto) 0.7 Height (Feet): 5 Height (Inches): 9.00 Weight (Pounds): 165 General Appearance: no apparent distress, alert EENT: PERRL/EOMI Neck: supple Cardiovascular: normal rate, regular rhythm Respiratory/Chest: lungs clear, normal breath sounds Abdomen: non tender, soft Edema: non-pitting Neurologic: alert, responsive Assessment/Plan Problem List: (1) Renal failure (ARF), acute on chronic ICD Codes: N17.9 - Acute kidney failure, unspecified; N18.9 - Chronic kidney disease, unspecified SNOMED: 419875786 (2) Dehydration ICD Codes: E86.0 - Dehydration SNOMED: 15330777 (3) Hyponatremia ICD Codes: E87.1 - Hypo-osmolality and hyponatremia SNOMED: 93285695 (4) UTI (urinary tract infection) ICD Codes: N39.0 - Urinary tract infection, site not specified SNOMED: 61677358 (5) Hypothyroidism ICD Codes: E03.9 - Hypothyroidism, unspecified SNOMED: 52861363 (6) Diabetes mellitus ICD Codes: E11.9 - Type 2 diabetes mellitus without complications SNOMED: 04030251 (7) Renal insufficiency ICD Codes: N28.9 - Disorder of kidney and ureter, unspecified SNOMED: 815376376, 686564581 (8) BPH (benign prostatic hyperplasia) ICD Codes: N40.0 - Benign prostatic hyperplasia without lower urinary tract symptoms SNOMED: 180448460 (9) Suprapubic catheter dysfunction ICD Codes: T83.010A - Breakdown (mechanical) of cystostomy catheter, initial encounter SNOMED: 722963658 (10) Urinary retention ICD Codes: R33.9 - Retention of urine, unspecified SNOMED: 131978914 Status: stable, progressing Assessment/Plan: Me Rodriguez is 74 years old male with past medical history of hypertension, diabetes mellitus, chronic kidney disease, suprapubic catheter due to urinary retention admitted for [facility]onatremia from [facility], [facility]: # Hypovolemic hyponatremia2/2 poor oral intake # Catheter associated UTI # Essential hypertension # Diabetes mellitus # CKD # ?Mild dementia # Depression # HLD P: continue IVF Trend sodium; improving Follow-up urine cultures; UA dirty. - ID following. appreciate recs. Continue meropenem given prior ESBL hx. Accu-Cheks Insulin sliding scale mild, Daily reassessment of insulin requirements Continue home Synthroid 75 MCG's daily Continue home metoprolol 12.5 twice daily, statin, Zoloft #Acute blood loss anemia #Hematochezia -witnessed hematochezia, moderate amount of stool 05/07 per nursing -hold xarelto, ASA -repeat CBC today. Keep Hgb >7 -GI consulted -> PPI started #Penile pain -Replace Shabazz (05/07) #A fib -Amiodarone on hold -MTP as above (12.5 BID) -Hold ASA, xarelto as above Code: Full GI: None Fluids: NS 100 cc DVT prophylaxis: Heparin 5000 units twice daily Diet: Regular Dispo: Resolution of hyponatremia, GI workup of hematochezia Spent 40 mins on pt encounter, 25 on counseling, coordination of care. d/w RN, consultants. Time of note may not reflect time patient was seen. Branden Lopez MD May 07, 2020 14:06
--- NOTE | 2020-05-07 14:30 | Consultation ---
DATE OF CONSULTATION: 05/07/2020 CHIEF COMPLAINT: Rectal bleeding. HISTORY OF PRESENT ILLNESS: The patient is a 74-year-old male with numerous medical problems which I will dictate in a second, currently on Xarelto, admitted to the hospital with urinary tract infection. The patient apparently has history of suprapubic catheter placement. The patient had rectal bleeding this morning maroonish color so GI consult requested for further evaluation. PAST MEDICAL HISTORY: 1. Hypertension. 2. Diabetes. 3. Chronic kidney disease. 4. History of UTI. 5. History of suprapubic catheter placement. 6. Hypothyroidism. 7. Questionable dementia. 8. Hypercholesterolemia. 9. Urinary tract infections. PAST SURGICAL HISTORY: None per chart. ALLERGIES: No known drug allergies. MEDICATIONS: Please see medication reconciliation list. FAMILY HISTORY: Noncontributory. SOCIAL HISTORY: There is no history of tobacco, alcohol, or IV drug abuse. REVIEW OF SYSTEMS: Limited. PHYSICAL EXAMINATION: VITAL SIGNS: Temperature is 99, pulse 67, respirations 20, blood pressure 109/45. HEENT: Normocephalic and atraumatic. Mild pale conjunctivae. NECK: Supple. No obvious lymphadenopathy. CARDIOVASCULAR: Regular rate and rhythm. Plus S1 and S2. LUNGS: Decreased breath sounds bilaterally based on the supine exam. ABDOMEN: Soft. Minimal tenderness tenderness to palpation in suprapubic area. No rebound. No guarding. No peritoneal sign. EXTREMITIES: No cyanosis, no clubbing, no edema. LABORATORY DATA: White count 7.7, hemoglobin 8.2, hematocrit 24.3, platelet count is 279. Chem-7, sodium 129, potassium 3.4, BUN is 22, and creatinine is 1.3. ASSESSMENT AND PLAN: This is a 74-year-old male with numerous medical problems including anemia and active UTI, currently on Xarelto, had some maroonish color GI bleeding. PLAN: The patient needs endoscopy and colonoscopy for evaluation of GI bleed, especially the patient on Xarelto with hemoglobin of 8, but at this time Xarelto was given this morning so we have to wait 48 hours. Our plan will be to do a stat CBC. Keep hemoglobin above 7 with blood transfusion if needed. Stop Xarelto for now. Start the patient on Protonix. Plan to perform endoscopy and colonoscopy on Tuesday. I want to thank, Dr. Jack, for this kind referral. Jorgito Hidalgo M.D. DR: Ankush JOB#: [id number] CC: iLzbet Jack M.D.; Fax#: [phone]
--- NOTE | 2020-05-07 15:44 | Consultation ---
History of Present Illness General Date patient seen: May 07, 2020 Reason for Hospitalization: Abdominal Pain Present Illness HPI 74-year-old male here with abnormal labs. The patient was at a care home and lab work today revealed a low sodium. Patient received 1 L bolus of IV normal saline and sodium remained low. Patient was recently here in the hospital approximately 1 month ago due to urinary tract infection of his suprapubic catheter with ESBL. He denies any complaints at this time. No fevers, chills, chest pain, palpitation shortness breath, back pain, abdominal pain, nausea, vomiting, diarrhea. c/o abd pain surgery called to evaluate Allergies: Coded Allergies: No Known Allergies (Unverified , 03/01/20) COVID-19 Screening Contact w/high risk pt: No Experienced COVID-19 symptoms?: No Medication History Scheduled Amiodarone Hcl* (Cordarone*), 200 MG ORAL DAILY, (Reported) Ascorbic Acid* (Vitamin C*), 250 MG ORAL DAILY, (Reported) Aspirin* (Aspirin*), 81 MG ORAL DAILY, (Reported) Atorvastatin Calcium* (Lipitor*), 80 MG ORAL BEDTIME, (Reported) Calcium Carbonate/Vitamin D3 (Oyster Shell 500 Mg + Vit D Tb), 1 EACH PO DAILY, (Reported) Docusate Sodium* (Docusate Sodium*), 250 MG ORAL DAILY, (Reported) Furosemide* (Lasix*), 40 MG ORAL DAILY, (Reported) Glycopyrrolate (Glycopyrrolate), 1 MG PO DAILY, (Reported) Levothyroxine Sodium* (Synthorid*), 75 MCG ORAL DAILY, (Reported) Magnesium Oxide (Magnesium Oxide), 400 MG PO DAILY, (Reported) Metoprolol Tartrate (Metoprolol Tartrate), 12.5 MG ORAL EVERY 12 HOURS Polyethylene Glycol 3350* (Miralax*), 17 GM ORAL DAILY, (Reported) Sertraline Hcl* (Sertraline Hcl*), 25 MG ORAL DAILY, (Reported) Sitagliptin* (Januvia*), 25 MG ORAL DAILY Sitagliptin* (Januvia*), 25 MG ORAL DAILY, (Reported) Scheduled PRN Meclizine Hcl* (Meclizine*), 12.5 MG ORAL TID PRN for for dizziness, (Reported) Patient History Limited by: medical condition History Provided By: Patient, Medical Record, PMD Healthcare decision maker Resuscitation status Advanced Directive on File Past Medical/Surgical History Past Medical/Surgical History: (1) Dehydration (2) Hyponatremia (3) Suprapubic catheter (4) UTI (urinary tract infection) (5) Renal failure (ARF), acute on chronic (6) Osteomyelitis (7) Uncontrolled diabetes mellitus (8) Hypothyroidism (9) Diabetes mellitus (10) Sacral decubitus ulcer (11) Renal insufficiency (12) Suprapubic catheter dysfunction (13) BPH (benign prostatic hyperplasia) (14) Urinary retention Family History Family History: FH: CAD (coronary artery disease) Review of Systems Review of Symptoms General ROS: no weight loss or fever Psychological ROS: no depression or mood changes, no memory loss Ophthalmic ROS: no visual changes or eye irritation ENT ROS: no nasal congestion, hearing loss, dizziness Allergy and Immunology ROS: no allergic symptoms or urticaria Hematological and Lymphatic ROS: no swollen glands, unusual bleeding or bruising Endocrine ROS: no polyuria, polydipsia, weight changes, temperature intolerance Respiratory ROS: no cough, shortness of breath, or wheezing Cardiovascular ROS: no chest pain or dyspnea on exertion Gastrointestinal ROS: denies abdominal pain, bright red blood in stool. Musculoskeletal ROS: no myalgias or arthralgias Neurological ROS: no TIA or stroke symptoms Dermatological ROS: no new or changing skin lesions, rashes or pruritis Physical Exam Physical Exam General appearance: alert, cooperative, no distress, appears stated age Head: Normocephalic, without obvious abnormality, atraumatic Eyes: conjunctivae/corneas clear. PERRL, EOM's intact. Fundi benign Throat: Lips, mucosa, and tongue normal. Teeth and gums normal Neck: supple, symmetrical, trachea midline, no adenopathy, thyroid: not en larged, symmetric, no tenderness/mass/nodules, no carotid bruit and no JVD Lungs: clear to auscultation bilaterally Heart: regular rate and rhythm, S1, S2 normal, no murmur, click, rub or gallop Abdomen: soft, non-tender. Bowel sounds normal. No masses, no organomegaly Extremities: extremities normal, atraumatic, no cyanosis or edema Pulses: 2+ and symmetric Skin: Skin color, texture, turgor normal. No rashes or lesions Neurologic: Grossly normal Last 24 Hour Vital Signs Date Time Temp Pulse Resp B/P (MAP) Pulse Ox O2 Delivery O2 Flow Rate FiO2 05/07/20 12:00 98.8 64 20 95/38 (57) 99 05/07/20 12:00 63 05/07/20 09:00 Room Air 05/07/20 08:37 67 109/45 05/07/20 08:00 99.0 67 20 109/45 (66) 100 05/07/20 08:00 65 05/07/20 04:00 98.2 68 16 107/50 (69) 100 05/07/20 04:00 61 05/07/20 00:00 61 05/07/20 00:00 98.1 63 16 109/50 (69) 100 05/06/20 21:00 Room Air 05/06/20 20:41 60 100/49 05/06/20 20:00 97.9 60 18 100/49 (66) 100 05/06/20 20:00 58 05/06/20 16:00 60 05/06/20 16:00 97.5 57 20 105/58 (74) 99 Intake and Output 05/06/20 05/07/20 19:00 07:00 Intake Total 360 ml 1360 ml Output Total 600 ml 720 ml Balance -240 ml 640 ml Intake Oral 360 ml 360 ml IV Total 1000 ml Output Urine Total 600 ml 720 ml # Bowel Movements 1 1 Laboratory Tests Test 05/06/20 16:53 05/07/20 05:11 05/07/20 06:26 05/07/20 12:50 POC Whole Blood Glucose 131 MG/DL (74-106) H 112 MG/DL (74-106) H White Blood Count 7.7 K/UL (4.8-10.8) 8.7 K/UL (4.8-10.8) Red Blood Count 2.60 M/UL (4.70-6.10) L 2.71 M/UL (4.70-6.10) L Hemoglobin 8.2 G/DL (14.2-18.0) L 8.6 G/DL (14.2-18.0) L Hematocrit 24.3 % (42.0-52.0) L 26.2 % (42.0-52.0) L Mean Corpuscular Volume 93 FL (80-99) 97 FL (80-99) Mean Corpuscular Hemoglobin 31.7 PG (27.0-31.0) H 31.7 PG (27.0-31.0) H Mean Corpuscular Hemoglobin Concent 34.0 G/DL (32.0-36.0) 32.7 G/DL (32.0-36.0) Red Cell Distribution Width 13.4 % (11.6-14.8) 14.4 % (11.6-14.8) Platelet Count 279 K/UL (150-450) 288 K/UL (150-450) Mean Platelet Volume 6.5 FL (6.5-10.1) 6.4 FL (6.5-10.1) L Neutrophils (%) (Auto) 67.6 % (45.0-75.0) 65.9 % (45.0-75.0) Lymphocytes (%) (Auto) 20.9 % (20.0-45.0) 22.1 % (20.0-45.0) Monocytes (%) (Auto) 8.7 % (1.0-10.0) 9.2 % (1.0-10.0) Eosinophils (%) (Auto) 2.3 % (0.0-3.0) 2.0 % (0.0-3.0) Basophils (%) (Auto) 0.6 % (0.0-2.0) 0.7 % (0.0-2.0) Sodium Level 129 MMOL/L (136-145) L Potassium Level 3.4 MMOL/L (3.5-5.1) L Chloride Level 99 MMOL/L (98-107) Carbon Dioxide Level 27 MMOL/L (21-32) Anion Gap 4 mmol/L (5-15) L Blood Urea Nitrogen 22 mg/dL (7-18) H Creatinine 1.3 MG/DL (0.55-1.30) Estimat Glomerular Filtration Rate 53.8 mL/min (>60) Glucose Level 115 MG/DL (74-106) H Calcium Level 7.6 MG/DL (8.5-10.1) L Phosphorus Level 2.2 MG/DL (2.5-4.9) L Magnesium Level 2.1 MG/DL (1.8-2.4) Height (Feet): 5 Height (Inches): 9.00 Weight (Pounds): 165 Medications Current Medications Medications (Trade) Dose Ordered Sig/Lauren Route PRN Reason Start Time Stop Time Status Last Admin Dose Admin Acetaminophen (Tylenol) 650 mg Q4H PRN ORAL Mild Pain (Pain Scale 1-3) 05/05/20 14:00 06/04/20 13:59 Acetaminophen (Tylenol) 650 mg Q4H PRN ORAL Temp >100.5 05/05/20 14:00 06/04/20 13:59 Al Hydroxide/Mg Hydroxide (Mylanta II) 30 ml Q6H PRN ORAL dyspepsia 05/05/20 14:00 06/04/20 13:59 Albuterol/ Ipratropium (Albuterol/ Ipratropium) 3 ml Q4H PRN HHN Shortness of Breath 05/05/20 14:00 05/10/20 13:59 Atorvastatin Calcium (Lipitor) 80 mg BEDTIME ORAL 05/05/20 21:00 08/03/20 20:59 05/06/20 20:40 Dextrose (Dextrose 50%) 25 ml Q30M PRN IV Hypoglycemia 05/05/20 14:00 08/03/20 13:59 Dextrose (Dextrose 50%) 50 ml Q30M PRN IV Hypoglycemia 05/05/20 14:00 08/03/20 13:59 Insulin Aspart (NovoLOG) BEFORE MEALS AND HS SUBQ 05/05/20 16:30 08/03/20 16:29 Levothyroxine Sodium (Synthroid) 75 mcg Q24H ORAL 05/06/20 06:30 06/05/20 06:29 05/07/20 06:17 Meropenem 1 gm/ Sodium Chloride 55 ml @ 110 mls/hr Q8HR IVPB 05/05/20 22:00 05/10/20 21:59 05/07/20 15:16 Metoprolol Tartrate (Lopressor) 12.5 mg EVERY 12 HOURS ORAL 05/05/20 21:00 08/03/20 20:59 05/06/20 09:26 Pantoprazole (Protonix) 40 mg EVERY 12 HOURS IVP 05/07/20 21:00 06/06/20 20:59 Polyethylene Glycol (Miralax) 17 gm HSPRN PRN ORAL Constipation 05/05/20 14:00 06/04/20 13:59 Potassium Phosphate 250 ml @ 62.5 mls/hr Q4H IVPB 05/07/20 11:00 05/07/20 18:59 05/07/20 10:56 Sertraline HCl (Zoloft) 25 mg DAILY ORAL 05/06/20 09:00 06/05/20 08:59 05/07/20 08:39 Sodium Chloride 1,000 ml @ 100 mls/hr Q10H IVLG 05/05/20 15:00 06/04/20 14:59 05/07/20 06:17 Assessment/Plan Problem List: (1) Dehydration ICD Codes: E86.0 - Dehydration SNOMED: 52747505 (2) Hyponatremia ICD Codes: E87.1 - Hypo-osmolality and hyponatremia SNOMED: 48832766 (3) Suprapubic catheter ICD Codes: Z93.59 - Other cystostomy status SNOMED: 764828742, 890265505 (4) UTI (urinary tract infection) ICD Codes: N39.0 - Urinary tract infection, site not specified SNOMED: 41430804 (5) Renal failure (ARF), acute on chronic ICD Codes: N17.9 - Acute kidney failure, unspecified; N18.9 - Chronic kidney disease, unspecified SNOMED: 485563040 (6) Osteomyelitis ICD Codes: M86.9 - Osteomyelitis, unspecified SNOMED: 69047607 (7) Uncontrolled diabetes mellitus ICD Codes: E11.65 - Type 2 diabetes mellitus with hyperglycemia SNOMED: 04706675, 034372476 (8) Hypothyroidism ICD Codes: E03.9 - Hypothyroidism, unspecified SNOMED: 43569422 (9) Sacral decubitus ulcer Assessment & Plan: Pt presented on admission with multiple Pressure Injuries. Resolving Pressure Sacral Pressure Injury.Clusters of full thickness pressure ulcers in close proximity that are moist and pink at bases. Surrounding maroon borders but without induration.(L)10.5cm x (W)10cm. BIlat lower ext are edematous. DTPI distal/lateral L Tibia(L)11.4cm x (W)2.7cm. Base of injury is purpuric with maroon borders. DTPI lateral L Malleolus(L)1cm x (W)0.7cm. Base of injury is maroon and indurated. Non-Blanchable erythema without induration or fluctuance medial L foot (L)1.6cm x (W)1cm. Unstageable Pressure injury R heel(L)7.7cm x (W)6.8cm. Base of is 70%necrotic and dry,10% slough with remaining 20% alyssia base. Marginal erythema along edges.Periwound is fluctuant with pale skin color. DTPI Lateral R Malleolus(L)2.6cm x (W)1.4cm. Base of injury is purpuric with maroon borders. DTPI medial R Malleolus(L)2.5cm x (W)2.4cm. Base of injury is purpuric with maroon borders. DTPI medial R foot (L)1.3cm x (W)3.6cm. Base of injury is indurated purpuric with surrounding maroon borders that are irregular. DTPI lateral R foot (L)0.7cm x (W)0.9cm. Base of injury is maroon in colour with marginal erythema. DTPI noted to tip of R 1st metatarsal(L)1.4cm x (W)1.2cm. Base of injury presents as an intact blood Blister. Unstageable Pressure injury lateral R 1st metatarsal(L)0.5cm x (W)0.8cm. Dry eschar with marginal erythema along edges. DTPI tip of R 2nd metatarsal.(L)1cm x (W)1.3cm. Base of injury presents as an intact blood blister with marginal erythema along edges. Surgical incisions noted to R hip, R femur and R knee. Incision sites approximated with oswaldo that are intact and dry. No erythema noted. Tx.Plan: Apply Moisture Barrier Paste to Sacrum. Cover with Optifoam drsgs. Change every 3 days and prn. Apply Betadine to DTPI's L Tibia, R and L feet. Cover each site with Optifoam drsgs. Change every 7 days and prn. Cleanse R Heel with Saline. Apply TheraHoney.Apply Maxsorb Extra(calcium Alginate. Apply Cavilon Skin Barrier periwound. Cover with Abd Pad and wrap with Kerlix Daily and prn. Reposition at least every 2hours or as tolerated. Off-load heels with pillows. DAILY ESTIMATED NEEDS: Needs based on Wound, 74.8kg 27-32 kcals/kg 5933-5436 total kcals 1.25-2 g protein/kg 94-112 g total protein 25-30 mL/kg 5308-2989 total fluid mLs NUTRITION DIAGNOSIS: Increased kcal and pro needs r/t wound healing as evidenced by admitted w/ multiple wounds, eval pending, including stage 4 L-heel pressure injury. [facility] RECOMMENDATIONS: [facility] + HIGH PRO SNACKS ADDITIONAL RECOMMENDATIONS: 1) Calibrated bed scale wts (bed reads (-1.8kg) 2) Wound care: add TRINY BID, Vit C 250mg BID + MVI w/ min qdaily F/up w/ WC eval -> stage 4 L heel wound 3) Replete lytes as needed (low k3.1, low mg 1.5) 4) Add Glucerna 1 tetra TID w/ meals MANAGER BODY eval for appropriate texture ICD Codes: L89.159 - Pressure ulcer of sacral region, unspecified stage SNOMED: 992398878 (10) Diabetes mellitus ICD Codes: E11.9 - Type 2 diabetes mellitus without complications SNOMED: 82870122 (11) Renal insufficiency ICD Codes: N28.9 - Disorder of kidney and ureter, unspecified SNOMED: 230446173, 777432203 (12) Suprapubic catheter dysfunction ICD Codes: T83.010A - Breakdown (mechanical) of cystostomy catheter, initial encounter SNOMED: 798586654 (13) BPH (benign prostatic hyperplasia) ICD Codes: N40.0 - Benign prostatic hyperplasia without lower urinary tract symptoms SNOMED: 808997424 (14) Urinary retention ICD Codes: R33.9 - Retention of urine, unspecified SNOMED: 400703875 Guy Oakley May 07, 2020 15:44
[2020-05-07 16:00] VITALS: BP 109/49
[2020-05-07 20:00] VITALS: BP 119/67
[2020-05-07] MEDS: Pantoprazole Inj IVP SCH (20:45)
[2020-05-07] MEDS: Atorvastatin 80mg tab ORAL SCH (20:45)
[2020-05-07] MEDS ORDERED: Pantoprazole Inj IVP SCH (21:00)
[2020-05-08] VITALS: BP 127/61
[2020-05-08 04:00] VITALS: BP 114/54
[2020-05-08] MEDS: NovoLOG Insulin Flexpen SUBQ SCH ×4 (06:30→21:00)
[2020-05-08 06:39] LABS: BASOPHILS % (AUTO) 0.9 % (0.0-2.0); HEMATOCRIT 24.9 % (42.0-52.0); HEMOGLOBIN 8.3 G/DL (14.2-18.0); LYMPHOCYTES % (AUTO) 19.2 % (20.0-45.0); MEAN CORPUSCULAR VOLUME 96 FL (80-99); MONOCYTES % (AUTO) 8.4 % (1.0-10.0); NEUTROPHILS % (AUTO) 68.5 % (45.0-75.0); PLATELET COUNT 261 K/UL (150-450); RED BLOOD COUNT 2.59 M/UL (4.70-6.10); WHITE BLOOD COUNT 8.9 K/UL (4.8-10.8)
[2020-05-08 06:59] LABS: BLOOD UREA NITROGEN 19 mg/dL (7-18); CALCIUM 7.6 MG/DL (8.5-10.1); CHLORIDE 103 MMOL/L (98-107); CREATININE 1.2 MG/DL (0.55-1.30); INR 1.6 (0.9-1.1); PHOSPHORUS 2.8 MG/DL (2.5-4.9); POTASSIUM 3.9 MMOL/L (3.5-5.1); SODIUM 133 MMOL/L (136-145)
[2020-05-08 07:04] LABS: CARBON DIOXIDE 26 MMOL/L (21-32)
[2020-05-08 08:00] VITALS: BP 123/57
[2020-05-08] MEDS: Pantoprazole Inj IVP SCH ×2 (08:39→21:00)
[2020-05-08] MEDS: Sertraline 50mg tab ORAL SCH (08:39)
[2020-05-08] MEDS: Metoprolol Tartrate 12.5mg TAB ORAL SCH ×2 (08:39→21:00)
--- NOTE | 2020-05-08 09:05 | Consultation ---
History of Present Illness General Chief Complaint: Abdominal Pain Reason for Consultation: Hyponatremia Present Illness HPI Mr. Rodriguez is a 74M with PMH hypertension, diabetes mellitus, chronic kidney disease, suprapubic catheter due to urinary retention who presents from [facility] for hyponatremia. . Per [facility] MANAGER, patient was noted to have hyponatremia of 121 at the outside SNF in which they gave him a bag of NS that improve the sodium to 124 before sending to [facility] [place] further care. In the hospital, patient hemodynamically stable in no acute distress. Upon questioning he does not complain of anything, however difficult to obtain accurate history. Further work-up with UA shows likely catheter associated UTI and he was given a dose of ertapenem after recent history showed ESBL UTI. Will be further admitted for hyponatremia evaluation and UTI treatment. Allergies: Coded Allergies: No Known Allergies (Unverified , 03/01/20) Medication History Scheduled Amiodarone Hcl* (Cordarone*), 200 MG ORAL DAILY, (Reported) Ascorbic Acid* (Vitamin C*), 250 MG ORAL DAILY, (Reported) Aspirin* (Aspirin*), 81 MG ORAL DAILY, (Reported) Atorvastatin Calcium* (Lipitor*), 80 MG ORAL BEDTIME, (Reported) Calcium Carbonate (Oyster Shell Calcium), 500 MG PO DAILY, (Reported) Docusate Sodium* (Docusate Sodium*), 250 MG ORAL DAILY, (Reported) Furosemide* (Lasix*), 40 MG ORAL DAILY, (Reported) Glycopyrrolate (Glycopyrrolate), 1 MG PO DAILY, (Reported) Levothyroxine Sodium* (Synthorid*), 75 MCG ORAL DAILY, (Reported) Magnesium Oxide (Magnesium Oxide), 400 MG PO DAILY, (Reported) Metoprolol Succinate* (Metoprolol Succinate*), 12.5 MG ORAL BID, (Reported) Polyethylene Glycol 3350* (Miralax*), 17 GM ORAL DAILY, (Reported) Sertraline Hcl* (Sertraline Hcl*), 25 MG ORAL DAILY, (Reported) Sitagliptin* (Januvia*), 25 MG ORAL DAILY, (Reported) [Iron Sulfate 50MG], 50 MG PO DAILY, (Reported) [Prostat], 30 ML DAILY, (Reported) Scheduled PRN Meclizine Hcl* (Meclizine*), 12.5 MG ORAL TID PRN for for dizziness, (Reported) Patient History Healthcare decision maker Resuscitation status Advanced Directive on File Review of Systems All Other Systems: negative except mentioned in HPI Physical Exam General Appearance: no apparent distress Lines, tubes and drains: peripheral HEENT: normocephalic Neck: non-tender Respiratory/Chest: chest wall non-tender, lungs clear Cardiovascular/Chest: normal peripheral pulses Abdomen: normal bowel sounds, non tender Extremities: normal range of motion, non-tender Neurologic: alert, oriented x 3 Last 24 Hour Vital Signs Date Time Temp Pulse Resp B/P (MAP) Pulse Ox O2 Delivery O2 Flow Rate FiO2 05/08/20 08:39 68 123/57 05/08/20 08:01 Room Air 05/08/20 08:00 98.4 68 20 123/57 (79) 100 05/08/20 04:00 98.1 65 20 114/54 (74) 100 05/08/20 04:00 62 05/08/20 00:00 63 05/08/20 00:00 97.7 68 20 127/61 (83) 98 05/07/20 21:00 Room Air 05/07/20 20:49 69 119/67 05/07/20 20:00 98.0 69 20 119/67 (84) 100 05/07/20 19:32 67 05/07/20 16:00 63 05/07/20 16:00 98.8 64 20 109/49 (69) 99 05/07/20 12:00 98.8 64 20 95/38 (57) 99 05/07/20 12:00 63 Intake and Output 05/07/20 05/08/20 19:00 07:00 Intake Total 400 ml 294 ml Output Total 900 ml 1300 ml Balance -500 ml -1006 ml Intake Oral 400 ml IV Total 294 ml Output Urine Total 900 ml 1300 ml # Voids 1 Laboratory Tests Test 05/07/20 12:50 05/07/20 19:47 05/08/20 05:24 05/08/20 06:20 White Blood Count 8.7 K/UL (4.8-10.8) 8.9 K/UL (4.8-10.8) Red Blood Count 2.71 M/UL (4.70-6.10) L 2.59 M/UL (4.70-6.10) L Hemoglobin 8.6 G/DL (14.2-18.0) L 8.3 G/DL (14.2-18.0) L Hematocrit 26.2 % (42.0-52.0) L 24.9 % (42.0-52.0) L Mean Corpuscular Volume 97 FL (80-99) 96 FL (80-99) Mean Corpuscular Hemoglobin 31.7 PG (27.0-31.0) H 31.9 PG (27.0-31.0) H Mean Corpuscular Hemoglobin Concent 32.7 G/DL (32.0-36.0) 33.1 G/DL (32.0-36.0) Red Cell Distribution Width 14.4 % (11.6-14.8) 14.0 % (11.6-14.8) Platelet Count 288 K/UL (150-450) 261 K/UL (150-450) Mean Platelet Volume 6.4 FL (6.5-10.1) L 6.6 FL (6.5-10.1) Neutrophils (%) (Auto) 65.9 % (45.0-75.0) 68.5 % (45.0-75.0) Lymphocytes (%) (Auto) 22.1 % (20.0-45.0) 19.2 % (20.0-45.0) L Monocytes (%) (Auto) 9.2 % (1.0-10.0) 8.4 % (1.0-10.0) Eosinophils (%) (Auto) 2.0 % (0.0-3.0) 3.0 % (0.0-3.0) Basophils (%) (Auto) 0.7 % (0.0-2.0) 0.9 % (0.0-2.0) POC Whole Blood Glucose 125 MG/DL (74-106) H Pending Prothrombin Time 16.6 SEC (9.30-11.50) H Prothromb Time International Ratio 1.6 (0.9-1.1) H Activated Partial Thromboplast Time 43 SEC (23-33) H Sodium Level 133 MMOL/L (136-145) L Potassium Level 3.9 MMOL/L (3.5-5.1) Chloride Level 103 MMOL/L (98-107) Carbon Dioxide Level 26 MMOL/L (21-32) Blood Urea Nitrogen 19 mg/dL (7-18) H Creatinine 1.2 MG/DL (0.55-1.30) Estimat Glomerular Filtration Rate 59.0 mL/min (>60) Glucose Level 101 MG/DL (74-106) Calcium Level 7.6 MG/DL (8.5-10.1) L Phosphorus Level 2.8 MG/DL (2.5-4.9) Magnesium Level 1.8 MG/DL (1.8-2.4) Height (Feet): 5 Height (Inches): 9.00 Weight (Pounds): 165 Medications Current Medications Medications (Trade) Dose Ordered Sig/Lauren Route PRN Reason Start Time Stop Time Status Last Admin Dose Admin Acetaminophen (Tylenol) 650 mg Q4H PRN ORAL Mild Pain (Pain Scale 1-3) 05/05/20 14:00 06/04/20 13:59 Acetaminophen (Tylenol) 650 mg Q4H PRN ORAL Temp >100.5 05/05/20 14:00 06/04/20 13:59 Al Hydroxide/Mg Hydroxide (Mylanta II) 30 ml Q6H PRN ORAL dyspepsia 05/05/20 14:00 06/04/20 13:59 Albuterol/ Ipratropium (Albuterol/ Ipratropium) 3 ml Q4H PRN HHN Shortness of Breath 05/05/20 14:00 05/10/20 13:59 Atorvastatin Calcium (Lipitor) 80 mg BEDTIME ORAL 05/05/20 21:00 08/03/20 20:59 05/07/20 20:45 Dextrose (Dextrose 50%) 25 ml Q30M PRN IV Hypoglycemia 05/05/20 14:00 08/03/20 13:59 Dextrose (Dextrose 50%) 50 ml Q30M PRN IV Hypoglycemia 05/05/20 14:00 08/03/20 13:59 Insulin Aspart (NovoLOG) BEFORE MEALS AND HS SUBQ 05/05/20 16:30 08/03/20 16:29 Levofloxacin 150 ml @ 150 mls/hr Q24H IVPB 05/07/20 18:00 05/14/20 17:59 05/07/20 18:14 Levothyroxine Sodium (Synthroid) 75 mcg Q24H ORAL 05/06/20 06:30 06/05/20 06:29 05/08/20 06:14 Metoprolol Tartrate (Lopressor) 12.5 mg EVERY 12 HOURS ORAL 05/05/20 21:00 08/03/20 20:59 05/08/20 08:39 Pantoprazole (Protonix) 40 mg EVERY 12 HOURS IVP 05/07/20 21:00 06/06/20 20:59 05/08/20 08:39 Polyethylene Glycol (Miralax) 17 gm HSPRN PRN ORAL Constipation 05/05/20 14:00 06/04/20 13:59 Sertraline HCl (Zoloft) 25 mg DAILY ORAL 05/06/20 09:00 06/05/20 08:59 05/08/20 08:39 Sodium Chloride 1,000 ml @ 100 mls/hr Q10H IVLG 05/05/20 15:00 06/04/20 14:59 05/08/20 07:23 Assessment/Plan Diagnosis [place] [facility]: #Hyponatremia - likely hypovolumic #CKD #HTN #UTI #HLD - recheck urine chem - Ns at 100cc - IV abx - continue with levothyroxine - check TSH - continue with metop - on Jered Jose M.D. May 08, 2020 09:05
--- NOTE | 2020-05-08 10:37 | General Progress Note ---
Subjective Date patient seen: May 08, 2020 ROS Limited/Unobtainable: No Constitutional: Denies: no symptoms, chills, diaphoresis, fever, malaise, weakness, other HEENT: Denies: no symptoms, eye pain, blurred vision, tearing, double vision, ear pain, ear discharge, nose pain, nose congestion, throat pain, throat swelling, mouth pain, mouth swelling, other Cardiovascular: Denies: no symptoms, chest pain, edema, irregular heart rate, lightheadedness, palpitations, syncope, other Respiratory: Denies: no symptoms, cough, orthopnea, shortness of breath, SOB with excertion, SOB at rest, sputum, stridor, wheezing, other Gastrointestinal/Abdominal: Denies: no symptoms, abdomen distended, abdominal pain, black stools, tarry stools, blood in stool, constipated, diarrhea, difficulty swallowing, nausea, poor appetite, poor fluid intake, rectal bleeding, vomiting, other Genitourinary: Denies: no symptoms, burning, discharge, frequency, flank pain, hematuria, incontinence, pain, urgency, other Neurologic/Psychiatric: Denies: no symptoms, anxiety, depressed, emotional p roblems, headache, numbness, paresthesia, pre-existing deficit, seizure, tingling, tremors, weakness, other Allergies: Coded Allergies: No Known Allergies (Unverified , 03/01/20) Subjective seen sleeping with towel over face. easily arousable, says pain from "urination" better. no other pain or symptoms. per RN, no more bloody BM Objective Last 24 Hour Vital Signs Date Time Temp Pulse Resp B/P (MAP) Pulse Ox O2 Delivery O2 Flow Rate FiO2 05/08/20 08:39 68 123/57 05/08/20 08:01 Room Air 05/08/20 08:00 98.4 68 20 123/57 (79) 100 05/08/20 04:00 98.1 65 20 114/54 (74) 100 05/08/20 04:00 62 05/08/20 00:00 63 05/08/20 00:00 97.7 68 20 127/61 (83) 98 05/07/20 21:00 Room Air 05/07/20 20:49 69 119/67 05/07/20 20:00 98.0 69 20 119/67 (84) 100 05/07/20 19:32 67 05/07/20 16:00 63 05/07/20 16:00 98.8 64 20 109/49 (69) 99 05/07/20 12:00 98.8 64 20 95/38 (57) 99 05/07/20 12:00 63 Intake and Output 05/07/20 05/08/20 19:00 07:00 Intake Total 400 ml 294 ml Output Total 900 ml 1300 ml Balance -500 ml -1006 ml Intake Oral 400 ml IV Total 294 ml Output Urine Total 900 ml 1300 ml # Voids 1 Laboratory Tests 05/07/20 12:50: White Blood Count 8.7, Red Blood Count 2.71L, Hemoglobin 8.6L, Hematocrit 26.2L, Mean Corpuscular Volume 97, Mean Corpuscular Hemoglobin 31.7H, Mean Corpuscular Hemoglobin Concent 32.7, Red Cell Distribution Width 14.4, Platelet Count 288, Mean Platelet Volume 6.4L, Neutrophils (%) (Auto) 65.9, Lymphocytes (%) (Auto) 22.1, Monocytes (%) (Auto) 9.2, Eosinophils (%) (Auto) 2.0, Basophils (%) (Auto) 0.7 05/07/20 19:47: POC Whole Blood Glucose 125H 05/08/20 05:24: POC Whole Blood Glucose [Pending] 05/08/20 06:20: White Blood Count 8.9, Red Blood Count 2.59L, Hemoglobin 8.3L, Hematocrit 24.9L, Mean Corpuscular Volume 96, Mean Corpuscular Hemoglobin 31.9H, Mean Corpuscular Hemoglobin Concent 33.1, Red Cell Distribution Width 14.0, Platelet Count 261, Mean Platelet Volume 6.6, Neutrophils (%) (Auto) 68.5, Lymphocytes (%) (Auto) 19.2L, Monocytes (%) (Auto) 8.4, Eosinophils (%) (Auto) 3.0, Basophils (%) (Auto) 0.9, Prothrombin Time 16.6H, Prothromb Time International Ratio 1.6H, Activated Partial Thromboplast Time 43H, Sodium Level 133L, Potassium Level 3.9, Chloride Level 103, Carbon Dioxide Level 26, Blood Urea Nitrogen 19H, Creatinine 1.2, Estimat Glomerular Filtration Rate 59.0, Glucose Level 101, Calcium Level 7.6L, Phosphorus Level 2.8, Magnesium Level 1.8 05/08/20 09:26: Urine Random Sodium 65, Urine Creatinine 21.6L Height (Feet): 5 Height (Inches): 9.00 Weight (Pounds): 165 General Appearance: no apparent distress, alert EENT: PERRL/EOMI Neck: supple Cardiovascular: normal rate, regular rhythm Respiratory/Chest: lungs clear, normal breath sounds Abdomen: non tender, soft Assessment/Plan Problem List: (1) Renal failure (ARF), acute on chronic ICD Codes: N17.9 - Acute kidney failure, unspecified; N18.9 - Chronic kidney disease, unspecified SNOMED: 886894209 (2) Dehydration ICD Codes: E86.0 - Dehydration SNOMED: 11855274 (3) Hyponatremia ICD Codes: E87.1 - Hypo-osmolality and hyponatremia SNOMED: 24208062 (4) UTI (urinary tract infection) ICD Codes: N39.0 - Urinary tract infection, site not specified SNOMED: 91156811 (5) Hypothyroidism ICD Codes: E03.9 - Hypothyroidism, unspecified SNOMED: 75802768 (6) Diabetes mellitus ICD Codes: E11.9 - Type 2 diabetes mellitus without complications SNOMED: 62892093 (7) Renal insufficiency ICD Codes: N28.9 - Disorder of kidney and ureter, unspecified SNOMED: 689854264, 762199756 (8) BPH (benign prostatic hyperplasia) ICD Codes: N40.0 - Benign prostatic hyperplasia without lower urinary tract symptoms SNOMED: 534712762 (9) Suprapubic catheter dysfunction ICD Codes: T83.010A - Breakdown (mechanical) of cystostomy catheter, initial en counter SNOMED: 800789762 (10) Urinary retention ICD Codes: R33.9 - Retention of urine, unspecified SNOMED: 408582968 Status: stable, progressing Assessment/Plan: Me Rodriguez is 74 years old male with past medical history of hypertension, diabetes mellitus, chronic kidney disease, suprapubic catheter due to urinary retention admitted for hyponatremia from [facility], A: # Hypovolemic hyponatremia2/2 poor oral intake # Catheter associated UTI # Essential hypertension # Diabetes mellitus # CKD # ?Mild dementia # Depression # HLD P: continue IVF Trend sodium; improving Follow-up urine cultures; UA dirty. - ID following. appreciate recs. - Nephrology consulted. appreciate recs. Continue abx per ID. Accu-Cheks Insulin sliding scale mild, Daily reassessment of insulin requirements Continue home Synthroid 75 MCG's daily Continue home metoprolol 12.5 twice daily, statin, Zoloft #Acute blood loss anemia #Hematochezia -witnessed hematochezia, moderate amount of stool 05/07 per nursing -hold xarelto, ASA -repeat CBC today. Keep Hgb >7 -GI consulted -> PPI started. Xarelto on hold. plan for EGD/colo 05/09 tmwr. #Penile pain - resolved -Replace Sanabria (05/07) ,monitor. #A fib -Amiodarone on hold -MTP as above (12.5 BID) -Hold ASA, xarelto as above Code: Full GI: None Fluids: NS 100 cc DVT prophylaxis: Heparin 5000 units twice daily Diet: Regular Dispo: Resolution of hyponatremia, GI workup of hematochezia Spent 38 mins on pt encounter, 25 on counseling, coordination of care. d/w RN, consultants. Time of note may not reflect time patient was seen. Branden Lopez MD May 08, 2020 10:37
[2020-05-08 12:00] VITALS: BP 105/58
--- NOTE | 2020-05-08 13:02 | Surgery Progress Note ---
Surgery Progress Note Subjective Additional Comments abd pain resolved no n/v tolerating diet comfortable labs noted Objective Last 24 Hour Vital Signs Date Time Temp Pulse Resp B/P (MAP) Pulse Ox O2 Delivery O2 Flow Rate FiO2 05/08/20 12:00 98.2 62 20 105/58 (74) 100 05/08/20 08:39 68 123/57 05/08/20 08:01 Room Air 05/08/20 08:00 98.4 68 20 123/57 (79) 100 05/08/20 08:00 67 05/08/20 04:00 98.1 65 20 114/54 (74) 100 05/08/20 04:00 62 05/08/20 00:00 63 05/08/20 00:00 97.7 68 20 127/61 (83) 98 05/07/20 21:00 Room Air 05/07/20 20:49 69 119/67 05/07/20 20:00 98.0 69 20 119/67 (84) 100 05/07/20 19:32 67 05/07/20 16:00 63 05/07/20 16:00 98.8 64 20 109/49 (69) 99 I&O Intake and Output 05/07/20 05/08/20 19:00 07:00 Intake Total 400 ml 294 ml Output Total 900 ml 1300 ml Balance -500 ml -1006 ml Intake Oral 400 ml IV Total 294 ml Output Urine Total 900 ml 1300 ml # Voids 1 Dressing: saturated Cardiovascular: RSR Respiratory: clear Abdomen: soft, present bowel sounds Extremities: edema, no tenderness, no cyanosis, other Laboratory Tests Test 05/07/20 19:47 05/08/20 05:24 05/08/20 06:20 05/08/20 09:26 POC Whole Blood Glucose 125 MG/DL (74-106) H Pending White Blood Count 8.9 K/UL (4.8-10.8) Red Blood Count 2.59 M/UL (4.70-6.10) L Hemoglobin 8.3 G/DL (14.2-18.0) L Hematocrit 24.9 % (42.0-52.0) L Mean Corpuscular Volume 96 FL (80-99) Mean Corpuscular Hemoglobin 31.9 PG (27.0-31.0) H Mean Corpuscular Hemoglobin Concent 33.1 G/DL (32.0-36.0) Red Cell Distribution Width 14.0 % (11.6-14.8) Platelet Count 261 K/UL (150-450) Mean Platelet Volume 6.6 FL (6.5-10.1) Neutrophils (%) (Auto) 68.5 % (45.0-75.0) Lymphocytes (%) (Auto) 19.2 % (20.0-45.0) L Monocytes (%) (Auto) 8.4 % (1.0-10.0) Eosinophils (%) (Auto) 3.0 % (0.0-3.0) Basophils (%) (Auto) 0.9 % (0.0-2.0) Prothrombin Time 16.6 SEC (9.30-11.50) H Prothromb Time International Ratio 1.6 (0.9-1.1) H Activated Partial Thromboplast Time 43 SEC (23-33) H Sodium Level 133 MMOL/L (136-145) L Potassium Level 3.9 MMOL/L (3.5-5.1) Chloride Level 103 MMOL/L (98-107) Carbon Dioxide Level 26 MMOL/L (21-32) Blood Urea Nitrogen 19 mg/dL (7-18) H Creatinine 1.2 MG/DL (0.55-1.30) Estimat Glomerular Filtration Rate 59.0 mL/min (>60) Glucose Level 101 MG/DL (74-106) Calcium Level 7.6 MG/DL (8.5-10.1) L Phosphorus Level 2.8 MG/DL (2.5-4.9) Magnesium Level 1.8 MG/DL (1.8-2.4) Urine Random Sodium 65 mmol/L (20-110) Urine Creatinine 21.6 MG/DL (30.0-125.0) L Test 05/08/20 11:00 POC Whole Blood Glucose 120 MG/DL (74-106) H Plan Problems: (1) Dehydration (2) Hyponatremia (3) Suprapubic catheter (4) UTI (urinary tract infection) (5) Renal failure (ARF), acute on chronic (6) Osteomyelitis (7) Uncontrolled diabetes mellitus (8) Hypothyroidism (9) Sacral decubitus ulcer Assessment & Plan: Pt presented on admission with multiple Pressure Injuries. Resolving Pressure Sacral Pressure Injury.Clusters of full thickness pressure ulcers in close proximity that are moist and pink at bases. Surrounding maroon borders but without induration.(L)10.5cm x (W)10cm. BIlat lower ext are edematous. DTPI distal/lateral L Tibia(L)11.4cm x (W)2.7cm. Base of injury is purpuric with maroon borders. DTPI lateral L Malleolus(L)1cm x (W)0.7cm. Base of injury is maroon and indurated. Non-Blanchable erythema without induration or fluctuance medial L foot (L)1.6cm x (W)1cm. Unstageable Pressure injury R heel(L)7.7cm x (W)6.8cm. Base of is 70%necrotic and dry,10% slough with remaining 20% alyssia base. Marginal erythema along edges.Periwound is fluctuant with pale skin color. DTPI Lateral R Malleolus(L)2.6cm x (W)1.4cm. Base of injury is purpuric with maroon borders. DTPI medial R Malleolus(L)2.5cm x (W)2.4cm. Base of injury is purpuric with maroon borders. DTPI medial R foot (L)1.3cm x (W)3.6cm. Base of injury is indurated purpuric with surrounding maroon borders that are irregular. DTPI lateral R foot (L)0.7cm x (W)0.9cm. Base of injury is maroon in colour with marginal erythema. DTPI noted to tip of R 1st metatarsal(L)1.4cm x (W)1.2cm. Base of injury presents as an intact blood Blister. Unstageable Pressure injury lateral R 1st metatarsal(L)0.5cm x (W)0.8cm. Dry eschar with marginal erythema along edges. DTPI tip of R 2nd metatarsal.(L)1cm x (W)1.3cm. Base of injury presents as an intact blood blister with marginal erythema along edges. Surgical incisions noted to R hip, R femur and R knee. Incision sites approximated with oswaldo that are intact and dry. No erythema noted. Tx.Plan: Apply Moisture Barrier Paste to Sacrum. Cover with Optifoam drsgs. Change every 3 days and prn. Apply Betadine to DTPI's L Tibia, R and L feet. Cover each site with Optifoam drsgs. Change every 7 days and prn. Cleanse R Heel with Saline. Apply TheraHoney.Apply Maxsorb Extra(calcium Alginate. Apply Cavilon Skin Barrier periwound. Cover with Abd Pad and wrap with Kerlix Daily and prn. Reposition at least every 2hours or as tolerated. Off-load heels with pillows. DAILY ESTIMATED NEEDS: Needs based on Wound, 74.8kg 27-32 kcals/kg 7008-5593 total kcals 1.25-2 g protein/kg 94-112 g total protein 25-30 mL/kg 9531-5482 total fluid mLs NUTRITION DIAGNOSIS: Increased kcal and pro needs r/t wound healing as evidenced by admitted w/ multiple wounds, eval pending, including stage 4 L-heel pressure injury. CURRENT DIET: [facility] LOW PO DIET [facility]OMM[facility] HIGH PRO SNACKS ADDITIONAL RECOMMENDATIONS: 1) Calibrated bed scale wts (bed reads (-1.8kg) 2) Wound care: add TRINY BID, Vit C 250mg BID + MVI w/ min qdaily F/up w/ WC eval -> stage 4 L heel wound 3) Replete lytes as needed (low k3.1, low mg 1.5) 4) Add Glucerna 1 tetra TID w/ meals FIELD OBSERVER eval for appropriate texture (10) Diabetes mellitus (11) Renal insufficiency (12) Suprapubic catheter dysfunction (13) BPH (benign prostatic hyperplasia) (14) Urinary retention Guy Oakley May 08, 2020 13:02
--- NOTE | 2020-05-08 13:33 | General Progress Note ---
Subjective ROS Limited/Unobtainable: Yes Allergies: Coded Allergies: No Known Allergies (Unverified , 03/01/20) Objective Last 24 Hour Vital Signs Date Time Temp Pulse Resp B/P (MAP) Pulse Ox O2 Delivery O2 Flow Rate FiO2 05/08/20 12:00 98.2 62 20 105/58 (74) 100 05/08/20 08:39 68 123/57 05/08/20 08:01 Room Air 05/08/20 08:00 98.4 68 20 123/57 (79) 100 05/08/20 08:00 67 05/08/20 04:00 98.1 65 20 114/54 (74) 100 05/08/20 04:00 62 05/08/20 00:00 63 05/08/20 00:00 97.7 68 20 127/61 (83) 98 05/07/20 21:00 Room Air 05/07/20 20:49 69 119/67 05/07/20 20:00 98.0 69 20 119/67 (84) 100 05/07/20 19:32 67 05/07/20 16:00 63 05/07/20 16:00 98.8 64 20 109/49 (69) 99 Intake and Output 05/07/20 05/08/20 19:00 07:00 Intake Total 400 ml 294 ml Output Total 900 ml 1300 ml Balance -500 ml -1006 ml Intake Oral 400 ml IV Total 294 ml Output Urine Total 900 ml 1300 ml # Voids 1 Laboratory Tests 05/07/20 19:47: POC Whole Blood Glucose 125H 05/08/20 05:24: POC Whole Blood Glucose [Pending] 05/08/20 06:20: White Blood Count 8.9, Red Blood Count 2.59L, Hemoglobin 8.3L, Hematocrit 24.9L, Mean Corpuscular Volume 96, Mean Corpuscular Hemoglobin 31.9H, Mean Corpuscular Hemoglobin Concent 33.1, Red Cell Distribution Width 14.0, Platelet Count 261, Mean Platelet Volume 6.6, Neutrophils (%) (Auto) 68.5, Lymphocytes (%) (Auto) 19.2L, Monocytes (%) (Auto) 8.4, Eosinophils (%) (Auto) 3.0, Basophils (%) (Auto) 0.9, Prothrombin Time 16.6H, Prothromb Time International Ratio 1.6H, Activated Partial Thromboplast Time 43H, Sodium Level 133L, Potassium Level 3.9, Chloride Level 103, Carbon Dioxide Level 26, Blood Urea Nitrogen 19H, Creatinine 1.2, Estimat Glomerular Filtration Rate 59.0, Glucose Level 101, Calcium Level 7.6L, Phosphorus Level 2.8, Magnesium Level 1.8 05/08/20 09:26: Urine Random Sodium 65, Urine Creatinine 21.6L 05/08/20 11:00: POC Whole Blood Glucose 120H Height (Feet): 5 Height (Inches): 9.00 Weight (Pounds): 165 General Appearance: alert EENT: PERRL/EOMI Neck: supple Cardiovascular: normal rate Respiratory/Chest: decreased breath sounds Abdomen: normal bowel sounds, non tender, soft Extremities: non-tender Assessment/Plan Status: stable, progressing Assessment/Plan: 1. Hypertension. 2. Diabetes. 3. Chronic kidney disease. 4. History of UTI. 5. History of suprapubic catheter placement. 6. Hypothyroidism. 7. Questionable dementia. 8. Hypercholesterolemia. 9. Urinary tract infections. plan EGd and colonoscopy for tomorrow Jorgito Hidalgo MD May 08, 2020 13:33
[2020-05-08] MEDS: D5 1/2NS w/KCl 20mEq 1,000 ML IV SCH (15:42)
[2020-05-08 16:00] VITALS: BP 113/51
[2020-05-08] MEDS ORDERED: Golytely 4L ORAL SCH (16:00)
[2020-05-08] MEDS ORDERED: METOPROLOL SUCC25 MG ORAL (16:20)
--- NOTE | 2020-05-08 16:28 | Infectious Diseases Prog Note ---
Assessment/Plan Assessment/Plan ASSESSMENT AND PLAN: 1. MDR proteus complicated uti, vre colonization - day # 2 levofloxacin, discontinue meropenem - communicated with pharmacy - monitor labs 2. Case was discussed with pharmacy and Dr. Chandra. 3. Hypothyroidism. Continue thyroid supplementation. 4. Chronic kidney disease. 5. Diabetes. 6. Hypertension. 7. Blood sugar and blood pressure treatment per primary care team for diabetes and hypertension. 8. Chronic kidney disease. 9. Hyperlipidemia. 10. Anemia. 11. Suprapubic catheter. 12. Dementia. 13. Depression. 14. Anti-lipid treatment per primary care team. 15. Continue treatment plan per primary consultants. 16. Skin care protocol. 17. Allergy is negative. 18. Social history is negative. 19. Family history is noncontributory. 20. MAR is noted. 21. Case was discussed with RN. Subjective Constitutional: Denies: fever HEENT: Denies: congestion Respiratory: Denies: shortness of breath Cardiovascular: Denies: chest pain Gastrointestinal/Abdominal: Denies: nausea, vomiting, diarrhea Genitourinary: Reports: other - + shabazz Neurologic: Denies: headache Psychiatric: Denies: depression Skin: Denies: rash Hematologic: Denies: bleeding Musculoskeletal: Denies: pain Allergies: Coded Allergies: No Known Allergies (Unverified , 03/01/20) Objective Last 24 Hour Vital Signs Date Time Temp Pulse Resp B/P (MAP) Pulse Ox O2 Delivery O2 Flow Rate FiO2 05/08/20 12:00 62 05/08/20 12:00 98.2 62 20 105/58 (74) 100 05/08/20 08:39 68 123/57 05/08/20 08:01 Room Air 05/08/20 08:00 98.4 68 20 123/57 (79) 100 05/08/20 08:00 67 05/08/20 04:00 98.1 65 20 114/54 (74) 100 05/08/20 04:00 62 05/08/20 00:00 63 05/08/20 00:00 97.7 68 20 127/61 (83) 98 05/07/20 21:00 Room Air 05/07/20 20:49 69 119/67 05/07/20 20:00 98.0 69 20 119/67 (84) 100 05/07/20 19:32 67 Height (Feet): 5 Height (Inches): 9.00 Weight (Pounds): 165 General Appearance: no acute distress HEENT: normocephalic, atraumatic, anicteric, mucous membranes moist Respiratory/Chest: lungs clear, normal breath sounds, no respiratory distress, no accessory muscle use Cardiovascular: normal rate, regular rhythm, no gallop/murmur, no JVD Abdomen: normal bowel sounds, soft, non tender, no organomegaly, non distended Genitourinary: other - + shabazz - urine cloudy but clearer Extremities: no cyanosis Skin: no rash Neurologic/Psychiatric: quill cleaner II-XII grossly normal, alert, responsive Lymphatic: no neck adenopathy Musculoskeletal: no effusion Chest x-ray - 05/05/20 - Procedure: XRAY Chest 1v Indication: Chest pain Technique: One view of the chest Comparison: 04/07/2020 Findings: Suboptimal inspiration. Normal heart size. Tortuous calcified aorta. No significant change Impression: No acute process Microbiology Date/Time Source Procedure Growth Status 05/05/20 13:30 Rectum VRE Culture - Final Enterococcus Faecium - Vre Complete 05/05/20 13:10 Nasal Nares MRSA Culture - Final NO METHICILLIN RESISTANT STAPH AUREUS... Complete 05/05/20 10:10 Urine,Clean Catch Urine Culture - Final Proteus Mirabilis Complete Laboratory Tests Test 05/07/20 19:47 05/08/20 05:24 05/08/20 06:20 05/08/20 09:26 POC Whole Blood Glucose 125 MG/DL (74-106) H Pending White Blood Count 8.9 K/UL (4.8-10.8) Red Blood Count 2.59 M/UL (4.70-6.10) L Hemoglobin 8.3 G/DL (14.2-18.0) L Hematocrit 24.9 % (42.0-52.0) L Mean Corpuscular Volume 96 FL (80-99) Mean Corpuscular Hemoglobin 31.9 PG (27.0-31.0) H Mean Corpuscular Hemoglobin Concent 33.1 G/DL (32.0-36.0) Red Cell Distribution Width 14.0 % (11.6-14.8) Platelet Count 261 K/UL (150-450) Mean Platelet Volume 6.6 FL (6.5-10.1) Neutrophils (%) (Auto) 68.5 % (45.0-75.0) Lymphocytes (%) (Auto) 19.2 % (20.0-45.0) L Monocytes (%) (Auto) 8.4 % (1.0-10.0) Eosinophils (%) (Auto) 3.0 % (0.0-3.0) Basophils (%) (Auto) 0.9 % (0.0-2.0) Prothrombin Time 16.6 SEC (9.30-11.50) H Prothromb Time International Ratio 1.6 (0.9-1.1) H Activated Partial Thromboplast Time 43 SEC (23-33) H Sodium Level 133 MMOL/L (136-145) L Potassium Level 3.9 MMOL/L (3.5-5.1) Chloride Level 103 MMOL/L (98-107) Carbon Dioxide Level 26 MMOL/L (21-32) Blood Urea Nitrogen 19 mg/dL (7-18) H Creatinine 1.2 MG/DL (0.55-1.30) Estimat Glomerular Filtration Rate 59.0 mL/min (>60) Glucose Level 101 MG/DL (74-106) Calcium Level 7.6 MG/DL (8.5-10.1) L Phosphorus Level 2.8 MG/DL (2.5-4.9) Magnesium Level 1.8 MG/DL (1.8-2.4) Urine Random Sodium 65 mmol/L (20-110) Urine Creatinine 21.6 MG/DL (30.0-125.0) L Test 05/08/20 11:00 POC Whole Blood Glucose 120 MG/DL (74-106) H Current Medications Medications (Trade) Dose Ordered Sig/Lauren Route PRN Reason Start Time Stop Time Status Last Admin Dose Admin Acetaminophen (Tylenol) 650 mg Q4H PRN ORAL Mild Pain (Pain Scale 1-3) 05/05/20 14:00 06/04/20 13:59 Acetaminophen (Tylenol) 650 mg Q4H PRN ORAL Temp >100.5 05/05/20 14:00 06/04/20 13:59 Al Hydroxide/Mg Hydroxide (Mylanta II) 30 ml Q6H PRN ORAL dyspepsia 05/05/20 14:00 06/04/20 13:59 Albuterol/ Ipratropium (Albuterol/ Ipratropium) 3 ml Q4H PRN HHN Shortness of Breath 05/05/20 14:00 05/10/20 13:59 Atorvastatin Calcium (Lipitor) 80 mg BEDTIME ORAL 05/05/20 21:00 08/03/20 20:59 05/07/20 20:45 Dextrose (Dextrose 50%) 25 ml Q30M PRN IV Hypoglycemia 05/05/20 14:00 08/03/20 13:59 Dextrose (Dextrose 50%) 50 ml Q30M PRN IV Hypoglycemia 05/05/20 14:00 08/03/20 13:59 Dextrose/ Electrolytes 1,000 ml @ 75 mls/hr [id number] IV 05/08/20 16:00 06/07/20 15:59 05/08/20 15:42 Insulin Aspart (NovoLOG) BEFORE MEALS AND HS SUBQ 05/05/20 16:30 08/03/20 16:29 Levofloxacin 150 ml @ 150 mls/hr Q24H IVPB 05/07/20 18:00 05/14/20 17:59 05/07/20 18:14 Levothyroxine Sodium (Synthroid) 75 mcg Q24H ORAL 05/06/20 06:30 06/05/20 06:29 05/08/20 06:14 Metoprolol Tartrate (Lopressor) 12.5 mg EVERY 12 HOURS ORAL 05/05/20 21:00 08/03/20 20:59 05/08/20 08:39 Pantoprazole (Protonix) 40 mg EVERY 12 HOURS IVP 05/07/20 21:00 06/06/20 20:59 05/08/20 08:39 Polyethylene Glycol (Miralax) 17 gm HSPRN PRN ORAL Constipation 05/05/20 14:00 06/04/20 13:59 Polyethylene Glycol/ Electrolytes (Golytely) 4,000 ml ONCE ORAL 05/08/20 16:00 06/07/20 18:00 05/08/20 15:42 Sertraline HCl (Zoloft) 25 mg DAILY ORAL 05/06/20 09:00 06/05/20 08:59 05/08/20 08:39 Collin Quintero MD May 08, 2020 16:28
[2020-05-08] MEDS ORDERED: PROSTAT (16:33)
[2020-05-08] MEDS ORDERED: IRON SULFATE PO (16:33)
[2020-05-08] MEDS ORDERED: OYSTER SHELL C500 MG PO (16:34)
[2020-05-08 20:00] VITALS: BP 100/45
[2020-05-08] MEDS: Atorvastatin 80mg tab ORAL SCH (21:00)
[2020-05-09] VITALS (10 sets, daily range): BP systolic 57–133; BP diastolic 38–81
[2020-05-09] MEDS: D5 1/2NS w/KCl 20mEq 1,000 ML IV SCH (05:36)
[2020-05-09] MEDS: NovoLOG Insulin Flexpen SUBQ SCH ×3 (05:56→16:30)
[2020-05-09 07:23] LABS: BASOPHILS % (AUTO) 0.8 % (0.0-2.0); EOSINOPHILS % (AUTO) 3.8 % (0.0-3.0); HEMATOCRIT 23.9 % (42.0-52.0); LYMPHOCYTES % (AUTO) 23.9 % (20.0-45.0); MEAN CORPUSCULAR VOLUME 95 FL (80-99); MONOCYTES % (AUTO) 9.8 % (1.0-10.0); NEUTROPHILS % (AUTO) 61.7 % (45.0-75.0); PLATELET COUNT 267 K/UL (150-450); RED BLOOD COUNT 2.52 M/UL (4.70-6.10); RED CELL DISTRIBUTION WIDTH 14.1 % (11.6-14.8); WHITE BLOOD COUNT 8.4 K/UL (4.8-10.8)
[2020-05-09 07:39] LABS: CALCIUM 7.8 MG/DL (8.5-10.1); CREATININE 1.2 MG/DL (0.55-1.30); PHOSPHORUS 2.2 MG/DL (2.5-4.9); POTASSIUM 4.7 MMOL/L (3.5-5.1)
--- NOTE | 2020-05-09 08:11 | General Progress Note ---
Subjective ROS Limited/Unobtainable: Yes Allergies: Coded Allergies: No Known Allergies (Unverified , 03/01/20) Objective Last 24 Hour Vital Signs Date Time Temp Pulse Resp B/P (MAP) Pulse Ox O2 Delivery O2 Flow Rate FiO2 05/09/20 04:00 64 05/09/20 04:00 98.2 64 18 96/63 (74) 99 05/09/20 00:00 59 05/09/20 00:00 98.1 61 18 97/46 (63) 99 05/08/20 21:00 Room Air 05/08/20 21:00 64 104/50 05/08/20 20:00 98.1 64 20 100/45 (63) 98 05/08/20 16:00 98.2 61 20 113/51 (71) 100 05/08/20 16:00 60 05/08/20 12:00 62 05/08/20 12:00 98.2 62 20 105/58 (74) 100 05/08/20 08:39 68 123/57 Intake and Output 05/08/20 05/09/20 19:00 07:00 Intake Total 1125 ml 720 ml Output Total 1000 ml 1300 ml Balance 125 ml -580 ml Intake Oral 400 ml 720 ml IV Total 725 ml Output Urine Total 1000 ml 1300 ml # Voids 1 2 Laboratory Tests 05/08/20 09:26: Urine Random Sodium 65, Urine Creatinine 21.6L 05/08/20 11:00: POC Whole Blood Glucose 120H 05/08/20 16:45: POC Whole Blood Glucose [Pending] 05/09/20 06:56: White Blood Count 8.4, Red Blood Count 2.52L, Hemoglobin 8.0L, Hematocrit 23.9L, Mean Corpuscular Volume 95, Mean Corpuscular Hemoglobin 31.6H, Mean Corpuscular Hemoglobin Concent 33.3, Red Cell Distribution Width 14.1, Platelet Count 267, Mean Platelet Volume 6.4L, Neutrophils (%) (Auto) 61.7, Lymphocytes (%) (Auto) 23.9, Monocytes (%) (Auto) 9.8, Eosinophils (%) (Auto) 3.8H, Basophils (%) (Auto) 0.8, Sodium Level 133L, Potassium Level 4.7, Chloride Level 104, Carbon Dioxide Level 28, Anion Gap 1L, Blood Urea Nitrogen 15, Creatinine 1.2, Estimat Glomerular Filtration Rate 59.0, Glucose Level 116H, Calcium Level 7.8L, Phosphorus Level 2.2L, Magnesium Level 1.8, Thyroid Stimulating Hormone (TSH) 25.764H Height (Feet): 5 Height (Inches): 9.00 Weight (Pounds): 165 General Appearance: alert EENT: normal ENT inspection Neck: normal alignment Cardiovascular: normal rate Respiratory/Chest: lungs clear Abdomen: normal bowel sounds, non tender, soft Extremities: non-tender Assessment/Plan Status: stable, progressing Assessment/Plan: 1. Hypertension. 2. Diabetes. 3. Chronic kidney disease. 4. History of UTI. 5. History of suprapubic catheter placement. 6. Hypothyroidism. 7. Questionable dementia. 8. Hypercholesterolemia. 9. Urinary tract infections. plan EGd and colonoscopy for today Jorgito Hidalgo MD May 09, 2020 08:11
--- NOTE | 2020-05-09 08:11 | Pre-Procedure Note/Attestation ---
Pre-Procedure Note/Attestation Complete Prior to Procedure Planned Procedure: not applicable Procedure Narrative: esophagogastroduodenoscopy and colonoscopy Indications for Procedure Pre-Operative Diagnosis: gib Attestation I attest that I discussed the nature of the procedure; its benefits; risks and complications; and alternatives (and the risks and benefits of such alternatives), prior to the procedure, with the patient (or the patient's legal direct customer service representative). I attest that, if there was a reasonable possibility of needing a blood transfusion, the patient (or the patient's legal direct customer service representative) was given the [facility] standardized written summary, pursuant to the Dawit Purdin Blood Safety Act ([place] Health and Safety Code # 1645, as amended). I attest that I re-evaluated the patient just prior to the surgery and that there has been no change in the patient's H&P, except as documented below: Jorgito Hidalgo MD May 09, 2020 08:11
[2020-05-09] MEDS: Sertraline 50mg tab ORAL SCH (08:50)
[2020-05-09] MEDS: Metoprolol Tartrate 12.5mg TAB ORAL SCH (08:51)
[2020-05-09] MEDS: Pantoprazole Inj IVP SCH (08:51)
[2020-05-09] MEDS ORDERED: Magnesium Citrate Liq Btl ORAL SCH (10:00)
--- NOTE | 2020-05-09 10:56 | Nephrology Progress Note ---
Assessment/Plan Plan #Hyponatremia - likely hypovolumic #CKD #HTN #UTI #HLD - Ns at 100cc - IV abx - continue with levothyroxine - check TSH - continue with metop - on xarelto Subjective ROS Limited/Unobtainable: No HEENT: Denies: no symptoms, eye pain, blurred vision, tearing, double vision, ear pain, ear discharge, nose pain, nose congestion, throat pain, throat swelling, mouth pain, mouth swelling, other Genitourinary: Denies: no symptoms, burning, discharge, frequency, flank pain, hematuria, incontinence, pain, urgency, other Subjective sodium stable at 133 no new complaints Objective Objective Last 24 Hour Vital Signs Date Time Temp Pulse Resp B/P (MAP) Pulse Ox O2 Delivery O2 Flow Rate FiO2 05/09/20 09:00 Room Air 05/09/20 08:51 81 133/81 05/09/20 08:00 98.1 81 18 133/81 (98) 96 05/09/20 08:00 64 05/09/20 04:00 64 05/09/20 04:00 98.2 64 18 96/63 (74) 99 05/09/20 00:00 59 05/09/20 00:00 98.1 61 18 97/46 (63) 99 05/08/20 21:00 Room Air 05/08/20 21:00 64 104/50 05/08/20 20:00 98.1 64 20 100/45 (63) 98 05/08/20 16:00 98.2 61 20 113/51 (71) 100 05/08/20 16:00 60 05/08/20 12:00 62 05/08/20 12:00 98.2 62 20 105/58 (74) 100 Intake and Output 05/08/20 05/09/20 19:00 07:00 Intake Total 1125 ml 720 ml Output Total 1000 ml 1300 ml Balance 125 ml -580 ml Intake Oral 400 ml 720 ml IV Total 725 ml Output Urine Total 1000 ml 1300 ml # Voids 1 2 Laboratory Tests 05/08/20 11:00: POC Whole Blood Glucose 120H 05/08/20 16:45: POC Whole Blood Glucose [Pending] 05/09/20 06:56: White Blood Count 8.4, Red Blood Count 2.52L, Hemoglobin 8.0L, Hematocrit 23.9L, Mean Corpuscular Volume 95, Mean Corpuscular Hemoglobin 31.6H, Mean Corpuscular Hemoglobin Concent 33.3, Red Cell Distribution Width 14.1, Platelet Count 267, Mean Platelet Volume 6.4L, Neutrophils (%) (Auto) 61.7, Lymphocytes (%) (Auto) 23.9, Monocytes (%) (Auto) 9.8, Eosinophils (%) (Auto) 3.8H, Basophils (%) (Auto) 0.8, Sodium Level 133L, Potassium Level 4.7, Chloride Level 104, Carbon Dioxide Level 28, Anion Gap 1L, Blood Urea Nitrogen 15, Creatinine 1.2, Estimat Glomerular Filtration Rate 59.0, Glucose Level 116H, Calcium Level 7.8L, Phosphorus Level 2.2L, Magnesium Level 1.8, Thyroid Stimulating Hormone (TSH) 25.764H Height (Feet): 5 Height (Inches): 9.00 Weight (Pounds): 165 General Appearance: no apparent distress EENT: PERRL/EOMI, normal ENT inspection Neck: non-tender Cardiovascular: normal peripheral pulses, normal rate, regular rhythm Respiratory/Chest: chest wall non-tender, lungs clear Abdomen: normal bowel sounds, non tender, soft Extremities: normal range of motion, non-tender Neurologic: oriented x 3 Jered Huertas M.D. May 09, 2020 10:56
--- NOTE | 2020-05-09 11:33 | Anethesia Preoperative Eval ---
Anesthesia Pre-op PMH/ROS General Date of Evaluation: May 09, 2020 Anesthesiologist: Tony ASA Score: ASA 3 Mallampati Score Class I : Soft palate, uvula, fauces, pillars visible Class II: Soft palate, uvula, fauces visible Class III: Soft palate, base of uvula visible Class IV: Only hard plate visible Mallampati Classification: Class III Surgeon: Gwen Diagnosis: Anemia Surgical Procedure: EGD and colonoscopy Anesthesia History: none Family History: no anesthesia problems Allergies: Coded Allergies: No Known Allergies (Unverified , 03/01/20) Medications: see eMAR Patient NPO?: Yes NPO Date: May 09, 2020 NPO Time: 00:00 Past Medical History Cardiovascular: Reports: HTN, arrhythmia - afib; Denies: CAD, DC, valve dz, other Pulmonary: Denies: asthma, COPD, ROSEMARY, other Gastrointestinal/Genitourinary: Reports: CRI - acute on chronic, other - BPH; Denies: GERD, ESRD Neurologic/Psychiatric: Denies: dementia, CVA, depression/anxiety, TIA, other Endocrine: Reports: DM - uncontrolled, hypothyroidism - severe- TSH 25.7; Denies: steroids, other HEENT: Denies: cataract (L), cataract (R), glaucoma, [place] (L), [place] (R), other Hematology/Immune: Reports: anemia; Denies: DVT, bleeding disorder, other Musculoskeletal/Integumentary: Reports: other - multiple sacral decubitus wounds with osteomyelitis; Denies: OA, RA, DJD, DDD, edema Anesthesia Pre-op Phys. Exam Physician Exam Last Vital Signs Date Time Temp Pulse Resp B/P (MAP) Pulse Ox O2 Delivery O2 Flow Rate FiO2 05/09/20 09:00 Room Air 05/09/20 08:51 81 133/81 05/09/20 08:00 98.1 18 96 05/05/20 23:04 21 Constitutional: NAD Cardiovascular: RRR Respiratory: CTA Airway Exam Mallampati Score: Class III MO: limited ROM: limited Anesthesia Pre-op A/P Labs Hematology Test 05/09/20 06:56 White Blood Count 8.4 K/UL (4.8-10.8) Red Blood Count 2.52 M/UL (4.70-6.10) L Hemoglobin 8.0 G/DL (14.2-18.0) L Hematocrit 23.9 % (42.0-52.0) L Mean Corpuscular Volume 95 FL (80-99) Mean Corpuscular Hemoglobin 31.6 PG (27.0-31.0) H Mean Corpuscular Hemoglobin Concent 33.3 G/DL (32.0-36.0) Red Cell Distribution Width 14.1 % (11.6-14.8) Platelet Count 267 K/UL (150-450) Mean Platelet Volume 6.4 FL (6.5-10.1) L Neutrophils (%) (Auto) 61.7 % (45.0-75.0) Lymphocytes (%) (Auto) 23.9 % (20.0-45.0) Monocytes (%) (Auto) 9.8 % (1.0-10.0) Eosinophils (%) (Auto) 3.8 % (0.0-3.0) H Basophils (%) (Auto) 0.8 % (0.0-2.0) Chemistry Test 05/08/20 16:45 05/09/20 06:56 POC Whole Blood Glucose Pending Sodium Level 133 MMOL/L (136-145) L Potassium Level 4.7 MMOL/L (3.5-5.1) Chloride Level 104 MMOL/L (98-107) Carbon Dioxide Level 28 MMOL/L (21-32) Anion Gap 1 mmol/L (5-15) L Blood Urea Nitrogen 15 mg/dL (7-18) Creatinine 1.2 MG/DL (0.55-1.30) Estimat Glomerular Filtration Rate 59.0 mL/min (>60) Glucose Level 116 MG/DL (74-106) H Calcium Level 7.8 MG/DL (8.5-10.1) L Phosphorus Level 2.2 MG/DL (2.5-4.9) L Magnesium Level 1.8 MG/DL (1.8-2.4) Thyroid Stimulating Hormone (TSH) 25.764 uiU/mL (0.358-3.740) Studies Pre-op Studies: EKG - sr Risk Assessment & Plan Assessment: ASA III Plan: MAC Status Change Before Surgery: No Pre-Antibiotics Drug: N/A Roxy Jimenez MD May 09, 2020 11:33
--- NOTE | 2020-05-09 11:42 | General Progress Note ---
Advance Care Planning Advance Care Planning Advance Care Planning [facility] An independent Hospitalist group, where every patient is our [facility] Internal Medicine Hospitalist Advanced Care Planning Note Please contact us at Date of Discussion: A myrm-fa-coan discussion with the patient regarding the patient's advanced care planning took place during this hospitalization on the above date. The discussion included the explanation and discussion of advance directives and associated forms/documents, as well as the patient's current code status. We also discussed at length the patient's medical conditions (both acute and chroni c), general prognosis, treatment options, and goals of care. The following summarizes the discussion: Advance Care Planning/Goals of Care: - Will attempt to fill out an AD and/or POLST with the patient prior to discharge, if not already completed - Continue current evaluation and management of any acute and chronic medical issues - Will continue to support the patient/family - Will continue to discuss both short- and long-term goals of care DPOA-HC/Surrogate Decision Maker: None currently appointed Code Status: Full Code Advanced Care Planning Forms/Documents Completed: Deferred until later encounter/visit A total of 17 minutes was spent on this discussion, including counseling, answering questions, and completing, if any, pertinent advanced care planning forms/documents. Time of note may not reflect time of encounter. Branden Lopez MD May 09, 2020 11:42
[2020-05-09] MEDS ORDERED: LR 1000ml 1,000 ML IVLG SCH (11:45)
[2020-05-09] MEDS ORDERED: Labetalol 5mg/ml 20ml vial IV PRN (11:45)
[2020-05-09] MEDS ORDERED: DiphenhydrAMINE 50mg/ml Inj IVP PRN (11:45)
[2020-05-09] MEDS ORDERED: NS 500ML IVPB ONE (14:10)
--- NOTE | 2020-05-09 14:21 | Endoscopy Procedure Note ---
Endoscopy Procedure Note General Indication for Procedure: gib Procedures Performed: EGD, colonoscopy Operative Findings/Diagnosis: gastritis, hemorrhoids Specimen: yes Pt Tolerated Procedure Well: Yes Estimated Blood Loss: none Anesthesia Anesthesiologist: bhavin Anesthesia: MAC Inserted Devices Implant(s) used?: No Quality Quality of Bowel Preparation: Fair GI Core Measures 50 yrs or older w/o bx or poly: Not Applicable 10yrs. F/U recommended: Not Applicable Jorgito Hidalgo MD May 09, 2020 14:21
[2020-05-09] MEDS ORDERED: LEVOFLOXACIN750 MG ORAL (15:07)
--- NOTE | 2020-05-09 15:12 | Discharge Summary ---
Discharge Summary Hospital Course Date of Admission May 05, 2020 at 11:03 Date of Discharge 05/09/2020 Admitting Diagnosis UTI/hyponatremia HPI Drew Rodriguez is a 74 year old male who was admitted on May 05, 2020 at 11:03 for Urinary Tract Infection/ Hyponatremia Consultations GI, nephrology Procedures EGD, colonoscopy Hospital Course Me Rodriguez is 74 years old male with past medical history of hypertension, diabetes mellitus, chronic kidney disease, presented from [facility] ([facility]) with hyponatremia of 121, which was deemed hypovolemic hypoNa. IT improved well with IVF resuscitation. He was also started on abx for ESBL UTI, initially on ertapenem -> switched to Levofloxacin, which he will need to take for another 7 days. His home Lasix (40 mg PO) was discontinued given soft indication (leg edema), especially in light of his hypovolemic hyponatremia. Lastly, he was noted to have hematochezia, witnessed by RN, with stable CBC. Xarelto temporarily held (later restarted) GI consulted and performed EGD/colo (05/09/20) which showed a rectal ulcer s/p hemoclip. he is being d/c'ed back to [facility] today in good condition. Discharge Condition Upon Discharge: stable Discharge Vital Signs Last Vital Signs Date Time Temp Pulse Resp B/P (MAP) Pulse Ox O2 Delivery O2 Flow Rate FiO2 05/09/20 14:55 73 12 84/51 100 Nasal Cannula 3 05/09/20 14:41 97.0 05/05/20 23:04 21 Discharge Disposition Patient was discharged to SNF ([facility]) Discharge Diagnoses: (1) Hyponatremia (2) UTI (urinary tract infection) (3) Uncontrolled diabetes mellitus (4) Hypothyroidism (5) Diabetes mellitus (6) Sacral decubitus ulcer (7) BPH (benign prostatic hyperplasia) (8) Urinary retention Branden Lopez MD May 09, 2020 15:12
[2020-05-09] MEDS ORDERED: Xarelto 10mg tab ORAL SCH (15:15)
--- NOTE | 2020-05-09 16:49 | Surgery Progress Note ---
Surgery Progress Note Subjective Additional Comments afebrile, HD stable comfortable labs noted exam stable Objective Last 24 Hour Vital Signs Date Time Temp Pulse Resp B/P (MAP) Pulse Ox O2 Delivery O2 Flow Rate FiO2 05/09/20 15:11 97.0 74 14 112/67 100 Nasal Cannula 3 05/09/20 15:00 72 11 99/58 100 Nasal Cannula 3 05/09/20 14:55 73 12 84/51 100 Nasal Cannula 3 05/09/20 14:50 65 10 63/41 100 Nasal Cannula 3 05/09/20 14:45 57 11 59/38 100 Nasal Cannula 3 05/09/20 14:41 97.0 54 10 57/38 100 Nasal Cannula 3 05/09/20 12:00 96.7 62 20 119/58 (78) 96 05/09/20 12:00 61 05/09/20 09:00 Room Air 05/09/20 08:51 81 133/81 05/09/20 08:00 98.1 81 18 133/81 (98) 96 05/09/20 08:00 64 05/09/20 04:00 64 05/09/20 04:00 98.2 64 18 96/63 (74) 99 05/09/20 00:00 59 05/09/20 00:00 98.1 61 18 97/46 (63) 99 05/08/20 21:00 Room Air 05/08/20 21:00 64 104/50 05/08/20 20:00 98.1 64 20 100/45 (63) 98 I&O Intake and Output 05/08/20 05/09/20 19:00 07:00 Intake Total 1125 ml 720 ml Output Total 1000 ml 1300 ml Balance 125 ml -580 ml Intake Oral 400 ml 720 ml IV Total 725 ml Output Urine Total 1000 ml 1300 ml # Voids 1 2 Dressing: saturated Cardiovascular: RSR Respiratory: decreased breath sounds Abdomen: non-tender, present bowel sounds Extremities: no edema, no tenderness, no cyanosis Laboratory Tests Test 05/09/20 06:56 05/09/20 11:36 05/09/20 16:46 White Blood Count 8.4 K/UL (4.8-10.8) Red Blood Count 2.52 M/UL (4.70-6.10) L Hemoglobin 8.0 G/DL (14.2-18.0) L Hematocrit 23.9 % (42.0-52.0) L Mean Corpuscular Volume 95 FL (80-99) Mean Corpuscular Hemoglobin 31.6 PG (27.0-31.0) H Mean Corpuscular Hemoglobin Concent 33.3 G/DL (32.0-36.0) Red Cell Distribution Width 14.1 % (11.6-14.8) Platelet Count 267 K/UL (150-450) Mean Platelet Volume 6.4 FL (6.5-10.1) L Neutrophils (%) (Auto) 61.7 % (45.0-75.0) Lymphocytes (%) (Auto) 23.9 % (20.0-45.0) Monocytes (%) (Auto) 9.8 % (1.0-10.0) Eosinophils (%) (Auto) 3.8 % (0.0-3.0) H Basophils (%) (Auto) 0.8 % (0.0-2.0) Sodium Level 133 MMOL/L (136-145) L Potassium Level 4.7 MMOL/L (3.5-5.1) Chloride Level 104 MMOL/L (98-107) Carbon Dioxide Level 28 MMOL/L (21-32) Anion Gap 1 mmol/L (5-15) L Blood Urea Nitrogen 15 mg/dL (7-18) Creatinine 1.2 MG/DL (0.55-1.30) Estimat Glomerular Filtration Rate 59.0 mL/min (>60) Glucose Level 116 MG/DL (74-106) H Calcium Level 7.8 MG/DL (8.5-10.1) L Phosphorus Level 2.2 MG/DL (2.5-4.9) L Magnesium Level 1.8 MG/DL (1.8-2.4) Thyroid Stimulating Hormone (TSH) 25.764 uiU/mL (0.358-3.740) POC Whole Blood Glucose 106 MG/DL (74-106) 112 MG/DL (74-106) H Plan Problems: (1) Dehydration (2) Hyponatremia (3) Suprapubic catheter (4) UTI (urinary tract infection) (5) Renal failure (ARF), acute on chronic (6) Osteomyelitis (7) Uncontrolled diabetes mellitus (8) Hypothyroidism (9) Sacral decubitus ulcer Assessment & Plan: Pt presented on admission with multiple Pressure Injuries. Resolving Pressure Sacral Pressure Injury.Clusters of full thickness pressure ulcers in close proximity that are moist and pink at bases. Surrounding maroon borders but without induration.(L)10.5cm x (W)10cm. BIlat lower ext are edematous. DTPI distal/lateral L Tibia(L)11.4cm x (W)2.7cm. Base of injury is purpuric with maroon borders. DTPI lateral L Malleolus(L)1cm x (W)0.7cm. Base of injury is maroon and indurated. Non-Blanchable erythema without induration or fluctuance medial L foot (L)1.6cm x (W)1cm. Unstageable Pressure injury R heel(L)7.7cm x (W)6.8cm. Base of is 70%necrotic and dry,10% slough with remaining 20% alyssia base. Marginal erythema along edges.Periwound is fluctuant with pale skin color. DTPI Lateral R Malleolus(L)2.6cm x (W)1.4cm. Base of injury is purpuric with maroon borders. DTPI medial R Malleolus(L)2.5cm x (W)2.4cm. Base of injury is purpuric with maroon borders. DTPI medial R foot (L)1.3cm x (W)3.6cm. Base of injury is indurated purpuric with surrounding maroon borders that are irregular. DTPI lateral R foot (L)0.7cm x (W)0.9cm. Base of injury is maroon in colour with marginal erythema. DTPI noted to tip of R 1st metatarsal(L)1.4cm x (W)1.2cm. Base of injury presents as an intact blood Blister. Unstageable Pressure injury lateral R 1st metatarsal(L)0.5cm x (W)0.8cm. Dry [place] with marginal erythema along edges. DTPI tip of R 2nd metatarsal.(L)1cm x (W)1.3cm. Base of injury presents as an intact blood blister with marginal erythema along edges. Surgical incisions noted to R hip, R femur and R knee. Incision sites approximat ed with oswaldo that are intact and dry. No erythema noted. Tx.Plan: Apply Moisture Barrier Paste to Sacrum. Cover with Optifoam drsgs. Change every 3 days and prn. Apply Betadine to DTPI's L Tibia, R and L feet. Cover each site with Optifoam drsgs. Change every 7 days and prn. Cleanse R Heel with Saline. Apply TheraHoney.Apply Maxsorb Extra(calcium Algi spring. Apply Cavilon Skin Barrier periwound. Cover with Abd Pad and wrap with Kerlix Daily and prn. Reposition at least every 2hours or as tolerated. Off-load heels with pillows. DAILY ESTIMATED NEEDS: Needs based on Wound, 74.8kg 27-32 kcals/kg 1688-8827 total kcals 1.25-2 g protein/kg 94-112 g total protein 25-30 mL/kg 0346-5438 total fluid mLs NUTRITION DIAGNOSIS: Increased kcal and pro needs r/t wound healing as evidenced by admitted w/ multiple wounds, eval pending, including stage 4 L-heel pressure injury. CURRENT DIET: [facility] LOW PO DIET RECOMMENDATIONS: [facility] MED + HIGH PRO SNACKS ADDITIONAL RECOMMENDATIONS: 1) Calibrated bed scale wts (bed reads (-1.8kg) 2) Wound care: add TRINY BID, Vit C 250mg BID + MVI w/ min qdaily F/up w/ WC eval -> stage 4 L heel wound 3) Replete lytes as needed (low k3.1, low mg 1.5) 4) Add Glucerna 1 tetra TID w/ meals SIZE CUTTER eval for appropriate texture (10) Diabetes mellitus (11) Renal insufficiency (12) Suprapubic catheter dysfunction (13) BPH (benign prostatic hyperplasia) (14) Urinary retention Guy Oakley May 09, 2020 16:49
--- NOTE | 2020-05-09 21:15 | Procedure Note ---
DATE OF PROCEDURE: 05/09/2020 SURGEON: Jorgito Hidalgo MD PROCEDURE: Upper endoscopy with biopsy and colonoscopy with hemostasis. ANESTHESIA: Per Dr. Jimenez. INSTRUMENT: Olympus adult flexible upper endoscope and colonoscope. INDICATION: GI bleeding. REASON FOR PROCEDURE: The procedure, risks, benefits, and possible consequences, including hemorrhage, aspiration, perforation and infection, and alternative treatments, were explained to the patient/legal guardian by Dr. Jorgito Hidalgo and the patient/legal guardian understood and accepted these risks. DESCRIPTION OF PROCEDURE: After informed consent was obtained and the patient was adequately sedated, Olympus upper endoscope was advanced from mouth into the second portion of the duodenum and retroflexion was performed in the stomach. The patient has severe atrophic gastritis. Random biopsy from antrum was obtained to rule out H. pylori infection. Otherwise, the rest of upper endoscopic examination was grossly within normal limits. At this time, the upper endoscope was retrieved and the patient was turned over for colonoscopy. First, rectal exam was performed, which was positive for internal hemorrhoids. Then the scope was advanced from rectum to the ascending colon. Quality of prep was extremely poor. There was a single ulceration in the rectum, most probably the source of bleeding. There was blood sitting on it and measured roughly about 5 mm. We placed an 11 mm hemoclip on it successfully. The patient tolerated the procedure very well without any complications. SUMMARY OF FINDINGS: 1. Severe atrophic gastritis, status post biopsy. 2. Very poor colonic prep incomplete. 3. One small ulceration in the rectum with blood sitting on it, most probably the source of bleeding, status post hemostasis with 11 mm hemoclip. 4. Internal hemorrhoids. RECOMMENDATIONS: Resume diet. Follow hemoglobin and hematocrit. Transfuse as needed. Okay to resume anticoagulation. I want to thank Dr. Jack for this kind referral. Jorgito Hidalgo M.D. DR: DAISY JOB#: [id number] CC: Lizbet Jack M.D.; Fax#: [phone]
== END 2020-05-09 19:00 | DRG 698 ==
LOC: EDBD 09:52 → EMR 10:30 → 2E 11:03 → EDBEDREQ 13:08 → 2E 05-08 05:20
PROC: 0DB78ZX Excision of Stomach, Pylorus, Via Natural or Artificial Opening Endoscopic, Diagnostic (ICD-10-PCS; principal; 2020-05-09 14:16)
PROC: 0W3P8ZZ Control Bleeding in Gastrointestinal Tract, Via Natural or Artificial Opening Endoscopic (ICD-10-PCS; principal; 2020-05-09 14:16)
DX: T83.510A Infection and inflammatory reaction due to cystostomy catheter, initial encounter (principal); L89.153 Pressure ulcer of sacral region, stage 3; E87.1 Hypo-osmolality and hyponatremia; N17.9 Acute kidney failure, unspecified; N39.0 Urinary tract infection, site not specified; Z16.12 Extended spectrum beta lactamase (ESBL) resistance; D62 Acute posthemorrhagic anemia; K92.2 Gastrointestinal hemorrhage, unspecified; K62.6 Ulcer of anus and rectum; I12.9 Hypertensive chronic kidney disease with stage 1 through stage 4 chronic kidney disease, or unspecified chronic kidney disease; N18.9 Chronic kidney disease, unspecified; F03.90 Unspecified dementia, unspecified severity, without behavioral disturbance, psychotic disturbance, mood disturbance, and anxiety; L89.610 Pressure ulcer of right heel, unstageable; L89.890 Pressure ulcer of other site, unstageable; D64.9 Anemia, unspecified; E78.5 Hyperlipidemia, unspecified; F32.9 Major depressive disorder, single episode, unspecified; E11.65 Type 2 diabetes mellitus with hyperglycemia; R33.8 Other retention of urine; B96.4 Proteus (mirabilis) (morganii) as the cause of diseases classified elsewhere; Z79.01 Long term (current) use of anticoagulants; Z79.82 Long term (current) use of aspirin; I25.10 Atherosclerotic heart disease of native coronary artery without angina pectoris; Z95.5 Presence of coronary angioplasty implant and graft; N40.1 Benign prostatic hyperplasia with lower urinary tract symptoms; L89.159 Pressure ulcer of sacral region, unspecified stage; L89.896 Pressure-induced deep tissue damage of other site; L89.526 Pressure-induced deep tissue damage of left ankle; L89.516 Pressure-induced deep tissue damage of right ankle; E03.9 Hypothyroidism, unspecified; K29.40 Chronic atrophic gastritis without bleeding; K64.8 Other hemorrhoids
CPT/HCPCS: 36415; 71045; 80048; 80053; 81003; 82570; 82607; 82728; 82746; 82962; 83540; 83550; 83735; 84100; 84295; 84300; 84443; 84484; 85025; 85610; 85730; 86850; 86900; 86901; 87081; 87086; 87181; 93005; 94003; 94150; 94664; 96361; 96365; 99285; J1815; J7030; J8499; U0002

== ENCOUNTER 2020-05-16 19:25 | Inpatient (IN) | payer MEDICARE, MEDICAID ==
[~2020-05-16] VITALS: Ht 175.3 cm; Wt 80.3 kg
[~2020-05-16 19:25] MED LIST changes: +IRON SULFATE PO; +LEVOFLOXACIN750 MG ORAL; +MAGNESIUM OXID400 M2 PO; +OYSTER SHELL 51 EAC1 PO; +OYSTER SHELL C500 MG PO; +PROSTAT; +VITAMIN C250 MG ORAL
[2020-05-16 20:00] VITALS: BP 83/46
[2020-05-16 20:07] LABS: APPEARANCE,URINE CLEAR; BILIRUBIN, URINE NEGATIVE (NEGATIVE); COLOR,URINE PALE YELLOW; GLUCOSE, URINE (UA) NEGATIVE (NEGATIVE); KETONES,URINE NEGATIVE (NEGATIVE); LEUKOCYTE ESTERASE ,URINE 3+ (NEGATIVE); NITRITE,URINE NEGATIVE (NEGATIVE); PH,URINE 8 (4.5-8.0); PROTEIN,URINE NEGATIVE (NEGATIVE); UROBILINOGEN,URINE NORMAL MG/DL (0.0-1.0)
[2020-05-16 20:32] LABS: INR 1.1 (0.9-1.1)
[2020-05-16 20:38] LABS: CALCIUM 7.7 MG/DL (8.5-10.1); CREATININE 1.3 MG/DL (0.55-1.30)
[2020-05-16 20:47] LABS: ALBUMIN 2.2 G/DL (3.4-5.0); ALBUMIN/GLOBULIN RATIO 0.5 (1.0-2.7); BILIRUBIN,TOTAL 0.2 MG/DL (0.2-1.0)
[2020-05-16 20:56] LABS: BASOPHILS % (AUTO) 0.8 % (0.0-2.0); EOSINOPHILS % (AUTO) 2.7 % (0.0-3.0); HEMATOCRIT 25.3 % (42.0-52.0); HEMOGLOBIN 8.5 G/DL (14.2-18.0); LYMPHOCYTES % (AUTO) 19.1 % (20.0-45.0); MEAN CORPUSCULAR VOLUME 96 FL (80-99); NEUTROPHILS % (AUTO) 70.4 % (45.0-75.0); PLATELET COUNT 256 K/UL (150-450); RED BLOOD COUNT 2.62 M/UL (4.70-6.10)
[2020-05-16] MEDS ORDERED: cefTRIAXone 1 GM in NS 55 ML IVPB ONE (21:00)
[2020-05-16 21:15] VITALS: BP 86/53
--- NOTE | 2020-05-16 21:58 | Emergency Room Report ---
History of Present Illness General Chief Complaint: Abnormal Labs Source: Patient Present Illness HPI Patient is a 74-year-old male who presents for increased generalized weakness and hyponatremia. Patient was sent in from [facility]. Prior history of cardiac arrhythmias as well as hypothyroid. Currently on 75 mcg of Synthroid. Patient was noted to be decreased blood pressure.Previous history of urinary infection. 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 COVID-19 Screening: Negative COVID-19 COVID-19 Testing Source: 05/06/20 Patient History Past Medical History: see triage record Reviewed Nursing Documentation: PMH: Agreed; PSxH: Agreed Nursing Documentation-PMH Hx Cardiac Problems: Yes - a FIB Hx Hypertension: Yes Hx Diabetes: Yes Hx Cancer: No - benign prostate Hx Gastrointestinal Problems: No Hx Dialysis: Yes - UTI, ckd History Of Psychiatric Problem: Yes - major depressive disorder, Hx Neurological Problems: No Physical Exam Vital Signs Date Time Temp Pulse Resp B/P (MAP) Pulse Ox O2 Delivery O2 Flow Rate FiO2 05/16/20 19:21 97.5 60 16 98/52 (67) 97 Room Air General Appearance: alert, Chronically Ill Eyes: bilateral eye PERRL Neck: full range of motion Respiratory: lungs clear Cardiovascular #1: edema Gastrointestinal: normal inspection, non tender Neurologic: alert, oriented x3 Skin: no rash Procedures Critical Care Time Critical Care Time Patient had a critical medical condition which untreated could potentially result in life or limb threatening injury. Total critical care time excluding procedures approximately 45 minutes. Medical Decision Making Diagnostic Impression: Primary Impression: Hyponatremia Additional Impressions: Hypothyroidism UTI (urinary tract infection) ER Course Patient presented for low sodium. Differential diagnosis include was not limited to hypothyroidism, SIADH, dehydration, pseudohyponatremia among others. Because of complexity of patient's case laboratory tests and imaging studies were ordered. Patient was noted to have prior history of hypothyroidism. Laboratory testing did show some marked elevation of the patient's TSH.Patient was started on IV fluids due to hypotension he was also given IV Synthroid. Some concern for patient having myxedema due to lethargy as well as hyponatremia and markedly elevated TSH. Patient was given IV Synthroid as well as IV fluids. Patient was discussed with Dr. Hall as covering physician for [facility] who agreed with admission. Laboratory Tests Test 05/16/20 19:40 05/16/20 19:45 05/16/20 20:00 Urine Color Pale yellow Urine Appearance Clear Urine pH 8 (4.5-8.0) Urine Specific [place] 1.010 (1.005-1.035) Urine Protein Negative (NEGATIVE) Urine Glucose (UA) Negative (NEGATIVE) Urine Ketones Negative (NEGATIVE) Urine Blood 4+ (NEGATIVE) H Urine Nitrite Negative (NEGATIVE) Urine Bilirubin Negative (NEGATIVE) Urine Urobilinogen Normal MG/DL (0.0-1.0) Urine Leukocyte Esterase 3+ (NEGATIVE) H Urine RBC 5-10 /HPF (0 - 0) H Urine WBC 20-30 /HPF (0 - 0) H Urine Squamous Epithelial Cells None /LPF (NONE/OCC) Urine Bacteria Few /HPF (NONE) Urine Yeast Few /HPF (NONE) H POC Whole Blood Glucose 105 MG/DL (74-106) White Blood Count 9.0 K/UL (4.8-10.8) Red Blood Count 2.62 M/UL (4.70-6.10) L Hemoglobin 8.5 G/DL (14.2-18.0) L Hematocrit 25.3 % (42.0-52.0) L Mean Corpuscular Volume 96 FL (80-99) Mean Corpuscular Hemoglobin 32.4 PG (27.0-31.0) H Mean Corpuscular Hemoglobin Concent 33.6 G/DL (32.0-36.0) Red Cell Distribution Width 13.0 % (11.6-14.8) Platelet Count 256 K/UL (150-450) Mean Platelet Volume 6.2 FL (6.5-10.1) L Neutrophils (%) (Auto) 70.4 % (45.0-75.0) Lymphocytes (%) (Auto) 19.1 % (20.0-45.0) L Monocytes (%) (Auto) 7.0 % (1.0-10.0) Eosinophils (%) (Auto) 2.7 % (0.0-3.0) Basophils (%) (Auto) 0.8 % (0.0-2.0) Prothrombin Time 11.8 SEC (9.30-11.50) H Prothrombin Time INR 1.1 (0.9-1.1) Activated Partial Thromboplast Time 32 SEC (23-33) Sodium Level 126 MMOL/L (136-145) L Potassium Level 5.0 MMOL/L (3.5-5.1) Chloride Level 95 MMOL/L (98-107) L Carbon Dioxide Level 26 MMOL/L (21-32) Anion Gap 5 mmol/L (5-15) Creatinine 1.3 MG/DL (0.55-1.30) Estimated Glomerular Filtration Rate 53.8 mL/min (>60) Glucose Level 117 MG/DL (74-106) H Calcium Level 7.7 MG/DL (8.5-10.1) L Total Bilirubin 0.2 MG/DL (0.2-1.0) Aspartate Amino Transferase (AST) 40 U/L (15-37) H Alanine Aminotransferase (ALT) 26 U/L (12-78) Alkaline Phosphatase 124 U/L (46-116) H Troponin I 0.008 ng/mL (0.000-0.056) Total Protein 6.4 G/DL (6.4-8.2) Albumin 2.2 G/DL (3.4-5.0) L Globulin 4.2 g/dL Albumin/Globulin Ratio 0.5 (1.0-2.7) L Thyroid Stimulating Hormone (TSH) 41.289 uiU/mL (0.358-3.740) Differential Total Cells Counted Neutrophils % (Manual) Lymphocytes % (Manual) Monocytes % (Manual) Eosinophils % (Manual) Basophils % (Manual) Band Neutrophils Platelet Estimate Platelet Morphology Hypochromasia Osmolality Microbiology Last Vital Signs Date Time Temp Pulse Resp B/P (MAP) Pulse Ox O2 Delivery O2 Flow Rate FiO2 05/16/20 20:00 97.5 59 16 83/46 97 Room Air Status: improved Disposition: ADMITTED INPATIENT Condition: Serious Referrals: Lizbet Jack MD (PCP) Goran Vázquez MD May 16, 2020 21:58
[2020-05-16 22:10] VITALS: BP 96/52
[2020-05-16 23:00] VITALS: BP 110/57
[2020-05-17] VITALS (7 sets, daily range): BP systolic 101–140; BP diastolic 45–70
[2020-05-17] MEDS ORDERED: Morphine Sulfate 4mg/ml Inj (IV USE ONLY) IVP ONE (00:15)
--- NOTE | 2020-05-17 01:58 | History and Physical ---
History of Present Illness General Reason for Hospitalization: Abnormal Labs Present Illness HPI This is a 74yo Faroese speaking male who reported from [facility] for hypona tremia. He has a past medical history for hypertension, diabetes, hypothyroidism, hyperlipidemia and atrial fibrillation. He is AOx4. His baseline is bed bound. His serum sodium is 126 with a normal glucose. He has a stage II sacral ulceration. He has a mild UTI. His TSH was 45 in the ED. Allergies: Coded Allergies: No Known Allergies (Unverified , 03/01/20) COVID-19 Screening Contact w/high risk pt: Yes Recent Travel to affected area: No Experienced COVID-19 symptoms?: No Medication History Scheduled Amiodarone Hcl* (Cordarone*), 200 MG ORAL DAILY, (Reported) Ascorbic Acid* (Vitamin C*), 250 MG ORAL DAILY, (Reported) Aspirin* (Aspirin*), 81 MG ORAL DAILY, (Reported) Atorvastatin Calcium* (Lipitor*), 80 MG ORAL BEDTIME, (Reported) Calcium Carbonate (Oyster Shell Calcium), 500 MG PO DAILY, (Reported) Docusate Sodium* (Docusate Sodium*), 250 MG ORAL DAILY, (Reported) Levofloxacin* (Levofloxacin*), 750 MG ORAL DAILY Levothyroxine Sodium* (Synthorid*), 75 MCG ORAL DAILY, (Reported) Magnesium Oxide (Magnesium Oxide), 400 MG PO DAILY, (Reported) Metoprolol Succinate* (Metoprolol Succinate*), 12.5 MG ORAL BID, (Reported) Polyethylene Glycol 3350* (Miralax*), 17 GM ORAL DAILY, (Reported) Sertraline Hcl* (Sertraline Hcl*), 25 MG ORAL DAILY, (Reported) Sitagliptin* (Januvia*), 25 MG ORAL DAILY, (Reported) Scheduled PRN Meclizine Hcl* (Meclizine*), 12.5 MG ORAL TID PRN for for dizziness, (Reported) Patient History Healthcare decision maker Resuscitation status Advanced Directive on File Family History Family History: FH: CAD (coronary artery disease) Physical Exam General Appearance: WD/WN, no apparent distress HEENT: normocephalic, atraumatic Neck: non-tender, supple Respiratory/Chest: chest wall non-tender, lungs clear Cardiovascular/Chest: normal peripheral pulses, normal rate Abdomen: normal bowel sounds, non tender Last 24 Hour Vital Signs Date Time Temp Pulse Resp B/P (MAP) Pulse Ox O2 Delivery O2 Flow Rate FiO2 05/16/20 23:00 97.5 62 14 110/57 99 Room Air 05/16/20 22:10 97.5 52 16 96/52 99 Room Air 05/16/20 21:15 98.8 50 16 86/53 100 Room Air 05/16/20 20:00 97.5 59 16 83/46 97 Room Air 05/16/20 19:21 97.5 60 16 98/52 (67) 97 Room Air Laboratory Tests Test 05/16/20 19:40 05/16/20 19:45 05/16/20 20:00 Urine Color Pale yellow Urine Appearance Clear Urine pH 8 (4.5-8.0) Urine Specific [place] 1.010 (1.005-1.035) Urine Protein Negative (NEGATIVE) Urine Glucose (UA) Negative (NEGATIVE) Urine Ketones Negative (NEGATIVE) Urine Blood 4+ (NEGATIVE) H Urine Nitrite Negative (NEGATIVE) Urine Bilirubin Negative (NEGATIVE) Urine Urobilinogen Normal MG/DL (0.0-1.0) Urine Leukocyte Esterase 3+ (NEGATIVE) H Urine RBC 5-10 /HPF (0 - 0) H Urine WBC 20-30 /HPF (0 - 0) H Urine Squamous Epithelial Cells None /LPF (NONE/OCC) Urine Bacteria Few /HPF (NONE) Urine Yeast Few /HPF (NONE) H POC Whole Blood Glucose 105 MG/DL (74-106) White Blood Count 9.0 K/UL (4.8-10.8) Red Blood Count 2.62 M/UL (4.70-6.10) L Hemoglobin 8.5 G/DL (14.2-18.0) L Hematocrit 25.3 % (42.0-52.0) L Mean Corpuscular Volume 96 FL (80-99) Mean Corpuscular Hemoglobin 32.4 PG (27.0-31.0) H Mean Corpuscular Hemoglobin Concent 33.6 G/DL (32.0-36.0) Red Cell Distribution Width 13.0 % (11.6-14.8) Platelet Count 256 K/UL (150-450) Mean Platelet Volume 6.2 FL (6.5-10.1) L Neutrophils (%) (Auto) 70.4 % (45.0-75.0) Lymphocytes (%) (Auto) 19.1 % (20.0-45.0) L Monocytes (%) (Auto) 7.0 % (1.0-10.0) Eosinophils (%) (Auto) 2.7 % (0.0-3.0) Basophils (%) (Auto) 0.8 % (0.0-2.0) Prothrombin Time 11.8 SEC (9.30-11.50) H Prothromb Time International Ratio 1.1 (0.9-1.1) Activated Partial Thromboplast Time 32 SEC (23-33) Sodium Level 126 MMOL/L (136-145) L Potassium Level 5.0 MMOL/L (3.5-5.1) Chloride Level 95 MMOL/L (98-107) L Carbon Dioxide Level 26 MMOL/L (21-32) Anion Gap 5 mmol/L (5-15) Blood Urea Nitrogen 20 mg/dL (7-18) H Creatinine 1.3 MG/DL (0.55-1.30) Estimat Glomerular Filtration Rate 53.8 mL/min (>60) Glucose Level 117 MG/DL (74-106) H Calcium Level 7.7 MG/DL (8.5-10.1) L Total Bilirubin 0.2 MG/DL (0.2-1.0) Aspartate Amino Transf (AST/SGOT) 40 U/L (15-37) H Alanine Aminotransferase (ALT/SGPT) 26 U/L (12-78) Alkaline Phosphatase 124 U/L (46-116) H Troponin I 0.008 ng/mL (0.000-0.056) Total Protein 6.4 G/DL (6.4-8.2) Albumin 2.2 G/DL (3.4-5.0) L Globulin 4.2 g/dL Albumin/Globulin Ratio 0.5 (1.0-2.7) L Thyroid Stimulating Hormone (TSH) 41.289 uiU/mL (0.358-3.740) Microbiology Date/Time Source Procedure Growth Status 05/16/20 22:50 Rectum Received 05/16/20 19:30 Nasopharynx SARS-CoV-2 RdRp Gene Assay - Final Complete Height (Feet): 5 Height (Inches): 9.00 Weight (Pounds): 165 Medications Current Medications Medications (Trade) Dose Ordered Sig/Lauren Route PRN Reason Start Time Stop Time Status Last Admin Dose Admin Heparin Sodium (Porcine) (Heparin 5000 units/ml) 5,000 units EVERY 12 HOURS SUBQ 05/17/20 09:00 07/01/20 08:59 Levothyroxine Sodium (Synthroid) 50 mcg DAILY ONCE IV 05/17/20 09:00 05/17/20 09:01 05/16/20 22:03 Assessment/Plan Assessment/Plan: Hyponatremia Likely an hypothyroidism component For completeness, would obtain Uosm, Serum Osm, Urine Na Can start NS IVF appears dry Hold Metoprolol 12.5mg BID Hold Miralax No indication for IV Synthroid Increase Levothyroxine 100mcg daily Obtain FT4 level UTI - Start cefepime 1g BID - Continue urinary shabazz - Follow urine culture Sacral stage II ulceration - wound care consult Atrial fibrillation - continue amiodarone Diabetes - continue januvia and ISS Hyperlipidemia - continue lipitor VTE: Heparin Diet: Diabetic Rag Grader status: Full Kosta Hall D.O. May 17, 2020 01:58
[2020-05-17 04:48] LABS: HEMATOCRIT 23.1 % (42.0-52.0); HEMOGLOBIN 7.6 G/DL (14.2-18.0); MEAN CORPUSCULAR VOLUME 98 FL (80-99); PLATELET COUNT 212 K/UL (150-450); RED BLOOD COUNT 2.35 M/UL (4.70-6.10)
[2020-05-17 05:50] LABS: CALCIUM 7.1 MG/DL (8.5-10.1); CREATININE 1.2 MG/DL (0.55-1.30); POTASSIUM 4.4 MMOL/L (3.5-5.1)
[2020-05-17] MEDS: NovoLOG Insulin Flexpen SUBQ SCH ×4 (06:06→21:00)
[2020-05-17 09:00] LABS: HEMATOCRIT 23.6 % (42.0-52.0); HEMOGLOBIN 7.8 G/DL (14.2-18.0); MEAN CORPUSCULAR VOLUME 99 FL (80-99); PLATELET COUNT 221 K/UL (150-450); RED BLOOD COUNT 2.39 M/UL (4.70-6.10); WHITE BLOOD COUNT 7.5 K/UL (4.8-10.8)
[2020-05-17] MEDS: Aspirin Baby 81mg ORAL SCH (09:00)
[2020-05-17] MEDS: Os-Cal (Oyster Shell) 500mg tab ORAL SCH (09:00)
[2020-05-17] MEDS: Sertraline 50mg tab ORAL SCH (09:00)
[2020-05-17] MEDS ORDERED: Heparin 5000 units/ml inj SUBQ SCH (09:00)
[2020-05-17] MEDS ORDERED: sitaGLIPtin 25mg tab ORAL SCH (09:00)
[2020-05-17] MEDS: Magnesium Oxide 400mg tab ORAL SCH (09:00)
[2020-05-17] MEDS: Cefepime HCl 1 GM in D5W 55 ML IVPB SCH (09:00)
[2020-05-17] MEDS: Amiodarone 200mg tab ORAL SCH (09:00)
[2020-05-17] MEDS: Heparin 5000 units/ml inj SUBQ SCH ×2 (09:00→21:32)
--- NOTE | 2020-05-17 09:18 | General Progress Note ---
Progress Note Progress Note Overnight admission reviewed. Mr Angeles admitted from SNF for acute hyponatremia, elevated TSH, and complicated UTI. Chart review from previous admissions and current. Hyponatremia likley from volume depletion, but possible compenet of subclinical hypothyroidsm. Will continue fluid resucitiiation. Trend sodium levels. T4 wnl, will continue increased Synthroid to 100 mcg. Hgb dropped 8.5 to 7.6, follow up repeat CBC. Previous admission noted to have GI ulcer and therefore anticoags for afib was d/c. Continue amidorone for now. Follow up urine cultures, continue cefepime for now. Will downgrade from step down to tele. In addition to the usual care above I spent additional time reviewing records in the EMR and paper charts including physician documentation, nursing documentation, lab results, imaging and clinical documentation. Total time included was 25 min. Time spent on this encounter was 45 minutes which included 25 minutes of counseling and care coordination. I discussed with the nurse at bedside. Time of note may not reflect time patient was seen. Renan Chandra D.O May 17, 2020 09:18
--- NOTE | 2020-05-17 09:50 | Consultation ---
History of Present Illness General Chief Complaint: Abnormal Labs Present Illness HPI 74yo Moh[place] speaking male who reported from [facility] for hyponatremia. He has a past medical history for hypertension, diabetes, hypothyroidism, hyperlipidemia and atrial fibrillation. Allergies: Coded Allergies: No Known Allergies (Unverified , 03/01/20) Medication History Scheduled Amiodarone Hcl* (Cordarone*), 200 MG ORAL DAILY, (Reported) Ascorbic Acid* (Vitamin C*), 250 MG ORAL DAILY, (Reported) Aspirin* (Aspirin*), 81 MG ORAL DAILY, (Reported) Atorvastatin Calcium* (Lipitor*), 80 MG ORAL BEDTIME, (Reported) Calcium Carbonate (Oyster Shell Calcium), 500 MG PO DAILY, (Reported) Docusate Sodium* (Docusate Sodium*), 250 MG ORAL DAILY, (Reported) Levofloxacin* (Levofloxacin*), 750 MG ORAL DAILY Levothyroxine Sodium* (Synthorid*), 75 MCG ORAL DAILY, (Reported) Magnesium Oxide (Magnesium Oxide), 400 MG PO DAILY, (Reported) Metoprolol Succinate* (Metoprolol Succinate*), 12.5 MG ORAL BID, (Reported) Polyethylene Glycol 3350* (Miralax*), 17 GM ORAL DAILY, (Reported) Sertraline Hcl* (Sertraline Hcl*), 25 MG ORAL DAILY, (Reported) Sitagliptin* (Januvia*), 25 MG ORAL DAILY, (Reported) Scheduled PRN Meclizine Hcl* (Meclizine*), 12.5 MG ORAL TID PRN for for dizziness, (Reported) Patient History Healthcare decision maker Resuscitation status Advanced Directive on File Review of Systems All Other Systems: negative except mentioned in HPI Physical Exam General Appearance: WD/WN, no apparent distress Lines, tubes and drains: peripheral HEENT: normocephalic, atraumatic Neck: non-tender, normal alignment Respiratory/Chest: chest wall non-tender, lungs clear Neurologic: abnormal gait, alert, oriented x 3 Last 24 Hour Vital Signs Date Time Temp Pulse Resp B/P (MAP) Pulse Ox O2 Delivery O2 Flow Rate FiO2 05/17/20 08:00 97.7 64 20 101/58 (72) 97 05/17/20 08:00 59 05/17/20 04:00 97.5 62 20 113/56 (75) 99 05/17/20 04:00 59 11/7/20 04:00 Room Air 05/17/20 01:46 Room Air 05/17/20 00:42 62 05/17/20 00:30 96.0 60 16 119/56 (77) 100 05/17/20 00:25 98.3 63 14 116/63 100 Room Air 05/17/20 00:00 98.3 63 14 116/63 100 Room Air 05/16/20 23:00 97.5 62 14 110/57 99 Room Air 05/16/20 22:10 97.5 52 16 96/52 99 Room Air 05/16/20 21:15 98.8 50 16 86/53 100 Room Air 05/16/20 20:00 97.5 59 16 83/46 97 Room Air 05/16/20 19:21 97.5 60 16 98/52 (67) 97 Room Air Intake and Output 05/16/20 05/17/20 19:00 07:00 Intake Total 263.75 ml Output Total 500 ml Balance -236.25 ml Intake Oral 50 ml IV Total 213.75 ml Output Urine Total 500 ml Laboratory Tests Test 05/16/20 19:40 05/16/20 19:45 05/16/20 20:00 05/17/20 02:50 Urine Color Pale yellow Urine Appearance Clear Urine pH 8 (4.5-8.0) Urine Specific [place] 1.010 (1.005-1.035) Urine Protein Negative (NEGATIVE) Urine Glucose (UA) Negative (NEGATIVE) Urine Ketones Negative (NEGATIVE) Urine Blood 4+ (NEGATIVE) H Urine Nitrite Negative (NEGATIVE) Urine Bilirubin Negative (NEGATIVE) Urine Urobilinogen Normal MG/DL (0.0-1.0) Urine Leukocyte Esterase 3+ (NEGATIVE) H Urine RBC 5-10 /HPF (0 - 0) H Urine WBC 20-30 /HPF (0 - 0) H Urine Squamous Epithelial Cells None /LPF (NONE/OCC) Urine Bacteria Few /HPF (NONE) Urine Yeast Few /HPF (NONE) H POC Whole Blood Glucose 105 MG/DL (74-106) White Blood Count 9.0 K/UL (4.8-10.8) 8.0 K/UL (4.8-10.8) Red Blood Count 2.62 M/UL (4.70-6.10) L 2.35 M/UL (4.70-6.10) L Hemoglobin 8.5 G/DL (14.2-18.0) L 7.6 G/DL (14.2-18.0) L Hematocrit 25.3 % (42.0-52.0) L 23.1 % (42.0-52.0) L Mean Corpuscular Volume 96 FL (80-99) 98 FL (80-99) Mean Corpuscular Hemoglobin 32.4 PG (27.0-31.0) H 32.1 PG (27.0-31.0) H Mean Corpuscular Hemoglobin Concent 33.6 G/DL (32.0-36.0) 32.8 G/DL (32.0-36.0) Red Cell Distribution Width 13.0 % (11.6-14.8) 13.0 % (11.6-14.8) Platelet Count 256 K/UL (150-450) 212 K/UL (150-450) Mean Platelet Volume 6.2 FL (6.5-10.1) L 6.5 FL (6.5-10.1) Neutrophils (%) (Auto) 70.4 % (45.0-75.0) % (45.0-75.0) Lymphocytes (%) (Auto) 19.1 % (20.0-45.0) L % (20.0-45.0) Monocytes (%) (Auto) 7.0 % (1.0-10.0) % (1.0-10.0) Eosinophils (%) (Auto) 2.7 % (0.0-3.0) % (0.0-3.0) Basophils (%) (Auto) 0.8 % (0.0-2.0) % (0.0-2.0) Prothrombin Time 11.8 SEC (9.30-11.50) H Prothromb Time International Ratio 1.1 (0.9-1.1) Activated Partial Thromboplast Time 32 SEC (23-33) Sodium Level 126 MMOL/L (136-145) L 128 MMOL/L (136-145) L Potassium Level 5.0 MMOL/L (3.5-5.1) 4.4 MMOL/L (3.5-5.1) Chloride Level 95 MMOL/L (98-107) L 98 MMOL/L (98-107) Carbon Dioxide Level 26 MMOL/L (21-32) 21 MMOL/L (21-32) Anion Gap 5 mmol/L (5-15) 9 mmol/L (5-15) Blood Urea Nitrogen 20 mg/dL (7-18) H 17 mg/dL (7-18) Creatinine 1.3 MG/DL (0.55-1.30) 1.2 MG/DL (0.55-1.30) Estimat Glomerular Filtration Rate 53.8 mL/min (>60) 59.0 mL/min (>60) Glucose Level 117 MG/DL (74-106) H 109 MG/DL (74-106) H Calcium Level 7.7 MG/DL (8.5-10.1) L 7.1 MG/DL (8.5-10.1) L Total Bilirubin 0.2 MG/DL (0.2-1.0) Aspartate Amino Transf (AST/SGOT) 40 U/L (15-37) H Alanine Aminotransferase (ALT/SGPT) 26 U/L (12-78) Alkaline Phosphatase 124 U/L (46-116) H Troponin I 0.008 ng/mL (0.000-0.056) Total Protein 6.4 G/DL (6.4-8.2) Albumin 2.2 G/DL (3.4-5.0) L Globulin 4.2 g/dL Albumin/Globulin Ratio 0.5 (1.0-2.7) L Thyroid Stimulating Hormone (TSH) 41.289 uiU/mL (0.358-3.740) Differential Total Cells Counted 100 Neutrophils % (Manual) 73 % (45-75) Lymphocytes % (Manual) 15 % (20-45) L Monocytes % (Manual) 9 % (1-10) Eosinophils % (Manual) 3 % (0-3) Basophils % (Manual) 0 % (0-2) Band Neutrophils 0 % (0-8) Platelet Estimate Adequate Platelet Morphology Normal Hypochromasia 1+ Osmolality 263 mOsm/kg (297-317) L Free Thyroxine 1.22 NG/DL (0.76-1.46) Test 05/17/20 05:58 05/17/20 08:30 POC Whole Blood Glucose 104 MG/DL (74-106) White Blood Count 7.5 K/UL (4.8-10.8) Red Blood Count 2.39 M/UL (4.70-6.10) L Hemoglobin 7.8 G/DL (14.2-18.0) L Hematocrit 23.6 % (42.0-52.0) L Mean Corpuscular Volume 99 FL (80-99) Mean Corpuscular Hemoglobin 32.7 PG (27.0-31.0) H Mean Corpuscular Hemoglobin Concent 33.1 G/DL (32.0-36.0) Red Cell Distribution Width 13.0 % (11.6-14.8) Platelet Count 221 K/UL (150-450) Mean Platelet Volume 6.2 FL (6.5-10.1) L Neutrophils (%) (Auto) % (45.0-75.0) Lymphocytes (%) (Auto) % (20.0-45.0) Monocytes (%) (Auto) % (1.0-10.0) Eosinophils (%) (Auto) % (0.0-3.0) Basophils (%) (Auto) % (0.0-2.0) Differential Total Cells Counted 100 Neutrophils % (Manual) 72 % (45-75) Lymphocytes % (Manual) 17 % (20-45) L Monocytes % (Manual) 11 % (1-10) H Eosinophils % (Manual) 0 % (0-3) Basophils % (Manual) 0 % (0-2) Band Neutrophils 0 % (0-8) Platelet Estimate Adequate Platelet Morphology Normal Hypochromasia 1+ Microbiology Date/Time Source Procedure Growth Status 05/16/20 22:50 Rectum Received 05/16/20 19:40 Urine,Clean Catch Urine Culture - Preliminary NO GROWTH Resulted 05/16/20 19:30 Nasopharynx SARS-CoV-2 RdRp Gene Assay - Final Complete Height (Feet): 5 Height (Inches): 9.00 Weight (Pounds): 177 Medications Current Medications Medications (Trade) Dose Ordered Sig/Lauren Route PRN Reason Start Time Stop Time Status Last Admin Dose Admin Acetaminophen (Tylenol) 650 mg Q6H PRN ORAL For Headache 05/17/20 01:45 06/16/20 01:44 05/17/20 08:14 Amiodarone HCl (Cordarone) 200 mg DAILY ORAL 05/17/20 09:00 08/15/20 08:59 Aspirin (ASA) 81 mg DAILY ORAL 05/17/20 09:00 07/01/20 08:59 Atorvastatin Calcium (Lipitor) 80 mg BEDTIME ORAL 05/17/20 21:00 08/15/20 20:59 Calcium Carbonate (Os-Gabriele) 500 mg DAILY ORAL 05/17/20 09:00 08/15/20 08:59 Cefepime HCl 1 gm/ Dextrose 55 ml @ 110 mls/hr DAILY IVPB 05/17/20 09:00 05/24/20 08:59 Dextrose (Dextrose 50%) 25 ml Q30M PRN IV Hypoglycemia 05/17/20 01:45 08/15/20 01:44 Dextrose (Dextrose 50%) 50 ml Q30M PRN IV Hypoglycemia 05/17/20 01:45 08/15/20 01:44 Heparin Sodium (Porcine) (Heparin 5000 units/ml) 5,000 units EVERY 12 HOURS SUBQ 05/17/20 09:00 07/01/20 08:59 Insulin Aspart (NovoLOG) BEFORE MEALS AND HS SUBQ 05/17/20 06:30 08/15/20 06:29 Levothyroxine Sodium (Synthroid) 100 mcg ACBREAKFAST ORAL 05/17/20 06:30 06/16/20 06:29 05/17/20 06:10 Magnesium Oxide (Mag-Ox 400mg) 400 mg DAILY ORAL 05/17/20 09:00 06/16/20 08:59 Metoprolol Succinate (Toprol XL) 12.5 mg BID ORAL 05/17/20 18:00 08/15/20 17:59 UNV Sertraline HCl (Zoloft) 25 mg DAILY ORAL 05/17/20 09:00 06/16/20 08:59 Sodium Chloride 1,000 ml @ 75 mls/hr [id number] IV 05/17/20 02:00 06/16/20 01:59 05/17/20 03:09 Assessment/Plan Diagnosis [place] I: #Hyponatemia - susepct hypovolumic - vs due to hypothyroid state- vs SIADH #hypothyroidism #HTN #afib #HLD #GERD #depression - NS at 100cc /hr - urine chem - continue levothyroxine - check free T4 - consider holding sertraline - check metop 12.5 BID - monitor UOP - check bmp daily - check weights Jered Huertas M.D. May 17, 2020 09:50
--- NOTE | 2020-05-17 13:26 | Consultation ---
History of Present Illness General Reason for Hospitalization: Abnormal Labs Present Illness HPI This is a 74-year-old male well-known to me from prior care who presents from care facility with abnormal labs admitted for the care management. Surgery called to evaluate assist with care. Patient seen, patient evaluate, chart reviewed. Patient minimally verbal unable to participate exam or give history. Patient has known prior decubitus ulcers requiring significant care given the extent. Labs noted micro reviewed care plan initiated. Allergies: Coded Allergies: No Known Allergies (Unverified , 03/01/20) COVID-19 Screening Contact w/high risk pt: Yes Recent Travel to affected area: No Experienced COVID-19 symptoms?: No Medication History Scheduled Amiodarone Hcl* (Cordarone*), 200 MG ORAL DAILY, (Reported) Ascorbic Acid* (Vitamin C*), 250 MG ORAL DAILY, (Reported) Aspirin* (Aspirin*), 81 MG ORAL DAILY, (Reported) Atorvastatin Calcium* (Lipitor*), 80 MG ORAL BEDTIME, (Reported) Calcium Carbonate (Oyster Shell Calcium), 500 MG PO DAILY, (Reported) Docusate Sodium* (Docusate Sodium*), 250 MG ORAL DAILY, (Reported) Levofloxacin* (Levofloxacin*), 750 MG ORAL DAILY Levothyroxine Sodium* (Synthorid*), 75 MCG ORAL DAILY, (Reported) Magnesium Oxide (Magnesium Oxide), 400 MG PO DAILY, (Reported) Metoprolol Succinate* (Metoprolol Succinate*), 12.5 MG ORAL BID, (Reported) Polyethylene Glycol 3350* (Miralax*), 17 GM ORAL DAILY, (Reported) Sertraline Hcl* (Sertraline Hcl*), 25 MG ORAL DAILY, (Reported) Sitagliptin* (Januvia*), 25 MG ORAL DAILY, (Reported) Scheduled PRN Meclizine Hcl* (Meclizine*), 12.5 MG ORAL TID PRN for for dizziness, (Reported) Patient History Limited by: medical condition History Provided By: PMD Healthcare decision maker Resuscitation status Advanced Directive on File Past Medical/Surgical History Past Medical/Surgical History: (1) Dehydration (2) Suprapubic catheter (3) Renal failure (ARF), acute on chronic (4) UTI (urinary tract infection) (5) Hyponatremia (6) Osteomyelitis (7) Uncontrolled diabetes mellitus (8) Hypothyroidism (9) Diabetes mellitus (10) Sacral decubitus ulcer (11) Renal insufficiency (12) Suprapubic catheter dysfunction (13) BPH (benign prostatic hyperplasia) (14) Urinary retention Family History Family History: FH: CAD (coronary artery disease) Review of Systems Review of Symptoms General ROS: no weight loss or fever Psychological ROS: no depression or mood changes, no memory loss Ophthalmic ROS: no visual changes or eye irritation ENT ROS: no nasal congestion, hearing loss, dizziness Allergy and Immunology ROS: no allergic symptoms or urticaria Hematological and Lymphatic ROS: no swollen glands, unusual bleeding or bruising Endocrine ROS: no polyuria, polydipsia, weight changes, temperature intolerance Respiratory ROS: no cough, shortness of breath, or wheezing Cardiovascular ROS: no chest pain or dyspnea on exertion Gastrointestinal ROS: denies abdominal pain, bright red blood in stool. Musculoskeletal ROS: no myalgias or arthralgias Neurological ROS: no TIA or stroke symptoms Dermatological ROS: no new or changing skin lesions, rashes or pruritis limited Physical Exam Physical Exam General appearance: alert,no distress, appears stated age Head: Normocephalic, without obvious abnormality, atraumatic Eyes: conjunctivae/corneas clear. PERRL, EOM's intact. Fundi benign Throat: Lips, mucosa, and tongue normal. Teeth and gums normal Neck: supple, symmetrical, trachea midline, no adenopathy, thyroid: not enlarged, symmetric, no tenderness/mass/nodules, no carotid bruit and no JVD Lungs: clear to auscultation bilaterally Heart: regular rate and rhythm, S1, S2 normal, no murmur, click, rub or gallop Abdomen: soft, non-tender. Bowel sounds normal. No masses, no organomegaly ft Extremities: extremities normal, atraumatic, no cyanosis or edema Pulses: 2+ and symmetric Skin: Skin see below Neurologic: Grossly normal Last 24 Hour Vital Signs Date Time Temp Pulse Resp B/P (MAP) Pulse Ox O2 Delivery O2 Flow Rate FiO2 05/17/20 12:00 Room Air 05/17/20 12:00 97.9 61 19 113/45 (67) 100 05/17/20 08:00 Room Air 05/17/20 08:00 97.7 64 20 101/58 (72) 97 05/17/20 08:00 59 11/7/20 04:00 97.5 62 20 113/56 (75) 99 05/17/20 04:00 59 05/17/20 04:00 Room Air 05/17/20 01:46 Room Air 05/17/20 00:42 62 05/17/20 00:30 96.0 60 16 119/56 (77) 100 05/17/20 00:25 98.3 63 14 116/63 100 Room Air 05/17/20 00:00 98.3 63 14 116/63 100 Room Air 05/16/20 23:00 97.5 62 14 110/57 99 Room Air 05/16/20 22:10 97.5 52 16 96/52 99 Room Air 05/16/20 21:15 98.8 50 16 86/53 100 Room Air 05/16/20 20:00 97.5 59 16 83/46 97 Room Air 05/16/20 19:21 97.5 60 16 98/52 (67) 97 Room Air Intake and Output 05/16/20 05/17/20 19:00 07:00 Intake Total 263.75 ml Output Total 500 ml Balance -236.25 ml Intake Oral 50 ml IV Total 213.75 ml Output Urine Total 500 ml Laboratory Tests Test 05/16/20 19:40 05/16/20 19:45 05/16/20 20:00 05/17/20 02:50 Urine Color Pale yellow Urine Appearance Clear Urine pH 8 (4.5-8.0) Urine Specific [place] 1.010 (1.005-1.035) Urine Protein Negative (NEGATIVE) Urine Glucose (UA) Negative (NEGATIVE) Urine Ketones Negative (NEGATIVE) Urine Blood 4+ (NEGATIVE) H Urine Nitrite Negative (NEGATIVE) Urine Bilirubin Negative (NEGATIVE) Urine Urobilinogen Normal MG/DL (0.0-1.0) Urine Leukocyte Esterase 3+ (NEGATIVE) H Urine RBC 5-10 /HPF (0 - 0) H Urine WBC 20-30 /HPF (0 - 0) H Urine Squamous Epithelial Cells None /LPF (NONE/OCC) Urine Bacteria Few /HPF (NONE) Urine Yeast Few /HPF (NONE) H POC Whole Blood Glucose 105 MG/DL (74-106) White Blood Count 9.0 K/UL (4.8-10.8) 8.0 K/UL (4.8-10.8) Red Blood Count 2.62 M/UL (4.70-6.10) L 2.35 M/UL (4.70-6.10) L Hemoglobin 8.5 G/DL (14.2-18.0) L 7.6 G/DL (14.2-18.0) L Hematocrit 25.3 % (42.0-52.0) L 23.1 % (42.0-52.0) L Mean Corpuscular Volume 96 FL (80-99) 98 FL (80-99) Mean Corpuscular Hemoglobin 32.4 PG (27.0-31.0) H 32.1 PG (27.0-31.0) H Mean Corpuscular Hemoglobin Concent 33.6 G/DL (32.0-36.0) 32.8 G/DL (32.0-36.0) Red Cell Distribution Width 13.0 % (11.6-14.8) 13.0 % (11.6-14.8) Platelet Count 256 K/UL (150-450) 212 K/UL (150-450) Mean Platelet Volume 6.2 FL (6.5-10.1) L 6.5 FL (6.5-10.1) Neutrophils (%) (Auto) 70.4 % (45.0-75.0) % (45.0-75.0) Lymphocytes (%) (Auto) 19.1 % (20.0-45.0) L % (20.0-45.0) Monocytes (%) (Auto) 7.0 % (1.0-10.0) % (1.0-10.0) Eosinophils (%) (Auto) 2.7 % (0.0-3.0) % (0.0-3.0) Basophils (%) (Auto) 0.8 % (0.0-2.0) % (0.0-2.0) Prothrombin Time 11.8 SEC (9.30-11.50) H Prothromb Time International Ratio 1.1 (0.9-1.1) Activated Partial Thromboplast Time 32 SEC (23-33) Sodium Level 126 MMOL/L (136-145) L 128 MMOL/L (136-145) L Potassium Level 5.0 MMOL/L (3.5-5.1) 4.4 MMOL/L (3.5-5.1) Chloride Level 95 MMOL/L (98-107) L 98 MMOL/L (98-107) Carbon Dioxide Level 26 MMOL/L (21-32) 21 MMOL/L (21-32) Anion Gap 5 mmol/L (5-15) 9 mmol/L (5-15) Blood Urea Nitrogen 20 mg/dL (7-18) H 17 mg/dL (7-18) Creatinine 1.3 MG/DL (0.55-1.30) 1.2 MG/DL (0.55-1.30) Estimat Glomerular Filtration Rate 53.8 mL/min (>60) 59.0 mL/min (>60) Glucose Level 117 MG/DL (74-106) H 109 MG/DL (74-106) H Calcium Level 7.7 MG/DL (8.5-10.1) L 7.1 MG/DL (8.5-10.1) L Total Bilirubin 0.2 MG/DL (0.2-1.0) Aspartate Amino Transf (AST/SGOT) 40 U/L (15-37) H Alanine Aminotransferase (ALT/SGPT) 26 U/L (12-78) Alkaline Phosphatase 124 U/L (46-116) H Troponin I 0.008 ng/mL (0.000-0.056) Total Protein 6.4 G/DL (6.4-8.2) Albumin 2.2 G/DL (3.4-5.0) L Globulin 4.2 g/dL Albumin/Globulin Ratio 0.5 (1.0-2.7) L Thyroid Stimulating Hormone (TSH) 41.289 uiU/mL (0.358-3.740) Differential Total Cells Counted 100 Neutrophils % (Manual) 73 % (45-75) Lymphocytes % (Manual) 15 % (20-45) L Monocytes % (Manual) 9 % (1-10) Eosinophils % (Manual) 3 % (0-3) Basophils % (Manual) 0 % (0-2) Band Neutrophils 0 % (0-8) Platelet Estimate Adequate Platelet Morphology Normal Hypochromasia 1+ Osmolality 263 mOsm/kg (297-317) L Free Thyroxine 1.22 NG/DL (0.76-1.46) Test 05/17/20 05:58 05/17/20 08:30 POC Whole Blood Glucose 104 MG/DL (74-106) White Blood Count 7.5 K/UL (4.8-10.8) Red Blood Count 2.39 M/UL (4.70-6.10) L Hemoglobin 7.8 G/DL (14.2-18.0) L Hematocrit 23.6 % (42.0-52.0) L Mean Corpuscular Volume 99 FL (80-99) Mean Corpuscular Hemoglobin 32.7 PG (27.0-31.0) H Mean Corpuscular Hemoglobin Concent 33.1 G/DL (32.0-36.0) Red Cell Distribution Width 13.0 % (11.6-14.8) Platelet Count 221 K/UL (150-450) Mean Platelet Volume 6.2 FL (6.5-10.1) L Neutrophils (%) (Auto) % (45.0-75.0) Lymphocytes (%) (Auto) % (20.0-45.0) Monocytes (%) (Auto) % (1.0-10.0) Eosinophils (%) (Auto) % (0.0-3.0) Basophils (%) (Auto) % (0.0-2.0) Differential Total Cells Counted 100 Neutrophils % (Manual) 72 % (45-75) Lymphocytes % (Manual) 17 % (20-45) L Monocytes % (Manual) 11 % (1-10) H Eosinophils % (Manual) 0 % (0-3) Basophils % (Manual) 0 % (0-2) Band Neutrophils 0 % (0-8) Platelet Estimate Adequate Platelet Morphology Normal Hypochromasia 1+ Microbiology Date/Time Source Procedure Growth Status 05/16/20 22:50 Rectum Received 05/16/20 19:40 Urine,Clean Catch Urine Culture - Preliminary NO GROWTH Resulted 05/16/20 19:30 Nasopharynx SARS-CoV-2 RdRp Gene Assay - Final Complete Height (Feet): 5 Height (Inches): 9.00 Weight (Pounds): 177 Medications Current Medications Medications (Trade) Dose Ordered Sig/Lauren Route PRN Reason Start Time Stop Time Status Last Admin Dose Admin Acetaminophen (Tylenol) 650 mg Q6H PRN ORAL For Headache 05/17/20 01:45 06/16/20 01:44 05/17/20 08:14 Amiodarone HCl (Cordarone) 200 mg DAILY ORAL 05/17/20 09:00 08/15/20 08:59 05/17/20 09:00 Aspirin (ASA) 81 mg DAILY ORAL 05/17/20 09:00 07/01/20 08:59 05/17/20 09:00 Atorvastatin Calcium (Lipitor) 80 mg BEDTIME ORAL 05/17/20 21:00 08/15/20 20:59 Calcium Carbonate (Os-Gabriele) 500 mg DAILY ORAL 05/17/20 09:00 08/15/20 08:59 05/17/20 09:00 Cefepime HCl 1 gm/ Dextrose 55 ml @ 110 mls/hr DAILY IVPB 05/17/20 09:00 05/24/20 08:59 05/17/20 09:00 Dextrose (Dextrose 50%) 25 ml Q30M PRN IV Hypoglycemia 05/17/20 01:45 08/15/20 01:44 Dextrose (Dextrose 50%) 50 ml Q30M PRN IV Hypoglycemia 05/17/20 01:45 08/15/20 01:44 Heparin Sodium (Porcine) (Heparin 5000 units/ml) 5,000 units EVERY 12 HOURS SUBQ 05/17/20 09:00 07/01/20 08:59 05/17/20 09:00 Insulin Aspart (NovoLOG) BEFORE MEALS AND HS SUBQ 05/17/20 06:30 08/15/20 06:29 Levothyroxine Sodium (Synthroid) 100 mcg ACBREAKFAST ORAL 05/17/20 06:30 06/16/20 06:29 05/17/20 06:10 Magnesium Oxide (Mag-Ox 400mg) 400 mg DAILY ORAL 05/17/20 09:00 06/16/20 08:59 05/17/20 09:00 Metoprolol Succinate (Toprol XL) 12.5 mg BID ORAL 05/17/20 18:00 08/15/20 17:59 Sertraline HCl (Zoloft) 25 mg DAILY ORAL 05/17/20 09:00 06/16/20 08:59 05/17/20 09:00 Sodium Chloride 1,000 ml @ 75 mls/hr [id number] IV 05/17/20 02:00 06/16/20 01:59 05/17/20 03:09 Assessment/Plan Problem List: (1) Hyponatremia ICD Codes: E87.1 - Hypo-osmolality and hyponatremia SNOMED: 82476012 (2) Dehydration Assessment & Plan: DAILY ESTIMATED NEEDS: Needs based on Wound, 77kg 25-30 kcals/kg 3519-9542 total kcals 1.25-2 g protein/kg 96-154 g total protein 25-30 mL/kg 2443-1025 total fluid mLs NUTRITION DIAGNOSIS: Increased kcal and prot needs r/t wound healing as evidenced by admitted w/ multiple wounds, eval pending, including stage 4 L-heel pressure injury as per recent adm. CURRENT DIET: CCHO LOW, mech soft finely chopped PO DIET RECOMMENDATIONS: CCHO MED/ texture as tolerated ADDITIONAL RECOMMENDATIONS: 1) Wound care: add MVI w/ mineral x 1, Vit C 500mg BID Mikey BID added to tray, f/up w/ WC eval 2) [employer] eval for appropriate texture 3) Monitor Na, need for fluid restriction (126 -> 128) 4) Monitor PO intake closely -> add Glucerna x 1 at this time 5) Calibrated bedscale wt ICD Codes: E86.0 - Dehydration SNOMED: 20372415 (3) UTI (urinary tract infection) ICD Codes: N39.0 - Urinary tract infection, site not specified SNOMED: 89847428 (4) Suprapubic catheter ICD Codes: Z93.59 - Other cystostomy status SNOMED: 114580378, 916043775 (5) Renal failure (ARF), acute on chronic ICD Codes: N17.9 - Acute kidney failure, unspecified; N18.9 - Chronic kidney disease, unspecified SNOMED: 191099484 (6) Osteomyelitis ICD Codes: M86.9 - Osteomyelitis, unspecified SNOMED: 86919798 (7) Uncontrolled diabetes mellitus ICD Codes: E11.65 - Type 2 diabetes mellitus with hyperglycemia SNOMED: 53672857, 907769334 (8) Hypothyroidism ICD Codes: E03.9 - Hypothyroidism, unspecified SNOMED: 50712737 (9) Diabetes mellitus ICD Codes: E11.9 - Type 2 diabetes mellitus without complications SNOMED: 75018914 (10) Sacral decubitus ulcer Assessment & Plan: Pt presented on admission with multiple Pressure Injuries. Resolving Pressure Sacral Pressure Injury.Clusters of full thickness pressure ulcers in close proximity that are moist and pink at bases. Surrounding maroon borders but without induration.(L)10.5cm x (W)10cm. BIlat lower ext are edematous. DTPI distal/lateral L Tibia(L)11.4cm x (W)2.7cm. Base of injury is purpuric with maroon borders. DTPI lateral L Malleolus(L)1cm x (W)0.7cm. Base of injury is maroon and indurated. Non-Blanchable erythema without induration or fluctuance medial L foot (L)1.6cm x (W)1cm. Unstageable Pressure injury R heel(L)7.7cm x (W)6.8cm. Base of is 70%necrotic and dry,10% slough with remaining 20% alyssia base. Marginal erythema along edges.Periwound is fluctuant with pale skin color. DTPI Lateral R Malleolus(L)2.6cm x (W)1.4cm. Base of injury is purpuric with maroon borders. DTPI medial R Malleolus(L)2.5cm x (W)2.4cm. Base of injury is purpuric with maroon borders. DTPI medial R foot (L)1.3cm x (W)3.6cm. Base of injury is indurated purpuric with surrounding maroon borders that are irregular. DTPI lateral R foot (L)0.7cm x (W)0.9cm. Base of injury is maroon in colour with marginal erythema. DTPI noted to tip of R 1st metatarsal(L)1.4cm x (W)1.2cm. Base of injury presents as an intact blood Blister. Unstageable Pressure injury lateral R 1st metatarsal(L)0.5cm x (W)0.8cm. Dry eschar with marginal erythema along edges. DTPI tip of R 2nd metatarsal.(L)1cm x (W)1.3cm. Base of injury presents as an intact blood blister with marginal erythema along edges. Surgical incisions noted to R hip, R femur and R knee. Incision sites approximated with oswaldo that are intact and dry. No erythema noted. Tx.Plan: Apply Moisture Barrier Paste to Sacrum. Cover with Optifoam drsgs. Change every 3 days and prn. Apply Betadine to DTPI's L Tibia, R and L feet. Cover each site with Optifoam drsgs. Change every 7 days and prn. Cleanse R Heel with Saline. Apply TheraHoney.Apply Maxsorb Extra(calcium Alginate. Apply Cavilon Skin Barrier periwound. Cover with Abd Pad and wrap with Kerlix Daily and prn. Reposition at least every 2hours or as tolerated. Off-load heels with pillows. nutritional optimization ICD Codes: L89.159 - Pressure ulcer of sacral region, unspecified stage SNOMED: 474162632 (11) Renal insufficiency ICD Codes: N28.9 - Disorder of kidney and ureter, unspecified SNOMED: 545436936, 924228392 (12) Suprapubic catheter dysfunction ICD Codes: T83.010A - Breakdown (mechanical) of cystostomy catheter, initial encounter SNOMED: 698658845 (13) BPH (benign prostatic hyperplasia) ICD Codes: N40.0 - Benign prostatic hyperplasia without lower urinary tract symptoms SNOMED: 582244420 (14) Urinary retention ICD Codes: R33.9 - Retention of urine, unspecified SNOMED: 130208497 Guy Oakley May 17, 2020 13:26
[2020-05-17] MEDS: Metoprolol Succinate XL 25mg tab ORAL SCH (18:00)
[2020-05-17] MEDS: Atorvastatin 80mg tab ORAL SCH (21:30)
[2020-05-18] VITALS: BP 143/78
[2020-05-18 04:00] VITALS: BP 138/64
[2020-05-18] MEDS: NovoLOG Insulin Flexpen SUBQ SCH ×4 (05:59→20:28)
[2020-05-18] MEDS: Os-Cal (Oyster Shell) 500mg tab ORAL SCH (09:59)
[2020-05-18] MEDS: Amiodarone 200mg tab ORAL SCH (10:00)
[2020-05-18] MEDS: Aspirin Baby 81mg ORAL SCH (10:00)
[2020-05-18] MEDS: Sertraline 50mg tab ORAL SCH (10:00)
[2020-05-18] MEDS: Metoprolol Succinate XL 25mg tab ORAL SCH ×2 (10:01→17:23)
[2020-05-18] MEDS: Magnesium Oxide 400mg tab ORAL SCH (10:01)
[2020-05-18] MEDS: Heparin 5000 units/ml inj SUBQ SCH (10:03)
[2020-05-18] MEDS: Cefepime HCl 1 GM in D5W 55 ML IVPB SCH (10:05)
[2020-05-18 11:01] VITALS: BP 136/60
--- NOTE | 2020-05-18 11:12 | Consultation ---
History of Present Illness General Chief Complaint: Abnormal Labs Present Illness Allergies: Coded Allergies: No Known Allergies (Unverified , 03/01/20) Medication History Scheduled Amiodarone Hcl* (Cordarone*), 200 MG ORAL DAILY, (Reported) Ascorbic Acid* (Vitamin C*), 250 MG ORAL DAILY, (Reported) Aspirin* (Aspirin*), 81 MG ORAL DAILY, (Reported) Atorvastatin Calcium* (Lipitor*), 80 MG ORAL BEDTIME, (Reported) Calcium Carbonate (Oyster Shell Calcium), 500 MG PO DAILY, (Reported) Docusate Sodium* (Docusate Sodium*), 250 MG ORAL DAILY, (Reported) Levofloxacin* (Levofloxacin*), 750 MG ORAL DAILY Levothyroxine Sodium* (Synthorid*), 75 MCG ORAL DAILY, (Reported) Magnesium Oxide (Magnesium Oxide), 400 MG PO DAILY, (Reported) Metoprolol Succinate* (Metoprolol Succinate*), 12.5 MG ORAL BID, (Reported) Polyethylene Glycol 3350* (Miralax*), 17 GM ORAL DAILY, (Reported) Sertraline Hcl* (Sertraline Hcl*), 25 MG ORAL DAILY, (Reported) Sitagliptin* (Januvia*), 25 MG ORAL DAILY, (Reported) Scheduled PRN Meclizine Hcl* (Meclizine*), 12.5 MG ORAL TID PRN for for dizziness, (Reported) Patient History Healthcare decision maker Resuscitation status Advanced Directive on File Physical Exam Last 24 Hour Vital Signs Date Time Temp Pulse Resp B/P (MAP) Pulse Ox O2 Delivery O2 Flow Rate FiO2 05/18/20 11:01 97.9 87 19 136/60 (85) 100 05/18/20 10:01 87 136/60 05/18/20 04:00 97.5 66 16 138/64 (88) 98 05/18/20 04:00 63 05/18/20 00:00 64 05/18/20 00:00 97.5 66 16 143/78 (99) 98 05/17/20 20:00 59 05/17/20 20:00 96.6 66 16 140/70 (93) 100 05/17/20 20:00 Room Air 05/17/20 18:00 63 122/65 05/17/20 16:00 60 05/17/20 16:00 97.9 63 20 122/65 (84) 100 05/17/20 15:36 Room Air 05/17/20 12:00 Room Air 05/17/20 12:00 97.9 61 19 113/45 (67) 100 05/17/20 12:00 59 Intake and Output 05/17/20 05/18/20 19:00 07:00 Intake Total 120 ml Output Total 750 ml 1400 ml Balance -630 ml -1400 ml Intake Oral 120 ml Output Urine Total 750 ml 1400 ml Laboratory Tests Test 05/17/20 15:00 05/17/20 20:20 05/18/20 05:55 Urine Osmolality 368 mOsm/kg (429-449) L Urine Random Sodium 99 mmol/L (20-110) POC Whole Blood Glucose 114 MG/DL (74-106) H 86 MG/DL (74-106) Microbiology Date/Time Source Procedure Growth Status 05/17/20 15:00 Indwelling Cath Urine Culture - Preliminary NO GROWTH Resulted Height (Feet): 5 Height (Inches): 9.00 Weight (Pounds): 177 Medications Current Medications Medications (Trade) Dose Ordered Sig/Lauren Route PRN Reason Start Time Stop Time Status Last Admin Dose Admin Acetaminophen (Tylenol) 650 mg Q6H PRN ORAL For Headache 05/17/20 01:45 06/16/20 01:44 05/17/20 08:14 Amiodarone HCl (Cordarone) 200 mg DAILY ORAL 05/17/20 09:00 08/15/20 08:59 05/18/20 10:00 Aspirin (ASA) 81 mg DAILY ORAL 05/17/20 09:00 07/01/20 08:59 05/18/20 10:00 Atorvastatin Calcium (Lipitor) 80 mg BEDTIME ORAL 05/17/20 21:00 08/15/20 20:59 05/17/20 21:30 Calcium Carbonate (Os-Gabriele) 500 mg DAILY ORAL 05/17/20 09:00 08/15/20 08:59 05/18/20 09:59 Dextrose (Dextrose 50%) 25 ml Q30M PRN IV Hypoglycemia 05/17/20 01:45 08/15/20 01:44 Dextrose (Dextrose 50%) 50 ml Q30M PRN IV Hypoglycemia 05/17/20 01:45 08/15/20 01:44 Heparin Sodium (Porcine) (Heparin 5000 units/ml) 5,000 units EVERY 12 HOURS SUBQ 05/17/20 09:00 07/01/20 08:59 05/18/20 10:03 Insulin Aspart (NovoLOG) BEFORE MEALS AND HS SUBQ 05/17/20 06:30 08/15/20 06:29 Levothyroxine Sodium (Synthroid) 100 mcg ACBREAKFAST ORAL 05/17/20 06:30 06/16/20 06:29 05/18/20 06:20 Magnesium Oxide (Mag-Ox 400mg) 400 mg DAILY ORAL 05/17/20 09:00 06/16/20 08:59 05/18/20 10:01 Metoprolol Succinate (Toprol XL) 12.5 mg BID ORAL 05/17/20 18:00 08/15/20 17:59 05/18/20 10:01 Sertraline HCl (Zoloft) 25 mg DAILY ORAL 05/17/20 09:00 06/16/20 08:59 05/18/20 10:00 Sodium Chloride 1,000 ml @ 75 mls/hr [id number] IV 05/17/20 02:00 06/16/20 01:59 05/17/20 15:32 Assessment/Plan Assessment/Plan: Hematology Consultation REChapito MD: Jay Jack and Renan Chandra RFC: Anemia eval DOS 05/18/2020 ID This is a 74yo German speaking male who reported from [facility] for hyponatremia. He has a past medical history for hypertension, diabetes, hypothyroidism, hyperlipidemia and atrial fibrillation. He is AOx4. His baseline is bed bound. His serum sodium is 126 with a normal glucose. He has a stage II sacral ulceration. He has a mild UTI. His TSH was 45 in the ED. Remains anemic and I was consulted Allergies: No Known Allergies (Unverified , 03/01/20) COVID-19 Screening Contact w/high risk pt: Yes Recent Travel to affected area: No Experienced COVID-19 symptoms?: No Medication History Scheduled Amiodarone Hcl* (Cordarone*), 200 MG ORAL DAILY, (Reported) Ascorbic Acid* (Vitamin C*), 250 MG ORAL DAILY, (Reported) Aspirin* (Aspirin*), 81 MG ORAL DAILY, (Reported) Atorvastatin Calcium* (Lipitor*), 80 MG ORAL BEDTIME, (Reported) Calcium Carbonate (Oyster Shell Calcium), 500 MG PO DAILY, (Reported) Docusate Sodium* (Docusate Sodium*), 250 MG ORAL DAILY, (Reported) Levofloxacin* (Levofloxacin*), 750 MG ORAL DAILY Levothyroxine Sodium* (Synthorid*), 75 MCG ORAL DAILY, (Reported) Magnesium Oxide (Magnesium Oxide), 400 MG PO DAILY, (Reported) Metoprolol Succinate* (Metoprolol Succinate*), 12.5 MG ORAL BID, (Reported) Polyethylene Glycol 3350* (Miralax*), 17 GM ORAL DAILY, (Reported) Sertraline Hcl* (Sertraline Hcl*), 25 MG ORAL DAILY, (Reported) Sitagliptin* (Januvia*), 25 MG ORAL DAILY, (Reported) Scheduled PRN Meclizine Hcl* (Meclizine*), 12.5 MG ORAL TID PRN for for dizziness, (Reported) Patient History Healthcare decision maker Resuscitation status Advanced Directive on File Family History Family History: FH: CAD (coronary artery disease) Review of Systems As noted in hpi Physical Exam General Appearance: WD/WN, no apparent distress HEENT: normocephalic, atraumatic ++blind Neck: non-tender, supple Respiratory/Chest: chest wall non-tender, lungs clear Cardiovascular/Chest: normal peripheral pulses, normal rate Abdomen: normal bowel sounds, non tender Current Medications Medications (Trade) Dose Ordered Sig/Lauren Route PRN Reason Start Time Stop Time Status Last Admin Dose Admin Heparin Sodium (Porcine) (Heparin 5000 units/ml) 5,000 units EVERY 12 HOURS SUBQ 05/17/20 09:00 07/01/20 08:59 Levothyroxine Sodium (Synthroid) 50 mcg DAILY ONCE IV 05/17/20 09:00 05/17/20 09:01 05/16/20 22:03 Labs: reviewed Imaging: noted Assessment and recs # Anemia of chronic disease due to underlying chronic medical issues, multifactorial v Gi bleed --> Anemia workup has been ordered, rule out gi bleed --> No evidence of hemolysis is noted, peripheral smear has been reviewed. --> Hgb goal >7. Transfuse prn. --> Epogen or iron at this time is not particularly indicated --> Medications have been reviewed --> low threshold for gi evaluation in case has occult + --> hgb .5-->7.8 # Dehydration with Hyponatremia --> Likely an hypothyroidism component --> ivfs started per renal, Uosm, Serum Osm, Urine Na # HTN --> Hold Metoprolol 12.5mg BID # Hypothyroidism --> Increase Levothyroxine 100mcg daily --> Obtain FT4 level # UTI --> Start cefepime 1g BID --> shabazz # Sacral stage II ulceration - wound care consult --> per surg # Atrial fibrillation - continue amiodarone --> anticoag per cards prn # Diabetes - continue januvia and ISS # Hyperlipidemia - continue lipitor # Dvt ppx heparin sq The timing of this note does not necessarily reflect the time of the patient was seen. Greatly appreciate consultation. Rey Flaherty MD May 18, 2020 11:12
[2020-05-18 12:50] LABS: BASOPHILS % (AUTO) 0.5 % (0.0-2.0); EOSINOPHILS % (AUTO) 2.3 % (0.0-3.0); HEMATOCRIT 25.9 % (42.0-52.0); HEMOGLOBIN 8.4 G/DL (14.2-18.0); LYMPHOCYTES % (AUTO) 19.5 % (20.0-45.0); MEAN CORPUSCULAR VOLUME 100 FL (80-99); MONOCYTES % (AUTO) 7.7 % (1.0-10.0); NEUTROPHILS % (AUTO) 69.9 % (45.0-75.0); PLATELET COUNT 217 K/UL (150-450); RED BLOOD COUNT 2.59 M/UL (4.70-6.10); RED CELL DISTRIBUTION WIDTH 13.2 % (11.6-14.8); WHITE BLOOD COUNT 7.6 K/UL (4.8-10.8)
[2020-05-18 13:11] LABS: ANION GAP 7 mmol/L (5-15); BLOOD UREA NITROGEN 16 mg/dL (7-18); CALCIUM 7.2 MG/DL (8.5-10.1); CARBON DIOXIDE 21 MMOL/L (21-32); CHLORIDE 97 MMOL/L (98-107); CREATININE 1.1 MG/DL (0.55-1.30); PHOSPHORUS 2.6 MG/DL (2.5-4.9); POTASSIUM 4.9 MMOL/L (3.5-5.1); SODIUM 125 MMOL/L (136-145)
[2020-05-18 13:30] LABS: FERRITIN 622 NG/ML (8-388)
[2020-05-18 13:45] LABS: % IRON SATURATION 42 % (15-50); IRON 59 ug/dL (50-175); TOTAL IRON BINDING CAPACITY 140 ug/dL (250-450)
--- NOTE | 2020-05-18 13:47 | General Progress Note ---
Subjective ROS Limited/Unobtainable: Yes - confused, does not answer questions appropriately Allergies: Coded Allergies: No Known Allergies (Unverified , 03/01/20) Subjective no acute events overnight. Does not answer questions appropriately. No distress. Objective Last 24 Hour Vital Signs Date Time Temp Pulse Resp B/P (MAP) Pulse Ox O2 Delivery O2 Flow Rate FiO2 05/18/20 12:00 67 05/18/20 11:01 97.9 87 19 136/60 (85) 100 05/18/20 10:01 87 136/60 05/18/20 09:00 Room Air 05/18/20 08:00 66 05/18/20 04:00 97.5 66 16 138/64 (88) 98 05/18/20 04:00 63 05/18/20 00:00 64 05/18/20 00:00 97.5 66 16 143/78 (99) 98 05/17/20 20:00 59 05/17/20 20:00 96.6 66 16 140/70 (93) 100 05/17/20 20:00 Room Air 05/17/20 18:00 63 122/65 05/17/20 16:00 60 05/17/20 16:00 97.9 63 20 122/65 (84) 100 05/17/20 15:36 Room Air Intake and Output 05/17/20 05/18/20 19:00 07:00 Intake Total 120 ml Output Total 750 ml 1400 ml Balance -630 ml -1400 ml Intake Oral 120 ml Output Urine Total 750 ml 1400 ml Laboratory Tests 05/17/20 15:00: Urine Osmolality 368L, Urine Random Sodium 99 05/17/20 20:20: POC Whole Blood Glucose 114H 05/18/20 05:55: POC Whole Blood Glucose 86 05/18/20 11:53: POC Whole Blood Glucose 123H 05/18/20 12:00: White Blood Count 7.6, Red Blood Count 2.59L, Hemoglobin 8.4L, Hematocrit 25.9L, Mean Corpuscular Volume 100H, Mean Corpuscular Hemoglobin 32.4H, Mean Corpuscular Hemoglobin Concent 32.4, Red Cell Distribution Width 13.2, Platelet Count 217, Mean Platelet Volume 6.4L, Neutrophils (%) (Auto) 69.9, Lymphocytes (%) (Auto) 19.5L, Monocytes (%) (Auto) 7.7, Eosinophils (%) (Auto) 2.3, Basophils (%) (Auto) 0.5, Reticulocyte Count 0.8, Sodium Level 125L, Potassium Level 4.9, Chloride Level 97L, Carbon Dioxide Level 21, Anion Gap 7, Blood Urea Nitrogen 16, Creatinine 1.1, Estimat Glomerular Filtration Rate > 60, Glucose Level 120H, Calcium Level 7.2L, Phosphorus Level 2.6, Magnesium Level 1.9, Iron Level [Pending], Unsaturated Iron Binding [Pending], Ferritin 622H Height (Feet): 5 Height (Inches): 9.00 Weight (Pounds): 177 General Appearance: no apparent distress, alert, confused EENT: PERRL/EOMI Neck: non-tender, supple Cardiovascular: normal rate, regular rhythm, no JVD Respiratory/Chest: lungs clear, normal breath sounds, respiratory distress Abdomen: normal bowel sounds, non tender, soft Edema: no edema noted Arm (L), no edema noted Arm (R), no edema noted Leg (L), no edema noted Leg (R), no edema noted Pedal (L), no edema noted Pedal (R), no edema noted Generalized Neurologic: alert, disoriented Skin: normal pigmentation, warm/dry Assessment/Plan Assessment/Plan: Mr. Rodriguez is 74 years old male with past medical history of hypertension, diabetes mellitus, chronic kidney disease, suprapubic catheter due to urinary retention admitted for hyponatremia from [facility]. A: # Hypo-osmotic Hypovolemic hyponatremia2/2 poor oral intake # Chronic Encephalopathy # Subclinical Hypothyroidism # Paroxysmal Afib on anticoagulation # Hx of Left Soleal DVT # Chronic HFrEF 2/2 ischemic cardiomyopathy - hypovolemic # Hx of CAD s/p Stents # Severe Gastritis # Essential hypertension # Pre-Diabetes mellitus # CKD # Suprapubic catheter # Normocytic anemia 2/2 likely ACD versus CKD # ?Dementia # Depression # HLD P: - hemodynamically stable - IVF - monitor sodium levels - urine studies reviewed - UA positive for angie, colonization - will restart Xarelto from previous admission 1 week ago, colonoscopy/EGD completed and hemoclip of colon ulcer completed, cleared by GI for anti-coag - continue home metoprolol 12.5 mg BID, ?amiodarone 200 mg daily - will have cardiology eval if continued need for amiodarone, may be worsening his hypothyroidism - increased Levothyroxine 75 > 100 mcg - continue atorvastatin - continue sertraline - consulted Dr. Huertas, nephrology, recs appreciated - consulted Dr. Irwin, cardiology, recs appreciated - consulted Dr. Oakley, gen surgery, recs appreciated - consulted Dr. Flaherty, Heme/onc, recs appreciated - CM Code: Full DVT: Xarelto Diet: regular GI: PPI Dispo: back to SNF with resolution of hyponatremia Time spent on this encounter was 41 minutes which included 25 minutes of counseling and care coordination. I discussed with the nurse at bedside. Time of note may not reflect time patient was seen. Renan Chandra D.O May 18, 2020 13:47
[2020-05-18] MEDS: Xarelto 10mg tab ORAL SCH (14:35)
[2020-05-18 16:00] VITALS: BP 107/49
--- NOTE | 2020-05-18 16:05 | Cardiac Electrophysiology PN ---
Subjective Subjective [id number] Objective Last 24 Hour Vital Signs Date Time Temp Pulse Resp B/P (MAP) Pulse Ox O2 Delivery O2 Flow Rate FiO2 05/18/20 12:00 67 05/18/20 11:01 97.9 87 19 136/60 (85) 100 05/18/20 10:01 87 136/60 05/18/20 09:00 Room Air 05/18/20 08:00 66 05/18/20 04:00 97.5 66 16 138/64 (88) 98 05/18/20 04:00 63 05/18/20 00:00 64 05/18/20 00:00 97.5 66 16 143/78 (99) 98 05/17/20 20:00 59 05/17/20 20:00 96.6 66 16 140/70 (93) 100 05/17/20 20:00 Room Air 05/17/20 18:00 63 122/65 Intake and Output 05/17/20 05/18/20 19:00 07:00 Intake Total 120 ml Output Total 750 ml 1400 ml Balance -630 ml -1400 ml Intake Oral 120 ml Output Urine Total 750 ml 1400 ml Laboratory Tests Test 05/17/20 20:20 05/18/20 05:55 05/18/20 11:53 05/18/20 12:00 POC Whole Blood Glucose 114 MG/DL (74-106) H 86 MG/DL (74-106) 123 MG/DL (74-106) H White Blood Count 7.6 K/UL (4.8-10.8) Red Blood Count 2.59 M/UL (4.70-6.10) L Hemoglobin 8.4 G/DL (14.2-18.0) L Hematocrit 25.9 % (42.0-52.0) L Mean Corpuscular Volume 100 FL (80-99) H Mean Corpuscular Hemoglobin 32.4 PG (27.0-31.0) H Mean Corpuscular Hemoglobin Concent 32.4 G/DL (32.0-36.0) Red Cell Distribution Width 13.2 % (11.6-14.8) Platelet Count 217 K/UL (150-450) Mean Platelet Volume 6.4 FL (6.5-10.1) L Neutrophils (%) (Auto) 69.9 % (45.0-75.0) Lymphocytes (%) (Auto) 19.5 % (20.0-45.0) L Monocytes (%) (Auto) 7.7 % (1.0-10.0) Eosinophils (%) (Auto) 2.3 % (0.0-3.0) Basophils (%) (Auto) 0.5 % (0.0-2.0) Reticulocyte Count 0.8 % (0.5-2.0) Sodium Level 125 MMOL/L (136-145) L Potassium Level 4.9 MMOL/L (3.5-5.1) Chloride Level 97 MMOL/L (98-107) L Carbon Dioxide Level 21 MMOL/L (21-32) Anion Gap 7 mmol/L (5-15) Blood Urea Nitrogen 16 mg/dL (7-18) Creatinine 1.1 MG/DL (0.55-1.30) Estimat Glomerular Filtration Rate > 60 mL/min (>60) Glucose Level 120 MG/DL (74-106) H Calcium Level 7.2 MG/DL (8.5-10.1) L Phosphorus Level 2.6 MG/DL (2.5-4.9) Magnesium Level 1.9 MG/DL (1.8-2.4) Iron Level 59 ug/dL (50-175) Total Iron Binding Capacity 140 ug/dL (250-450) L Percent Iron Saturation 42 % (15-50) Unsaturated Iron Binding 81 ug/dL (112-346) L Ferritin 622 NG/ML (8-388) H Microbiology Date/Time Source Procedure Growth Status 05/17/20 15:00 Indwelling Cath Urine Culture - Preliminary NO GROWTH Resulted 05/16/20 22:50 Rectum Received 05/16/20 19:40 Urine,Clean Catch Urine Culture - Final Chaparrita Albicans Complete 05/16/20 19:30 Nasopharynx SARS-CoV-2 RdRp Gene Assay - Final Complete Sergio Irwin MD May 18, 2020 16:05
--- NOTE | 2020-05-18 17:39 | Nephrology Progress Note ---
Assessment/Plan Plan #Hyponatemia - susepct hypovolumic - vs due to hypothyroid state- vs SIADH #hypothyroidism-freeT4 WNL #HTN #afib #HLD #GERD #depression - DC IVF - add salt tab 1g TID - continue levothyroxine 100mcg daily - consider holding sertraline - monitor BMP - check metop 12.5 BID - monitor UOP - check bmp daily Subjective ROS Limited/Unobtainable: No Constitutional: Reports: weakness HEENT: Denies: no symptoms, eye pain, blurred vision, tearing, double vision, ear pain, ear discharge, nose pain, nose congestion, throat pain, throat swelling, mouth pain, mouth swelling, other Genitourinary: Denies: no symptoms, burning, discharge, frequency, flank pain, hematuria, incontinence, pain, urgency, other Neurologic/Psychiatric: Denies: no symptoms, anxiety, depressed, emotional problems, headache, numbness, paresthesia, pre-existing deficit, seizure, tingling, tremors, weakness, other Subjective urine chem consistent with SIADH Objective Objective Last 24 Hour Vital Signs Date Time Temp Pulse Resp B/P (MAP) Pulse Ox O2 Delivery O2 Flow Rate FiO2 05/18/20 17:23 76 107/49 05/18/20 12:00 67 05/18/20 11:01 97.9 87 19 136/60 (85) 100 05/18/20 10:01 87 136/60 05/18/20 09:00 Room Air 05/18/20 08:00 66 05/18/20 04:00 97.5 66 16 138/64 (88) 98 05/18/20 04:00 63 05/18/20 00:00 64 05/18/20 00:00 97.5 66 16 143/78 (99) 98 05/17/20 20:00 59 05/17/20 20:00 96.6 66 16 140/70 (93) 100 05/17/20 20:00 Room Air 05/17/20 18:00 63 122/65 Intake and Output 05/17/20 05/18/20 19:00 07:00 Intake Total 120 ml Output Total 750 ml 1400 ml Balance -630 ml -1400 ml Intake Oral 120 ml Output Urine Total 750 ml 1400 ml Laboratory Tests 05/17/20 20:20: POC Whole Blood Glucose 114H 05/18/20 05:55: POC Whole Blood Glucose 86 05/18/20 11:53: POC Whole Blood Glucose 123H 05/18/20 12:00: White Blood Count 7.6, Red Blood Count 2.59L, Hemoglobin 8.4L, Hematocrit 25.9L, Mean Corpuscular Volume 100H, Mean Corpuscular Hemoglobin 32.4H, Mean Corpuscular Hemoglobin Concent 32.4, Red Cell Distribution Width 13.2, Platelet Count 217, Mean Platelet Volume 6.4L, Neutrophils (%) (Auto) 69.9, Lymphocytes (%) (Auto) 19.5L, Monocytes (%) (Auto) 7.7, Eosinophils (%) (Auto) 2.3, Basophils (%) (Auto) 0.5, Reticulocyte Count 0.8, Sodium Level 125L, Potassium Level 4.9, Chloride Level 97L, Carbon Dioxide Level 21, Anion Gap 7, Blood Urea Nitrogen 16, Creatinine 1.1, Estimat Glomerular Filtration Rate > 60, Glucose Level 120H, Calcium Level 7.2L, Phosphorus Level 2.6, Magnesium Level 1.9, Iron Level 59, Total Iron Binding Capacity 140L, Percent Iron Saturation 42, Unsaturated Iron Binding 81L, Ferritin 622H 05/18/20 16:37: POC Whole Blood Glucose 125H Height (Feet): 5 Height (Inches): 9.00 Weight (Pounds): 177 General Appearance: no apparent distress, alert EENT: PERRL/EOMI, normal ENT inspection Neck: non-tender, normal alignment Cardiovascular: normal peripheral pulses, normal rate Respiratory/Chest: chest wall non-tender, lungs clear Abdomen: normal bowel sounds, non tender, soft Neurologic: alert, oriented x 3 Jered Huertas M.D. May 18, 2020 17:39
[2020-05-18] MEDS: Sodium Chloride 1gm Tab ORAL SCH (18:16)
--- NOTE | 2020-05-18 18:45 | Surgery Progress Note ---
Surgery Progress Note Subjective Additional Comments labs improved resting but does not respond to commands no n/v Objective Last 24 Hour Vital Signs Date Time Temp Pulse Resp B/P (MAP) Pulse Ox O2 Delivery O2 Flow Rate FiO2 05/18/20 17:23 76 107/49 05/18/20 16:00 96.9 87 19 107/49 (68) 96 05/18/20 16:00 63 05/18/20 12:00 67 05/18/20 11:01 97.9 87 19 136/60 (85) 100 05/18/20 10:01 87 136/60 05/18/20 09:00 Room Air 05/18/20 08:00 66 05/18/20 04:00 97.5 66 16 138/64 (88) 98 05/18/20 04:00 63 05/18/20 00:00 64 05/18/20 00:00 97.5 66 16 143/78 (99) 98 05/17/20 20:00 59 05/17/20 20:00 96.6 66 16 140/70 (93) 100 05/17/20 20:00 Room Air I&O Intake and Output 05/17/20 05/18/20 19:00 07:00 Intake Total 120 ml Output Total 750 ml 1400 ml Balance -630 ml -1400 ml Intake Oral 120 ml Output Urine Total 750 ml 1400 ml Dressing: saturated Cardiovascular: RSR Respiratory: decreased breath sounds Abdomen: non-tender, present bowel sounds Extremities: no tenderness, no cyanosis Laboratory Tests Test 05/17/20 20:20 05/18/20 05:55 05/18/20 11:53 05/18/20 12:00 POC Whole Blood Glucose 114 MG/DL (74-106) H 86 MG/DL (74-106) 123 MG/DL (74-106) H White Blood Count 7.6 K/UL (4.8-10.8) Red Blood Count 2.59 M/UL (4.70-6.10) L Hemoglobin 8.4 G/DL (14.2-18.0) L Hematocrit 25.9 % (42.0-52.0) L Mean Corpuscular Volume 100 FL (80-99) H Mean Corpuscular Hemoglobin 32.4 PG (27.0-31.0) H Mean Corpuscular Hemoglobin Concent 32.4 G/DL (32.0-36.0) Red Cell Distribution Width 13.2 % (11.6-14.8) Platelet Count 217 K/UL (150-450) Mean Platelet Volume 6.4 FL (6.5-10.1) L Neutrophils (%) (Auto) 69.9 % (45.0-75.0) Lymphocytes (%) (Auto) 19.5 % (20.0-45.0) L Monocytes (%) (Auto) 7.7 % (1.0-10.0) Eosinophils (%) (Auto) 2.3 % (0.0-3.0) Basophils (%) (Auto) 0.5 % (0.0-2.0) Reticulocyte Count 0.8 % (0.5-2.0) Sodium Level 125 MMOL/L (136-145) L Potassium Level 4.9 MMOL/L (3.5-5.1) Chloride Level 97 MMOL/L (98-107) L Carbon Dioxide Level 21 MMOL/L (21-32) Anion Gap 7 mmol/L (5-15) Blood Urea Nitrogen 16 mg/dL (7-18) Creatinine 1.1 MG/DL (0.55-1.30) Estimat Glomerular Filtration Rate > 60 mL/min (>60) Glucose Level 120 MG/DL (74-106) H Osmolality Pending Calcium Level 7.2 MG/DL (8.5-10.1) L Phosphorus Level 2.6 MG/DL (2.5-4.9) Magnesium Level 1.9 MG/DL (1.8-2.4) Iron Level 59 ug/dL (50-175) Total Iron Binding Capacity 140 ug/dL (250-450) L Percent Iron Saturation 42 % (15-50) Unsaturated Iron Binding 81 ug/dL (112-346) L Ferritin 622 NG/ML (8-388) H Test 05/18/20 16:37 POC Whole Blood Glucose 125 MG/DL (74-106) H Plan Problems: (1) Hyponatremia (2) Dehydration Assessment & Plan: DAILY ESTIMATED NEEDS: Needs based on Wound, 77kg 25-30 kcals/kg 1396-7529 total kcals 1.25-2 g protein/kg 96-154 g total protein 25-30 mL/kg 4895-1019 total fluid mLs NUTRITION DIAGNOSIS: Increased kcal and prot needs r/t wound healing as evidenced by admitted w/ multiple wounds, eval pending, including stage 4 L-heel pressure injury as per recent adm. CURRENT DIET: CCHO LOW, mech soft finely chopped PO DIET RECOMMENDATIONS: CCHO MED/ texture as tolerated ADDITIONAL RECOMMENDATIONS: 1) Wound care: add MVI w/ mineral x 1, Vit C 500mg BID Mikey BID added to tray, f/up w/ WC eval 2) TIMBER TREATING TANK OPERATOR eval for appropriate texture 3) Monitor Na, need for fluid restriction (126 -> 128) 4) Monitor PO intake closely -> add Glucerna x 1 at this time 5) Calibrated bedscale wt (3) UTI (urinary tract infection) (4) Suprapubic catheter (5) Renal failure (ARF), acute on chronic (6) Osteomyelitis (7) Uncontrolled diabetes mellitus (8) Hypothyroidism (9) Diabetes mellitus (10) Sacral decubitus ulcer Assessment & Plan: Pt presented on admission with multiple Pressure Injuries. Resolving Pressure Sacral Pressure Injury.Clusters of full thickness pressure ulcers in close proximity that are moist and pink at bases. Surrounding maroon borders but without induration.(L)10.5cm x (W)10cm. BIlat lower ext are edematous. DTPI distal/lateral L Tibia(L)11.4cm x (W)2.7cm. Base of injury is purpuric with maroon borders. DTPI lateral L Malleolus(L)1cm x (W)0.7cm. Base of injury is maroon and indurated. Non-Blanchable erythema without induration or fluctuance medial L foot (L)1.6cm x (W)1cm. Unstageable Pressure injury R heel(L)7.7cm x (W)6.8cm. Base of is 70%necrotic a nd dry,10% slough with remaining 20% alyssia base. Marginal erythema along edges.Periwound is fluctuant with pale skin color. DTPI Lateral R Malleolus(L)2.6cm x (W)1.4cm. Base of injury is purpuric with maroon borders. DTPI medial R Malleolus(L)2.5cm x (W)2.4cm. Base of injury is purpuric with maroon borders. DTPI medial R foot (L)1.3cm x (W)3.6cm. Base of injury is indurated purpuric with surrounding maroon borders that are irregular. DTPI lateral R foot (L)0.7cm x (W)0.9cm. Base of injury is maroon in colour with marginal erythema. DTPI noted to tip of R 1st metatarsal(L)1.4cm x (W)1.2cm. Base of injury presents as an intact blood Blister. Unstageable Pressure injury lateral R 1st metatarsal(L)0.5cm x (W)0.8cm. Dry eschar with marginal erythema along edges. DTPI tip of R 2nd metatarsal.(L)1cm x (W)1.3cm. Base of injury presents as an intact blood blister with marginal erythema along edges. Surgical incisions noted to R hip, R femur and R knee. Incision sites approximated with oswaldo that are intact and dry. No erythema noted. Tx.Plan: Apply Moisture Barrier Paste to Sacrum. Cover with Optifoam drsgs. Change every 3 days and prn. Apply Betadine to DTPI's L Tibia, R and L feet. Cover each site with Optifoam drsgs. Change every 7 days and prn. Cleanse R Heel with Saline. Apply TheraHoney.Apply Maxsorb Extra(calcium Alginate. Apply Cavilon Skin Barrier periwound. Cover with Abd Pad and wrap with Kerlix Daily and prn. Reposition at least every 2hours or as tolerated. Off-load heels with pillows. nutritional optimization (11) Renal insufficiency (12) Suprapubic catheter dysfunction (13) BPH (benign prostatic hyperplasia) (14) Urinary retention Guy Oakley May 18, 2020 18:45
[2020-05-18 20:00] VITALS: BP 125/56
[2020-05-18] MEDS: Atorvastatin 80mg tab ORAL SCH (20:34)
--- NOTE | 2020-05-18 20:45 | Consultation ---
DATE OF CONSULTATION: 05/18/2020 CARDIOLOGY CONSULTATION CONSULTING PHYSICIAN: Sergio Irwin MD REFERRING PHYSICIAN: Lizbet Jack MD REASON FOR CONSULTATION: Management of hypertension and atrial fibrillation. HISTORY OF PRESENT ILLNESS: Patient is a 74-year-old Urdu-speaking gentleman who was transferred from [facility] for abnormal laboratories including hyponatremia. Patient's sodium was 125. Patient also has history of anemia and is on amiodarone and Xarelto at nursing home facility for atrial fibrillation. Patient is bed bound at baseline. Has stage II sacral decubitus. His TSH was 45. REVIEW OF SYSTEMS: Negative other than what was mentioned in the history of present illness. PAST MEDICAL HISTORY: As mentioned above. FAMILY HISTORY: Noncontributory. SOCIAL HISTORY: He is a prison patient. Does not smoke or drink alcohol. PHYSICAL EXAMINATION: VITAL SIGNS: Show blood pressure of 136/60, pulse is 80, respirations 18, temperature 98. HEAD AND NECK: Shows no JVD. LUNGS: Clear. CARDIOVASCULAR: Shows regular S1 and S2 with no gallop or murmur. ABDOMEN: Soft. EXTREMITIES: Right heel ulcer dressing. LABORATORY AND DIAGNOSTIC DATA: His EKG shows sinus rhythm with first-degree AV block. Labs show white count of , hematocrit 26, platelet count is 217. Sodium 125, potassium 4.9, BUN of 16, creatinine 1.1, glucose of 120. INR is 1.1. Urinalysis showed 3+ leukocyte esterase with many bacteria, 4+ blood. ASSESSMENT AND PLAN: 1. Paroxysmal atrial fibrillation based on records. Continue Xarelto 20 mg daily and Toprol-XL 12.5 mg b.i.d. Continue amiodarone at this time. We will ask international project engineer's opinion regarding continuation of patient's amiodarone in view of hypothyroidism, but in the meantime patient is being replaced by Synthroid. 2. Hypertension. Blood pressure is stable on Toprol 12.5 mg b.i.d. 3. Hyperlipidemia, on Lipitor. 4. Questionable coronary artery disease. Patient denies any prior myocardial infarction, but he is not very reliable. Continue Toprol and Lipitor and hold off on aspirin while the patient is anemic and he is also on Xarelto. 5. Diabetes. 6. Foot ulcer and sepsis, on IV antibiotics. 7. Hyponatremia. Sodium 125. Decrease free water intake. Further evaluation by Nephrology. It is of note that patient's first troponin is negative. We will repeat the troponin in the morning as well. Thank you very much for allowing me to participate in the care of this patient. Please do not hesitate to contact me for any questions regarding my evaluation. Sergio Irwin M.D. DR: MOLLY JOB#: [id number] CC:
--- NOTE | 2020-05-18 22:49 | CDS Physician Query ---
Clarification is required for compliance, coding accuracy, and to reflect severity of illness for this patient Dear Kosta Young D.O Date: 05/18/2020 CDI/CDS Name: Justo Han Clinical Documentation Statement: "74yo Lao speaking male who reported from [facility] for hyponatremia. " [ H& P Kosta Hall D.O.May 17, 2020 01:58] ASSESSMENT: Hyponatremia, UTI, Sacral stage II ulceration , Atrial fibrillation, Diabetes, Hyperlipidemia NUTRITION DIAGNOSIS: Increased kcal and prot needs r/t wound healing as evidenced by admitted w/ multiple wounds, eval pending, including stage 4 L-heel pressure injury as per recent adm. Clinical Finding Show: BMI: 26.1kg/m2 LAB (05/01) : Chem: Albumin 2.2 [3.4-5.0], Calcium 7.7 [ 8.5-10.1] Medication: Dextrose 50ml IV [] Protein/Calorie Malnutrition [] Mild [] Moderate [] Severe [] Other [] Unable to determine [] Not Applicable Present on Admission: [] Yes [] No [] Clinically Undetermined Physician signature Date Please also document in your Progress Notes and/or Discharge Summary and indicate if the condition was present on admission. MTDD
[2020-05-19] VITALS: BP 117/62
[2020-05-19 04:00] VITALS: BP 113/55
[2020-05-19] MEDS: NovoLOG Insulin Flexpen SUBQ SCH ×4 (06:19→21:00)
--- NOTE | 2020-05-19 06:49 | Hematology/Onc Progress Note ---
Assessment/Plan Assessment/Plan Assessment and recs # Anemia of chronic disease due to underlying chronic medical issues, multifactorial v Gi bleed --> Anemia workup has been ordered, rule out gi bleed --> No evidence of hemolysis is noted, peripheral smear has been reviewed. no hemolysis. --> Hgb goal >7. Transfuse prn. --> Epogen or iron at this time is not particularly indicated --> Medications have been reviewed --> low threshold for gi evaluation in case has occult + --> hgb 7.5-->7.8-->8.4 # Dehydration with Hyponatremia --> Likely an hypothyroidism component --> ivfs started per renal, Uosm, Serum Osm, Urine Na # HTN --> Hold Metoprolol 12.5mg BID # Hypothyroidism --> Increase Levothyroxine 100mcg daily --> Obtain FT4 level # UTI --> shabazz --> off abx # Sacral stage II ulceration - wound care consult --> per surg # Atrial fibrillation - continue amiodarone --> anticoag per cards prn --> on xarelto # Diabetes - continue januvia and ISS # Hyperlipidemia - continue lipitor # Dvt ppx xarelto The timing of this note does not necessarily reflect the time of the patient was seen. Greatly appreciate consultation. Subjective HEENT: Denies: no symptoms, eye pain, blurred vision, tearing, double vision, ear pain, ear discharge, nose pain, nose congestion, throat pain, throat swelling, mouth pain, mouth swelling, other Cardiovascular: Denies: no symptoms, chest pain, edema, irregular heart rate, lightheadedness, palpitations, syncope, other Respiratory: Denies: no symptoms, cough, shortness of breath, SOB with excerti on, SOB at rest, sputum, wheezing, other Gastrointestinal/Abdominal: Denies: no symptoms, abdomen distended, abdominal pain, black stools, tarry stools, blood in stool, constipated, diarrhea, difficulty swallowing, nausea, poor appetite, poor fluid intake, rectal bleeding, vomiting, other Genitourinary: Denies: no symptoms, burning, discharge, frequency, flank pain, hematuria, incontinence, pain, urgency, other Neurologic/Psychiatric: Denies: no symptoms, anxiety, depressed, emotional problems, headache, numbness, paresthesia, pre-existing deficit, seizure, tingling, tremors, weakness, other Hematologic/Lymphatic: Denies: no symptoms, anemia, easy bleeding, easy bruising, adenopathy, other Allergies: Coded Allergies: No Known Allergies (Unverified , 03/01/20) Subjective 05/19 meds noted, no bleeding, penis head erythematous, has been cleaned with rn Objective Objective Current Medications Medications (Trade) Dose Ordered Sig/Lauren Route PRN Reason Start Time Stop Time Status Last Admin Dose Admin Acetaminophen (Tylenol) 650 mg Q6H PRN ORAL For Headache 05/17/20 01:45 06/16/20 01:44 05/17/20 08:14 Amiodarone HCl (Cordarone) 200 mg DAILY ORAL 05/17/20 09:00 08/15/20 08:59 05/18/20 10:00 Atorvastatin Calcium (Lipitor) 80 mg BEDTIME ORAL 05/17/20 21:00 08/15/20 20:59 05/18/20 20:34 Calcium Carbonate (Os-Gabriele) 500 mg DAILY ORAL 05/17/20 09:00 08/15/20 08:59 05/18/20 09:59 Dextrose (Dextrose 50%) 25 ml Q30M PRN IV Hypoglycemia 05/17/20 01:45 08/15/20 01:44 Dextrose (Dextrose 50%) 50 ml Q30M PRN IV Hypoglycemia 05/17/20 01:45 08/15/20 01:44 Insulin Aspart (NovoLOG) BEFORE MEALS AND HS SUBQ 05/17/20 06:30 08/15/20 06:29 Levothyroxine Sodium (Synthroid) 100 mcg ACBREAKFAST ORAL 05/17/20 06:30 06/16/20 06:29 05/19/20 06:28 Magnesium Oxide (Mag-Ox 400mg) 400 mg DAILY ORAL 05/17/20 09:00 06/16/20 08:59 05/18/20 10:01 Metoprolol Succinate (Toprol XL) 12.5 mg BID ORAL 05/17/20 18:00 08/15/20 17:59 05/18/20 17:23 Pantoprazole (Protonix) 40 mg DAILY ORAL 05/19/20 09:00 06/18/20 08:59 Rivaroxaban (Xarelto) 20 mg DAILY ORAL 05/18/20 14:15 08/16/20 14:14 05/18/20 14:35 Sertraline HCl (Zoloft) 25 mg DAILY ORAL 05/17/20 09:00 06/16/20 08:59 05/18/20 10:00 Sodium Chloride (NaCl) 1 gm THREE TIMES A DAY ORAL 05/18/20 18:00 06/17/20 17:59 05/18/20 18:16 Last 24 Hour Vital Signs Date Time Temp Pulse Resp B/P (MAP) Pulse Ox O2 Delivery O2 Flow Rate FiO2 05/19/20 04:00 97.5 58 20 113/55 (74) 98 05/19/20 04:00 58 05/19/20 00:00 59 05/19/20 00:00 97.9 60 16 117/62 (80) 99 05/18/20 21:00 Room Air 05/18/20 20:00 62 05/18/20 20:00 97.5 63 16 125/56 (79) 98 05/18/20 17:23 76 107/49 05/18/20 16:00 96.9 87 19 107/49 (68) 96 05/18/20 16:00 63 05/18/20 12:00 67 05/18/20 11:01 97.9 87 19 136/60 (85) 100 05/18/20 10:01 87 136/60 05/18/20 09:00 Room Air 05/18/20 08:00 66 05/18/20 04:00 97.5 66 16 138/64 (88) 98 05/18/20 04:00 63 05/18/20 00:00 64 05/18/20 00:00 97.5 66 16 143/78 (99) 98 05/17/20 20:00 59 05/17/20 20:00 96.6 66 16 140/70 (93) 100 05/17/20 20:00 Room Air 05/17/20 18:00 63 122/65 05/17/20 16:00 60 05/17/20 16:00 97.9 63 20 122/65 (84) 100 05/17/20 15:36 Room Air 05/17/20 12:00 Room Air 05/17/20 12:00 97.9 61 19 113/45 (67) 100 11/7/20 12:00 59 05/17/20 08:00 Room Air 05/17/20 08:00 97.7 64 20 101/58 (72) 97 05/17/20 08:00 59 Intake and Output 05/18/20 05/19/20 19:00 07:00 Intake Total 1040 ml Output Total 650 ml 1100 ml Balance 390 ml -1100 ml Intake Oral 1040 ml Output Urine Total 650 ml 1100 ml Labs Test 05/16/20 19:40 05/16/20 19:45 05/16/20 20:00 05/17/20 02:50 Urine Color Pale yellow Urine Appearance Clear Urine pH 8 (4.5-8.0) Urine Specific [place] 1.010 (1.005-1.035) Urine Protein Negative (NEGATIVE) Urine Glucose (UA) Negative (NEGATIVE) Urine Ketones Negative (NEGATIVE) Urine Blood 4+ (NEGATIVE) Urine Nitrite Negative (NEGATIVE) Urine Bilirubin Negative (NEGATIVE) Urine Urobilinogen Normal MG/DL (0.0-1.0) Urine Leukocyte Esterase 3+ (NEGATIVE) Urine RBC 5-10 /HPF (0 - 0) Urine WBC 20-30 /HPF (0 - 0) Urine Squamous Epithelial Cells None /LPF (NONE/OCC) Urine Bacteria Few /HPF (NONE) Urine Yeast Few /HPF (NONE) POC Whole Blood Glucose 105 MG/DL (74-106) White Blood Count 9.0 K/UL (4.8-10.8) 8.0 K/UL (4.8-10.8) Red Blood Count 2.62 M/UL (4.70-6.10) 2.35 M/UL (4.70-6.10) Hemoglobin 8.5 G/DL (14.2-18.0) 7.6 G/DL (14.2-18.0) Hematocrit 25.3 % (42.0-52.0) 23.1 % (42.0-52.0) Mean Corpuscular Volume 96 FL (80-99) 98 FL (80-99) Mean Corpuscular Hemoglobin 32.4 PG (27.0-31.0) 32.1 PG (27.0-31.0) Mean Corpuscular Hemoglobin Concent 33.6 G/DL (32.0-36.0) 32.8 G/DL (32.0-36.0) Red Cell Distribution Width 13.0 % (11.6-14.8) 13.0 % (11.6-14.8) Platelet Count 256 K/UL (150-450) 212 K/UL (150-450) Mean Platelet Volume 6.2 FL (6.5-10.1) 6.5 FL (6.5-10.1) Neutrophils (%) (Auto) 70.4 % (45.0-75.0) % (45.0-75.0) Lymphocytes (%) (Auto) 19.1 % (20.0-45.0) % (20.0-45.0) Monocytes (%) (Auto) 7.0 % (1.0-10.0) % (1.0-10.0) Eosinophils (%) (Auto) 2.7 % (0.0-3.0) % (0.0-3.0) Basophils (%) (Auto) 0.8 % (0.0-2.0) % (0.0-2.0) Prothrombin Time 11.8 SEC (9.30-11.50) Prothromb Time International Ratio 1.1 (0.9-1.1) Activated Partial Thromboplast Time 32 SEC (23-33) Sodium Level 126 MMOL/L (136-145) 128 MMOL/L (136-145) Potassium Level 5.0 MMOL/L (3.5-5.1) 4.4 MMOL/L (3.5-5.1) Chloride Level 95 MMOL/L (98-107) 98 MMOL/L (98-107) Carbon Dioxide Level 26 MMOL/L (21-32) 21 MMOL/L (21-32) Anion Gap 5 mmol/L (5-15) 9 mmol/L (5-15) Blood Urea Nitrogen 20 mg/dL (7-18) 17 mg/dL (7-18) Creatinine 1.3 MG/DL (0.55-1.30) 1.2 MG/DL (0.55-1.30) Estimat Glomerular Filtration Rate 53.8 mL/min (>60) 59.0 mL/min (>60) Glucose Level 117 MG/DL (74-106) 109 MG/DL (74-106) Calcium Level 7.7 MG/DL (8.5-10.1) 7.1 MG/DL (8.5-10.1) Total Bilirubin 0.2 MG/DL (0.2-1.0) Aspartate Amino Transf (AST/SGOT) 40 U/L (15-37) Alanine Aminotransferase (ALT/SGPT) 26 U/L (12-78) Alkaline Phosphatase 124 U/L (46-116) Troponin I 0.008 ng/mL (0.000-0.056) Total Protein 6.4 G/DL (6.4-8.2) Albumin 2.2 G/DL (3.4-5.0) Globulin 4.2 g/dL Albumin/Globulin Ratio 0.5 (1.0-2.7) Thyroid Stimulating Hormone (TSH) 41.289 uiU/mL (0.358-3.740) Differential Total Cells Counted 100 Neutrophils % (Manual) 73 % (45-75) Lymphocytes % (Manual) 15 % (20-45) Monocytes % (Manual) 9 % (1-10) Eosinophils % (Manual) 3 % (0-3) Basophils % (Manual) 0 % (0-2) Band Neutrophils 0 % (0-8) Platelet Estimate Adequate Platelet Morphology Normal Hypochromasia 1+ Osmolality 263 mOsm/kg (297-317) Free Thyroxine 1.22 NG/DL (0.76-1.46) Test 05/17/20 05:58 05/17/20 08:30 05/17/20 15:00 05/17/20 20:20 POC Whole Blood Glucose 104 MG/DL (74-106) 114 MG/DL (74-106) White Blood Count 7.5 K/UL (4.8-10.8) Red Blood Count 2.39 M/UL (4.70-6.10) Hemoglobin 7.8 G/DL (14.2-18.0) Hematocrit 23.6 % (42.0-52.0) Mean Corpuscular Volume 99 FL (80-99) Mean Corpuscular Hemoglobin 32.7 PG (27.0-31.0) Mean Corpuscular Hemoglobin Concent 33.1 G/DL (32.0-36.0) Red Cell Distribution Width 13.0 % (11.6-14.8) Platelet Count 221 K/UL (150-450) Mean Platelet Volume 6.2 FL (6.5-10.1) Neutrophils (%) (Auto) % (45.0-75.0) Lymphocytes (%) (Auto) % (20.0-45.0) Monocytes (%) (Auto) % (1.0-10.0) Eosinophils (%) (Auto) % (0.0-3.0) Basophils (%) (Auto) % (0.0-2.0) Differential Total Cells Counted 100 Neutrophils % (Manual) 72 % (45-75) Lymphocytes % (Manual) 17 % (20-45) Monocytes % (Manual) 11 % (1-10) Eosinophils % (Manual) 0 % (0-3) Basophils % (Manual) 0 % (0-2) Band Neutrophils 0 % (0-8) Platelet Estimate Adequate Platelet Morphology Normal Hypochromasia 1+ Urine Osmolality 368 mOsm/kg (429-449) Urine Random Sodium 99 mmol/L (20-110) Test 05/18/20 05:55 05/18/20 11:53 05/18/20 12:00 05/18/20 16:37 POC Whole Blood Glucose 86 MG/DL (74-106) 123 MG/DL (74-106) 125 MG/DL (74-106) White Blood Count 7.6 K/UL (4.8-10.8) Red Blood Count 2.59 M/UL (4.70-6.10) Hemoglobin 8.4 G/DL (14.2-18.0) Hematocrit 25.9 % (42.0-52.0) Mean Corpuscular Volume 100 FL (80-99) Mean Corpuscular Hemoglobin 32.4 PG (27.0-31.0) Mean Corpuscular Hemoglobin Concent 32.4 G/DL (32.0-36.0) Red Cell Distribution Width 13.2 % (11.6-14.8) Platelet Count 217 K/UL (150-450) Mean Platelet Volume 6.4 FL (6.5-10.1) Neutrophils (%) (Auto) 69.9 % (45.0-75.0) Lymphocytes (%) (Auto) 19.5 % (20.0-45.0) Monocytes (%) (Auto) 7.7 % (1.0-10.0) Eosinophils (%) (Auto) 2.3 % (0.0-3.0) Basophils (%) (Auto) 0.5 % (0.0-2.0) Reticulocyte Count 0.8 % (0.5-2.0) Sodium Level 125 MMOL/L (136-145) Potassium Level 4.9 MMOL/L (3.5-5.1) Chloride Level 97 MMOL/L (98-107) Carbon Dioxide Level 21 MMOL/L (21-32) Anion Gap 7 mmol/L (5-15) Blood Urea Nitrogen 16 mg/dL (7-18) Creatinine 1.1 MG/DL (0.55-1.30) Estimat Glomerular Filtration Rate > 60 mL/min (>60) Glucose Level 120 MG/DL (74-106) Osmolality 262 mOsm/kg (297-317) Calcium Level 7.2 MG/DL (8.5-10.1) Phosphorus Level 2.6 MG/DL (2.5-4.9) Magnesium Level 1.9 MG/DL (1.8-2.4) Iron Level 59 ug/dL (50-175) Total Iron Binding Capacity 140 ug/dL (250-450) Percent Iron Saturation 42 % (15-50) Unsaturated Iron Binding 81 ug/dL (112-346) Ferritin 622 NG/ML (8-388) Test 05/18/20 18:40 05/18/20 19:55 05/19/20 06:02 Urine Osmolality 347 mOsm/kg (429-449) Urine Random Sodium 95 mmol/L (20-110) Urine Creatinine 23.7 MG/DL (30.0-125.0) POC Whole Blood Glucose 131 MG/DL (74-106) 99 MG/DL (74-106) Height (Feet): 5 Height (Inches): 9.00 Weight (Pounds): 177 Objective Physical Exam General Appearance: WD/WN, no apparent distress HEENT: normocephalic, atraumatic ++blind Neck: non-tender, supple Respiratory/Chest: chest wall non-tender, lungs clear Cardiovascular/Chest: normal peripheral pulses, normal rate Abdomen: normal bowel sounds, non tender Rey Flaherty MD May 19, 2020 06:49
[2020-05-19 07:23] LABS: BASOPHILS % (AUTO) 0.9 % (0.0-2.0); EOSINOPHILS % (AUTO) 2.7 % (0.0-3.0); HEMOGLOBIN 8.4 G/DL (14.2-18.0); LYMPHOCYTES % (AUTO) 21.5 % (20.0-45.0); MEAN CORPUSCULAR VOLUME 100 FL (80-99); PLATELET COUNT 240 K/UL (150-450); RED CELL DISTRIBUTION WIDTH 13.1 % (11.6-14.8); WHITE BLOOD COUNT 8.2 K/UL (4.8-10.8)
[2020-05-19 07:46] LABS: CALCIUM 7.7 MG/DL (8.5-10.1); CREATININE 1.2 MG/DL (0.55-1.30); POTASSIUM 4.5 MMOL/L (3.5-5.1)
[2020-05-19 08:00] VITALS: BP 118/73
[2020-05-19 08:05] LABS: CHOLESTEROL 73 MG/DL (< 200); HDL CHOLESTEROL 23 MG/DL (40-60); PHOSPHORUS 2.2 MG/DL (2.5-4.9); TRIGLYCERIDES 53 MG/DL (30-150)
--- NOTE | 2020-05-19 08:30 | General Progress Note ---
Subjective ROS Limited/Unobtainable: Yes - altered, does not answer questions appropraitely Allergies: Coded Allergies: No Known Allergies (Unverified , 03/01/20) Subjective No acute events overnight. Per nurse patient has not had a bowel movement since the sixth. Patient unable to answer many questions. Sodium downtrend to 123 Objective Last 24 Hour Vital Signs Date Time Temp Pulse Resp B/P (MAP) Pulse Ox O2 Delivery O2 Flow Rate FiO2 05/19/20 04:00 97.5 58 20 113/55 (74) 98 05/19/20 04:00 58 05/19/20 00:00 59 05/19/20 00:00 97.9 60 16 117/62 (80) 99 05/18/20 21:00 Room Air 05/18/20 20:00 62 05/18/20 20:00 97.5 63 16 125/56 (79) 98 05/18/20 17:23 76 107/49 05/18/20 16:00 96.9 87 19 107/49 (68) 96 05/18/20 16:00 63 05/18/20 12:00 67 05/18/20 11:01 97.9 87 19 136/60 (85) 100 05/18/20 10:01 87 136/60 05/18/20 09:00 Room Air Intake and Output 05/18/20 05/19/20 19:00 07:00 Intake Total 1040 ml Output Total 650 ml 1100 ml Balance 390 ml -1100 ml Intake Oral 1040 ml Output Urine Total 650 ml 1100 ml Laboratory Tests 05/18/20 11:53: POC Whole Blood Glucose 123H 05/18/20 12:00: White Blood Count 7.6, Red Blood Count 2.59L, Hemoglobin 8.4L, Hematocrit 25.9L, Mean Corpuscular Volume 100H, Mean Corpuscular Hemoglobin 32.4H, Mean Corpuscular Hemoglobin Concent 32.4, Red Cell Distribution Width 13.2, Platelet Count 217, Mean Platelet Volume 6.4L, Neutrophils (%) (Auto) 69.9, Lymphocytes (%) (Auto) 19.5L, Monocytes (%) (Auto) 7.7, Eosinophils (%) (Auto) 2.3, B asophils (%) (Auto) 0.5, Reticulocyte Count 0.8, Sodium Level 125L, Potassium Level 4.9, Chloride Level 97L, Carbon Dioxide Level 21, Anion Gap 7, Blood Urea Nitrogen 16, Creatinine 1.1, Estimat Glomerular Filtration Rate > 60, Glucose Level 120H, Osmolality 262L, Calcium Level 7.2L, Phosphorus Level 2.6, Magnesium Level 1.9, Iron Level 59, Total Iron Binding Capacity 140L, Percent Iron Saturation 42, Unsaturated Iron Binding 81L, Ferritin 622H 05/18/20 16:37: POC Whole Blood Glucose 125H 05/18/20 18:40: Urine Osmolality 347L, Urine Random Sodium 95, Urine Creatinine 23.7L 05/18/20 19:55: POC Whole Blood Glucose 131H 05/19/20 06:02: POC Whole Blood Glucose 99 05/19/20 06:35: White Blood Count 8.2, Red Blood Count 2.60L, Hemoglobin 8.4L, Hematocrit 26.0L, Mean Corpuscular Volume 100H, Mean Corpuscular Hemoglobin 32.5H, Mean Corpu scular Hemoglobin Concent 32.4, Red Cell Distribution Width 13.1, Platelet Count 240, Mean Platelet Volume 6.4L, Neutrophils (%) (Auto) 65.0, Lymphocytes (%) (Auto) 21.5, Monocytes (%) (Auto) 10.0, Eosinophils (%) (Auto) 2.7, Basophils (%) (Auto) 0.9, Sodium Level 123L, Potassium Level 4.5, Chloride Level 95L, Carbon Dioxide Level 23, Anion Gap 5, Blood Urea Nitrogen 15, Creatinine 1.2, Estimat Glomerular Filtration Rate 59.0, Glucose Level 96, Calcium Level 7.7L, Phosphorus Level 2.2L, Magnesium Level 1.8, Troponin I 0.017, Pro-B-Type Natriuretic Peptide 07353V, Triglycerides Level 53, Cholesterol Level 73, LDL Cholesterol 41, HDL Cholesterol 23L, Cholesterol/HDL Ratio 3.2L, Thyroid Stimulating Hormone (TSH) 34.519H, Free Thyroxine 1.09 Height (Feet): 5 Height (Inches): 9.00 Weight (Pounds): 177 General Appearance: no apparent distress, confused EENT: PERRL/EOMI Neck: non-tender, normal inspection Cardiovascular: normal rate, regular rhythm, no JVD Respiratory/Chest: lungs clear, normal breath sounds, respiratory distress Abdomen: normal bowel sounds, non tender, soft Genitourinary/Rectal: other - Sanabria Edema: no edema noted Arm (L), no edema noted Arm (R), no edema noted Leg (L), no edema noted Leg (R), no edema noted Pedal (L), no edema noted Pedal (R), no edema noted Generalized Neurologic: sales support associate II-XII grossly normal, alert Assessment/Plan Assessment/Plan: Mr. Rodriguez is 74 years old male with past medical history of hypertension, diabetes mellitus, chronic kidney disease, suprapubic catheter due to urinary retention admitted for hyponatremia from [facility]. A: # Hypo-osmotic euvolemic hyponatremia2/2 hypovolemia versus SIADH versus hypothyroidism versus adrenal insufficiency # Chronic Encephalopathy # Subclinical Hypothyroidism # Paroxysmal Afib on anticoagulation # Hx of Left Soleal DVT # Chronic HFrEF 2/2 ischemic cardiomyopathy - hypovolemic # Hx of CAD s/p Stents # Severe Gastritis # Essential hypertension # Pre-Diabetes mellitus # CKD # Suprapubic catheter # Normocytic anemia 2/2 likely ACD versus CKD # ?Dementia # Depression # HLD P: - hemodynamically stable - DC IVF - monitor sodium levels - urine studies reviewed - UA positive for angie, colonization - will restart Xarelto from previous admission 1 week ago, colonoscopy/EGD completed and hemoclip of colon ulcer completed, cleared by GI for anti-coag - continue home metoprolol 12.5 mg BID, okay for amiodarone per cardiology - Follow-up cortisol levels in the morning for adrenal insufficiency work-up - increased Levothyroxine 75 > 100 mcg - continue atorvastatin - continue sertraline - Start senna and Colace - consulted Dr. Huertas, nephrology, recs appreciated - consulted Dr. Irwin, cardiology, recs appreciated - consulted Dr. Oakley, gen surgery, recs appreciated - consulted Dr. Flaherty, Heme/onc, recs appreciated - CM Code: Full DVT: Xarelto Diet: regular GI: PPI Dispo: back to SNF with resolution of hyponatremia Time spent on this encounter was 35 minutes which included 21 minutes of counseling and care coordination. I discussed with the nurse at bedside. Time of note may not reflect time patient was seen. Renan Chandra D.O May 19, 2020 08:30
[2020-05-19] MEDS: Os-Cal (Oyster Shell) 500mg tab ORAL SCH (08:35)
[2020-05-19] MEDS: Magnesium Oxide 400mg tab ORAL SCH (08:35)
[2020-05-19] MEDS: Amiodarone 200mg tab ORAL SCH (08:35)
[2020-05-19] MEDS: Sodium Chloride 1gm Tab ORAL SCH ×3 (08:35→17:40)
[2020-05-19] MEDS: Sertraline 50mg tab ORAL SCH (08:36)
[2020-05-19] MEDS: Xarelto 10mg tab ORAL SCH (08:36)
[2020-05-19] MEDS: Metoprolol Succinate XL 25mg tab ORAL SCH ×2 (08:37→17:41)
[2020-05-19] MEDS: Docusate 100mg cap ORAL SCH (08:44)
[2020-05-19] MEDS ORDERED: Sennosides 8.6mg tab ORAL PRN (08:45)
[2020-05-19 12:00] VITALS: BP 100/45
--- NOTE | 2020-05-19 14:03 | Cardiac Electrophysiology PN ---
Assessment/Plan Assessment/Plan 1. Paroxysmal atrial fibrillation. Continue Xarelto 20 mg daily and Toprol-XL 12.5 mg b.i.d. and amiodarone 200 daily 2. Hypertension. Blood pressure is stable on Toprol 12.5 mg b.i.d. 3. Hyperlipidemia, on Lipitor. 4. Questionable coronary artery disease. Patient denies any prior myocardial infarction, but he is not very reliable. Continue Toprol and Lipitor and hold off on aspirin while the patient is anemic and he is also on Xarelto. Ruled out for [place]. 5. Diabetes. 6. Foot ulcer and sepsis, on IV antibiotics. 7. Hyponatremia. Sodium 125. Decrease free water intake. Further evaluation by Nephrology. 8. Anemia, colonoscopy/EGD completed and hemoclip of colon ulcer completed, cleared by GI for anti-coag Subjective Subjective Alert in NAD but Na still 125 in SR on Salt tablets Objective Last 24 Hour Vital Signs Date Time Temp Pulse Resp B/P (MAP) Pulse Ox O2 Delivery O2 Flow Rate FiO2 05/19/20 12:00 58 05/19/20 12:00 96.8 60 20 100/45 (63) 99 05/19/20 09:00 Room Air 05/19/20 08:37 62 118/73 05/19/20 08:00 97.0 62 18 118/73 (88) 98 05/19/20 08:00 59 05/19/20 04:00 97.5 58 20 113/55 (74) 98 05/19/20 04:00 58 05/19/20 00:00 59 05/19/20 00:00 97.9 60 16 117/62 (80) 99 05/18/20 21:00 Room Air 05/18/20 20:00 62 05/18/20 20:00 97.5 63 16 125/56 (79) 98 05/18/20 17:23 76 107/49 05/18/20 16:00 96.9 87 19 107/49 (68) 96 05/18/20 16:00 63 Intake and Output 05/18/20 05/19/20 19:00 07:00 Intake Total 1040 ml Output Total 650 ml 1100 ml Balance 390 ml -1100 ml Intake Oral 1040 ml Output Urine Total 650 ml 1100 ml Laboratory Tests Test 05/18/20 16:37 05/18/20 18:40 05/18/20 19:55 05/19/20 06:02 POC Whole Blood Glucose 125 MG/DL (74-106) H 131 MG/DL (74-106) H 99 MG/DL (74-106) Urine Osmolality 347 mOsm/kg (429-449) L Urine Random Sodium 95 mmol/L (20-110) Urine Creatinine 23.7 MG/DL (30.0-125.0) L Test 05/19/20 06:35 05/19/20 11:30 White Blood Count 8.2 K/UL (4.8-10.8) Red Blood Count 2.60 M/UL (4.70-6.10) L Hemoglobin 8.4 G/DL (14.2-18.0) L Hematocrit 26.0 % (42.0-52.0) L Mean Corpuscular Volume 100 FL (80-99) H Mean Corpuscular Hemoglobin 32.5 PG (27.0-31.0) H Mean Corpuscular Hemoglobin Concent 32.4 G/DL (32.0-36.0) Red Cell Distribution Width 13.1 % (11.6-14.8) Platelet Count 240 K/UL (150-450) Mean Platelet Volume 6.4 FL (6.5-10.1) L Neutrophils (%) (Auto) 65.0 % (45.0-75.0) Lymphocytes (%) (Auto) 21.5 % (20.0-45.0) Monocytes (%) (Auto) 10.0 % (1.0-10.0) Eosinophils (%) (Auto) 2.7 % (0.0-3.0) Basophils (%) (Auto) 0.9 % (0.0-2.0) Sodium Level 123 MMOL/L (136-145) L Potassium Level 4.5 MMOL/L (3.5-5.1) Chloride Level 95 MMOL/L (98-107) L Carbon Dioxide Level 23 MMOL/L (21-32) Anion Gap 5 mmol/L (5-15) Blood Urea Nitrogen 15 mg/dL (7-18) Creatinine 1.2 MG/DL (0.55-1.30) Estimat Glomerular Filtration Rate 59.0 mL/min (>60) Glucose Level 96 MG/DL (74-106) Calcium Level 7.7 MG/DL (8.5-10.1) L Phosphorus Level 2.2 MG/DL (2.5-4.9) L Magnesium Level 1.8 MG/DL (1.8-2.4) Troponin I 0.017 ng/mL (0.000-0.056) Pro-B-Type Natriuretic Peptide 02526 pg/mL (0-125) H Triglycerides Level 53 MG/DL (30-150) Cholesterol Level 73 MG/DL (< 200) LDL Cholesterol 41 mg/dL (<100) HDL Cholesterol 23 MG/DL (40-60) L Cholesterol/HDL Ratio 3.2 (3.3-4.4) L Thyroid Stimulating Hormone (TSH) 34.519 uiU/mL (0.358-3.740) Free Thyroxine 1.09 NG/DL (0.76-1.46) POC Whole Blood Glucose 119 MG/DL (74-106) H Microbiology Date/Time Source Procedure Growth Status 05/17/20 15:00 Indwelling Cath Urine Culture - Preliminary NO GROWTH Resulted 05/16/20 22:50 Rectum - Final NO CARBAPENEM-RESISTANT ENTEROBACTERI... Complete 05/16/20 22:50 Rectum VRE Culture - Final Enterococcus Faecium - Vre Complete 05/16/20 22:50 Nasal Nares MRSA Culture - Final NO METHICILLIN RESISTANT STAPH AUREUS... Complete 05/16/20 19:40 Urine,Clean Catch Urine Culture - Final [place]a Albicans Complete 05/16/20 19:30 Nasopharynx SARS-CoV-2 RdRp Gene Assay - Final Complete Objective HEAD AND NECK: Shows no JVD. LUNGS: Clear. CARDIOVASCULAR: Shows regular S1 and S2 with no gallop or murmur. ABDOMEN: Soft. EXTREMITIES: Right heel ulcer with dressing. Sergio Irwin MD May 19, 2020 14:03
[2020-05-19 16:00] VITALS: BP 112/56
--- NOTE | 2020-05-19 16:01 | Nephrology Progress Note ---
Assessment/Plan Plan #Hyponatemia - susepct hypovolumic - vs due to hypothyroid state- vs SIADH #hypothyroidism-freeT4 WNL #HTN #afib #HLD #GERD #depression - DC IVF - continue salt tab 1g TID - continue levothyroxine 100mcg daily - consider holding sertraline - monitor BMP - check metop 12.5 BID - monitor UOP - check bmp daily Subjective ROS Limited/Unobtainable: No Constitutional: Reports: weakness HEENT: Denies: no symptoms, eye pain, blurred vision, tearing, double vision, ear pain, ear discharge, nose pain, nose congestion, throat pain, throat swelling, mouth pain, mouth swelling, other Genitourinary: Denies: no symptoms, burning, discharge, frequency, flank pain, hematuria, incontinence, pain, urgency, other Neurologic/Psychiatric: Denies: no symptoms, anxiety, depressed, emotional problems, headache, numbness, paresthesia, pre-existing deficit, seizure, tingling, tremors, weakness, other Subjective urine chem consistent with SIADH sodium remains low started on salt tabs yesterday Objective Objective Last 24 Hour Vital Signs Date Time Temp Pulse Resp B/P (MAP) Pulse Ox O2 Delivery O2 Flow Rate FiO2 05/19/20 12:00 58 05/19/20 12:00 96.8 60 20 100/45 (63) 99 05/19/20 09:00 Room Air 05/19/20 08:37 62 118/73 05/19/20 08:00 97.0 62 18 118/73 (88) 98 05/19/20 08:00 59 05/19/20 04:00 97.5 58 20 113/55 (74) 98 05/19/20 04:00 58 05/19/20 00:00 59 05/19/20 00:00 97.9 60 16 117/62 (80) 99 05/18/20 21:00 Room Air 05/18/20 20:00 62 05/18/20 20:00 97.5 63 16 125/56 (79) 98 05/18/20 17:23 76 107/49 Intake and Output 05/18/20 05/19/20 19:00 07:00 Intake Total 1040 ml Output Total 650 ml 1100 ml Balance 390 ml -1100 ml Intake Oral 1040 ml Output Urine Total 650 ml 1100 ml Laboratory Tests 05/18/20 16:37: POC Whole Blood Glucose 125H 05/18/20 18:40: Urine Osmolality 347L, Urine Random Sodium 95, Urine Creatinine 23.7L 05/18/20 19:55: POC Whole Blood Glucose 131H 05/19/20 06:02: POC Whole Blood Glucose 99 05/19/20 06:35: White Blood Count 8.2, Red Blood Count 2.60L, Hemoglobin 8.4L, Hematocrit 26.0L, Mean Corpuscular Volume 100H, Mean Corpuscular Hemoglobin 32.5H, Mean Corpuscular Hemoglobin Concent 32.4, Red Cell Distribution Width 13.1, Platelet Count 240, Mean Platelet Volume 6.4L, Neutrophils (%) (Auto) 65.0, Lymphocytes (%) (Auto) 21.5, Monocytes (%) (Auto) 10.0, Eosinophils (%) (Auto) 2.7, Basophils (%) (Auto) 0.9, Sodium Level 123L, Potassium Level 4.5, Chloride Level 95L, Carbon Dioxide Level 23, Anion Gap 5, Blood Urea Nitrogen 15, Creatinine 1.2, Estimat Glomerular Filtration Rate 59.0, Glucose Level 96, Calcium Level 7.7L, Phosphorus Level 2.2L, Magnesium Level 1.8, Troponin I 0.017, Pro-B-Type Natriuretic Peptide 69267C, Triglycerides Level 53, Cholesterol Level 73, LDL Cholesterol 41, HDL Cholesterol 23L, Cholesterol/HDL Ratio 3.2L, Thyroid Stimulating Hormone (TSH) 34.519H, Free Thyroxine 1.09 05/19/20 11:30: POC Whole Blood Glucose 119H Height (Feet): 5 Height (Inches): 9.00 Weight (Pounds): 177 General Appearance: no apparent distress EENT: PERRL/EOMI Neck: non-tender Cardiovascular: normal peripheral pulses Respiratory/Chest: chest wall non-tender Abdomen: normal bowel sounds Extremities: normal range of motion Neurologic: alert, oriented x 3 Jered Huertas M.D. May 19, 2020 16:01
--- NOTE | 2020-05-19 16:53 | Surgery Progress Note ---
Surgery Progress Note Subjective Additional Comments afebrile, HD stable no n/v labs noted dressings going well Objective Last 24 Hour Vital Signs Date Time Temp Pulse Resp B/P (MAP) Pulse Ox O2 Delivery O2 Flow Rate FiO2 05/19/20 16:00 97.9 62 18 112/56 (74) 99 05/19/20 12:00 58 05/19/20 12:00 96.8 60 20 100/45 (63) 99 05/19/20 09:00 Room Air 05/19/20 08:37 62 118/73 05/19/20 08:00 97.0 62 18 118/73 (88) 98 05/19/20 08:00 59 05/19/20 04:00 97.5 58 20 113/55 (74) 98 05/19/20 04:00 58 05/19/20 00:00 59 05/19/20 00:00 97.9 60 16 117/62 (80) 99 05/18/20 21:00 Room Air 05/18/20 20:00 62 05/18/20 20:00 97.5 63 16 125/56 (79) 98 05/18/20 17:23 76 107/49 I&O Intake and Output 05/18/20 05/19/20 19:00 07:00 Intake Total 1040 ml Output Total 650 ml 1100 ml Balance 390 ml -1100 ml Intake Oral 1040 ml Output Urine Total 650 ml 1100 ml Cardiovascular: RSR Respiratory: decreased breath sounds Abdomen: non-tender, present bowel sounds Extremities: no tenderness, no cyanosis Laboratory Tests Test 05/18/20 18:40 05/18/20 19:55 05/19/20 06:02 05/19/20 06:35 Urine Osmolality 347 mOsm/kg (429-449) L Urine Random Sodium 95 mmol/L (20-110) Urine Creatinine 23.7 MG/DL (30.0-125.0) L POC Whole Blood Glucose 131 MG/DL (74-106) H 99 MG/DL (74-106) White Blood Count 8.2 K/UL (4.8-10.8) Red Blood Count 2.60 M/UL (4.70-6.10) L Hemoglobin 8.4 G/DL (14.2-18.0) L Hematocrit 26.0 % (42.0-52.0) L Mean Corpuscular Volume 100 FL (80-99) H Mean Corpuscular Hemoglobin 32.5 PG (27.0-31.0) H Mean Corpuscular Hemoglobin Concent 32.4 G/DL (32.0-36.0) Red Cell Distribution Width 13.1 % (11.6-14.8) Platelet Count 240 K/UL (150-450) Mean Platelet Volume 6.4 FL (6.5-10.1) L Neutrophils (%) (Auto) 65.0 % (45.0-75.0) Lymphocytes (%) (Auto) 21.5 % (20.0-45.0) Monocytes (%) (Auto) 10.0 % (1.0-10.0) Eosinophils (%) (Auto) 2.7 % (0.0-3.0) Basophils (%) (Auto) 0.9 % (0.0-2.0) Sodium Level 123 MMOL/L (136-145) L Potassium Level 4.5 MMOL/L (3.5-5.1) Chloride Level 95 MMOL/L (98-107) L Carbon Dioxide Level 23 MMOL/L (21-32) Anion Gap 5 mmol/L (5-15) Blood Urea Nitrogen 15 mg/dL (7-18) Creatinine 1.2 MG/DL (0.55-1.30) Estimat Glomerular Filtration Rate 59.0 mL/min (>60) Glucose Level 96 MG/DL (74-106) Calcium Level 7.7 MG/DL (8.5-10.1) L Phosphorus Level 2.2 MG/DL (2.5-4.9) L Magnesium Level 1.8 MG/DL (1.8-2.4) Troponin I 0.017 ng/mL (0.000-0.056) Pro-B-Type Natriuretic Peptide 31871 pg/mL (0-125) H Triglycerides Level 53 MG/DL (30-150) Cholesterol Level 73 MG/DL (< 200) LDL Cholesterol 41 mg/dL (<100) HDL Cholesterol 23 MG/DL (40-60) L Cholesterol/HDL Ratio 3.2 (3.3-4.4) L Thyroid Stimulating Hormone (TSH) 34.519 uiU/mL (0.358-3.740) Free Thyroxine 1.09 NG/DL (0.76-1.46) Test 05/19/20 11:30 POC Whole Blood Glucose 119 MG/DL (74-106) H Plan Problems: (1) Hyponatremia (2) Dehydration Assessment & Plan: DAILY ESTIMATED NEEDS: Needs based on Wound, 77kg 25-30 kcals/kg 4396-7294 total kcals 1.25-2 g protein/kg 96-154 g total protein 25-30 mL/kg 4936-7975 total fluid mLs NUTRITION DIAGNOSIS: Increased kcal and prot needs r/t wound healing as evidenced by admitted w/ multiple wounds, eval pending, including stage 4 L-heel pressure injury as per recent adm. CURRENT DIET: CCHO LOW, mech soft finely chopped PO DIET RECOMMENDATIONS: CCHO MED/ texture as tolerated ADDITIONAL RECOMMENDATIONS: 1) Wound care: add MVI w/ mineral x 1, Vit C 500mg BID Mikey BID added to tray, f/up w/ WC eval 2) SHOE FITTER eval for appropriate texture 3) Monitor Na, need for fluid restriction (126 -> 128) 4) Monitor PO intake closely -> add Glucerna x 1 at this time 5) Calibrated bedscale wt (3) UTI (urinary tract infection) (4) Suprapubic catheter (5) Renal failure (ARF), acute on chronic (6) Osteomyelitis (7) Uncontrolled diabetes mellitus (8) Hypothyroidism Assessment & Plan: tsh elevated rx written (9) Diabetes mellitus (10) Sacral decubitus ulcer Assessment & Plan: Pt presented on admission with multiple Pressure Injuries. Resolving Pressure Sacral Pressure Injury.Clusters of full thickness pressure ulcers in close proximity that are moist and pink at bases. Surrounding maroon borders but without induration.(L)10.5cm x (W)10cm. BIlat lower ext are edematous. DTPI distal/lateral L Tibia(L)11.4cm x (W)2.7cm. Base of injury is purpuric with maroon borders. DTPI lateral L Malleolus(L)1cm x (W)0.7cm. Base of injury is maroon and indurated. Non-Blanchable erythema without induration or fluctuance medial L foot (L)1.6cm x (W)1cm. Unstageable Pressure injury R heel(L)7.7cm x (W)6.8cm. Base of is 70%necrotic and dry,10% slough with remaining 20% alyssia base. Marginal erythema along edges.Periwound is fluctuant with pale skin color. DTPI Lateral R Malleolus(L)2.6cm x (W)1.4cm. Base of injury is purpuric with maroon borders. DTPI medial R Malleolus(L)2.5cm x (W)2.4cm. Base of injury is purpuric with maroon borders. DTPI medial R foot (L)1.3cm x (W)3.6cm. Base of injury is indurated purpuric with surrounding maroon borders that are irregular. DTPI lateral R foot (L)0.7cm x (W)0.9cm. Base of injury is maroon in colour with marginal erythema. DTPI noted to tip of R 1st metatarsal(L)1.4cm x (W)1.2cm. Base of injury presents as an intact blood Blister. Unstageable Pressure injury lateral R 1st metatarsal(L)0.5cm x (W)0.8cm. Dry eschar with marginal erythema along edges. DTPI tip of R 2nd metatarsal.(L)1cm x (W)1.3cm. Base of injury presents as an intact blood blister with marginal erythema along edges. Surgical incisions noted to R hip, R femur and R knee. Incision sites approximated with oswaldo that are intact and dry. No erythema noted. Tx.Plan: Apply Moisture Barrier Paste to Sacrum. Cover with Optifoam drsgs. Change every 3 days and prn. Apply Betadine to DTPI's L Tibia, R and L feet. Cover each site with Optifoam drsgs. Change every 7 days and prn. Cleanse R Heel with Saline. Apply TheraHoney.Apply Maxsorb Extra(calcium Alginate. Apply Cavilon Skin Barrier periwound. Cover with Abd Pad and wrap with Kerlix Daily and prn. Reposition at least every 2hours or as tolerated. Off-load heels with pillows. nutritional optimization (11) Renal insufficiency (12) Suprapubic catheter dysfunction (13) BPH (benign prostatic hyperplasia) (14) Urinary retention Guy Oakley May 19, 2020 16:53
[2020-05-19] MEDS ORDERED: Sodium Phosphate 30 MM in NS 275 ML IVPB ONE (18:00)
[2020-05-19 20:00] VITALS: BP 95/60
[2020-05-19] MEDS: Atorvastatin 80mg tab ORAL SCH (23:12)
[2020-05-20] VITALS: BP 96/50
[2020-05-20 04:00] VITALS: BP 97/52
[2020-05-20] MEDS: NovoLOG Insulin Flexpen SUBQ SCH ×4 (06:30→21:00)
--- NOTE | 2020-05-20 06:32 | Hematology/Onc Progress Note ---
Assessment/Plan Assessment/Plan Assessment and recs # Anemia of chronic disease due to underlying chronic medical issues, multifactorial v Gi bleed --> Anemia workup has been ordered, rule out gi bleed --> cw ACD --> No evidence of hemolysis is noted, peripheral smear has been reviewed. no hemolysis. --> Hgb goal >7. Transfuse prn. --> Epogen or iron at this time is not particularly indicated --> Medications have been reviewed --> low threshold for gi evaluation in case has occult + --> hgb 7.5-->7.8-->8.4 # Dehydration with Hyponatremia --> Likely an hypothyroidism component --> ivfs started per renal, Uosm, Serum Osm, Urine Na # HTN --> Hold Metoprolol 12.5mg BID # Hypothyroidism --> Increase Levothyroxine 100mcg daily --> tsh levels to goal # UTI --> shabazz --> off abx # Sacral stage II ulceration - wound care consult --> per surg # Atrial fibrillation - continue amiodarone --> anticoag per cards prn --> on xarelto # Diabetes - continue januvia and ISS # Hyperlipidemia - continue lipitor # Dvt ppx xarelto The timing of this note does not necessarily reflect the time of the patient was seen. Greatly appreciate consultation. Subjective HEENT: Denies: no symptoms, eye pain, blurred vision, tearing, double vision, ear pain, ear discharge, nose pain, nose congestion, throat pain, throat swelling, mouth pain, mouth swelling, other Cardiovascular: Denies: no symptoms, chest pain, edema, irregular heart rate, lightheadedness, palpitations, syncope, other Respiratory: Denies: no symptoms, cough, shortness of breath, SOB with excertion, SOB at rest, sputum, wheezing, other Gastrointestinal/Abdominal: Denies: no symptoms, abdomen distended, abdominal pain, black stools, tarry stools, blood in stool, constipated, diarrhea, difficulty swallowing, nausea, poor appetite, poor fluid intake, rectal bleeding, vomiting, other Genitourinary: Denies: no symptoms, burning, discharge, frequency, flank pain, hematuria, incontinence, pain, urgency, other Neurologic/Psychiatric: Denies: no symptoms, anxiety, depressed, emotional problems, headache, numbness, paresthesia, pre-existing deficit, seizure, tingling, tremors, weakness, other Endocrine: Denies: no symptoms, excessive sweating, flushing, intolerance to cold, intolerance to heat, increased hunger, increased thirst, increased urine, unexplained weight gain, unexplained weight loss, other Hematologic/Lymphatic: Denies: no symptoms, anemia, easy bleeding, easy bruising, adenopathy, other Allergies: Coded Allergies: No Known Allergies (Unverified , 03/01/20) Subjective 05/19 meds noted, no bleeding, penis head erythematous, has been cleaned with rn 05/20 labs noted, awake, alert and getting wound care to stage iv decubs Objective Objective Current Medications Medications (Trade) Dose Ordered Sig/Lauren Route PRN Reason Start Time Stop Time Status Last Admin Dose Admin Acetaminophen (Tylenol) 650 mg Q6H PRN ORAL For Headache 05/17/20 01:45 06/16/20 01:44 05/17/20 08:14 Amiodarone HCl (Cordarone) 200 mg DAILY ORAL 05/17/20 09:00 08/15/20 08:59 05/19/20 08:35 Atorvastatin Calcium (Lipitor) 80 mg BEDTIME ORAL 05/17/20 21:00 08/15/20 20:59 05/19/20 23:12 Calcium Carbonate (Os-Gabriele) 500 mg DAILY ORAL 05/17/20 09:00 08/15/20 08:59 05/19/20 08:35 Dextrose (Dextrose 50%) 25 ml Q30M PRN IV Hypoglycemia 05/17/20 01:45 08/15/20 01:44 Dextrose (Dextrose 50%) 50 ml Q30M PRN IV Hypoglycemia 05/17/20 01:45 08/15/20 01:44 Docusate Sodium (Colace) 100 mg DAILY ORAL 05/19/20 09:00 06/18/20 08:59 05/19/20 08:44 Insulin Aspart (NovoLOG) BEFORE MEALS AND HS SUBQ 05/17/20 06:30 08/15/20 06:29 Levothyroxine Sodium (Synthroid) 100 mcg ACBREAKFAST ORAL 05/17/20 06:30 06/16/20 06:29 05/19/20 06:28 Magnesium Oxide (Mag-Ox 400mg) 400 mg DAILY ORAL 05/17/20 09:00 06/16/20 08:59 05/19/20 08:35 Metoprolol Succinate (Toprol XL) 12.5 mg BID ORAL 05/17/20 18:00 08/15/20 17:59 05/19/20 17:41 Pantoprazole (Protonix) 40 mg DAILY ORAL 05/19/20 09:00 06/18/20 08:59 05/19/20 08:35 Rivaroxaban (Xarelto) 20 mg DAILY ORAL 05/18/20 14:15 08/16/20 14:14 05/19/20 08:36 Sennosides (Senokot) 8.6 mg DAILYPRN PRN ORAL Constipation 05/19/20 08:45 06/18/20 08:44 Sertraline HCl (Zoloft) 25 mg DAILY ORAL 05/17/20 09:00 06/16/20 08:59 05/19/20 08:36 Sodium Chloride (NaCl) 1 gm THREE TIMES A DAY ORAL 05/18/20 18:00 06/17/20 17:59 05/19/20 17:40 Last 24 Hour Vital Signs Date Time Temp Pulse Resp B/P (MAP) Pulse Ox O2 Delivery O2 Flow Rate FiO2 05/20/20 04:00 62 05/20/20 00:00 63 05/19/20 20:00 63 05/19/20 17:41 62 112/56 05/19/20 16:00 97.9 62 18 112/56 (74) 99 05/19/20 16:00 62 05/19/20 12:00 58 05/19/20 12:00 96.8 60 20 100/45 (63) 99 05/19/20 09:00 Room Air 05/19/20 08:37 62 118/73 05/19/20 08:00 97.0 62 18 118/73 (88) 98 05/19/20 08:00 59 05/19/20 04:00 97.5 58 20 113/55 (74) 98 05/19/20 04:00 58 05/19/20 00:00 59 05/19/20 00:00 97.9 60 16 117/62 (80) 99 05/18/20 21:00 Room Air 05/18/20 20:00 62 05/18/20 20:00 97.5 63 16 125/56 (79) 98 05/18/20 17:23 76 107/49 05/18/20 16:00 96.9 87 19 107/49 (68) 96 05/18/20 16:00 63 05/18/20 12:00 67 05/18/20 11:01 97.9 87 19 136/60 (85) 100 05/18/20 10:01 87 136/60 05/18/20 09:00 Room Air 05/18/20 08:00 66 Intake and Output 05/19/20 05/20/20 19:00 07:00 Intake Total 300 ml Output Total 1000 ml 900 ml Balance -700 ml -900 ml Intake Oral 300 ml Output Urine Total 1000 ml 900 ml # Voids 1 Labs Test 05/17/20 08:30 05/17/20 15:00 05/17/20 20:20 05/18/20 05:55 White Blood Count 7.5 K/UL (4.8-10.8) Red Blood Count 2.39 M/UL (4.70-6.10) Hemoglobin 7.8 G/DL (14.2-18.0) Hematocrit 23.6 % (42.0-52.0) Mean Corpuscular Volume 99 FL (80-99) Mean Corpuscular Hemoglobin 32.7 PG (27.0-31.0) Mean Corpuscular Hemoglobin Concent 33.1 G/DL (32.0-36.0) Red Cell Distribution Width 13.0 % (11.6-14.8) Platelet Count 221 K/UL (150-450) Mean Platelet Volume 6.2 FL (6.5-10.1) Neutrophils (%) (Auto) % (45.0-75.0) Lymphocytes (%) (Auto) % (20.0-45.0) Monocytes (%) (Auto) % (1.0-10.0) Eosinophils (%) (Auto) % (0.0-3.0) Basophils (%) (Auto) % (0.0-2.0) Differential Total Cells Counted 100 Neutrophils % (Manual) 72 % (45-75) Lymphocytes % (Manual) 17 % (20-45) Monocytes % (Manual) 11 % (1-10) Eosinophils % (Manual) 0 % (0-3) Basophils % (Manual) 0 % (0-2) Band Neutrophils 0 % (0-8) Platelet Estimate Adequate Platelet Morphology Normal Hypochromasia 1+ Urine Osmolality 368 mOsm/kg (429-449) Urine Random Sodium 99 mmol/L (20-110) POC Whole Blood Glucose 114 MG/DL (74-106) 86 MG/DL (74-106) Test 05/18/20 11:53 05/18/20 12:00 05/18/20 16:37 05/18/20 18:40 POC Whole Blood Glucose 123 MG/DL (74-106) 125 MG/DL (74-106) White Blood Count 7.6 K/UL (4.8-10.8) Red Blood Count 2.59 M/UL (4.70-6.10) Hemoglobin 8.4 G/DL (14.2-18.0) Hematocrit 25.9 % (42.0-52.0) Mean Corpuscular Volume 100 FL (80-99) Mean Corpuscular Hemoglobin 32.4 PG (27.0-31.0) Mean Corpuscular Hemoglobin Concent 32.4 G/DL (32.0-36.0) Red Cell Distribution Width 13.2 % (11.6-14.8) Platelet Count 217 K/UL (150-450) Mean Platelet Volume 6.4 FL (6.5-10.1) Neutrophils (%) (Auto) 69.9 % (45.0-75.0) Lymphocytes (%) (Auto) 19.5 % (20.0-45.0) Monocytes (%) (Auto) 7.7 % (1.0-10.0) Eosinophils (%) (Auto) 2.3 % (0.0-3.0) Basophils (%) (Auto) 0.5 % (0.0-2.0) Reticulocyte Count 0.8 % (0.5-2.0) Sodium Level 125 MMOL/L (136-145) Potassium Level 4.9 MMOL/L (3.5-5.1) Chloride Level 97 MMOL/L (98-107) Carbon Dioxide Level 21 MMOL/L (21-32) Anion Gap 7 mmol/L (5-15) Blood Urea Nitrogen 16 mg/dL (7-18) Creatinine 1.1 MG/DL (0.55-1.30) Estimat Glomerular Filtration Rate > 60 mL/min (>60) Glucose Level 120 MG/DL (74-106) Osmolality 262 mOsm/kg (297-317) Calcium Level 7.2 MG/DL (8.5-10.1) Phosphorus Level 2.6 MG/DL (2.5-4.9) Magnesium Level 1.9 MG/DL (1.8-2.4) Iron Level 59 ug/dL (50-175) Total Iron Binding Capacity 140 ug/dL (250-450) Percent Iron Saturation 42 % (15-50) Unsaturated Iron Binding 81 ug/dL (112-346) Ferritin 622 NG/ML (8-388) Urine Osmolality 347 mOsm/kg (429-449) Urine Random Sodium 95 mmol/L (20-110) Urine Creatinine 23.7 MG/DL (30.0-125.0) Test 05/18/20 19:55 05/19/20 06:02 05/19/20 06:35 05/19/20 11:30 POC Whole Blood Glucose 131 MG/DL (74-106) 99 MG/DL (74-106) 119 MG/DL (74-106) White Blood Count 8.2 K/UL (4.8-10.8) Red Blood Count 2.60 M/UL (4.70-6.10) Hemoglobin 8.4 G/DL (14.2-18.0) Hematocrit 26.0 % (42.0-52.0) Mean Corpuscular Volume 100 FL (80-99) Mean Corpuscular Hemoglobin 32.5 PG (27.0-31.0) Mean Corpuscular Hemoglobin Concent 32.4 G/DL (32.0-36.0) Red Cell Distribution Width 13.1 % (11.6-14.8) Platelet Count 240 K/UL (150-450) Mean Platelet Volume 6.4 FL (6.5-10.1) Neutrophils (%) (Auto) 65.0 % (45.0-75.0) Lymphocytes (%) (Auto) 21.5 % (20.0-45.0) Monocytes (%) (Auto) 10.0 % (1.0-10.0) Eosinophils (%) (Auto) 2.7 % (0.0-3.0) Basophils (%) (Auto) 0.9 % (0.0-2.0) Sodium Level 123 MMOL/L (136-145) Potassium Level 4.5 MMOL/L (3.5-5.1) Chloride Level 95 MMOL/L (98-107) Carbon Dioxide Level 23 MMOL/L (21-32) Anion Gap 5 mmol/L (5-15) Blood Urea Nitrogen 15 mg/dL (7-18) Creatinine 1.2 MG/DL (0.55-1.30) Estimat Glomerular Filtration Rate 59.0 mL/min (>60) Glucose Level 96 MG/DL (74-106) Calcium Level 7.7 MG/DL (8.5-10.1) Phosphorus Level 2.2 MG/DL (2.5-4.9) Magnesium Level 1.8 MG/DL (1.8-2.4) Troponin I 0.017 ng/mL (0.000-0.056) Pro-B-Type Natriuretic Peptide 51864 pg/mL (0-125) Triglycerides Level 53 MG/DL (30-150) Cholesterol Level 73 MG/DL (< 200) LDL Cholesterol 41 mg/dL (<100) HDL Cholesterol 23 MG/DL (40-60) Cholesterol/HDL Ratio 3.2 (3.3-4.4) Thyroid Stimulating Hormone (TSH) 34.519 uiU/mL (0.358-3.740) Free Thyroxine 1.09 NG/DL (0.76-1.46) Test 05/19/20 17:17 05/19/20 23:15 05/20/20 06:26 POC Whole Blood Glucose 119 MG/DL (74-106) 95 MG/DL (74-106) Height (Feet): 5 Height (Inches): 9.00 Weight (Pounds): 177 Objective Physical Exam General Appearance: WD/WN, no apparent distress HEENT: normocephalic, atraumatic ++blind Neck: non-tender, supple Respiratory/Chest: chest wall non-tender, lungs clear Cardiovascular/Chest: normal peripheral pulses, normal rate Abdomen: normal bowel sounds, non tender Rey Flaherty MD May 20, 2020 06:32
[2020-05-20 07:42] LABS: HEMATOCRIT 21.5 % (42.0-52.0); HEMOGLOBIN 7.1 G/DL (14.2-18.0); MEAN CORPUSCULAR VOLUME 97 FL (80-99); PLATELET COUNT 216 K/UL (150-450); RED BLOOD COUNT 2.23 M/UL (4.70-6.10); WHITE BLOOD COUNT 7.7 K/UL (4.8-10.8)
[2020-05-20 07:48] LABS: ANION GAP 5 mmol/L (5-15); BLOOD UREA NITROGEN 17 mg/dL (7-18); CALCIUM 7.1 MG/DL (8.5-10.1); CARBON DIOXIDE 23 MMOL/L (21-32); CHLORIDE 97 MMOL/L (98-107); CREATININE 1.1 MG/DL (0.55-1.30); POTASSIUM 4.5 MMOL/L (3.5-5.1); SODIUM 125 MMOL/L (136-145)
[2020-05-20 08:00] VITALS: BP 102/45
[2020-05-20] MEDS: Xarelto 10mg tab ORAL SCH (10:01)
[2020-05-20] MEDS: Amiodarone 200mg tab ORAL SCH (10:01)
[2020-05-20] MEDS: Magnesium Oxide 400mg tab ORAL SCH (10:02)
[2020-05-20] MEDS: Docusate 100mg cap ORAL SCH (10:02)
[2020-05-20] MEDS: Sodium Chloride 1gm Tab ORAL SCH ×3 (10:02→18:00)
[2020-05-20] MEDS: Os-Cal (Oyster Shell) 500mg tab ORAL SCH (10:02)
[2020-05-20] MEDS: Sertraline 50mg tab ORAL SCH (10:02)
[2020-05-20] MEDS: Metoprolol Succinate XL 25mg tab ORAL SCH ×2 (10:18→18:00)
--- NOTE | 2020-05-20 11:13 | Cardiac Electrophysiology PN ---
Assessment/Plan Assessment/Plan 1. Paroxysmal atrial fibrillation. Continue Xarelto 20 mg daily, Toprol-XL 12.5 mg b.i.d. and amiodarone 200 daily 2. Hypertension. On Toprol 12.5 mg b.i.d. 3. Hyperlipidemia, on Lipitor. 4. Questionable coronary artery disease. Patient denies any prior myocardial infarction, but he is not very reliable. Continue Toprol and Lipitor and hold off on aspirin while the patient is anemic and he is also on Xarelto. Ruled out for OR. 5. Diabetes. 6. Foot ulcer and sepsis, on IV antibiotics. 7. Hyponatremia. Sodium 125. Decrease free water intake. Further evaluation by Nephrology. 8. Anemia, colonoscopy/EGD completed and hemoclip of colon ulcer completed, cleared by GI for anti-coag DW RN Subjective Subjective Alert in NAD but Na still 125 in SR on Salt tablets. Hb 7.1 Objective Last 24 Hour Vital Signs Date Time Temp Pulse Resp B/P (MAP) Pulse Ox O2 Delivery O2 Flow Rate FiO2 05/20/20 10:18 61 92/43 05/20/20 08:00 97.9 62 18 102/45 (64) 96 05/20/20 04:00 62 05/20/20 04:00 98.7 64 17 97/52 (67) 98 05/20/20 00:00 63 05/20/20 00:00 98.9 60 17 96/50 (65) 97 05/19/20 20:00 63 05/19/20 20:00 97.9 62 18 95/60 (72) 99 05/19/20 17:41 62 112/56 05/19/20 16:00 97.9 62 18 112/56 (74) 99 05/19/20 16:00 62 05/19/20 12:00 58 05/19/20 12:00 96.8 60 20 100/45 (63) 99 Intake and Output 05/19/20 05/20/20 19:00 07:00 Intake Total 300 ml Output Total 1000 ml 900 ml Balance -700 ml -900 ml Intake Oral 300 ml Output Urine Total 1000 ml 900 ml # Voids 1 Laboratory Tests Test 05/19/20 11:30 05/19/20 17:17 05/19/20 23:15 05/20/20 05:53 POC Whole Blood Glucose 119 MG/DL (74-106) H 119 MG/DL (74-106) H Pending White Blood Count 7.7 K/UL (4.8-10.8) Red Blood Count 2.23 M/UL (4.70-6.10) L Hemoglobin 7.1 G/DL (14.2-18.0) L Hematocrit 21.5 % (42.0-52.0) L Mean Corpuscular Volume 97 FL (80-99) Mean Corpuscular Hemoglobin 32.0 PG (27.0-31.0) H Mean Corpuscular Hemoglobin Concent 33.1 G/DL (32.0-36.0) Red Cell Distribution Width 13.0 % (11.6-14.8) Platelet Count 216 K/UL (150-450) Mean Platelet Volume 6.5 FL (6.5-10.1) Neutrophils (%) (Auto) % (45.0-75.0) Lymphocytes (%) (Auto) % (20.0-45.0) Monocytes (%) (Auto) % (1.0-10.0) Eosinophils (%) (Auto) % (0.0-3.0) Basophils (%) (Auto) % (0.0-2.0) Differential Total Cells Counted 100 Neutrophils % (Manual) 66 % (45-75) Lymphocytes % (Manual) 26 % (20-45) Monocytes % (Manual) 5 % (1-10) Eosinophils % (Manual) 2 % (0-3) Basophils % (Manual) 1 % (0-2) Band Neutrophils 0 % (0-8) Platelet Estimate Adequate Platelet Morphology Normal Red Blood Cell Morphology Normal Sodium Level 125 MMOL/L (136-145) L Potassium Level 4.5 MMOL/L (3.5-5.1) Chloride Level 97 MMOL/L (98-107) L Carbon Dioxide Level 23 MMOL/L (21-32) Anion Gap 5 mmol/L (5-15) Blood Urea Nitrogen 17 mg/dL (7-18) Creatinine 1.1 MG/DL (0.55-1.30) Estimat Glomerular Filtration Rate > 60 mL/min (>60) Glucose Level 95 MG/DL (74-106) Calcium Level 7.1 MG/DL (8.5-10.1) L Magnesium Level 1.7 MG/DL (1.8-2.4) L Cortisol AM Sample Pending Test 05/20/20 06:26 05/20/20 10:59 POC Whole Blood Glucose 95 MG/DL (74-106) 105 MG/DL (74-106) Microbiology Date/Time Source Procedure Growth Status 05/17/20 15:00 Indwelling Cath Urine Culture - Preliminary YEAST Resulted Objective HEAD AND NECK: Shows no JVD. LUNGS: Clear. CARDIOVASCULAR: Shows regular S1 and S2 with no gallop or murmur. ABDOMEN: Soft. EXTREMITIES: Right heel ulcer with dressing. Sergio Irwin MD May 20, 2020 11:13
--- NOTE | 2020-05-20 11:56 | Surgery Progress Note ---
Surgery Progress Note Subjective Additional Comments no acute events comfortable table no n/v Objective Last 24 Hour Vital Signs Date Time Temp Pulse Resp B/P (MAP) Pulse Ox O2 Delivery O2 Flow Rate FiO2 05/20/20 10:18 61 92/43 05/20/20 08:00 97.9 62 18 102/45 (64) 96 05/20/20 08:00 Room Air 05/20/20 08:00 59 05/20/20 04:00 62 05/20/20 04:00 98.7 64 17 97/52 (67) 98 05/20/20 00:00 63 05/20/20 00:00 98.9 60 17 96/50 (65) 97 05/19/20 20:00 63 05/19/20 20:00 97.9 62 18 95/60 (72) 99 05/19/20 17:41 62 112/56 05/19/20 16:00 97.9 62 18 112/56 (74) 99 05/19/20 16:00 62 05/19/20 12:00 58 05/19/20 12:00 96.8 60 20 100/45 (63) 99 I&O Intake and Output 05/19/20 05/20/20 19:00 07:00 Intake Total 300 ml Output Total 1000 ml 900 ml Balance -700 ml -900 ml Intake Oral 300 ml Output Urine Total 1000 ml 900 ml # Voids 1 Dressing: dry Wound: clean Cardiovascular: RSR Respiratory: decreased breath sounds Abdomen: non-tender, present bowel sounds Extremities: no edema, no tenderness, other Laboratory Tests Test 05/19/20 17:17 05/19/20 23:15 05/20/20 05:53 05/20/20 06:26 POC Whole Blood Glucose 119 MG/DL (74-106) H Pending 95 MG/DL (74-106) White Blood Count 7.7 K/UL (4.8-10.8) Red Blood Count 2.23 M/UL (4.70-6.10) L Hemoglobin 7.1 G/DL (14.2-18.0) L Hematocrit 21.5 % (42.0-52.0) L Mean Corpuscular Volume 97 FL (80-99) Mean Corpuscular Hemoglobin 32.0 PG (27.0-31.0) H Mean Corpuscular Hemoglobin Concent 33.1 G/DL (32.0-36.0) Red Cell Distribution Width 13.0 % (11.6-14.8) Platelet Count 216 K/UL (150-450) Mean Platelet Volume 6.5 FL (6.5-10.1) Neutrophils (%) (Auto) % (45.0-75.0) Lymphocytes (%) (Auto) % (20.0-45.0) Monocytes (%) (Auto) % (1.0-10.0) Eosinophils (%) (Auto) % (0.0-3.0) Basophils (%) (Auto) % (0.0-2.0) Differential Total Cells Counted 100 Neutrophils % (Manual) 66 % (45-75) Lymphocytes % (Manual) 26 % (20-45) Monocytes % (Manual) 5 % (1-10) Eosinophils % (Manual) 2 % (0-3) Basophils % (Manual) 1 % (0-2) Band Neutrophils 0 % (0-8) Platelet Estimate Adequate Platelet Morphology Normal Red Blood Cell Morphology Normal Sodium Level 125 MMOL/L (136-145) L Potassium Level 4.5 MMOL/L (3.5-5.1) Chloride Level 97 MMOL/L (98-107) L Carbon Dioxide Level 23 MMOL/L (21-32) Anion Gap 5 mmol/L (5-15) Blood Urea Nitrogen 17 mg/dL (7-18) Creatinine 1.1 MG/DL (0.55-1.30) Estimat Glomerular Filtration Rate > 60 mL/min (>60) Glucose Level 95 MG/DL (74-106) Calcium Level 7.1 MG/DL (8.5-10.1) L Magnesium Level 1.7 MG/DL (1.8-2.4) L Cortisol AM Sample Pending Test 05/20/20 10:59 POC Whole Blood Glucose 105 MG/DL (74-106) Plan Problems: (1) Hyponatremia (2) Dehydration Assessment & Plan: DAILY ESTIMATED NEEDS: Needs based on Wound, 77kg 25-30 kcals/kg 8367-7344 total kcals 1.25-2 g protein/kg 96-154 g total protein 25-30 mL/kg 4813-7098 total fluid mLs NUTRITION DIAGNOSIS: Increased kcal and prot needs r/t wound healing as evidenced by admitted w/ multiple wounds, including stage 4 L-heel pressure injury as per recent adm. CURRENT DIET: CCHO LOW, mech soft finely chopped PO DIET RECOMMENDATIONS: CCHO MED/ texture as tolerated ADDITIONAL RECOMMENDATIONS: 1) Wound care: add MVI w/ mineral x 1, Vit C 500mg BID Zn SO4 220mg qdaily x10 days, TRINY BID 2) PRESERVATIONIST eval for appropriate texture (ms finely chopped) 3) Monitor Na, need for fluid restriction (125) 4) Monitor PO intake closely -> add Glucerna BID 5) Calibrated bedscale wt (3) UTI (urinary tract infection) (4) Suprapubic catheter (5) Renal failure (ARF), acute on chronic (6) Osteomyelitis (7) Uncontrolled diabetes mellitus (8) Hypothyroidism Assessment & Plan: tsh elevated rx written (9) Diabetes mellitus (10) Sacral decubitus ulcer Assessment & Plan: Pt presented on admission with multiple Pressure Injuries. Resolving Pressure Sacral Pressure Injury. Surrounding maroon borders but wi thout induration.(L)10.5cm x (W)10cm. BIlat lower ext are edematous. DTPI distal/lateral L Tibia(L)11.4cm x (W)2.7cm. Base of injury is purpuric with maroon borders. DTPI lateral L Malleolus(L)1cm x (W)0.7cm. Base of injury is maroon and indurated. Non-Blanchable erythema without induration or fluctuance medial L foot (L)1.6cm x (W)1cm. Unstageable Pressure injury R heel(L)7.7cm x (W)6.8cm. Base of is 70%necrotic and dry,10% slough with remaining 20% alyssia base. Marginal erythema along edges.Periwound is fluctuant with pale skin color. DTPI Lateral R Malleolus(L)2.6cm x (W)1.4cm. Base of injury is purpuric with maroon borders. DTPI medial R Malleolus(L)2.5cm x (W)2.4cm. Base of injury is purpuric with maroon borders. DTPI medial R foot (L)1.3cm x (W)3.6cm. Base of injury is indurated purpuric with surrounding maroon borders that are irregular. DTPI lateral R foot (L)0.7cm x (W)0.9cm. Base of injury is maroon in colour with marginal erythema. DTPI noted to tip of R 1st metatarsal(L)1.4cm x (W)1.2cm. Base of injury presents as an intact blood Blister. Unstageable Pressure injury lateral R 1st metatarsal(L)0.5cm x (W)0.8cm. Dry eschar with marginal erythema along edges. DTPI tip of R 2nd metatarsal.(L)1cm x (W)1.3cm. Base of injury presents as an intact blood blister with marginal erythema along edges. Surgical incisions noted to R hip, R femur and R knee. Incision sites approximated with oswaldo that are intact and dry. No erythema noted. Tx.Plan: Apply Moisture Barrier Paste to Sacrum. Cover with Optifoam drsgs. Change every 3 days and prn. Apply Betadine to DTPI's L Tibia, R and L feet. Cover each site with Optifoam dr sgs. Change every 7 days and prn. Cleanse R Heel with Saline. Apply TheraHoney.Apply Maxsorb Extra(calcium Alginate. Apply Cavilon Skin Barrier periwound. Cover with Abd Pad and wrap with Kerlix Daily and prn. Reposition at least every 2hours or as tolerated. Off-load heels with pillows. nutritional optimization (11) Renal insufficiency (12) Suprapubic catheter dysfunction (13) BPH (benign prostatic hyperplasia) (14) Urinary retention Guy Oakley May 20, 2020 11:56
[2020-05-20 12:00] VITALS: BP 108/54
[2020-05-20 12:18] LABS: HEMOGLOBIN 7.8 G/DL (14.2-18.0); MEAN CORPUSCULAR VOLUME 101 FL (80-99); PLATELET COUNT 198 K/UL (150-450); RED BLOOD COUNT 2.38 M/UL (4.70-6.10); RED CELL DISTRIBUTION WIDTH 13.1 % (11.6-14.8); WHITE BLOOD COUNT 7.4 K/UL (4.8-10.8)
--- NOTE | 2020-05-20 12:50 | Nephrology Progress Note ---
Assessment/Plan Plan #Hyponatemia - #hypothyroidism-freeT4 WNL #HTN #afib #HLD #GERD #depression - replete mag and phos -NS x 1L - continue salt tab 1g TID - continue levothyroxine 100mcg daily - consider holding sertraline - monitor BMP - check metop 12.5 BID - monitor UOP - check bmp daily Subjective ROS Limited/Unobtainable: Yes Constitutional: Reports: weakness HEENT: Denies: no symptoms, eye pain, blurred vision, tearing, double vision, ear pain, ear discharge, nose pain, nose congestion, throat pain, throat swell ing, mouth pain, mouth swelling, other Genitourinary: Denies: no symptoms, burning, discharge, frequency, flank pain, hematuria, incontinence, pain, urgency, other Subjective urine chem consistent with SIADH sodium remains low on salt tabs replete mag and phos Objective Objective Last 24 Hour Vital Signs Date Time Temp Pulse Resp B/P (MAP) Pulse Ox O2 Delivery O2 Flow Rate FiO2 05/20/20 10:18 61 92/43 05/20/20 08:00 97.9 62 18 102/45 (64) 96 05/20/20 08:00 Room Air 05/20/20 08:00 59 05/20/20 04:00 62 05/20/20 04:00 98.7 64 17 97/52 (67) 98 05/20/20 00:00 63 05/20/20 00:00 98.9 60 17 96/50 (65) 97 05/19/20 20:00 63 05/19/20 20:00 97.9 62 18 95/60 (72) 99 05/19/20 17:41 62 112/56 05/19/20 16:00 97.9 62 18 112/56 (74) 99 05/19/20 16:00 62 Intake and Output 05/19/20 05/20/20 19:00 07:00 Intake Total 300 ml Output Total 1000 ml 900 ml Balance -700 ml -900 ml Intake Oral 300 ml Output Urine Total 1000 ml 900 ml # Voids 1 Laboratory Tests 05/19/20 17:17: POC Whole Blood Glucose 119H 05/19/20 23:15: POC Whole Blood Glucose [Pending] 05/20/20 05:53: White Blood Count 7.7, Red Blood Count 2.23L, Hemoglobin 7.1L, Hematocrit 21.5L, Mean Corpuscular Volume 97, Mean Corpuscular Hemoglobin 32.0H, Mean Corpuscular Hemoglobin Concent 33.1, Red Cell Distribution Width 13.0, Platelet Count 216, Mean Platelet Volume 6.5, Neutrophils (%) (Auto) , Lymphocytes (%) (Auto) , Monocytes (%) (Auto) , Eosinophils (%) (Auto) , Basophils (%) (Auto) , Differential Total Cells Counted 100, Neutrophils % (Manual) 66, Lymphocytes % (Manual) 26, Monocytes % (Manual) 5, Eosinophils % (Manual) 2, Basophils % (Manual) 1, Band Neutrophils 0, Platelet Estimate Adequate, Platelet Morphology Normal, Red Blood Cell Morphology Normal, Sodium Level 125L, Potassium Level 4.5, Chloride Level 97L, Carbon Dioxide Level 23, Anion Gap 5, Blood Urea Nitrogen 17, Creatinine 1.1, Estimat Glomerular Filtration Rate > 60, Glucose Level 95, Calcium Level 7.1L, Magnesium Level 1.7L, Cortisol AM Sample [Pending] 05/20/20 06:26: POC Whole Blood Glucose 95 05/20/20 10:59: POC Whole Blood Glucose 105 05/20/20 12:00: White Blood Count 7.4, Red Blood Count 2.38L, Hemoglobin 7.8L, Hematocrit 24.0L, Mean Corpuscular Volume 101H, Mean Corpuscular Hemoglobin 33.0H, Mean Corpuscular Hemoglobin Concent 32.6, Red Cell Distribution Width 13.1, Platelet Count 198, Mean Platelet Volume 6.5, Neutrophils (%) (Auto) , Lymphocytes (%) (Auto) , Monocytes (%) (Auto) , Eosinophils (%) (Auto) , Basophils (%) (Auto) , Differential Total Cells Counted 100, Neutrophils % (Manual) 77H, Lymphocytes % (Manual) 13L, Monocytes % (Manual) 7, Eosinophils % (Manual) 3, Basophils % (Manual) 0, Band Neutrophils 0, Platelet Estimate Adequate, Platelet Morphology Normal, Hypochromasia 1+, Macrocytosis 1+ Height (Feet): 5 Height (Inches): 9.00 Weight (Pounds): 177 Jered Huertas M.D. May 20, 2020 12:50
--- NOTE | 2020-05-20 14:44 | Consultation ---
DATE OF CONSULTATION: 05/20/2020 ENDOCRINOLOGY CONSULTATION CONSULTING PHYSICIAN: Doni Mcdonough MD. REFERRING PHYSICIAN: Lizbet Jack MD. REASON FOR CONSULTATION: Hypothyroidism. HISTORY OF PRESENT ILLNESS: The patient is a 74-year-old male who presented to the hospital with generalized weakness and hyponatremia. The patient lives in a half-way facility [facility], history of cardiac arrhythmia as well as hypothyroidism. The patient is on Synthroid 75 mcg, was noted to have TSH of 45 and dosage was increased to 100 mcg, and the TSH dropped to 35. I was called to assist in the management of hypothyroidism, which could contribute to hyponatremia. PAST MEDICAL HISTORY: 1. Diabetes. 2. Hypothyroidism. 3. Dyslipidemia. 4. Atrial fibrillation. 5. Hypertension. MEDICATIONS: Reviewed and reconciled. The patient is on amiodarone and Januvia as well as levothyroxine. SOCIAL HISTORY: No smoking, alcohol, or drug use. He lives in a half-way facility. REVIEW OF SYSTEMS: A 12-point review of systems was performed and pertinent positives and negative are mentioned in the history of present illness. PHYSICAL EXAMINATION: VITAL SIGNS: Blood pressure 132/80, pulse of 80, temperature 98.2, respiratory rate 18. HEENT: Pupils are equal and reactive to light. NECK: No JVD. LUNGS: Clear. HEART: Regular. ABDOMEN: Positive bowel sounds. EXTREMITIES: No clubbing or cyanosis. LABORATORY AND DIAGNOSTIC DATA: Thyroid function discussed in the present illness. Sodium 123, potassium 4.5, chloride 95, bicarb 22, BUN 15, creatinine 1.2, glucose of 96. BNP of 17,622. DIAGNOSES: 1. Hyponatremia. 2. CHF. 3. Hypothyroidism. 4. Diabetes. PLAN: 1. Increase levothyroxine to 137 mcg daily. TSH is already improving. thyroid functions to be tested in two weeks. 2. Continue Januvia monotherapy for diabetes. 3. Continue glucose monitoring before meals and at bedtime with NovoLog low-dose coverage. 4. Hypoglycemia protocol is in order. Thank you, Dr. Jack, for the courtesy of this consultation. Doni Mcdonough M.D. DR: RN/apm JOB#: [id number] CC: RONI
[2020-05-20 15:55] VITALS: BP 115/60
[2020-05-20 20:00] VITALS: BP 105/52
[2020-05-20] MEDS: Atorvastatin 80mg tab ORAL SCH (21:54)
--- NOTE | 2020-05-20 23:12 | General Progress Note ---
Subjective Constitutional: Reports: chills, weakness; Denies: fever HEENT: Denies: eye pain, ear pain, throat pain, mouth pain Cardiovascular: Denies: chest pain, irregular heart rate, lightheadedness Respiratory: Denies: cough, shortness of breath Gastrointestinal/Abdominal: Reports: constipated; Denies: abdomen distended, b lack stools, tarry stools, blood in stool, diarrhea, nausea Genitourinary: Denies: burning, hematuria Neurologic/Psychiatric: Denies: headache, paresthesia Allergies: Coded Allergies: No Known Allergies (Unverified , 03/01/20) Subjective Interval Events: AM Hgb decreased from yesterday Patient denies any bleeding or abdominal pain. Besides feeling cold and not having had bowel movement for several days, he has no other complaints. Objective Last 24 Hour Vital Signs Date Time Temp Pulse Resp B/P (MAP) Pulse Ox O2 Delivery O2 Flow Rate FiO2 05/20/20 20:00 97.3 64 20 105/52 (69) 98 05/20/20 18:00 64 95/50 05/20/20 16:00 61 05/20/20 15:55 97.2 61 18 115/60 (78) 96 05/20/20 12:00 60 05/20/20 12:00 97.0 59 20 108/54 (72) 95 05/20/20 12:00 63 05/20/20 10:18 61 92/43 05/20/20 08:00 97.9 62 18 102/45 (64) 96 05/20/20 08:00 Room Air 05/20/20 08:00 59 05/20/20 04:00 62 05/20/20 04:00 98.7 64 17 97/52 (67) 98 05/20/20 00:00 63 05/20/20 00:00 98.9 60 17 96/50 (65) 97 Intake and Output 05/19/20 05/20/20 19:00 07:00 Intake Total 300 ml Output Total 1000 ml 900 ml Balance -700 ml -900 ml Intake Oral 300 ml Output Urine Total 1000 ml 900 ml # Voids 1 Laboratory Tests 05/19/20 23:15: POC Whole Blood Glucose [Pending] 05/20/20 05:53: White Blood Count 7.7, Red Blood Count 2.23L, Hemoglobin 7.1L, Hematocrit 21.5L, Mean Corpuscular Volume 97, Mean Corpuscular Hemoglobin 32.0H, Mean Corpuscular Hemoglobin Concent 33.1, Red Cell Distribution Width 13.0, Platelet Count 216, Mean Platelet Volume 6.5, Neutrophils (%) (Auto) , Lymphocytes (%) (Auto) , Monocytes (%) (Auto) , Eosinophils (%) (Auto) , Basophils (%) (Auto) , Differential Total Cells Counted 100, Neutrophils % (Manual) 66, Lymphocytes % (Manual) 26, Monocytes % (Manual) 5, Eosinophils % (Manual) 2, Basophils % (Manual) 1, Band Neutrophils 0, Platelet Estimate Adequate, Platelet Morphology Normal, Red Blood Cell Morphology Normal, Sodium Level 125L, Potassium Level 4.5, Chloride Level 97L, Carbon Dioxide Level 23, Anion Gap 5, Blood Urea Nitrogen 17, Creatinine 1.1, Estimat Glomerular Filtration Rate > 60, Glucose Level 95, Calcium Level 7.1L, Magnesium Level 1.7L, Cortisol AM Sample 7.2 05/20/20 06:26: POC Whole Blood Glucose 95 05/20/20 10:59: POC Whole Blood Glucose 105 05/20/20 12:00: White Blood Count 7.4, Red Blood Count 2.38L, Hemoglobin 7.8L, Hematocrit 24.0L, Mean Corpuscular Volume 101H, Mean Corpuscular Hemoglobin 33.0H, Mean Corpuscular Hemoglobin Concent 32.6, Red Cell Distribution Width 13.1, Platelet Count 198, Mean Platelet Volume 6.5, Neutrophils (%) (Auto) , Lymphocytes (%) (Auto) , Monocytes (%) (Auto) , Eosinophils (%) (Auto) , Basophils (%) (Auto) , Differential Total Cells Counted 100, Neutrophils % (Manual) 77H, Lymphocytes % (Manual) 13L, Monocytes % (Manual) 7, Eosinophils % (Manual) 3, Basophils % (Manual) 0, Band Neutrophils 0, Platelet Estimate Adequate, Platelet Morphology Normal, Hypochromasia 1+, Macrocytosis 1+ 05/20/20 16:03: POC Whole Blood Glucose 123H 05/20/20 19:15: Urine Osmolality 367L, Urine Random Sodium 100 05/20/20 22:05: POC Whole Blood Glucose 107H Height (Feet): 5 Height (Inches): 9.00 Weight (Pounds): 177 Objective General Appearance: no apparent distress, confused, though answering some questions EENT: PERRL/EOMI Neck: non-tender, normal inspection Cardiovascular: normal rate, regular rhythm, no JVD, no audible murmurs Respiratory/Chest: lungs clear, normal breath sounds, no respiratory distress Abdomen: normal bowel sounds, non tender, soft Genitourinary/Rectal: other - Sanabria Edema: no edema noted Arm (L), no edema noted Arm (R), no edema noted Leg (L), no edema noted Leg (R), no edema noted Pedal (L), no edema noted Pedal (R), no edema noted Generalized Neurologic: supervisor cab II-XII grossly normal, alert Assessment/Plan Assessment/Plan: A: # Hypo-osmotic euvolemic hyponatremia2/2 hypovolemia versus SIADH versus hypothyroidism versus adrenal insufficiency # Chronic Encephalopathy # Subclinical Hypothyroidism # Paroxysmal Afib on anticoagulation # Hx of Left Soleal DVT # Chronic HFrEF 2/2 ischemic cardiomyopathy - hypovolemic # Hx of CAD s/p Stents # Severe Gastritis # Essential hypertension # Pre-Diabetes mellitus # CKD # Suprapubic catheter # Normocytic anemia 2/2 likely ACD versus CKD # ?Dementia # Depression # HLD P: - hemodynamically stable - Hgb drop from overnight 8.4->7.1, improved upon rechecking CBC at noon today - GI consulted, Dr. Hidalgo, for anemia without clear evidence of bleeding - monitor sodium levels - urine studies reviewed - UA positive for angie, colonization - will restart Xarelto from previous admission 1 week ago, colonoscopy/EGD completed and hemoclip of colon ulcer completed, cleared by GI for anti-coag - continue home metoprolol 12.5 mg BID, okay for amiodarone per cardiology - Follow-up cortisol levels in the morning for adrenal insufficiency work-up - increased Levothyroxine per Endocrinology, Dr. Mcdonough, recs appreciated - continue atorvastatin - continue sertraline - Start senna and Colace - consulted Dr. Huertas, nephrology, recs appreciated - consulted Dr. Irwin, cardiology, recs appreciated - consulted Dr. Oakley, gen surgery, recs appreciated - consulted Dr. Flaherty, Heme/onc, recs appreciated - CM Code: Full DVT: Xarelto Diet: regular GI: PPI Dispo: back to SNF with resolution of hyponatremia Time spent on this encounter was 32 minutes which included 19 minutes of counseling and care coordination. I discussed with the nurse at bedside. Time of note may not reflect time patient was seen. Yimi Ortiz M.D. May 20, 2020 23:12
[2020-05-21] VITALS: BP 102/50
--- NOTE | 2020-05-21 00:18 | CDS Physician Query ---
Clarification is required for compliance, coding accuracy, and to reflect severity of illness for this patient Dear Kosta Young D.O Date: 05/20/2020 CDI/CDS Name: Justo Han Clinical Documentation Statement: "74yo Gambian speaking male who reported from [facility] for hyponatremia. " [ H& P Kosta Hall D.O.May 17, 2020 01:58] ASSESSMENT: Hyponatremia versus SIADH, UTI, Sacral stage II ulceration , Atrial fibrillation, Diabetes, Hyperlipidemia Chronic Encephalopathy Clinical Finding Show: LAB (05/16) : Chem: Sodium 126, Glucose 117 Albumin 2.2 Medications: Sodium Chloride IV Please indicate the nature of the Encephalopathy below: [] Metabolic Encephalopathy [] Toxic Encephalopathy [] Toxic - Metabolic Encephalopathy [] Encephalopathy, Other [] Dementia with Delirium [] Hypoxic encephalopathy [] Posterior reversible encephalopathy syndrome [] Other: [] Not Applicable Present on Admission: [] Yes [] No [] Clinically Undetermined Physician signature Date Please also document in your Progress Notes and/or Discharge Summary and indicate if the condition was present on admission. MTDD
[2020-05-21 04:00] VITALS: BP 116/52
[2020-05-21] MEDS: Levothyroxine 25mcg tab ORAL SCH (05:57)
[2020-05-21] MEDS: NovoLOG Insulin Flexpen SUBQ SCH ×4 (05:57→21:20)
--- NOTE | 2020-05-21 06:30 | Hematology/Onc Progress Note ---
Assessment/Plan Assessment/Plan Assessment and recs # Anemia of chronic disease due to underlying chronic medical issues, multifactorial v Gi bleed --> Anemia workup has been ordered, rule out gi bleed --> cw ACD --> No evidence of hemolysis is noted, peripheral smear has been reviewed. no hemolysis. --> Hgb goal >7. Transfuse prn. --> Epogen or iron at this time is not particularly indicated --> Medications have been reviewed --> low threshold for gi evaluation in case has occult + --> hgb 7.5-->7.8-->8.4 # Dehydration with Hyponatremia --> Likely an hypothyroidism component --> ivfs started per renal, Uosm, Serum Osm, Urine Na # HTN --> Hold Metoprolol 12.5mg BID # Hypothyroidism --> Increase Levothyroxine 100mcg daily --> tsh levels to goal # UTI --> shabazz --> off abx # Sacral stage II ulceration - wound care consult --> per surg # Atrial fibrillation - continue amiodarone --> anticoag per cards prn --> on xarelto # Diabetes - continue januvia and ISS # Hyperlipidemia - continue lipitor # Dvt ppx xarelto The timing of this note does not necessarily reflect the time of the patient was seen. Greatly appreciate consultation. Subjective Constitutional: Denies: no symptoms, chills, fever, malaise, weakness, other HEENT: Denies: no symptoms, eye pain, blurred vision, tearing, double vision, ear pain, ear discharge, nose pain, nose congestion, throat pain, throat swelling, mouth pain, mouth swelling, other Cardiovascular: Denies: no symptoms, chest pain, edema, irregular heart rate, lightheadedness, palpitations, syncope, other Respiratory: Denies: no symptoms, cough, shortness of breath, SOB with excertion, SOB at rest, sputum, wheezing, other Gastrointestinal/Abdominal: Denies: no symptoms, abdomen distended, abdominal pain, black stools, tarry stools, blood in stool, constipated, diarrhea, difficulty swallowing, nausea, poor appetite, poor fluid intake, rectal bleeding, vomiting, other Neurologic/Psychiatric: Denies: no symptoms, anxiety, depressed, emotional problems, headache, numbness, paresthesia, pre-existing deficit, seizure, tingling, tremors, weakness, other Endocrine: Denies: no symptoms, excessive sweating, flushing, intolerance to cold, intolerance to heat, increased hunger, increased thirst, increased urine, unexplained weight gain, unexplained weight loss, other Hematologic/Lymphatic: Denies: no symptoms, anemia, easy bleeding, easy bruising, adenopathy, other Allergies: Coded Allergies: No Known Allergies (Unverified , 03/01/20) Subjective 05/19 meds noted, no bleeding, penis head erythematous, has been cleaned with rn 05/20 labs noted, awake, alert and getting wound care to stage iv decubs 05/21 labs reviewed, no night sweats, meds reviewed, no bleeding Objective Objective Current Medications Medications (Trade) Dose Ordered Sig/Lauren Route PRN Reason Start Time Stop Time Status Last Admin Dose Admin Acetaminophen (Tylenol) 650 mg Q6H PRN ORAL For Headache 05/17/20 01:45 06/16/20 01:44 05/17/20 08:14 Amiodarone HCl (Cordarone) 200 mg DAILY ORAL 05/17/20 09:00 08/15/20 08:59 05/20/20 10:01 Atorvastatin Calcium (Lipitor) 80 mg BEDTIME ORAL 05/17/20 21:00 08/15/20 20:59 05/20/20 21:54 Calcium Carbonate (Os-Gabriele) 500 mg DAILY ORAL 05/17/20 09:00 08/15/20 08:59 05/20/20 10:02 Dextrose (Dextrose 50%) 25 ml Q30M PRN IV Hypoglycemia 05/17/20 01:45 08/15/20 01:44 Dextrose (Dextrose 50%) 50 ml Q30M PRN IV Hypoglycemia 05/17/20 01:45 08/15/20 01:44 Docusate Sodium (Colace) 100 mg DAILY ORAL 05/19/20 09:00 06/18/20 08:59 05/20/20 10:02 Insulin Aspart (NovoLOG) BEFORE MEALS AND HS SUBQ 05/17/20 06:30 08/15/20 06:29 Levothyroxine Sodium (Synthroid) 25 mcg DAILY@0630 ORAL 05/21/20 06:30 06/20/20 06:29 05/21/20 05:57 Levothyroxine Sodium (Synthroid) 112 mcg DAILY@0630 ORAL 05/21/20 06:30 06/20/20 06:29 05/21/20 05:57 Magnesium Oxide (Mag-Ox 400mg) 400 mg DAILY ORAL 05/17/20 09:00 06/16/20 08:59 05/20/20 10:02 Metoprolol Succinate (Toprol XL) 12.5 mg BID ORAL 05/17/20 18:00 08/15/20 17:59 05/19/20 17:41 Pantoprazole (Protonix) 40 mg DAILY ORAL 05/19/20 09:00 06/18/20 08:59 05/20/20 10:02 Rivaroxaban (Xarelto) 20 mg DAILY ORAL 05/18/20 14:15 08/16/20 14:14 05/20/20 10:01 Sennosides (Senokot) 8.6 mg DAILYPRN PRN ORAL Constipation 05/19/20 08:45 06/18/20 08:44 Sertraline HCl (Zoloft) 25 mg DAILY ORAL 05/17/20 09:00 06/16/20 08:59 05/20/20 10:02 Sodium Chloride (NaCl) 1 gm THREE TIMES A DAY ORAL 05/18/20 18:00 06/17/20 17:59 05/20/20 18:00 Last 24 Hour Vital Signs Date Time Temp Pulse Resp B/P (MAP) Pulse Ox O2 Delivery O2 Flow Rate FiO2 05/21/20 04:00 60 05/21/20 04:00 97.4 67 20 116/52 (73) 97 05/21/20 00:00 97.2 62 20 102/50 (67) 98 05/21/20 00:00 59 05/20/20 20:00 64 05/20/20 20:00 97.3 64 20 105/52 (69) 98 05/20/20 18:00 64 95/50 05/20/20 16:00 61 05/20/20 15:55 97.2 61 18 115/60 (78) 96 05/20/20 12:00 60 05/20/20 12:00 97.0 59 20 108/54 (72) 95 05/20/20 12:00 63 05/20/20 10:18 61 92/43 05/20/20 08:00 97.9 62 18 102/45 (64) 96 05/20/20 08:00 Room Air 05/20/20 08:00 59 05/20/20 04:00 62 05/20/20 04:00 98.7 64 17 97/52 (67) 98 05/20/20 00:00 63 05/20/20 00:00 98.9 60 17 96/50 (65) 97 05/19/20 20:00 63 05/19/20 20:00 97.9 62 18 95/60 (72) 99 05/19/20 17:41 62 112/56 05/19/20 16:00 97.9 62 18 112/56 (74) 99 05/19/20 16:00 62 05/19/20 12:00 58 05/19/20 12:00 96.8 60 20 100/45 (63) 99 05/19/20 09:00 Room Air 05/19/20 08:37 62 118/73 05/19/20 08:00 97.0 62 18 118/73 (88) 98 05/19/20 08:00 59 Intake and Output 05/20/20 05/21/20 19:00 07:00 Intake Total 360 ml Output Total 800 ml 1100 ml Balance -440 ml -1100 ml Intake Oral 360 ml Output Urine Total 800 ml 1100 ml Labs Test 05/18/20 11:53 05/18/20 12:00 05/18/20 16:37 05/18/20 18:40 POC Whole Blood Glucose 123 MG/DL (74-106) 125 MG/DL (74-106) White Blood Count 7.6 K/UL (4.8-10.8) Red Blood Count 2.59 M/UL (4.70-6.10) Hemoglobin 8.4 G/DL (14.2-18.0) Hematocrit 25.9 % (42.0-52.0) Mean Corpuscular Volume 100 FL (80-99) Mean Corpuscular Hemoglobin 32.4 PG (27.0-31.0) Mean Corpuscular Hemoglobin Concent 32.4 G/DL (32.0-36.0) Red Cell Distribution Width 13.2 % (11.6-14.8) Platelet Count 217 K/UL (150-450) Mean Platelet Volume 6.4 FL (6.5-10.1) Neutrophils (%) (Auto) 69.9 % (45.0-75.0) Lymphocytes (%) (Auto) 19.5 % (20.0-45.0) Monocytes (%) (Auto) 7.7 % (1.0-10.0) Eosinophils (%) (Auto) 2.3 % (0.0-3.0) Basophils (%) (Auto) 0.5 % (0.0-2.0) Reticulocyte Count 0.8 % (0.5-2.0) Sodium Level 125 MMOL/L (136-145) Potassium Level 4.9 MMOL/L (3.5-5.1) Chloride Level 97 MMOL/L (98-107) Carbon Dioxide Level 21 MMOL/L (21-32) Anion Gap 7 mmol/L (5-15) Blood Urea Nitrogen 16 mg/dL (7-18) Creatinine 1.1 MG/DL (0.55-1.30) Estimat Glomerular Filtration Rate > 60 mL/min (>60) Glucose Level 120 MG/DL (74-106) Osmolality 262 mOsm/kg (297-317) Calcium Level 7.2 MG/DL (8.5-10.1) Phosphorus Level 2.6 MG/DL (2.5-4.9) Magnesium Level 1.9 MG/DL (1.8-2.4) Iron Level 59 ug/dL (50-175) Total Iron Binding Capacity 140 ug/dL (250-450) Percent Iron Saturation 42 % (15-50) Unsaturated Iron Binding 81 ug/dL (112-346) Ferritin 622 NG/ML (8-388) Urine Osmolality 347 mOsm/kg (429-449) Urine Random Sodium 95 mmol/L (20-110) Urine Creatinine 23.7 MG/DL (30.0-125.0) Test 05/18/20 19:55 05/19/20 06:02 05/19/20 06:35 05/19/20 11:30 POC Whole Blood Glucose 131 MG/DL (74-106) 99 MG/DL (74-106) 119 MG/DL (74-106) White Blood Count 8.2 K/UL (4.8-10.8) Red Blood Count 2.60 M/UL (4.70-6.10) Hemoglobin 8.4 G/DL (14.2-18.0) Hematocrit 26.0 % (42.0-52.0) Mean Corpuscular Volume 100 FL (80-99) Mean Corpuscular Hemoglobin 32.5 PG (27.0-31.0) Mean Corpuscular Hemoglobin Concent 32.4 G/DL (32.0-36.0) Red Cell Distribution Width 13.1 % (11.6-14.8) Platelet Count 240 K/UL (150-450) Mean Platelet Volume 6.4 FL (6.5-10.1) Neutrophils (%) (Auto) 65.0 % (45.0-75.0) Lymphocytes (%) (Auto) 21.5 % (20.0-45.0) Monocytes (%) (Auto) 10.0 % (1.0-10.0) Eosinophils (%) (Auto) 2.7 % (0.0-3.0) Basophils (%) (Auto) 0.9 % (0.0-2.0) Sodium Level 123 MMOL/L (136-145) Potassium Level 4.5 MMOL/L (3.5-5.1) Chloride Level 95 MMOL/L (98-107) Carbon Dioxide Level 23 MMOL/L (21-32) Anion Gap 5 mmol/L (5-15) Blood Urea Nitrogen 15 mg/dL (7-18) Creatinine 1.2 MG/DL (0.55-1.30) Estimat Glomerular Filtration Rate 59.0 mL/min (>60) Glucose Level 96 MG/DL (74-106) Calcium Level 7.7 MG/DL (8.5-10.1) Phosphorus Level 2.2 MG/DL (2.5-4.9) Magnesium Level 1.8 MG/DL (1.8-2.4) Troponin I 0.017 ng/mL (0.000-0.056) Pro-B-Type Natriuretic Peptide 99403 pg/mL (0-125) Triglycerides Level 53 MG/DL (30-150) Cholesterol Level 73 MG/DL (< 200) LDL Cholesterol 41 mg/dL (<100) HDL Cholesterol 23 MG/DL (40-60) Cholesterol/HDL Ratio 3.2 (3.3-4.4) Thyroid Stimulating Hormone (TSH) 34.519 uiU/mL (0.358-3.740) Free Thyroxine 1.09 NG/DL (0.76-1.46) Test 05/19/20 17:17 05/19/20 23:15 05/20/20 05:53 05/20/20 06:26 POC Whole Blood Glucose 119 MG/DL (74-106) 95 MG/DL (74-106) White Blood Count 7.7 K/UL (4.8-10.8) Red Blood Count 2.23 M/UL (4.70-6.10) Hemoglobin 7.1 G/DL (14.2-18.0) Hematocrit 21.5 % (42.0-52.0) Mean Corpuscular Volume 97 FL (80-99) Mean Corpuscular Hemoglobin 32.0 PG (27.0-31.0) Mean Corpuscular Hemoglobin Concent 33.1 G/DL (32.0-36.0) Red Cell Distribution Width 13.0 % (11.6-14.8) Platelet Count 216 K/UL (150-450) Mean Platelet Volume 6.5 FL (6.5-10.1) Neutrophils (%) (Auto) % (45.0-75.0) Lymphocytes (%) (Auto) % (20.0-45.0) Monocytes (%) (Auto) % (1.0-10.0) Eosinophils (%) (Auto) % (0.0-3.0) Basophils (%) (Auto) % (0.0-2.0) Differential Total Cells Counted 100 Neutrophils % (Manual) 66 % (45-75) Lymphocytes % (Manual) 26 % (20-45) Monocytes % (Manual) 5 % (1-10) Eosinophils % (Manual) 2 % (0-3) Basophils % (Manual) 1 % (0-2) Band Neutrophils 0 % (0-8) Platelet Estimate Adequate Platelet Morphology Normal Red Blood Cell Morphology Normal Sodium Level 125 MMOL/L (136-145) Potassium Level 4.5 MMOL/L (3.5-5.1) Chloride Level 97 MMOL/L (98-107) Carbon Dioxide Level 23 MMOL/L (21-32) Anion Gap 5 mmol/L (5-15) Blood Urea Nitrogen 17 mg/dL (7-18) Creatinine 1.1 MG/DL (0.55-1.30) Estimat Glomerular Filtration Rate > 60 mL/min (>60) Glucose Level 95 MG/DL (74-106) Calcium Level 7.1 MG/DL (8.5-10.1) Magnesium Level 1.7 MG/DL (1.8-2.4) Cortisol AM Sample 7.2 UG/DL Test 05/20/20 10:59 05/20/20 12:00 05/20/20 16:03 05/20/20 19:15 POC Whole Blood Glucose 105 MG/DL (74-106) 123 MG/DL (74-106) White Blood Count 7.4 K/UL (4.8-10.8) Red Blood Count 2.38 M/UL (4.70-6.10) Hemoglobin 7.8 G/DL (14.2-18.0) Hematocrit 24.0 % (42.0-52.0) Mean Corpuscular Volume 101 FL (80-99) Mean Corpuscular Hemoglobin 33.0 PG (27.0-31.0) Mean Corpuscular Hemoglobin Concent 32.6 G/DL (32.0-36.0) Red Cell Distribution Width 13.1 % (11.6-14.8) Platelet Count 198 K/UL (150-450) Mean Platelet Volume 6.5 FL (6.5-10.1) Neutrophils (%) (Auto) % (45.0-75.0) Lymphocytes (%) (Auto) % (20.0-45.0) Monocytes (%) (Auto) % (1.0-10.0) Eosinophils (%) (Auto) % (0.0-3.0) Basophils (%) (Auto) % (0.0-2.0) Differential Total Cells Counted 100 Neutrophils % (Manual) 77 % (45-75) Lymphocytes % (Manual) 13 % (20-45) Monocytes % (Manual) 7 % (1-10) Eosinophils % (Manual) 3 % (0-3) Basophils % (Manual) 0 % (0-2) Band Neutrophils 0 % (0-8) Platelet Estimate Adequate Platelet Morphology Normal Hypochromasia 1+ Macrocytosis 1+ Urine Osmolality 367 mOsm/kg (429-449) Urine Random Sodium 100 mmol/L (20-110) Test 05/20/20 22:05 05/21/20 05:50 POC Whole Blood Glucose 107 MG/DL (74-106) 90 MG/DL (74-106) Height (Feet): 5 Height (Inches): 9.00 Weight (Pounds): 177 Objective Physical Exam General Appearance: WD/WN, no apparent distress HEENT: normocephalic, atraumatic ++blind Neck: non-tender, supple Respiratory/Chest: chest wall non-tender, lungs clear Cardiovascular/Chest: normal peripheral pulses, normal rate Abdomen: normal bowel sounds, non tender Rey Flaherty MD May 21, 2020 06:30
--- NOTE | 2020-05-21 06:38 | General Progress Note ---
Subjective Allergies: Coded Allergies: No Known Allergies (Unverified , 03/01/20) All Systems: reviewed and negative except above Subjective events noted interval notes reviewed glucose values are stable Item Value Date Time Bedside Blood Glucose 90 mg/dl 05/21/20 0558 Bedside Blood Glucose 107 mg/dl 05/20/20 2100 Bedside Blood Glucose 123 mg/dl H 05/20/20 1635 Bedside Blood Glucose 105 mg/dl 05/20/20 1152 Bedside Blood Glucose 95 mg/dl 05/20/20 0630 Objective Last 24 Hour Vital Signs Date Time Temp Pulse Resp B/P (MAP) Pulse Ox O2 Delivery O2 Flow Rate FiO2 05/21/20 04:00 60 05/21/20 04:00 97.4 67 20 116/52 (73) 97 05/21/20 00:00 97.2 62 20 102/50 (67) 98 05/21/20 00:00 59 05/20/20 20:00 64 05/20/20 20:00 97.3 64 20 105/52 (69) 98 05/20/20 18:00 64 95/50 05/20/20 16:00 61 05/20/20 15:55 97.2 61 18 115/60 (78) 96 05/20/20 12:00 60 05/20/20 12:00 97.0 59 20 108/54 (72) 95 05/20/20 12:00 63 05/20/20 10:18 61 92/43 05/20/20 08:00 97.9 62 18 102/45 (64) 96 05/20/20 08:00 Room Air 05/20/20 08:00 59 Intake and Output 05/20/20 05/21/20 19:00 07:00 Intake Total 360 ml Output Total 800 ml 1100 ml Balance -440 ml -1100 ml Intake Oral 360 ml Output Urine Total 800 ml 1100 ml Laboratory Tests 05/20/20 10:59: POC Whole Blood Glucose 105 05/20/20 12:00: White Blood Count 7.4, Red Blood Count 2.38L, Hemoglobin 7.8L, Hematocrit 24.0L, Mean Corpuscular Volume 101H, Mean Corpuscular Hemoglobin 33.0H, Mean Corpuscular Hemoglobin Concent 32.6, Red Cell Distribution Width 13.1, Platelet Count 198, Mean Platelet Volume 6.5, Neutrophils (%) (Auto) , Lymphocytes (%) (A uto) , Monocytes (%) (Auto) , Eosinophils (%) (Auto) , Basophils (%) (Auto) , Differential Total Cells Counted 100, Neutrophils % (Manual) 77H, Lymphocytes % (Manual) 13L, Monocytes % (Manual) 7, Eosinophils % (Manual) 3, Basophils % (Manual) 0, Band Neutrophils 0, Platelet Estimate Adequate, Platelet Morphology Normal, Hypochromasia 1+, Macrocytosis 1+ 05/20/20 16:03: POC Whole Blood Glucose 123H 05/20/20 19:15: Urine Osmolality 367L, Urine Random Sodium 100 05/20/20 22:05: POC Whole Blood Glucose 107H 05/21/20 05:50: POC Whole Blood Glucose 90 Height (Feet): 5 Height (Inches): 9.00 Weight (Pounds): 177 General Appearance: no apparent distress Neck: normal alignment Cardiovascular: bradycardia Respiratory/Chest: lungs clear Abdomen: normal bowel sounds Objective Current Medications Medications (Trade) Dose Ordered Sig/Lauren Route PRN Reason Start Time Stop Time Status Last Admin Dose Admin Acetaminophen (Tylenol) 650 mg Q6H PRN ORAL For Headache 05/17/20 01:45 06/16/20 01:44 05/17/20 08:14 Amiodarone HCl (Cordarone) 200 mg DAILY ORAL 05/17/20 09:00 08/15/20 08:59 05/20/20 10:01 Atorvastatin Calcium (Lipitor) 80 mg BEDTIME ORAL 05/17/20 21:00 08/15/20 20:59 05/20/20 21:54 Calcium Carbonate (Os-Gabriele) 500 mg DAILY ORAL 05/17/20 09:00 08/15/20 08:59 05/20/20 10:02 Dextrose (Dextrose 50%) 25 ml Q30M PRN IV Hypoglycemia 05/17/20 01:45 08/15/20 01:44 Dextrose (Dextrose 50%) 50 ml Q30M PRN IV Hypoglycemia 05/17/20 01:45 08/15/20 01:44 Docusate Sodium (Colace) 100 mg DAILY ORAL 05/19/20 09:00 06/18/20 08:59 05/20/20 10:02 Insulin Aspart (NovoLOG) BEFORE MEALS AND HS SUBQ 05/17/20 06:30 08/15/20 06:29 Levothyroxine Sodium (Synthroid) 25 mcg DAILY@0630 ORAL 05/21/20 06:30 06/20/20 06:29 05/21/20 05:57 Levothyroxine Sodium (Synthroid) 112 mcg DAILY@0630 ORAL 05/21/20 06:30 06/20/20 06:29 05/21/20 05:57 Magnesium Oxide (Mag-Ox 400mg) 400 mg DAILY ORAL 05/17/20 09:00 06/16/20 08:59 05/20/20 10:02 Metoprolol Succinate (Toprol XL) 12.5 mg BID ORAL 05/17/20 18:00 08/15/20 17:59 05/19/20 17:41 Pantoprazole (Protonix) 40 mg DAILY ORAL 05/19/20 09:00 06/18/20 08:59 05/20/20 10:02 Rivaroxaban (Xarelto) 20 mg DAILY ORAL 05/18/20 14:15 08/16/20 14:14 05/20/20 10:01 Sennosides (Senokot) 8.6 mg DAILYPRN PRN ORAL Constipation 05/19/20 08:45 06/18/20 08:44 Sertraline HCl (Zoloft) 25 mg DAILY ORAL 05/17/20 09:00 06/16/20 08:59 05/20/20 10:02 Sodium Chloride (NaCl) 1 gm THREE TIMES A DAY ORAL 05/18/20 18:00 06/17/20 17:59 05/20/20 18:00 Assessment/Plan Problem List: (1) Hyponatremia ICD Codes: E87.1 - Hypo-osmolality and hyponatremia SNOMED: 88410538 (2) Hypothyroidism ICD Codes: E03.9 - Hypothyroidism, unspecified SNOMED: 46057400 (3) Diabetes mellitus ICD Codes: E11.9 - Type 2 diabetes mellitus without complications SNOMED: 42334967 Assessment/Plan: continue Levothyroxine 137 mcg daily repeat thyroid function in 2-3 weeks continue SSI Doni Mcdonough MD May 21, 2020 06:38
[2020-05-21 07:32] LABS: HEMATOCRIT 21.5 % (42.0-52.0); MEAN CORPUSCULAR VOLUME 98 FL (80-99); PLATELET COUNT 225 K/UL (150-450); RED BLOOD COUNT 2.19 M/UL (4.70-6.10); RED CELL DISTRIBUTION WIDTH 12.9 % (11.6-14.8); WHITE BLOOD COUNT 7.7 K/UL (4.8-10.8)
[2020-05-21 07:47] LABS: ANION GAP 5 mmol/L (5-15); BLOOD UREA NITROGEN 17 mg/dL (7-18); CALCIUM 7.3 MG/DL (8.5-10.1); CARBON DIOXIDE 24 MMOL/L (21-32); CHLORIDE 98 MMOL/L (98-107); CREATININE 1.1 MG/DL (0.55-1.30); PHOSPHORUS 2.5 MG/DL (2.5-4.9); POTASSIUM 4.3 MMOL/L (3.5-5.1); SODIUM 127 MMOL/L (136-145)
[2020-05-21 08:00] VITALS: BP 110/52
--- NOTE | 2020-05-21 08:25 | Cardiology Report ---
APPROVED REPORT EXAM: Two-dimensional and M-mode echocardiogram with Doppler and color Doppler. INDICATION Congestive Heart Failure M-Mode DIMENSIONS IVSd1.4 (0.7-1.1cm)Left Atrium (MM)4.3 (1.6-4.0cm) LVDd4.5 (3.5-5.6cm)Aortic Root4.3 (2.0-3.7cm) PWd1.2 (0.7-1.1cm)Aortic Cusp Exc.1.5 (1.5-2.0cm) IVSs1.9 cm LVDs3.4 (2.5-4.0cm) PWs1.2 cm <Conclusion> Technically difficult study due to poor parasternal windows. Normal left ventricular chamber size. Global left ventricular hypokinesis with apical dyskinesis, mid-distal anterior & distal septal dyskinesis. Possible apical thrombus. Left ventricular ejection fraction estimated to be 30-35 %. No evidence of left ventricular hypertrophy. Small posterio pericardial effusion. All other cardiac chamber sizes are within normal limits. Calcification of aortic valve with adequate cusp excursion. Thickened mitral valve leaflets with normal excursion. Mitral annulus and aortic root calcification. Pulmonic valve not well visualized. Normal tricuspid valve structure. IVC not obtainable. A color flow and spectral Doppler study was performed and revealed: Mild aortic insufficiency. Mild mitral regurgitation. Mitral diastolic velocities suggest reduced left ventricular relaxation c/w mild LV diastolic dysfunction (Grade I ). Mild tricuspid regurgitation. Tricuspid systolic velocities suggests peak right ventricular systolic pressure of 51 mmHg, consistent with moderate pulmonary hypertension. Notified Dr. Sergio Irwin by Dawit at 8am May 21, 2020.
[2020-05-21] MEDS: Sodium Chloride 1gm Tab ORAL SCH ×3 (09:44→18:14)
[2020-05-21] MEDS: Sertraline 50mg tab ORAL SCH (09:45)
--- NOTE | 2020-05-21 09:45 | General Progress Note ---
Subjective Date patient seen: May 21, 2020 ROS Limited/Unobtainable: No Allergies: Coded Allergies: No Known Allergies (Unverified , 03/01/20) Subjective Constitutional: Reports: chills, weakness; Denies: fever HEENT: Denies: eye pain, ear pain, throat pain, mouth pain Cardiovascular: Denies: chest pain, irregular heart rate, lightheadedness Respiratory: Denies: cough, shortness of breath Gastrointestinal/Abdominal: Reports: constipated; Denies: abdomen distended, black stools, tarry stools, blood in stool, diarrhea, nausea Genitourinary: Denies: burning, hematuria Neurologic/Psychiatric: Denies: headache, paresthesia Interval Events: AM Hgb again decreased from yesterday, transfusing today. Patient feeling tired today, again denies any bleeding or abdominal pain. Still not having bowel movement. Objective Last 24 Hour Vital Signs Date Time Temp Pulse Resp B/P (MAP) Pulse Ox O2 Delivery O2 Flow Rate FiO2 05/21/20 04:00 60 05/21/20 04:00 97.4 67 20 116/52 (73) 97 05/21/20 00:00 97.2 62 20 102/50 (67) 98 05/21/20 00:00 59 05/20/20 20:00 64 05/20/20 20:00 97.3 64 20 105/52 (69) 98 05/20/20 18:00 64 95/50 05/20/20 16:00 61 05/20/20 15:55 97.2 61 18 115/60 (78) 96 05/20/20 12:00 60 05/20/20 12:00 97.0 59 20 108/54 (72) 95 05/20/20 12:00 63 05/20/20 10:18 61 92/43 Intake and Output 05/20/20 05/21/20 19:00 07:00 Intake Total 360 ml Output Total 800 ml 1100 ml Balance -440 ml -1100 ml Intake Oral 360 ml Output Urine Total 800 ml 1100 ml Laboratory Tests 05/20/20 10:59: POC Whole Blood Glucose 105 05/20/20 12:00: White Blood Count 7.4, Red Blood Count 2.38L, Hemoglobin 7.8L, Hematocrit 24.0L, Mean Corpuscular Volume 101H, Mean Corpuscular Hemoglobin 33.0H, Mean Corpuscular Hemoglobin Concent 32.6, Red Cell Distribution Width 13.1, Platelet Count 198, Mean Platelet Volume 6.5, Neutrophils (%) (Auto) , Lymphocytes (%) (Auto) , Monocytes (%) (Auto) , Eosinophils (%) (Auto) , Basophils (%) (Auto) , Differential Total Cells Counted 100, Neutrophils % (Manual) 77H, Lymphocytes % (Manual) 13L, Monocytes % (Manual) 7, Eosinophils % (Manual) 3, Basophils % (Manual) 0, Band Neutrophils 0, Platelet Estimate Adequate, Platelet Morphology Normal, Hypochromasia 1+, Macrocytosis 1+ 05/20/20 16:03: POC Whole Blood Glucose 123H 05/20/20 19:15: Urine Osmolality 367L, Urine Random Sodium 100 05/20/20 22:05: POC Whole Blood Glucose 107H 05/21/20 05:50: POC Whole Blood Glucose 90 05/21/20 06:50: White Blood Count 7.7, Red Blood Count 2.19L, Hemoglobin 7.0L, Hematocrit 21.5L, Mean Corpuscular Volume 98, Mean Corpuscular Hemoglobin 32.0H, Mean Corpuscular Hemoglobin Concent 32.6, Red Cell Distribution Width 12.9, Platelet Count 225, Mean Platelet Volume 6.5, Neutrophils (%) (Auto) , Lymphocytes (%) (Auto) , Monocytes (%) (Auto) , Eosinophils (%) (Auto) , Basophils (%) (Auto) , Neutrophils % (Manual) [Pending], Lymphocytes % (Manual) [Pending], Platelet Estimate [Pending], Platelet Morphology [Pending], Sodium Level 127L, Potassium Level 4.3, Chloride Level 98, Carbon Dioxide Level 24, Anion Gap 5, Blood Urea Nitrogen 17, Creatinine 1.1, Estimat Glomerular Filtration Rate > 60, Glucose Level 90, Osmolality 270L, Calcium Level 7.3L, Phosphorus Level 2.5, Magnesium Level 1.8 Height (Feet): 5 Height (Inches): 9.00 Weight (Pounds): 177 Objective General Appearance: no apparent distress, sleepy, though answering some questions EENT: PERRL/EOMI Neck: non-tender, normal inspection Cardiovascular: normal rate, regular rhythm, no JVD, no audible murmurs Respiratory/Chest: lungs clear, normal breath sounds, no respiratory distress Abdomen: normal bowel sounds, non tender, soft Genitourinary/Rectal: other - Sanabria Edema: no edema noted Arm (L), no edema noted Arm (R), no edema noted Leg (L), no edema noted Leg (R), no edema noted Pedal (L), no edema noted Pedal (R), no edema noted Generalized Neurologic: make up arranger II-XII grossly normal, alert Assessment/Plan Assessment/Plan: A: # Hypo-osmotic euvolemic hyponatremia - gradually improving 2/2 hypovolemia versus SIADH versus hypothyroidism versus adrenal insufficiency # Chronic Encephalopathy # Subclinical Hypothyroidism # Paroxysmal Afib on anticoagulation # Hx of Left Soleal DVT # Chronic HFrEF 2/2 ischemic cardiomyopathy - hypovolemic # Hx of CAD s/p Stents # Severe Gastritis # Essential hypertension # Pre-Diabetes mellitus # CKD # Suprapubic catheter # Normocytic anemia 2/2 likely ACD versus CKD # ?Dementia # Depression # HLD P: - hemodynamically stable - Hgb drop from again from yesterday, transfusing blood today - plan for colonoscopy per GI - monitor sodium levels - urine studies reviewed - UA positive for angie, colonization - continue Xarelto from previous admission, colonoscopy/EGD completed and hemoclip of colon ulcer completed, cleared by GI for anti-coag - continue home metoprolol 12.5 mg BID, okay for amiodarone per cardiology - Levothyroxine dose per Endocrinology, Dr. Mcdonough, recs appreciated, repeat TSH in 2-3 weeks - continue atorvastatin - continue sertraline - continue senna and Colace - consulted Dr. Huertas, nephrology, recs appreciated - consulted Dr. Irwin, cardiology, recs appreciated - consulted Dr. Oakley, gen surgery, recs appreciated - consulted Dr. Flaherty, Heme/onc, recs appreciated - GI consulted, Dr. Hidalgo, for anemia without clear evidence of bleeding - CM Code: Full DVT: Xarelto Diet: regular GI: PPI Dispo: back to SNF with resolution of hyponatremia Time spent on this encounter was 31 minutes which included 16 minutes of counseling and care coordination. I discussed with the nurse at bedside. Time of note may not reflect time patient was seen. Yimi Ortiz M.D. May 21, 2020 09:45
[2020-05-21] MEDS: Metoprolol Succinate XL 25mg tab ORAL SCH ×2 (09:46→18:00)
[2020-05-21] MEDS: Os-Cal (Oyster Shell) 500mg tab ORAL SCH (09:46)
[2020-05-21] MEDS: Docusate 100mg cap ORAL SCH (09:46)
[2020-05-21] MEDS: Amiodarone 200mg tab ORAL SCH (09:46)
[2020-05-21] MEDS: Magnesium Oxide 400mg tab ORAL SCH (09:47)
[2020-05-21] MEDS: Xarelto 10mg tab ORAL SCH (09:48)
[2020-05-21 11:38] VITALS: BP 112/61
[2020-05-21] MEDS ORDERED: Polyethylene Glycol 238gm bottle ORAL ONE (12:15)
--- NOTE | 2020-05-21 12:17 | Cardiac Electrophysiology PN ---
Assessment/Plan Assessment/Plan 1. Paroxysmal atrial fibrillation. Continue Xarelto 20 mg daily, Toprol-XL 12.5 mg b.i.d. and amiodarone 200 daily 2. Hypertension. On Toprol 12.5 mg b.i.d. 3. Hyperlipidemia, on Lipitor. 4. Questionable coronary artery disease. Patient denies any prior myocardial infarction, but he is not very reliable. Continue Toprol and Lipitor. Off aspirin while the patient is anemic and he is also on Xarelto. Ruled out for PR. 5. Diabetes. 6. Foot ulcer and sepsis, on IV antibiotics. 7. Hyponatremia. Sodium 125. Decrease free water intake. Fu by Nephrology. 8. Anemia, colonoscopy/EGD completed and hemoclip of colon ulcer completed, cleared by GI for anti-coag MARIZOL RN Subjective Subjective Alert in NAD but Na still 125 in SR on Salt tablets. Getting PRBC. Likely will need colonoscopy Objective Last 24 Hour Vital Signs Date Time Temp Pulse Resp B/P (MAP) Pulse Ox O2 Delivery O2 Flow Rate FiO2 05/21/20 11:38 98.1 87 20 112/61 (78) 98 05/21/20 09:46 63 110/52 05/21/20 08:00 96.8 63 19 110/52 (71) 97 05/21/20 04:00 60 05/21/20 04:00 97.4 67 20 116/52 (73) 97 05/21/20 00:00 97.2 62 20 102/50 (67) 98 05/21/20 00:00 59 05/20/20 20:00 64 05/20/20 20:00 97.3 64 20 105/52 (69) 98 05/20/20 18:00 64 95/50 05/20/20 16:00 61 05/20/20 15:55 97.2 61 18 115/60 (78) 96 Intake and Output 05/20/20 05/21/20 19:00 07:00 Intake Total 360 ml Output Total 800 ml 1100 ml Balance -440 ml -1100 ml Intake Oral 360 ml Output Urine Total 800 ml 1100 ml Laboratory Tests Test 05/20/20 16:03 05/20/20 19:15 05/20/20 22:05 05/21/20 05:50 POC Whole Blood Glucose 123 MG/DL (74-106) H 107 MG/DL (74-106) H 90 MG/DL (74-106) Urine Osmolality 367 mOsm/kg (429-449) L Urine Random Sodium 100 mmol/L (20-110) Test 05/21/20 06:50 White Blood Count 7.7 K/UL (4.8-10.8) Red Blood Count 2.19 M/UL (4.70-6.10) L Hemoglobin 7.0 G/DL (14.2-18.0) L Hematocrit 21.5 % (42.0-52.0) L Mean Corpuscular Volume 98 FL (80-99) Mean Corpuscular Hemoglobin 32.0 PG (27.0-31.0) H Mean Corpuscular Hemoglobin Concent 32.6 G/DL (32.0-36.0) Red Cell Distribution Width 12.9 % (11.6-14.8) Platelet Count 225 K/UL (150-450) Mean Platelet Volume 6.5 FL (6.5-10.1) Neutrophils (%) (Auto) % (45.0-75.0) Lymphocytes (%) (Auto) % (20.0-45.0) Monocytes (%) (Auto) % (1.0-10.0) Eosinophils (%) (Auto) % (0.0-3.0) Basophils (%) (Auto) % (0.0-2.0) Differential Total Cells Counted 100 Neutrophils % (Manual) 70 % (45-75) Lymphocytes % (Manual) 23 % (20-45) Monocytes % (Manual) 7 % (1-10) Eosinophils % (Manual) 0 % (0-3) Basophils % (Manual) 0 % (0-2) Band Neutrophils 0 % (0-8) Platelet Estimate Adequate Platelet Morphology Normal Hypochromasia 1+ Macrocytosis 1+ Sodium Level 127 MMOL/L (136-145) L Potassium Level 4.3 MMOL/L (3.5-5.1) Chloride Level 98 MMOL/L (98-107) Carbon Dioxide Level 24 MMOL/L (21-32) Anion Gap 5 mmol/L (5-15) Blood Urea Nitrogen 17 mg/dL (7-18) Creatinine 1.1 MG/DL (0.55-1.30) Estimat Glomerular Filtration Rate > 60 mL/min (>60) Glucose Level 90 MG/DL (74-106) Osmolality 270 mOsm/kg (297-317) L Calcium Level 7.3 MG/DL (8.5-10.1) L Phosphorus Level 2.5 MG/DL (2.5-4.9) Magnesium Level 1.8 MG/DL (1.8-2.4) Objective HEAD AND NECK: Shows no JVD. LUNGS: Clear. CARDIOVASCULAR: Shows regular S1 and S2 with no gallop or murmur. ABDOMEN: Soft. EXTREMITIES: Right heel ulcer with dressing. Sergio Irwin MD May 21, 2020 12:17
--- NOTE | 2020-05-21 13:12 | Cardiac Electrophysiology PN ---
Assessment/Plan Assessment/Plan 1. Paroxysmal atrial fibrillation. Continue Xarelto 20 mg daily, Toprol-XL 12.5 mg b.i.d. and amiodarone 200 daily 2. Hypertension. On Toprol 12.5 mg b.i.d. 3. CHF with EF 30-35% On Toprol. Add Lisinopril 5 daily 4. Questionable coronary artery disease. Patient denies any prior myocardial infarction, but he is not very reliable. Continue Toprol and Lipitor. Off aspirin while the patient is anemic and he is also on Xarelto. Ruled out for [place]. 5. Possible LV clot. On Xarelto 6. Foot ulcer and sepsis, on IV antibiotics. 7. Hyponatremia. Sodium 125. Decrease free water intake. Fu by Nephrology. 8. Anemia, colonoscopy/EGD completed and hemoclip of colon ulcer completed, cleared by GI for anti-coag 9. Hyperlipidemia, on Lipitor. 10. Diabetes. MARIZOL RN Subjective Subjective Alert in NAD but Na still 125 in SR on Salt tablets. Getting PRBC. Likely will need colonoscopy Echo EF 30-35% with possible thrombus Objective Last 24 Hour Vital Signs Date Time Temp Pulse Resp B/P (MAP) Pulse Ox O2 Delivery O2 Flow Rate FiO2 05/21/20 11:38 98.1 87 20 112/61 (78) 98 05/21/20 09:46 63 110/52 05/21/20 08:00 96.8 63 19 110/52 (71) 97 05/21/20 04:00 60 05/21/20 04:00 97.4 67 20 116/52 (73) 97 05/21/20 00:00 97.2 62 20 102/50 (67) 98 05/21/20 00:00 59 05/20/20 20:00 64 05/20/20 20:00 97.3 64 20 105/52 (69) 98 05/20/20 18:00 64 95/50 05/20/20 16:00 61 05/20/20 15:55 97.2 61 18 115/60 (78) 96 Intake and Output 05/20/20 05/21/20 19:00 07:00 Intake Total 360 ml Output Total 800 ml 1100 ml Balance -440 ml -1100 ml Intake Oral 360 ml Output Urine Total 800 ml 1100 ml Laboratory Tests Test 05/20/20 16:03 05/20/20 19:15 05/20/20 22:05 05/21/20 05:50 POC Whole Blood Glucose 123 MG/DL (74-106) H 107 MG/DL (74-106) H 90 MG/DL (74-106) Urine Osmolality 367 mOsm/kg (429-449) L Urine Random Sodium 100 mmol/L (20-110) Test 05/21/20 06:50 White Blood Count 7.7 K/UL (4.8-10.8) Red Blood Count 2.19 M/UL (4.70-6.10) L Hemoglobin 7.0 G/DL (14.2-18.0) L Hematocrit 21.5 % (42.0-52.0) L Mean Corpuscular Volume 98 FL (80-99) Mean Corpuscular Hemoglobin 32.0 PG (27.0-31.0) H Mean Corpuscular Hemoglobin Concent 32.6 G/DL (32.0-36.0) Red Cell Distribution Width 12.9 % (11.6-14.8) Platelet Count 225 K/UL (150-450) Mean Platelet Volume 6.5 FL (6.5-10.1) Neutrophils (%) (Auto) % (45.0-75.0) Lymphocytes (%) (Auto) % (20.0-45.0) Monocytes (%) (Auto) % (1.0-10.0) Eosinophils (%) (Auto) % (0.0-3.0) Basophils (%) (Auto) % (0.0-2.0) Differential Total Cells Counted 100 Neutrophils % (Manual) 70 % (45-75) Lymphocytes % (Manual) 23 % (20-45) Monocytes % (Manual) 7 % (1-10) Eosinophils % (Manual) 0 % (0-3) Basophils % (Manual) 0 % (0-2) Band Neutrophils 0 % (0-8) Platelet Estimate Adequate Platelet Morphology Normal Hypochromasia 1+ Macrocytosis 1+ Sodium Level 127 MMOL/L (136-145) L Potassium Level 4.3 MMOL/L (3.5-5.1) Chloride Level 98 MMOL/L (98-107) Carbon Dioxide Level 24 MMOL/L (21-32) Anion Gap 5 mmol/L (5-15) Blood Urea Nitrogen 17 mg/dL (7-18) Creatinine 1.1 MG/DL (0.55-1.30) Estimat Glomerular Filtration Rate > 60 mL/min (>60) Glucose Level 90 MG/DL (74-106) Osmolality 270 mOsm/kg (297-317) L Calcium Level 7.3 MG/DL (8.5-10.1) L Phosphorus Level 2.5 MG/DL (2.5-4.9) Magnesium Level 1.8 MG/DL (1.8-2.4) Objective HEAD AND NECK: Shows no JVD. LUNGS: Clear. CARDIOVASCULAR: Shows regular S1 and S2 with no gallop or murmur. ABDOMEN: Soft. EXTREMITIES: Right heel ulcer with dressing. Sergio Irwin MD May 21, 2020 13:12
--- NOTE | 2020-05-21 13:36 | Nephrology Progress Note ---
Assessment/Plan Plan #Hyponatemia - #hypothyroidism-freeT4 WNL #HTN #afib #HLD #GERD #depression - replete mag and phos - continue salt tab 1g TID - continue levothyroxine 100mcg daily - consider holding sertraline - monitor BMP - check metop 12.5 BID - monitor UOP - check bmp daily Subjective ROS Limited/Unobtainable: Yes Subjective urine chem consistent with SIADH sodium remains low on salt tabs replete mag and phos Objective Objective Last 24 Hour Vital Signs Date Time Temp Pulse Resp B/P (MAP) Pulse Ox O2 Delivery O2 Flow Rate FiO2 05/21/20 11:38 98.1 87 20 112/61 (78) 98 05/21/20 09:46 63 110/52 05/21/20 08:00 96.8 63 19 110/52 (71) 97 05/21/20 04:00 60 05/21/20 04:00 97.4 67 20 116/52 (73) 97 05/21/20 00:00 97.2 62 20 102/50 (67) 98 05/21/20 00:00 59 05/20/20 20:00 64 05/20/20 20:00 97.3 64 20 105/52 (69) 98 05/20/20 18:00 64 95/50 05/20/20 16:00 61 05/20/20 15:55 97.2 61 18 115/60 (78) 96 Intake and Output 05/20/20 05/21/20 19:00 07:00 Intake Total 360 ml Output Total 800 ml 1100 ml Balance -440 ml -1100 ml Intake Oral 360 ml Output Urine Total 800 ml 1100 ml Laboratory Tests 05/20/20 16:03: POC Whole Blood Glucose 123H 05/20/20 19:15: Urine Osmolality 367L, Urine Random Sodium 100 05/20/20 22:05: POC Whole Blood Glucose 107H 05/21/20 05:50: POC Whole Blood Glucose 90 05/21/20 06:50: White Blood Count 7.7, Red Blood Count 2.19L, Hemoglobin 7.0L, Hematocrit 21.5L, Mean Corpuscular Volume 98, Mean Corpuscular Hemoglobin 32.0H, Mean Corpuscular Hemoglobin Concent 32.6, Red Cell Distribution Width 12.9, Platelet Count 225, Mean Platelet Volume 6.5, Neutrophils (%) (Auto) , Lymphocytes (%) (Auto) , Monocytes (%) (Auto) , Eosinophils (%) (Auto) , Basophils (%) (Auto) , Differential Total Cells Counted 100, Neutrophils % (Manual) 70, Lymphocytes % (Manual) 23, Monocytes % (Manual) 7, Eosinophils % (Manual) 0, Basophils % (Manual) 0, Band Neutrophils 0, Platelet Estimate Adequate, Platelet Morphology Normal, Hypochromasia 1+, Macrocytosis 1+, Sodium Level 127L, Potassium Level 4.3, Chloride Level 98, Carbon Dioxide Level 24, Anion Gap 5, Blood Urea Nitrogen 17, Creatinine 1.1, Estimat Glomerular Filtration Rate > 60, Glucose Level 90, Osmolality 270L, Calcium Level 7.3L, Phosphorus Level 2.5, Magnesium Level 1.8 Height (Feet): 5 Height (Inches): 9.00 Weight (Pounds): 177 Jered Huertas M.D. May 21, 2020 13:35
--- NOTE | 2020-05-21 14:45 | Consultation ---
DATE OF CONSULTATION: 05/21/2020 GASTROENTEROLOGY CONSULTATION CONSULTING PHYSICIAN: Jorgito Hidalgo MD. CHIEF COMPLAINT: Anemia. HISTORY OF PRESENT ILLNESS: Most of the history per chart. This is a 74-year-old patient known to me from last admission. I evaluated him for anemia, had stool OB positive. On last admission, endoscopy showed evidence of severe atrophic gastritis. Colonoscopy was incomplete, as prep was poor and the patient had a lesion in the rectum, which was clipped. The patient is back again here with severe anemia. PAST MEDICAL HISTORY: 1. Hypertension. 2. Diabetes. 3. Chronic kidney disease. 4. History of UTI. 5. History of suprapubic catheter placement. 6. Hypothyroidism. 7. Dementia. 8. Hypercholesterolemia. 9. Atrophic gastritis. ALLERGIES: No known allergies. MEDICATIONS: Please see medication reconciliation list. PAST SURGICAL HISTORY: None per chart. FAMILY HISTORY: Noncontributory. SOCIAL HISTORY: The patient has no history of tobacco, alcohol, or drug abuse. PHYSICAL EXAMINATION: VITAL SIGNS: Temperature is 98.1, pulse 87, respirations 20, blood pressure 112/61. HEENT: Normocephalic and atraumatic. Sclerae are anicteric. NECK: Supple. No evidence of obvious lymphadenopathy. CARDIOVASCULAR: Regular rate and rhythm. Plus S1-S2. LUNGS: Decreased breath sounds bilaterally based on the supine exam. ABDOMEN: Soft, nontender. No rebound. No guarding. No peritoneal sign. EXTREMITIES: No cyanosis, no clubbing, no edema. LABORATORY DATA: White count is 7.7, hemoglobin 7, hematocrit 21, platelets 225,000. ASSESSMENT AND PLAN: This is a 74-year-old male with profound anemia, prior history of stool OB positive, and poor prep colonoscopy on last admission. Plan at this time, given hemoglobin of 7, the patient needs another blood transfusion at least one unit. We are going to give a two-day bowel prep to the patient. Now, we are going to give him a dose of MiraLAX prep today and regular GoLYTELY prep tomorrow, and hopefully schedule him for colonoscopy screening for Tuesday. Meanwhile follow H and H and transfuse as needed. Jorgitorebeca Hidalgo M.D. DR: TERRY JOB#: [id number] CC:
--- NOTE | 2020-05-21 15:05 | Surgery Progress Note ---
Surgery Progress Note Subjective Additional Comments afebrile, HD stable comfortable no n/v dressings going well labs stable Objective Last 24 Hour Vital Signs Date Time Temp Pulse Resp B/P (MAP) Pulse Ox O2 Delivery O2 Flow Rate FiO2 05/21/20 11:38 98.1 87 20 112/61 (78) 98 05/21/20 09:46 63 110/52 05/21/20 08:00 96.8 63 19 110/52 (71) 97 05/21/20 04:00 60 05/21/20 04:00 97.4 67 20 116/52 (73) 97 05/21/20 00:00 97.2 62 20 102/50 (67) 98 05/21/20 00:00 59 05/20/20 20:00 64 05/20/20 20:00 97.3 64 20 105/52 (69) 98 05/20/20 18:00 64 95/50 05/20/20 16:00 61 05/20/20 15:55 97.2 61 18 115/60 (78) 96 I&O Intake and Output 05/20/20 05/21/20 19:00 07:00 Intake Total 360 ml Output Total 800 ml 1100 ml Balance -440 ml -1100 ml Intake Oral 360 ml Output Urine Total 800 ml 1100 ml Dressing: saturated Cardiovascular: RSR Respiratory: decreased breath sounds Abdomen: non-tender, present bowel sounds Extremities: no edema, no tenderness, no cyanosis Laboratory Tests Test 05/20/20 16:03 05/20/20 19:15 05/20/20 22:05 05/21/20 05:50 POC Whole Blood Glucose 123 MG/DL (74-106) H 107 MG/DL (74-106) H 90 MG/DL (74-106) Urine Osmolality 367 mOsm/kg (429-449) L Urine Random Sodium 100 mmol/L (20-110) Test 05/21/20 06:50 05/21/20 14:04 White Blood Count 7.7 K/UL (4.8-10.8) Red Blood Count 2.19 M/UL (4.70-6.10) L Hemoglobin 7.0 G/DL (14.2-18.0) L Hematocrit 21.5 % (42.0-52.0) L Mean Corpuscular Volume 98 FL (80-99) Mean Corpuscular Hemoglobin 32.0 PG (27.0-31.0) H Mean Corpuscular Hemoglobin Concent 32.6 G/DL (32.0-36.0) Red Cell Distribution Width 12.9 % (11.6-14.8) Platelet Count 225 K/UL (150-450) Mean Platelet Volume 6.5 FL (6.5-10.1) Neutrophils (%) (Auto) % (45.0-75.0) Lymphocytes (%) (Auto) % (20.0-45.0) Monocytes (%) (Auto) % (1.0-10.0) Eosinophils (%) (Auto) % (0.0-3.0) Basophils (%) (Auto) % (0.0-2.0) Differential Total Cells Counted 100 Neutrophils % (Manual) 70 % (45-75) Lymphocytes % (Manual) 23 % (20-45) Monocytes % (Manual) 7 % (1-10) Eosinophils % (Manual) 0 % (0-3) Basophils % (Manual) 0 % (0-2) Band Neutrophils 0 % (0-8) Platelet Estimate Adequate Platelet Morphology Normal Hypochromasia 1+ Macrocytosis 1+ Sodium Level 127 MMOL/L (136-145) L Potassium Level 4.3 MMOL/L (3.5-5.1) Chloride Level 98 MMOL/L (98-107) Carbon Dioxide Level 24 MMOL/L (21-32) Anion Gap 5 mmol/L (5-15) Blood Urea Nitrogen 17 mg/dL (7-18) Creatinine 1.1 MG/DL (0.55-1.30) Estimat Glomerular Filtration Rate > 60 mL/min (>60) Glucose Level 90 MG/DL (74-106) Osmolality 270 mOsm/kg (297-317) L Calcium Level 7.3 MG/DL (8.5-10.1) L Phosphorus Level 2.5 MG/DL (2.5-4.9) Magnesium Level 1.8 MG/DL (1.8-2.4) POC Whole Blood Glucose Pending Plan Problems: (1) Hyponatremia (2) Dehydration Assessment & Plan: DAILY ESTIMATED NEEDS: Needs based on Wound, 77kg 25-30 kcals/kg 8211-4417 total kcals 1.25-2 g protein/kg 96-154 g total protein 25-30 mL/kg 9580-4888 total fluid mLs NUTRITION DIAGNOSIS: Increased kcal and prot needs r/t wound healing as evidenced by admitted w/ multiple wounds, including stage 4 L-heel pressure injury as per recent adm. CURRENT DIET: CCHO LOW, mech soft finely chopped PO DIET RECOMMENDATIONS: CCHO MED/ texture as tolerated ADDITIONAL RECOMMENDATIONS: 1) Wound care: add MVI w/ mineral x 1, Vit C 500mg BID Zn SO4 220mg qdaily x10 days, TRINY BID 2) [employer] eval for appropriate texture (ms finely chopped) 3) Monitor Na, need for fluid restriction (125) 4) Monitor PO intake closely -> add Glucerna BID 5) Calibrated bedscale wt (3) UTI (urinary tract infection) (4) Suprapubic catheter (5) Renal failure (ARF), acute on chronic (6) Osteomyelitis (7) Uncontrolled diabetes mellitus (8) Hypothyroidism Assessment & Plan: tsh elevated rx written (9) Diabetes mellitus (10) Sacral decubitus ulcer Assessment & Plan: Pt presented on admission with multiple Pressure Injuries. Resolving Pressure Sacral Pressure Injury. Surrounding maroon borders but without induration.(L)10.5cm x (W)10cm. BIlat lower ext are edematous. DTPI distal/lateral L Tibia(L)11.4cm x (W)2.7cm. Base of injury is purpuric with maroon borders. DTPI lateral L Malleolus(L)1cm x (W)0.7cm. Base of injury is maroon and indurated. Non-Blanchable erythema without induration or fluctuance medial L foot (L)1.6cm x (W)1cm. Unstageable Pressure injury R heel(L)7.7cm x (W)6.8cm. Base of is 70%necrotic an d dry,10% slough with remaining 20% alyssia base. Marginal erythema along edges.Periwound is fluctuant with pale skin color. DTPI Lateral R Malleolus(L)2.6cm x (W)1.4cm. Base of injury is purpuric with maroon borders. DTPI medial R Malleolus(L)2.5cm x (W)2.4cm. Base of injury is purpuric with maroon borders. DTPI medial R foot (L)1.3cm x (W)3.6cm. Base of injury is indurated purpuric with surrounding maroon borders that are irregular. DTPI lateral R foot (L)0.7cm x (W)0.9cm. Base of injury is maroon in colour with marginal erythema. DTPI noted to tip of R 1st metatarsal(L)1.4cm x (W)1.2cm. Base of injury presents as an intact blood Blister. Unstageable Pressure injury lateral R 1st metatarsal(L)0.5cm x (W)0.8cm. Dry eschar with marginal erythema along edges. DTPI tip of R 2nd metatarsal.(L)1cm x (W)1.3cm. Base of injury presents as an intact blood blister with marginal erythema along edges. Surgical incisions noted to R hip, R femur and R knee. Incision sites approximated with oswaldo that are intact and dry. No erythema noted. Tx.Plan: Apply Moisture Barrier Paste to Sacrum. Cover with Optifoam drsgs. Change every 3 days and prn. Apply Betadine to DTPI's L Tibia, R and L feet. Cover each site with Optifoam drsgs. Change every 7 days and prn. Cleanse R Heel with Saline. Apply TheraHoney.Apply Maxsorb Extra(calcium Alginate. Apply Cavilon Skin Barrier periwound. Cover with Abd Pad and wrap with Kerlix Daily and prn. Reposition at least every 2hours or as tolerated. Off-load heels with pillows. nutritional optimization (11) Renal insufficiency (12) Suprapubic catheter dysfunction (13) BPH (benign prostatic hyperplasia) (14) Urinary retention Guy Oakley May 21, 2020 15:05
[2020-05-21 16:00] VITALS: BP 114/52
[2020-05-21 20:00] VITALS: BP 116/59
[2020-05-21] MEDS: Atorvastatin 80mg tab ORAL SCH (21:19)
[2020-05-22] VITALS: BP 105/54
[2020-05-22 04:00] VITALS: BP 102/52
--- NOTE | 2020-05-22 06:24 | Hematology/Onc Progress Note ---
Assessment/Plan Assessment/Plan Assessment and recs # Anemia of chronic disease due to underlying chronic medical issues, multifactorial v Gi bleed --> Anemia workup has been ordered, rule out gi bleed --> cw ACD --> No evidence of hemolysis is noted, peripheral smear has been reviewed. no hemolysis. --> Hgb goal >7. Transfuse prn. --> Epogen or iron at this time is not particularly indicated --> Medications have been reviewed --> low threshold for gi evaluation in case has occult + --> hgb 7.5-->7.8-->8.4 # Dehydration with Hyponatremia --> Likely an hypothyroidism component --> ivfs started per renal, Uosm, Serum Osm, Urine Na # HTN --> Hold Metoprolol 12.5mg BID # Hypothyroidism --> Increase Levothyroxine 100mcg daily --> tsh levels to goal # UTI --> shabazz --> off abx # Sacral stage II ulceration - wound care consult --> per surg # Atrial fibrillation - continue amiodarone --> anticoag per cards prn --> on xarelto # Diabetes - continue januvia and ISS # Hyperlipidemia - continue lipitor # Dvt ppx xarelto The timing of this note does not necessarily reflect the time of the patient was seen. Greatly appreciate consultation. Subjective HEENT: Denies: no symptoms, eye pain, blurred vision, tearing, double vision, ear pain, ear discharge, nose pain, nose congestion, throat pain, throat swelling, mouth pain, mouth swelling, other Cardiovascular: Denies: no symptoms, chest pain, edema, irregular heart rate, lightheadedness, palpitations, syncope, other Respiratory: Denies: no symptoms, cough, shortness of breath, SOB with excertion, SOB at rest, sputum, wheezing, other Gastrointestinal/Abdominal: Denies: no symptoms, abdomen distended, abdominal pain, black stools, tarry stools, blood in stool, constipated, diarrhea, difficulty swallowing, nausea, poor appetite, poor fluid intake, rectal bleeding, vomiting, other Genitourinary: Denies: no symptoms, burning, discharge, frequency, flank pain, hematuria, incontinence, pain, urgency, other Neurologic/Psychiatric: Denies: no symptoms, anxiety, depressed, emotional problems, headache, numbness, paresthesia, pre-existing deficit, seizure, tingling, tremors, weakness, other Endocrine: Denies: no symptoms, excessive sweating, flushing, intolerance to cold, intolerance to heat, increased hunger, increased thirst, increased urine, unexplained weight gain, unexplained weight loss, other Hematologic/Lymphatic: Denies: no symptoms, anemia, easy bleeding, easy bruising, adenopathy, other Allergies: Coded Allergies: No Known Allergies (Unverified , 03/01/20) Subjective 05/19 meds noted, no bleeding, penis head erythematous, has been cleaned with rn 05/20 labs noted, awake, alert and getting wound care to stage iv decubs 05/21 labs reviewed, no night sweats, meds reviewed, no bleeding 05/22 cbc is pending for the am, labs reviewed, meds noted Objective Objective Current Medications Medications (Trade) Dose Ordered Sig/Lauren Route PRN Reason Start Time Stop Time Status Last Admin Dose Admin Acetaminophen (Tylenol) 650 mg Q6H PRN ORAL For Headache 05/17/20 01:45 06/16/20 01:44 05/17/20 08:14 Amiodarone HCl (Cordarone) 200 mg DAILY ORAL 05/17/20 09:00 08/15/20 08:59 05/21/20 09:46 Atorvastatin Calcium (Lipitor) 80 mg BEDTIME ORAL 05/17/20 21:00 08/15/20 20:59 05/21/20 21:19 Calcium Carbonate (Os-Gabriele) 500 mg DAILY ORAL 05/17/20 09:00 08/15/20 08:59 05/21/20 09:46 Dextrose (Dextrose 50%) 25 ml Q30M PRN IV Hypoglycemia 05/17/20 01:45 08/15/20 01:44 Dextrose (Dextrose 50%) 50 ml Q30M PRN IV Hypoglycemia 05/17/20 01:45 08/15/20 01:44 Docusate Sodium (Colace) 100 mg DAILY ORAL 05/19/20 09:00 06/18/20 08:59 05/21/20 09:46 Insulin Aspart (NovoLOG) BEFORE MEALS AND HS SUBQ 05/17/20 06:30 08/15/20 06:29 05/21/20 21:20 Levothyroxine Sodium (Synthroid) 25 mcg DAILY@0630 ORAL 05/21/20 06:30 06/20/20 06:29 05/21/20 05:57 Levothyroxine Sodium (Synthroid) 112 mcg DAILY@0630 ORAL 05/21/20 06:30 06/20/20 06:29 05/21/20 05:57 Magnesium Oxide (Mag-Ox 400mg) 400 mg DAILY ORAL 05/17/20 09:00 06/16/20 08:59 05/21/20 09:47 Metoprolol Succinate (Toprol XL) 12.5 mg BID ORAL 05/17/20 18:00 08/15/20 17:59 05/21/20 09:46 Pantoprazole (Protonix) 40 mg DAILY ORAL 05/19/20 09:00 06/18/20 08:59 05/21/20 09:48 Rivaroxaban (Xarelto) 20 mg DAILY ORAL 05/18/20 14:15 08/16/20 14:14 05/21/20 09:48 Sennosides (Senokot) 8.6 mg DAILYPRN PRN ORAL Constipation 05/19/20 08:45 06/18/20 08:44 Sertraline HCl (Zoloft) 25 mg DAILY ORAL 05/17/20 09:00 06/16/20 08:59 05/21/20 09:45 Sodium Chloride (NaCl) 1 gm THREE TIMES A DAY ORAL 05/18/20 18:00 06/17/20 17:59 05/21/20 18:14 Last 24 Hour Vital Signs Date Time Temp Pulse Resp B/P (MAP) Pulse Ox O2 Delivery O2 Flow Rate FiO2 05/22/20 04:00 99.0 68 20 102/52 (69) 96 05/22/20 04:00 67 05/22/20 00:00 64 05/22/20 00:00 98.2 65 20 105/54 (71) 97 05/21/20 21:00 Room Air 05/21/20 20:00 98.1 67 19 116/59 (78) 98 05/21/20 20:00 65 05/21/20 18:00 64 110/56 05/21/20 16:00 64 05/21/20 16:00 97.7 64 19 114/52 (72) 98 05/21/20 12:00 68 05/21/20 11:38 98.1 87 20 112/61 (78) 98 05/21/20 09:46 63 110/52 05/21/20 09:00 Room Air 05/21/20 08:00 96.8 63 19 110/52 (71) 97 05/21/20 08:00 64 05/21/20 04:00 60 05/21/20 04:00 97.4 67 20 116/52 (73) 97 05/21/20 00:00 97.2 62 20 102/50 (67) 98 05/21/20 00:00 59 05/20/20 20:00 64 05/20/20 20:00 97.3 64 20 105/52 (69) 98 05/20/20 18:00 64 95/50 05/20/20 16:00 61 05/20/20 15:55 97.2 61 18 115/60 (78) 96 05/20/20 12:00 60 05/20/20 12:00 97.0 59 20 108/54 (72) 95 05/20/20 12:00 63 05/20/20 10:18 61 92/43 05/20/20 08:00 97.9 62 18 102/45 (64) 96 05/20/20 08:00 Room Air 05/20/20 08:00 59 Intake and Output 05/21/20 05/22/20 19:00 07:00 Output Total 1200 ml 2400 ml Balance -1200 ml -2400 ml Output Urine Total 1200 ml 2400 ml # Voids 3 # Bowel Movements 2 Labs Test 05/19/20 06:35 05/19/20 11:30 05/19/20 17:17 05/19/20 23:15 White Blood Count 8.2 K/UL (4.8-10.8) Red Blood Count 2.60 M/UL (4.70-6.10) Hemoglobin 8.4 G/DL (14.2-18.0) Hematocrit 26.0 % (42.0-52.0) Mean Corpuscular Volume 100 FL (80-99) Mean Corpuscular Hemoglobin 32.5 PG (27.0-31.0) Mean Corpuscular Hemoglobin Concent 32.4 G/DL (32.0-36.0) Red Cell Distribution Width 13.1 % (11.6-14.8) Platelet Count 240 K/UL (150-450) Mean Platelet Volume 6.4 FL (6.5-10.1) Neutrophils (%) (Auto) 65.0 % (45.0-75.0) Lymphocytes (%) (Auto) 21.5 % (20.0-45.0) Monocytes (%) (Auto) 10.0 % (1.0-10.0) Eosinophils (%) (Auto) 2.7 % (0.0-3.0) Basophils (%) (Auto) 0.9 % (0.0-2.0) Sodium Level 123 MMOL/L (136-145) Potassium Level 4.5 MMOL/L (3.5-5.1) Chloride Level 95 MMOL/L (98-107) Carbon Dioxide Level 23 MMOL/L (21-32) Anion Gap 5 mmol/L (5-15) Blood Urea Nitrogen 15 mg/dL (7-18) Creatinine 1.2 MG/DL (0.55-1.30) Estimat Glomerular Filtration Rate 59.0 mL/min (>60) Glucose Level 96 MG/DL (74-106) Calcium Level 7.7 MG/DL (8.5-10.1) Phosphorus Level 2.2 MG/DL (2.5-4.9) Magnesium Level 1.8 MG/DL (1.8-2.4) Troponin I 0.017 ng/mL (0.000-0.056) Pro-B-Type Natriuretic Peptide 72868 pg/mL (0-125) Triglycerides Level 53 MG/DL (30-150) Cholesterol Level 73 MG/DL (< 200) LDL Cholesterol 41 mg/dL (<100) HDL Cholesterol 23 MG/DL (40-60) Cholesterol/HDL Ratio 3.2 (3.3-4.4) Thyroid Stimulating Hormone (TSH) 34.519 uiU/mL (0.358-3.740) Free Thyroxine 1.09 NG/DL (0.76-1.46) POC Whole Blood Glucose 119 MG/DL (74-106) 119 MG/DL (74-106) Test 05/20/20 05:53 05/20/20 06:26 05/20/20 10:59 05/20/20 12:00 White Blood Count 7.7 K/UL (4.8-10.8) 7.4 K/UL (4.8-10.8) Red Blood Count 2.23 M/UL (4.70-6.10) 2.38 M/UL (4.70-6.10) Hemoglobin 7.1 G/DL (14.2-18.0) 7.8 G/DL (14.2-18.0) Hematocrit 21.5 % (42.0-52.0) 24.0 % (42.0-52.0) Mean Corpuscular Volume 97 FL (80-99) 101 FL (80-99) Mean Corpuscular Hemoglobin 32.0 PG (27.0-31.0) 33.0 PG (27.0-31.0) Mean Corpuscular Hemoglobin Concent 33.1 G/DL (32.0-36.0) 32.6 G/DL (32.0-36.0) Red Cell Distribution Width 13.0 % (11.6-14.8) 13.1 % (11.6-14.8) Platelet Count 216 K/UL (150-450) 198 K/UL (150-450) Mean Platelet Volume 6.5 FL (6.5-10.1) 6.5 FL (6.5-10.1) Neutrophils (%) (Auto) % (45.0-75.0) % (45.0-75.0) Lymphocytes (%) (Auto) % (20.0-45.0) % (20.0-45.0) Monocytes (%) (Auto) % (1.0-10.0) % (1.0-10.0) Eosinophils (%) (Auto) % (0.0-3.0) % (0.0-3.0) Basophils (%) (Auto) % (0.0-2.0) % (0.0-2.0) Differential Total Cells Counted 100 100 Neutrophils % (Manual) 66 % (45-75) 77 % (45-75) Lymphocytes % (Manual) 26 % (20-45) 13 % (20-45) Monocytes % (Manual) 5 % (1-10) 7 % (1-10) Eosinophils % (Manual) 2 % (0-3) 3 % (0-3) Basophils % (Manual) 1 % (0-2) 0 % (0-2) Band Neutrophils 0 % (0-8) 0 % (0-8) Platelet Estimate Adequate Adequate Platelet Morphology Normal Normal Red Blood Cell Morphology Normal Sodium Level 125 MMOL/L (136-145) Potassium Level 4.5 MMOL/L (3.5-5.1) Chloride Level 97 MMOL/L (98-107) Carbon Dioxide Level 23 MMOL/L (21-32) Anion Gap 5 mmol/L (5-15) Blood Urea Nitrogen 17 mg/dL (7-18) Creatinine 1.1 MG/DL (0.55-1.30) Estimat Glomerular Filtration Rate > 60 mL/min (>60) Glucose Level 95 MG/DL (74-106) Calcium Level 7.1 MG/DL (8.5-10.1) Magnesium Level 1.7 MG/DL (1.8-2.4) Cortisol AM Sample 7.2 UG/DL POC Whole Blood Glucose 95 MG/DL (74-106) 105 MG/DL (74-106) Hypochromasia 1+ Macrocytosis 1+ Test 05/20/20 16:03 05/20/20 19:15 05/20/20 22:05 05/21/20 05:50 POC Whole Blood Glucose 123 MG/DL (74-106) 107 MG/DL (74-106) 90 MG/DL (74-106) Urine Osmolality 367 mOsm/kg (429-449) Urine Random Sodium 100 mmol/L (20-110) Test 05/21/20 06:50 05/21/20 14:04 05/21/20 17:21 05/21/20 20:45 White Blood Count 7.7 K/UL (4.8-10.8) Red Blood Count 2.19 M/UL (4.70-6.10) Hemoglobin 7.0 G/DL (14.2-18.0) Hematocrit 21.5 % (42.0-52.0) Mean Corpuscular Volume 98 FL (80-99) Mean Corpuscular Hemoglobin 32.0 PG (27.0-31.0) Mean Corpuscular Hemoglobin Concent 32.6 G/DL (32.0-36.0) Red Cell Distribution Width 12.9 % (11.6-14.8) Platelet Count 225 K/UL (150-450) Mean Platelet Volume 6.5 FL (6.5-10.1) Neutrophils (%) (Auto) % (45.0-75.0) Lymphocytes (%) (Auto) % (20.0-45.0) Monocytes (%) (Auto) % (1.0-10.0) Eosinophils (%) (Auto) % (0.0-3.0) Basophils (%) (Auto) % (0.0-2.0) Differential Total Cells Counted 100 Neutrophils % (Manual) 70 % (45-75) Lymphocytes % (Manual) 23 % (20-45) Monocytes % (Manual) 7 % (1-10) Eosinophils % (Manual) 0 % (0-3) Basophils % (Manual) 0 % (0-2) Band Neutrophils 0 % (0-8) Platelet Estimate Adequate Platelet Morphology Normal Hypochromasia 1+ Macrocytosis 1+ Sodium Level 127 MMOL/L (136-145) Potassium Level 4.3 MMOL/L (3.5-5.1) Chloride Level 98 MMOL/L (98-107) Carbon Dioxide Level 24 MMOL/L (21-32) Anion Gap 5 mmol/L (5-15) Blood Urea Nitrogen 17 mg/dL (7-18) Creatinine 1.1 MG/DL (0.55-1.30) Estimat Glomerular Filtration Rate > 60 mL/min (>60) Glucose Level 90 MG/DL (74-106) Osmolality 270 mOsm/kg (297-317) Calcium Level 7.3 MG/DL (8.5-10.1) Phosphorus Level 2.5 MG/DL (2.5-4.9) Magnesium Level 1.8 MG/DL (1.8-2.4) POC Whole Blood Glucose 130 MG/DL (74-106) 144 MG/DL (74-106) Test 05/22/20 06:22 POC Whole Blood Glucose 98 MG/DL (74-106) Height (Feet): 5 Height (Inches): 9.00 Weight (Pounds): 177 Objective Physical Exam General Appearance: WD/WN, no apparent distress HEENT: normocephalic, atraumatic ++blind Neck: non-tender, supple Respiratory/Chest: chest wall non-tender, lungs clear Cardiovascular/Chest: normal peripheral pulses, normal rate Abdomen: normal bowel sounds, non tender Kleynberg,Rey L. MD May 22, 2020 06:24
--- NOTE | 2020-05-22 06:24 | General Progress Note ---
Subjective Allergies: Coded Allergies: No Known Allergies (Unverified , 03/01/20) All Systems: reviewed and negative except above Subjective events noted interval notes reviewed glucose values are stable Item Value Date Time Bedside Blood Glucose 144 mg/dl H 05/21/20 2120 Bedside Blood Glucose 130 mg/dl H 05/21/20 1630 Bedside Blood Glucose 122 mg/dl H 05/21/20 1130 Bedside Blood Glucose 90 mg/dl 05/21/20 0558 Objective Last 24 Hour Vital Signs Date Time Temp Pulse Resp B/P (MAP) Pulse Ox O2 Delivery O2 Flow Rate FiO2 05/22/20 04:00 99.0 68 20 102/52 (69) 96 05/22/20 04:00 67 05/22/20 00:00 64 05/22/20 00:00 98.2 65 20 105/54 (71) 97 05/21/20 21:00 Room Air 05/21/20 20:00 98.1 67 19 116/59 (78) 98 05/21/20 20:00 65 05/21/20 18:00 64 110/56 05/21/20 16:00 64 05/21/20 16:00 97.7 64 19 114/52 (72) 98 05/21/20 12:00 68 05/21/20 11:38 98.1 87 20 112/61 (78) 98 05/21/20 09:46 63 110/52 05/21/20 09:00 Room Air 05/21/20 08:00 96.8 63 19 110/52 (71) 97 05/21/20 08:00 64 Intake and Output 05/21/20 05/22/20 19:00 07:00 Output Total 1200 ml 2400 ml Balance -1200 ml -2400 ml Output Urine Total 1200 ml 2400 ml # Voids 3 # Bowel Movements 2 Laboratory Tests 05/21/20 06:50: White Blood Count 7.7, Red Blood Count 2.19L, Hemoglobin 7.0L, Hematocrit 21.5L, Mean Corpuscular Volume 98, Mean Corpuscular Hemoglobin 32.0H, Mean Corpuscular Hemoglobin Concent 32.6, Red Cell Distribution Width 12.9, Platelet Count 225, Mean Platelet Volume 6.5, Neutrophils (%) (Auto) , Lymphocytes (%) (Auto) , Monocytes (%) (Auto) , Eosinophils (%) (Auto) , Basophils (%) (Auto) , Differential Total Cells Counted 100, Neutrophils % (Manual) 70, Lymphocytes % (Manual) 23, Monocytes % (Manual) 7, Eosinophils % (Manual) 0, Basophils % (Manual) 0, Band Neutrophils 0, Platelet Estimate Adequate, Platelet Morphology Normal, Hypochromasia 1+, Macrocytosis 1+, Sodium Level 127L, Potassium Level 4.3, Chloride Level 98, Carbon Dioxide Level 24, Anion Gap 5, Blood Urea Nitrogen 17, Creatinine 1.1, Estimat Glomerular Filtration Rate > 60, Glucose Level 90, Osmolality 270L, Calcium Level 7.3L, Phosphorus Level 2.5, Magnesium Level 1.8 05/21/20 14:04: POC Whole Blood Glucose [Pending] 05/21/20 17:21: POC Whole Blood Glucose 130H 05/21/20 20:45: POC Whole Blood Glucose 144H Height (Feet): 5 Height (Inches): 9.00 Weight (Pounds): 177 General Appearance: no apparent distress Neck: normal alignment Cardiovascular: normal rate Respiratory/Chest: lungs clear Abdomen: normal bowel sounds Pelvis: normal external exam Objective Current Medications Medications (Trade) Dose Ordered Sig/Lauren Route PRN Reason Start Time Stop Time Status Last Admin Dose Admin Acetaminophen (Tylenol) 650 mg Q6H PRN ORAL For Headache 05/17/20 01:45 06/16/20 01:44 05/17/20 08:14 Amiodarone HCl (Cordarone) 200 mg DAILY ORAL 05/17/20 09:00 08/15/20 08:59 05/21/20 09:46 Atorvastatin Calcium (Lipitor) 80 mg BEDTIME ORAL 05/17/20 21:00 08/15/20 20:59 05/21/20 21:19 Calcium Carbonate (Os-Gabriele) 500 mg DAILY ORAL 05/17/20 09:00 08/15/20 08:59 05/21/20 09:46 Dextrose (Dextrose 50%) 25 ml Q30M PRN IV Hypoglycemia 05/17/20 01:45 08/15/20 01:44 Dextrose (Dextrose 50%) 50 ml Q30M PRN IV Hypoglycemia 05/17/20 01:45 08/15/20 01:44 Docusate Sodium (Colace) 100 mg DAILY ORAL 05/19/20 09:00 06/18/20 08:59 05/21/20 09:46 Insulin Aspart (NovoLOG) BEFORE MEALS AND HS SUBQ 05/17/20 06:30 08/15/20 06:29 05/21/20 21:20 Levothyroxine Sodium (Synthroid) 25 mcg DAILY@0630 ORAL 05/21/20 06:30 06/20/20 06:29 05/21/20 05:57 Levothyroxine Sodium (Synthroid) 112 mcg DAILY@0630 ORAL 05/21/20 06:30 06/20/20 06:29 05/21/20 05:57 Magnesium Oxide (Mag-Ox 400mg) 400 mg DAILY ORAL 05/17/20 09:00 06/16/20 08:59 05/21/20 09:47 Metoprolol Succinate (Toprol XL) 12.5 mg BID ORAL 05/17/20 18:00 08/15/20 17:59 05/21/20 09:46 Pantoprazole (Protonix) 40 mg DAILY ORAL 05/19/20 09:00 06/18/20 08:59 05/21/20 09:48 Rivaroxaban (Xarelto) 20 mg DAILY ORAL 05/18/20 14:15 08/16/20 14:14 05/21/20 09:48 Sennosides (Senokot) 8.6 mg DAILYPRN PRN ORAL Constipation 05/19/20 08:45 06/18/20 08:44 Sertraline HCl (Zoloft) 25 mg DAILY ORAL 05/17/20 09:00 06/16/20 08:59 05/21/20 09:45 Sodium Chloride (NaCl) 1 gm THREE TIMES A DAY ORAL 05/18/20 18:00 06/17/20 17:59 05/21/20 18:14 Assessment/Plan Problem List: (1) Hyponatremia ICD Codes: E87.1 - Hypo-osmolality and hyponatremia SNOMED: 58542224 (2) Hypothyroidism ICD Codes: E03.9 - Hypothyroidism, unspecified SNOMED: 90145361 (3) Diabetes mellitus ICD Codes: E11.9 - Type 2 diabetes mellitus without complications SNOMED: 16373891 Assessment/Plan: hyponatremia managed by Dr Huertas - 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
[2020-05-22] MEDS: NovoLOG Insulin Flexpen SUBQ SCH ×4 (06:30→21:00)
[2020-05-22] MEDS: Levothyroxine 25mcg tab ORAL SCH (06:41)
[2020-05-22 07:32] LABS: BASOPHILS % (AUTO) 0.8 % (0.0-2.0); EOSINOPHILS % (AUTO) 2.9 % (0.0-3.0); HEMATOCRIT 24.4 % (42.0-52.0); HEMOGLOBIN 8.3 G/DL (14.2-18.0); LYMPHOCYTES % (AUTO) 25.7 % (20.0-45.0); MEAN CORPUSCULAR VOLUME 94 FL (80-99); MONOCYTES % (AUTO) 7.8 % (1.0-10.0); NEUTROPHILS % (AUTO) 62.8 % (45.0-75.0); PLATELET COUNT 216 K/UL (150-450); RED BLOOD COUNT 2.59 M/UL (4.70-6.10); RED CELL DISTRIBUTION WIDTH 13.1 % (11.6-14.8); WHITE BLOOD COUNT 8.6 K/UL (4.8-10.8)
[2020-05-22 07:58] LABS: ANION GAP 4 mmol/L (5-15); BLOOD UREA NITROGEN 17 mg/dL (7-18); CALCIUM 7.4 MG/DL (8.5-10.1); CARBON DIOXIDE 25 MMOL/L (21-32); CHLORIDE 100 MMOL/L (98-107); POTASSIUM 4.6 MMOL/L (3.5-5.1); SODIUM 129 MMOL/L (136-145)
[2020-05-22 08:00] VITALS: BP 112/61
[2020-05-22] MEDS: Docusate 100mg cap ORAL SCH (09:25)
[2020-05-22] MEDS: Sodium Chloride 1gm Tab ORAL SCH ×3 (09:25→17:34)
[2020-05-22] MEDS: Sertraline 50mg tab ORAL SCH (09:25)
[2020-05-22] MEDS: Xarelto 10mg tab ORAL SCH (09:26)
[2020-05-22] MEDS: Metoprolol Succinate XL 25mg tab ORAL SCH ×2 (09:26→17:34)
[2020-05-22] MEDS: Magnesium Oxide 400mg tab ORAL SCH (09:26)
[2020-05-22] MEDS: Amiodarone 200mg tab ORAL SCH (09:26)
[2020-05-22] MEDS: Os-Cal (Oyster Shell) 500mg tab ORAL SCH (09:27)
--- NOTE | 2020-05-22 09:29 | Nephrology Progress Note ---
Assessment/Plan Plan #Hyponatemia - #hypothyroidism-freeT4 WNL #HTN #afib #HLD #GERD #depression - replete mag and phos - continue salt tab 1g TID - continue levothyroxine 100mcg daily - consider holding sertraline - monitor BMP - check metop 12.5 BID - monitor UOP - check bmp daily Subjective ROS Limited/Unobtainable: Yes Subjective urine chem consistent with SIADH sodium remains low on salt tabs replete mag and phos Objective Objective Last 24 Hour Vital Signs Date Time Temp Pulse Resp B/P (MAP) Pulse Ox O2 Delivery O2 Flow Rate FiO2 05/22/20 09:26 68 112/61 05/22/20 08:00 96.8 68 20 112/61 (78) 96 68 05/22/20 04:00 99.0 68 20 102/52 (69) 96 05/22/20 04:00 67 05/22/20 00:00 64 05/22/20 00:00 98.2 65 20 105/54 (71) 97 05/21/20 21:00 Room Air 05/21/20 20:00 98.1 67 19 116/59 (78) 98 05/21/20 20:00 65 05/21/20 18:00 64 110/56 05/21/20 16:00 64 05/21/20 16:00 97.7 64 19 114/52 (72) 98 05/21/20 12:00 68 05/21/20 11:38 98.1 87 20 112/61 (78) 98 05/21/20 09:46 63 110/52 Intake and Output 05/21/20 05/22/20 19:00 07:00 Output Total 1200 ml 2400 ml Balance -1200 ml -2400 ml Output Urine Total 1200 ml 2400 ml # Voids 3 # Bowel Movements 2 Laboratory Tests 05/21/20 14:04: POC Whole Blood Glucose [Pending] 05/21/20 17:21: POC Whole Blood Glucose 130H 05/21/20 20:45: POC Whole Blood Glucose 144H 05/22/20 06:12: White Blood Count 8.6, Red Blood Count 2.59L, Hemoglobin 8.3L, Hematocrit 24.4L, Mean Corpuscular Volume 94, Mean Corpuscular Hemoglobin 31.9H, Mean Corpuscular Hemoglobin Concent 33.9, Red Cell Distribution Width 13.1, Platelet Count 216, Mean Platelet Volume 6.2L, Neutrophils (%) (Auto) 62.8, Lymphocytes (%) (Auto) 25.7, Monocytes (%) (Auto) 7.8, Eosinophils (%) (Auto) 2.9, Basophils (%) (Auto) 0.8, Sodium Level 129L, Potassium Level 4.6, Chloride Level 100, Carbon Dioxide Level 25, Anion Gap 4L, Blood Urea Nitrogen 17, Creatinine 1.0, Estimat Glomerular Filtration Rate > 60, Glucose Level 91, Calcium Level 7.4L 05/22/20 06:22: POC Whole Blood Glucose 98 Height (Feet): 5 Height (Inches): 9.00 Weight (Pounds): 177 Jered Huertas M.D. May 22, 2020 09:29
--- NOTE | 2020-05-22 10:12 | Cardiac Electrophysiology PN ---
Assessment/Plan Assessment/Plan 1. Paroxysmal atrial fibrillation. Continue Xarelto 20 mg daily, Toprol-XL 12.5 mg b.i.d. and amiodarone 200 daily 2. Hypertension. On Toprol 12.5 mg b.i.d. 3. CHF with EF 30-35% On Toprol and Lisinopril 5 daily 4. Questionable coronary artery disease. Patient denies any prior myocardial infarction, but he is not very reliable. Continue Toprol and Lipitor. Off aspirin while the patient is anemic and he is also on Xarelto. Ruled out for ND. 5. Possible LV clot. On Xarelto already 6. Foot ulcer and sepsis, on IV antibiotics. 7. Hyponatremia. Sodium 125. Decrease free water intake. Fu by Nephrology. 8. Anemia, colonoscopy/EGD completed and hemoclip of colon ulcer completed, cleared by GI for anti-coag Stool OB pending 9. Hyperlipidemia, on Lipitor. 10. Diabetes. DW RN Subjective Subjective Alert in NAD but Na 129 in SR on Salt tablets. S/P PRBC. Likely will need colonoscopy Echo EF 30-35% with possible thrombus. Stool OB pending Objective Last 24 Hour Vital Signs Date Time Temp Pulse Resp B/P (MAP) Pulse Ox O2 Delivery O2 Flow Rate FiO2 05/22/20 09:26 68 112/61 05/22/20 08:00 96.8 68 20 112/61 (78) 96 68 05/22/20 04:00 99.0 68 20 102/52 (69) 96 05/22/20 04:00 67 05/22/20 00:00 64 05/22/20 00:00 98.2 65 20 105/54 (71) 97 05/21/20 21:00 Room Air 05/21/20 20:00 98.1 67 19 116/59 (78) 98 05/21/20 20:00 65 05/21/20 18:00 64 110/56 05/21/20 16:00 64 05/21/20 16:00 97.7 64 19 114/52 (72) 98 05/21/20 12:00 68 05/21/20 11:38 98.1 87 20 112/61 (78) 98 Intake and Output 05/21/20 05/22/20 19:00 07:00 Output Total 1200 ml 2400 ml Balance -1200 ml -2400 ml Output Urine Total 1200 ml 2400 ml # Voids 3 # Bowel Movements 2 Laboratory Tests Test 05/21/20 14:04 05/21/20 17:21 05/21/20 20:45 05/22/20 06:12 POC Whole Blood Glucose Pending 130 MG/DL (74-106) H 144 MG/DL (74-106) H White Blood Count 8.6 K/UL (4.8-10.8) Red Blood Count 2.59 M/UL (4.70-6.10) L Hemoglobin 8.3 G/DL (14.2-18.0) L Hematocrit 24.4 % (42.0-52.0) L Mean Corpuscular Volume 94 FL (80-99) Mean Corpuscular Hemoglobin 31.9 PG (27.0-31.0) H Mean Corpuscular Hemoglobin Concent 33.9 G/DL (32.0-36.0) Red Cell Distribution Width 13.1 % (11.6-14.8) Platelet Count 216 K/UL (150-450) Mean Platelet Volume 6.2 FL (6.5-10.1) L Neutrophils (%) (Auto) 62.8 % (45.0-75.0) Lymphocytes (%) (Auto) 25.7 % (20.0-45.0) Monocytes (%) (Auto) 7.8 % (1.0-10.0) Eosinophils (%) (Auto) 2.9 % (0.0-3.0) Basophils (%) (Auto) 0.8 % (0.0-2.0) Sodium Level 129 MMOL/L (136-145) L Potassium Level 4.6 MMOL/L (3.5-5.1) Chloride Level 100 MMOL/L (98-107) Carbon Dioxide Level 25 MMOL/L (21-32) Anion Gap 4 mmol/L (5-15) L Blood Urea Nitrogen 17 mg/dL (7-18) Creatinine 1.0 MG/DL (0.55-1.30) Estimat Glomerular Filtration Rate > 60 mL/min (>60) Glucose Level 91 MG/DL (74-106) Calcium Level 7.4 MG/DL (8.5-10.1) L Test 05/22/20 06:22 POC Whole Blood Glucose 98 MG/DL (74-106) Objective HEAD AND NECK: Shows no JVD. LUNGS: Clear. CARDIOVASCULAR: Shows regular S1 and S2 with no gallop or murmur. ABDOMEN: Soft. EXTREMITIES: Right heel ulcer with dressing. Sergio Irwin MD May 22, 2020 10:12
[2020-05-22 12:00] VITALS: BP 114/71
--- NOTE | 2020-05-22 15:26 | General Progress Note ---
Subjective ROS Limited/Unobtainable: No Allergies: Coded Allergies: No Known Allergies (Unverified , 03/01/20) Objective Last 24 Hour Vital Signs Date Time Temp Pulse Resp B/P (MAP) Pulse Ox O2 Delivery O2 Flow Rate FiO2 05/22/20 12:00 98.7 71 19 114/71 (85) 98 05/22/20 12:00 68 05/22/20 09:26 68 112/61 05/22/20 09:00 Room Air 05/22/20 08:00 66 05/22/20 08:00 96.8 68 20 112/61 (78) 96 68 05/22/20 04:00 99.0 68 20 102/52 (69) 96 05/22/20 04:00 67 05/22/20 00:00 64 05/22/20 00:00 98.2 65 20 105/54 (71) 97 05/21/20 21:00 Room Air 05/21/20 20:00 98.1 67 19 116/59 (78) 98 05/21/20 20:00 65 05/21/20 18:00 64 110/56 05/21/20 16:00 64 05/21/20 16:00 97.7 64 19 114/52 (72) 98 Intake and Output 05/21/20 05/22/20 19:00 07:00 Output Total 1200 ml 2400 ml Balance -1200 ml -2400 ml Output Urine Total 1200 ml 2400 ml # Voids 3 # Bowel Movements 2 Laboratory Tests 05/21/20 17:21: POC Whole Blood Glucose 130H 05/21/20 20:45: POC Whole Blood Glucose 144H 05/22/20 06:12: White Blood Count 8.6, Red Blood Count 2.59L, Hemoglobin 8.3L, Hematocrit 24.4L, Mean Corpuscular Volume 94, Mean Corpuscular Hemoglobin 31.9H, Mean Corpuscular Hemoglobin Concent 33.9, Red Cell Distribution Width 13.1, Platelet Count 216, Mean Platelet Volume 6.2L, Neutrophils (%) (Auto) 62.8, Lymphocytes (%) (Auto) 25.7, Monocytes (%) (Auto) 7.8, Eosinophils (%) (Auto) 2.9, Basophils (%) (Auto) 0.8, Sodium Level 129L, Potassium Level 4.6, Chloride Level 100, Carbon Dioxide Level 25, Anion Gap 4L, Blood Urea Nitrogen 17, Creatinine 1.0, Estimat Glomerular Filtration Rate > 60, Glucose Level 91, Calcium Level 7.4L 05/22/20 06:22: POC Whole Blood Glucose 98 05/22/20 11:54: POC Whole Blood Glucose 104 05/22/20 12:30: Stool Occult Blood [Pending] Height (Feet): 5 Height (Inches): 9.00 Weight (Pounds): 177 General Appearance: no apparent distress EENT: normal ENT inspection Neck: normal alignment Cardiovascular: normal rate Respiratory/Chest: decreased breath sounds Abdomen: normal bowel sounds, non tender, soft Extremities: non-tender Assessment/Plan Assessment/Plan: 1. Hypertension. 2. Diabetes. 3. Chronic kidney disease. 4. History of UTI. 5. History of suprapubic catheter placement. 6. Hypothyroidism. 7. Dementia. 8. Hypercholesterolemia. 9. Atrophic gastritis. s/p blood transfusion on Xeralto for possible LV cloth pending stool ob plan colonoscopy if stool ob positive Jorgito Hidalgo MD May 22, 2020 15:26
[2020-05-22 16:00] VITALS: BP 117/81
--- NOTE | 2020-05-22 18:01 | Surgery Progress Note ---
Surgery Progress Note Subjective Additional Comments no acute events Objective Last 24 Hour Vital Signs Date Time Temp Pulse Resp B/P (MAP) Pulse Ox O2 Delivery O2 Flow Rate FiO2 05/22/20 17:34 61 117/81 05/22/20 16:00 96.7 80 20 117/81 (93) 96 05/22/20 16:00 61 05/22/20 12:00 98.7 71 19 114/71 (85) 98 05/22/20 12:00 68 05/22/20 09:26 68 112/61 05/22/20 09:00 Room Air 05/22/20 08:00 66 05/22/20 08:00 96.8 68 20 112/61 (78) 96 68 05/22/20 04:00 99.0 68 20 102/52 (69) 96 05/22/20 04:00 67 05/22/20 00:00 64 05/22/20 00:00 98.2 65 20 105/54 (71) 97 05/21/20 21:00 Room Air 05/21/20 20:00 98.1 67 19 116/59 (78) 98 05/21/20 20:00 65 I&O Intake and Output 05/21/20 05/22/20 19:00 07:00 Output Total 1200 ml 2400 ml Balance -1200 ml -2400 ml Output Urine Total 1200 ml 2400 ml # Voids 3 # Bowel Movements 2 Dressing: saturated Cardiovascular: RSR Respiratory: decreased breath sounds Abdomen: non-tender, present bowel sounds Extremities: no tenderness, no cyanosis Laboratory Tests Test 05/21/20 20:45 05/22/20 06:12 05/22/20 06:22 05/22/20 11:54 POC Whole Blood Glucose 144 MG/DL (74-106) H 98 MG/DL (74-106) 104 MG/DL (74-106) White Blood Count 8.6 K/UL (4.8-10.8) Red Blood Count 2.59 M/UL (4.70-6.10) L Hemoglobin 8.3 G/DL (14.2-18.0) L Hematocrit 24.4 % (42.0-52.0) L Mean Corpuscular Volume 94 FL (80-99) Mean Corpuscular Hemoglobin 31.9 PG (27.0-31.0) H Mean Corpuscular Hemoglobin Concent 33.9 G/DL (32.0-36.0) Red Cell Distribution Width 13.1 % (11.6-14.8) Platelet Count 216 K/UL (150-450) Mean Platelet Volume 6.2 FL (6.5-10.1) L Neutrophils (%) (Auto) 62.8 % (45.0-75.0) Lymphocytes (%) (Auto) 25.7 % (20.0-45.0) Monocytes (%) (Auto) 7.8 % (1.0-10.0) Eosinophils (%) (Auto) 2.9 % (0.0-3.0) Basophils (%) (Auto) 0.8 % (0.0-2.0) Sodium Level 129 MMOL/L (136-145) L Potassium Level 4.6 MMOL/L (3.5-5.1) Chloride Level 100 MMOL/L (98-107) Carbon Dioxide Level 25 MMOL/L (21-32) Anion Gap 4 mmol/L (5-15) L Blood Urea Nitrogen 17 mg/dL (7-18) Creatinine 1.0 MG/DL (0.55-1.30) Estimat Glomerular Filtration Rate > 60 mL/min (>60) Glucose Level 91 MG/DL (74-106) Calcium Level 7.4 MG/DL (8.5-10.1) L Test 05/22/20 12:30 Stool Occult Blood Pending Plan Problems: (1) Hyponatremia (2) Dehydration Assessment & Plan: DAILY ESTIMATED NEEDS: Needs based on Wound, 77kg 25-30 kcals/kg 5951-0175 total kcals 1.25-2 g protein/kg 96-154 g total protein 25-30 mL/kg 8412-3747 total fluid mLs NUTRITION DIAGNOSIS: Increased kcal and prot needs r/t wound healing as evidenced by admitted w/ multiple wounds, including stage 4 L-heel pressure injury as per recent adm. CURRENT DIET: CCHO LOW, mech soft finely chopped PO DIET RECOMMENDATIONS: CCHO MED/ texture as tolerated ADDITIONAL RECOMMENDATIONS: 1) Wound care: add MVI w/ mineral x 1, Vit C 500mg BID Zn SO4 220mg qdaily x10 days, TRINY BID 2) DIAGNOSTIC TECHNOLOGIST eval for appropriate texture (ms finely chopped) 3) Monitor Na, need for fluid restriction (125) 4) Monitor PO intake closely -> add Glucerna BID 5) Calibrated bedscale wt (3) UTI (urinary tract infection) (4) Suprapubic catheter (5) Renal failure (ARF), acute on chronic (6) Osteomyelitis (7) Uncontrolled diabetes mellitus (8) Hypothyroidism Assessment & Plan: tsh elevated rx written (9) Diabetes mellitus (10) Sacral decubitus ulcer Assessment & Plan: Pt presented on admission with multiple Pressure Injuries. Resolving Pressure Sacral Pressure Injury. Surrounding maroon borders but without induration.(L)10.5cm x (W)10cm. BIlat lower ext are edematous. DTPI distal/lateral L Tibia(L)11.4cm x (W)2.7cm. Base of injury is purpuric with maroon borders. DTPI lateral L Malleolus(L)1cm x (W)0.7cm. Base of injury is maroon and indurated. Non-Blanchable erythema without induration or fluctuance medial L foot (L)1.6cm x (W)1cm. Unstageable Pressure injury R heel(L)7.7cm x (W)6.8cm. Base of is 70%necrotic and dry,10% slough with remaining 20% alyssia base. Marginal erythema along edges.Periwound is fluctuant with pale skin color. DTPI Lateral R Malleolus(L)2.6cm x (W)1.4cm. Base of injury is purpuric with maroon borders. DTPI medial R Malleolus(L)2.5cm x (W)2.4cm. Base of injury is purpuric with maroon borders. DTPI medial R foot (L)1.3cm x (W)3.6cm. Base of injury is indurated purpuric with surrounding maroon borders that are irregular. DTPI lateral R foot (L)0.7cm x (W)0.9cm. Base of injury is maroon in colour with marginal erythema. DTPI noted to tip of R 1st metatarsal(L)1.4cm x (W)1.2cm. Base of injury presents as an intact blood Blister. Unstageable Pressure injury lateral R 1st metatarsal(L)0.5cm x (W)0.8cm. Dry eschar with marginal erythema along edges. DTPI tip of R 2nd metatarsal.(L)1cm x (W)1.3cm. Base of injury presents as an intact blood blister with marginal erythema along edges. Surgical incisions noted to R hip, R femur and R knee. Incision sites approximated with oswaldo that are intact and dry. No erythema noted. Tx.Plan: Apply Moisture Barrier Paste to Sacrum. Cover with Optifoam drsgs. Change every 3 days and prn. Apply Betadine to DTPI's L Tibia, R and L feet. Cover each site with Optifoam drsgs. Change every 7 days and prn. Cleanse R Heel with Saline. Apply TheraHoney.Apply Maxsorb Extra(calcium Alginate. Apply Cavilon Skin Barrier periwound. Cover with Abd Pad and wrap with Kerlix Daily and prn. Reposition at least every 2hours or as tolerated. Off-load heels with pillows. nutritional optimization (11) Renal insufficiency (12) Suprapubic catheter dysfunction (13) BPH (benign prostatic hyperplasia) (14) Urinary retention Guy Oakley May 22, 2020 18:01
[2020-05-22 20:00] VITALS: BP 130/64
[2020-05-22] MEDS: Atorvastatin 80mg tab ORAL SCH (21:07)
--- NOTE | 2020-05-22 21:07 | General Progress Note ---
Subjective Date patient seen: May 22, 2020 ROS Limited/Unobtainable: No Allergies: Coded Allergies: No Known Allergies (Unverified , 03/01/20) Subjective Constitutional: Reports: Denies: fever, chills HEENT: Denies: eye pain, ear pain, throat pain, mouth pain Cardiovascular: Denies: chest pain, irregular heart rate, lightheadedness Respiratory: Denies: cough, shortness of breath Gastrointestinal/Abdominal: Reports: Denies: constipation, abdomen distended, black stools, tarry stools, blood in stool, diarrhea, nausea Genitourinary: Denies: burning, hematuria Neurologic/Psychiatric: Denies: headache, paresthesia Interval Events: Hgb after transfusion appropriately increased. After Miralax, patient had bowel movement this morning. Reports feeling better today compared to yesterday. Objective Last 24 Hour Vital Signs Date Time Temp Pulse Resp B/P (MAP) Pulse Ox O2 Delivery O2 Flow Rate FiO2 05/22/20 17:34 61 117/81 05/22/20 16:00 96.7 80 20 117/81 (93) 96 05/22/20 16:00 61 05/22/20 12:00 98.7 71 19 114/71 (85) 98 05/22/20 12:00 68 05/22/20 09:26 68 112/61 05/22/20 09:00 Room Air 05/22/20 08:00 66 05/22/20 08:00 96.8 68 20 112/61 (78) 96 68 05/22/20 04:00 99.0 68 20 102/52 (69) 96 05/22/20 04:00 67 05/22/20 00:00 64 05/22/20 00:00 98.2 65 20 105/54 (71) 97 05/21/20 21:00 Room Air Intake and Output 05/21/20 05/22/20 19:00 07:00 Output Total 1200 ml 2400 ml Balance -1200 ml -2400 ml Output Urine Total 1200 ml 2400 ml # Voids 3 # Bowel Movements 2 Laboratory Tests 05/22/20 06:12: White Blood Count 8.6, Red Blood Count 2.59L, Hemoglobin 8.3L, Hematocrit 24.4L, Mean Corpuscular Volume 94, Mean Corpuscular Hemoglobin 31.9H, Mean Corpuscular Hemoglobin Concent 33.9, Red Cell Distribution Width 13.1, Platelet Count 216, Mean Platelet Volume 6.2L, Neutrophils (%) (Auto) 62.8, Lymphocytes (%) (Auto) 25.7, Monocytes (%) (Auto) 7.8, Eosinophils (%) (Auto) 2.9, Basophils (%) (Auto) 0.8, Sodium Level 129L, Potassium Level 4.6, Chloride Level 100, Carbon Dioxide Level 25, Anion Gap 4L, Blood Urea Nitrogen 17, Creatinine 1.0, Estimat Glom erular Filtration Rate > 60, Glucose Level 91, Calcium Level 7.4L 05/22/20 06:22: POC Whole Blood Glucose 98 05/22/20 11:54: POC Whole Blood Glucose 104 05/22/20 12:30: Stool Occult Blood [Pending] Height (Feet): 5 Height (Inches): 9.00 Weight (Pounds): 177 Objective General Appearance: no apparent distress, awake, alert, conversant EENT: PERRL/EOMI Neck: non-tender, normal inspection Cardiovascular: normal rate, regular rhythm, no JVD, no audible murmurs Respiratory/Chest: lungs clear, normal breath sounds, no respiratory distress Abdomen: normal bowel sounds, non tender, soft Genitourinary/Rectal: deferred Edema: no edema noted Arm (L), no edema noted Arm (R), no edema noted Leg (L), no edema noted Leg (R), no edema noted Pedal (L), no edema noted Pedal (R), no edema noted Generalized Neurologic: district operations manager II-XII grossly normal, alert Assessment/Plan Assessment/Plan: A: # Hypo-osmotic euvolemic hyponatremia - Na level uptrending 2/2 SIADH versus hypothyroidism versus adrenal insufficiency # Chronic Encephalopathy - stable/improving # Subclinical Hypothyroidism # Paroxysmal Afib on anticoagulation # Hx of Left Soleal DVT # Chronic HFrEF 2/2 ischemic cardiomyopathy - hypovolemic # Hx of CAD s/p Stents # Severe Gastritis # Essential hypertension # Pre-Diabetes mellitus # CKD # Suprapubic catheter # Normocytic anemia 2/2 likely ACD versus CKD - Hgb improving # ?Dementia # Depression # HLD P: - hemodynamically stable - Hgb improved appropriately after transfusion - plan for colonoscopy per GI - monitor sodium levels - urine studies reviewed - UA positive for angie, colonization - continue Xarelto from previous admission, colonoscopy/EGD completed and hemoclip of colon ulcer completed, cleared by GI for anti-coag - continue home metoprolol 12.5 mg BID, okay for amiodarone per cardiology - Levothyroxine dose per Endocrinology, Dr. Mcdonough, recs appreciated, repeat TSH in 2-3 weeks - continue atorvastatin - continue sertraline - continue senna and Colace - consulted Dr. Huertas, nephrology, recs appreciated - consulted Dr. Irwin, cardiology, recs appreciated - consulted Dr. Oakley, gen surgery, recs appreciated - consulted Dr. Flaherty, Heme/onc, recs appreciated - GI consulted, Dr. Hidalgo, for anemia without clear evidence of bleeding - CM Code: Full DVT: Xarelto Diet: regular GI: PPI Dispo: back to SNF with resolution of hyponatremia and GI evaluation Time spent on this encounter was 36 minutes which included 19 minutes of counseling and care coordination. I discussed with the nurse at bedside and consulting physicians from GI, nephrology regarding patient's hemoglobin, sodium level, bowel regimen, preparation for colonoscopy. Time of note may not reflect time patient was seen. Yimi Ortiz M.D. May 22, 2020 21:07
[2020-05-23] VITALS: BP 133/80
[2020-05-23 04:00] VITALS: BP 120/57
[2020-05-23] MEDS: Levothyroxine 25mcg tab ORAL SCH (05:44)
[2020-05-23] MEDS: NovoLOG Insulin Flexpen SUBQ SCH ×2 (06:05→11:30)
--- NOTE | 2020-05-23 06:33 | General Progress Note ---
Subjective Allergies: Coded Allergies: No Known Allergies (Unverified , 03/01/20) All Systems: reviewed and negative except above Subjective events noted interval notes reviewed glucose values are stable Na is still low but improving am labs pending Item Value Date Time Bedside Blood Glucose 97 mg/dl 05/23/20 0630 Bedside Blood Glucose 116 mg/dl 05/22/20 2100 Bedside Blood Glucose 108 mg/dl 05/22/20 1630 Bedside Blood Glucose 104 mg/dl 05/22/20 1130 Bedside Blood Glucose 98 mg/dl 05/22/20 0630 Objective Last 24 Hour Vital Signs Date Time Temp Pulse Resp B/P (MAP) Pulse Ox O2 Delivery O2 Flow Rate FiO2 05/23/20 04:00 97.9 61 16 120/57 (78) 97 05/23/20 04:00 61 05/23/20 00:00 60 05/23/20 00:00 98.1 61 20 133/80 (97) 98 05/22/20 20:00 62 05/22/20 20:00 97.9 60 20 130/64 (86) 98 05/22/20 17:34 61 117/81 05/22/20 16:00 96.7 80 20 117/81 (93) 96 05/22/20 16:00 61 05/22/20 12:00 98.7 71 19 114/71 (85) 98 05/22/20 12:00 68 05/22/20 09:26 68 112/61 05/22/20 09:00 Room Air 05/22/20 08:00 66 05/22/20 08:00 96.8 68 20 112/61 (78) 96 68 Intake and Output 05/22/20 05/23/20 19:00 07:00 Intake Total 120 ml Output Total 1200 ml 1100 ml Balance -1080 ml -1100 ml Intake Oral 120 ml Output Urine Total 1200 ml 1100 ml # Voids 3 1 # Bowel Movements 1 1 Laboratory Tests 05/22/20 11:54: POC Whole Blood Glucose 104 05/22/20 12:30: Stool Occult Blood [Pending] 05/22/20 17:02: POC Whole Blood Glucose 108H 05/22/20 21:01: POC Whole Blood Glucose 116H 05/23/20 05:06: POC Whole Blood Glucose 97 Height (Feet): 5 Height (Inches): 9.00 Weight (Pounds): 177 General Appearance: no apparent distress Neck: normal alignment Cardiovascular: normal rate Respiratory/Chest: lungs clear Abdomen: normal bowel sounds Objective Current Medications Medications (Trade) Dose Ordered Sig/Lauren Route PRN Reason Start Time Stop Time Status Last Admin Dose Admin Acetaminophen (Tylenol) 650 mg Q6H PRN ORAL For Headache 05/17/20 01:45 06/16/20 01:44 05/17/20 08:14 Amiodarone HCl (Cordarone) 200 mg DAILY ORAL 05/17/20 09:00 08/15/20 08:59 05/22/20 09:26 Atorvastatin Calcium (Lipitor) 80 mg BEDTIME ORAL 05/17/20 21:00 08/15/20 20:59 05/22/20 21:07 Calcium Carbonate (Os-Gabriele) 500 mg DAILY ORAL 05/17/20 09:00 08/15/20 08:59 05/22/20 09:27 Dextrose (Dextrose 50%) 25 ml Q30M PRN IV Hypoglycemia 05/17/20 01:45 08/15/20 01:44 Dextrose (Dextrose 50%) 50 ml Q30M PRN IV Hypoglycemia 05/17/20 01:45 08/15/20 01:44 Docusate Sodium (Colace) 100 mg DAILY ORAL 05/19/20 09:00 06/18/20 08:59 05/22/20 09:25 Insulin Aspart (NovoLOG) BEFORE MEALS AND HS SUBQ 05/17/20 06:30 08/15/20 06:29 05/21/20 21:20 Levothyroxine Sodium (Synthroid) 25 mcg DAILY@0630 ORAL 05/21/20 06:30 06/20/20 06:29 05/23/20 05:44 Levothyroxine Sodium (Synthroid) 112 mcg DAILY@0630 ORAL 05/21/20 06:30 06/20/20 06:29 05/23/20 05:44 Magnesium Oxide (Mag-Ox 400mg) 400 mg DAILY ORAL 05/17/20 09:00 06/16/20 08:59 05/22/20 09:26 Metoprolol Succinate (Toprol XL) 12.5 mg BID ORAL 05/17/20 18:00 08/15/20 17:59 05/22/20 17:34 Pantoprazole (Protonix) 40 mg DAILY ORAL 05/19/20 09:00 06/18/20 08:59 05/22/20 09:25 Rivaroxaban (Xarelto) 20 mg DAILY ORAL 05/18/20 14:15 08/16/20 14:14 05/22/20 09:26 Sennosides (Senokot) 8.6 mg DAILYPRN PRN ORAL Constipation 05/19/20 08:45 06/18/20 08:44 Sertraline HCl (Zoloft) 25 mg DAILY ORAL 05/17/20 09:00 06/16/20 08:59 05/22/20 09:25 Sodium Chloride (NaCl) 1 gm THREE TIMES A DAY ORAL 05/18/20 18:00 06/17/20 17:59 05/22/20 17:34 Assessment/Plan Problem List: (1) Hyponatremia ICD Codes: E87.1 - Hypo-osmolality and hyponatremia SNOMED: 62659738 (2) Hypothyroidism ICD Codes: E03.9 - Hypothyroidism, unspecified SNOMED: 42391058 (3) Diabetes mellitus ICD Codes: E11.9 - Type 2 diabetes mellitus without complications SNOMED: 92637634 Assessment/Plan: hyponatremia managed by Dr Huertas - 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
[2020-05-23 06:45] LABS: HEMATOCRIT 27.5 % (42.0-52.0); HEMOGLOBIN 9.1 G/DL (14.2-18.0); LYMPHOCYTES % (AUTO) 24.5 % (20.0-45.0); MEAN CORPUSCULAR VOLUME 97 FL (80-99); MONOCYTES % (AUTO) 7.6 % (1.0-10.0); NEUTROPHILS % (AUTO) 62.9 % (45.0-75.0); PLATELET COUNT 250 K/UL (150-450); RED BLOOD COUNT 2.82 M/UL (4.70-6.10); RED CELL DISTRIBUTION WIDTH 13.3 % (11.6-14.8); WHITE BLOOD COUNT 8.1 K/UL (4.8-10.8)
[2020-05-23 07:13] LABS: ANION GAP 4 mmol/L (5-15); BLOOD UREA NITROGEN 17 mg/dL (7-18); CALCIUM 7.7 MG/DL (8.5-10.1); CARBON DIOXIDE 25 MMOL/L (21-32); CHLORIDE 99 MMOL/L (98-107); POTASSIUM 4.7 MMOL/L (3.5-5.1); SODIUM 128 MMOL/L (136-145)
[2020-05-23 08:00] VITALS: BP 142/70
--- NOTE | 2020-05-23 08:40 | Hematology/Onc Progress Note ---
Assessment/Plan Assessment/Plan Assessment and recs # Anemia of chronic disease due to underlying chronic medical issues, multifactorial v Gi bleed --> Anemia workup has been ordered, rule out gi bleed --> cw ACD --> No evidence of hemolysis is noted, peripheral smear has been reviewed. no hemolysis. --> Hgb goal >7. Transfuse prn. --> Epogen or iron at this time is not particularly indicated --> Medications have been reviewed --> low threshold for gi evaluation in case has occult + --> hgb 7.5-->7.8-->8.4-->9.1 # Dehydration with Hyponatremia --> Likely an hypothyroidism component --> ivfs started per renal, Uosm, Serum Osm, Urine Na # HTN --> Hold Metoprolol 12.5mg BID # Hypothyroidism --> Increase Levothyroxine 100mcg daily --> tsh levels to goal # UTI --> shabazz --> off abx # Sacral stage II ulceration - wound care consult --> per surg # Atrial fibrillation - continue amiodarone --> anticoag per cards prn --> on xarelto # Diabetes - continue januvia and ISS # Hyperlipidemia - continue lipitor # Dvt ppx xarelto The timing of this note does not necessarily reflect the time of the patient was seen. Greatly appreciate consultation. Subjective Constitutional: Denies: no symptoms, chills, fever, malaise, weakness, other HEENT: Denies: no symptoms, eye pain, blurred vision, tearing, double vision, ear pain, ear discharge, nose pain, nose congestion, throat pain, throat swelling, mouth pain, mouth swelling, other Gastrointestinal/Abdominal: Denies: no symptoms, abdomen distended, abdominal pain, black stools, tarry stools, blood in stool, constipated, diarrhea, difficulty swallowing, nausea, poor appetite, poor fluid intake, rectal bleeding, vomiting, other Genitourinary: Denies: no symptoms, burning, discharge, frequency, flank pain, hematuria, incontinence, pain, urgency, other Neurologic/Psychiatric: Denies: no symptoms, anxiety, depressed, emotional problems, headache, numbness, paresthesia, pre-existing deficit, seizure, tingling, tremors, weakness, other Endocrine: Denies: no symptoms, excessive sweating, flushing, intolerance to cold, intolerance to heat, increased hunger, increased thirst, increased urine, unexplained weight gain, unexplained weight loss, other Allergies: Coded Allergies: No Known Allergies (Unverified , 03/01/20) Subjective 05/19 meds noted, no bleeding, penis head erythematous, has been cleaned with rn 05/20 labs noted, awake, alert and getting wound care to stage iv decubs 05/21 labs reviewed, no night sweats, meds reviewed, no bleeding 05/22 cbc is pending for the am, labs reviewed, meds noted 05/23 labs reviewed, no bleeding, meds noted, no night sweats Objective Objective Current Medications Medications (Trade) Dose Ordered Sig/Lauren Route PRN Reason Start Time Stop Time Status Last Admin Dose Admin Acetaminophen (Tylenol) 650 mg Q6H PRN ORAL For Headache 05/17/20 01:45 06/16/20 01:44 05/17/20 08:14 Amiodarone HCl (Cordarone) 200 mg DAILY ORAL 05/17/20 09:00 08/15/20 08:59 05/22/20 09:26 Atorvastatin Calcium (Lipitor) 80 mg BEDTIME ORAL 05/17/20 21:00 08/15/20 20:59 05/22/20 21:07 Calcium Carbonate (Os-Gabriele) 500 mg DAILY ORAL 05/17/20 09:00 08/15/20 08:59 05/22/20 09:27 Dextrose (Dextrose 50%) 25 ml Q30M PRN IV Hypoglycemia 05/17/20 01:45 08/15/20 01:44 Dextrose (Dextrose 50%) 50 ml Q30M PRN IV Hypoglycemia 05/17/20 01:45 08/15/20 01:44 Docusate Sodium (Colace) 100 mg DAILY ORAL 05/19/20 09:00 06/18/20 08:59 05/22/20 09:25 Insulin Aspart (NovoLOG) BEFORE MEALS AND HS SUBQ 05/17/20 06:30 08/15/20 06:29 05/21/20 21:20 Levothyroxine Sodium (Synthroid) 25 mcg DAILY@0630 ORAL 05/21/20 06:30 06/20/20 06:29 05/23/20 05:44 Levothyroxine Sodium (Synthroid) 112 mcg DAILY@0630 ORAL 05/21/20 06:30 06/20/20 06:29 05/23/20 05:44 Magnesium Oxide (Mag-Ox 400mg) 400 mg DAILY ORAL 05/17/20 09:00 06/16/20 08:59 05/22/20 09:26 Metoprolol Succinate (Toprol XL) 12.5 mg BID ORAL 05/17/20 18:00 08/15/20 17:59 05/22/20 17:34 Pantoprazole (Protonix) 40 mg DAILY ORAL 05/19/20 09:00 06/18/20 08:59 05/22/20 09:25 Rivaroxaban (Xarelto) 20 mg DAILY ORAL 05/18/20 14:15 08/16/20 14:14 05/22/20 09:26 Sennosides (Senokot) 8.6 mg DAILYPRN PRN ORAL Constipation 05/19/20 08:45 06/18/20 08:44 Sertraline HCl (Zoloft) 25 mg DAILY ORAL 05/17/20 09:00 06/16/20 08:59 05/22/20 09:25 Sodium Chloride (NaCl) 1 gm THREE TIMES A DAY ORAL 05/18/20 18:00 06/17/20 17:59 05/22/20 17:34 Last 24 Hour Vital Signs Date Time Temp Pulse Resp B/P (MAP) Pulse Ox O2 Delivery O2 Flow Rate FiO2 05/23/20 08:00 61 05/23/20 04:00 97.9 61 16 120/57 (78) 97 05/23/20 04:00 61 05/23/20 00:00 60 05/23/20 00:00 98.1 61 20 133/80 (97) 98 05/22/20 20:00 62 05/22/20 20:00 97.9 60 20 130/64 (86) 98 05/22/20 17:34 61 117/81 05/22/20 16:00 96.7 80 20 117/81 (93) 96 05/22/20 16:00 61 05/22/20 12:00 98.7 71 19 114/71 (85) 98 05/22/20 12:00 68 05/22/20 09:26 68 112/61 05/22/20 09:00 Room Air 05/22/20 08:00 66 05/22/20 08:00 96.8 68 20 112/61 (78) 96 68 05/22/20 04:00 99.0 68 20 102/52 (69) 96 05/22/20 04:00 67 05/22/20 00:00 64 05/22/20 00:00 98.2 65 20 105/54 (71) 97 05/21/20 21:00 Room Air 05/21/20 20:00 98.1 67 19 116/59 (78) 98 05/21/20 20:00 65 05/21/20 18:00 64 110/56 05/21/20 16:00 64 05/21/20 16:00 97.7 64 19 114/52 (72) 98 05/21/20 12:00 68 05/21/20 11:38 98.1 87 20 112/61 (78) 98 05/21/20 09:46 63 110/52 05/21/20 09:00 Room Air Intake and Output 05/22/20 05/23/20 19:00 07:00 Intake Total 120 ml Output Total 1200 ml 1100 ml Balance -1080 ml -1100 ml Intake Oral 120 ml Output Urine Total 1200 ml 1100 ml # Voids 3 1 # Bowel Movements 1 1 Labs Test 05/20/20 10:59 05/20/20 12:00 05/20/20 16:03 05/20/20 19:15 POC Whole Blood Glucose 105 MG/DL (74-106) 123 MG/DL (74-106) White Blood Count 7.4 K/UL (4.8-10.8) Red Blood Count 2.38 M/UL (4.70-6.10) Hemoglobin 7.8 G/DL (14.2-18.0) Hematocrit 24.0 % (42.0-52.0) Mean Corpuscular Volume 101 FL (80-99) Mean Corpuscular Hemoglobin 33.0 PG (27.0-31.0) Mean Corpuscular Hemoglobin Concent 32.6 G/DL (32.0-36.0) Red Cell Distribution Width 13.1 % (11.6-14.8) Platelet Count 198 K/UL (150-450) Mean Platelet Volume 6.5 FL (6.5-10.1) Neutrophils (%) (Auto) % (45.0-75.0) Lymphocytes (%) (Auto) % (20.0-45.0) Monocytes (%) (Auto) % (1.0-10.0) Eosinophils (%) (Auto) % (0.0-3.0) Basophils (%) (Auto) % (0.0-2.0) Differential Total Cells Counted 100 Neutrophils % (Manual) 77 % (45-75) Lymphocytes % (Manual) 13 % (20-45) Monocytes % (Manual) 7 % (1-10) Eosinophils % (Manual) 3 % (0-3) Basophils % (Manual) 0 % (0-2) Band Neutrophils 0 % (0-8) Platelet Estimate Adequate Platelet Morphology Normal Hypochromasia 1+ Macrocytosis 1+ Urine Osmolality 367 mOsm/kg (429-449) Urine Random Sodium 100 mmol/L (20-110) Test 05/20/20 22:05 05/21/20 05:50 05/21/20 06:50 05/21/20 14:04 POC Whole Blood Glucose 107 MG/DL (74-106) 90 MG/DL (74-106) White Blood Count 7.7 K/UL (4.8-10.8) Red Blood Count 2.19 M/UL (4.70-6.10) Hemoglobin 7.0 G/DL (14.2-18.0) Hematocrit 21.5 % (42.0-52.0) Mean Corpuscular Volume 98 FL (80-99) Mean Corpuscular Hemoglobin 32.0 PG (27.0-31.0) Mean Corpuscular Hemoglobin Concent 32.6 G/DL (32.0-36.0) Red Cell Distribution Width 12.9 % (11.6-14.8) Platelet Count 225 K/UL (150-450) Mean Platelet Volume 6.5 FL (6.5-10.1) Neutrophils (%) (Auto) % (45.0-75.0) Lymphocytes (%) (Auto) % (20.0-45.0) Monocytes (%) (Auto) % (1.0-10.0) Eosinophils (%) (Auto) % (0.0-3.0) Basophils (%) (Auto) % (0.0-2.0) Differential Total Cells Counted 100 Neutrophils % (Manual) 70 % (45-75) Lymphocytes % (Manual) 23 % (20-45) Monocytes % (Manual) 7 % (1-10) Eosinophils % (Manual) 0 % (0-3) Basophils % (Manual) 0 % (0-2) Band Neutrophils 0 % (0-8) Platelet Estimate Adequate Platelet Morphology Normal Hypochromasia 1+ Macrocytosis 1+ Sodium Level 127 MMOL/L (136-145) Potassium Level 4.3 MMOL/L (3.5-5.1) Chloride Level 98 MMOL/L (98-107) Carbon Dioxide Level 24 MMOL/L (21-32) Anion Gap 5 mmol/L (5-15) Blood Urea Nitrogen 17 mg/dL (7-18) Creatinine 1.1 MG/DL (0.55-1.30) Estimat Glomerular Filtration Rate > 60 mL/min (>60) Glucose Level 90 MG/DL (74-106) Osmolality 270 mOsm/kg (297-317) Calcium Level 7.3 MG/DL (8.5-10.1) Phosphorus Level 2.5 MG/DL (2.5-4.9) Magnesium Level 1.8 MG/DL (1.8-2.4) Test 05/21/20 17:21 05/21/20 20:45 05/22/20 06:12 05/22/20 06:22 POC Whole Blood Glucose 130 MG/DL (74-106) 144 MG/DL (74-106) 98 MG/DL (74-106) White Blood Count 8.6 K/UL (4.8-10.8) Red Blood Count 2.59 M/UL (4.70-6.10) Hemoglobin 8.3 G/DL (14.2-18.0) Hematocrit 24.4 % (42.0-52.0) Mean Corpuscular Volume 94 FL (80-99) Mean Corpuscular Hemoglobin 31.9 PG (27.0-31.0) Mean Corpuscular Hemoglobin Concent 33.9 G/DL (32.0-36.0) Red Cell Distribution Width 13.1 % (11.6-14.8) Platelet Count 216 K/UL (150-450) Mean Platelet Volume 6.2 FL (6.5-10.1) Neutrophils (%) (Auto) 62.8 % (45.0-75.0) Lymphocytes (%) (Auto) 25.7 % (20.0-45.0) Monocytes (%) (Auto) 7.8 % (1.0-10.0) Eosinophils (%) (Auto) 2.9 % (0.0-3.0) Basophils (%) (Auto) 0.8 % (0.0-2.0) Sodium Level 129 MMOL/L (136-145) Potassium Level 4.6 MMOL/L (3.5-5.1) Chloride Level 100 MMOL/L (98-107) Carbon Dioxide Level 25 MMOL/L (21-32) Anion Gap 4 mmol/L (5-15) Blood Urea Nitrogen 17 mg/dL (7-18) Creatinine 1.0 MG/DL (0.55-1.30) Estimat Glomerular Filtration Rate > 60 mL/min (>60) Glucose Level 91 MG/DL (74-106) Calcium Level 7.4 MG/DL (8.5-10.1) Test 05/22/20 11:54 05/22/20 12:30 05/22/20 17:02 05/22/20 21:01 POC Whole Blood Glucose 104 MG/DL (74-106) 108 MG/DL (74-106) 116 MG/DL (74-106) Test 05/23/20 05:06 05/23/20 06:29 POC Whole Blood Glucose 97 MG/DL (74-106) White Blood Count 8.1 K/UL (4.8-10.8) Red Blood Count 2.82 M/UL (4.70-6.10) Hemoglobin 9.1 G/DL (14.2-18.0) Hematocrit 27.5 % (42.0-52.0) Mean Corpuscular Volume 97 FL (80-99) Mean Corpuscular Hemoglobin 32.2 PG (27.0-31.0) Mean Corpuscular Hemoglobin Concent 33.1 G/DL (32.0-36.0) Red Cell Distribution Width 13.3 % (11.6-14.8) Platelet Count 250 K/UL (150-450) Mean Platelet Volume 6.3 FL (6.5-10.1) Neutrophils (%) (Auto) 62.9 % (45.0-75.0) Lymphocytes (%) (Auto) 24.5 % (20.0-45.0) Monocytes (%) (Auto) 7.6 % (1.0-10.0) Eosinophils (%) (Auto) 4.0 % (0.0-3.0) Basophils (%) (Auto) 1.0 % (0.0-2.0) Sodium Level 128 MMOL/L (136-145) Potassium Level 4.7 MMOL/L (3.5-5.1) Chloride Level 99 MMOL/L (98-107) Carbon Dioxide Level 25 MMOL/L (21-32) Anion Gap 4 mmol/L (5-15) Blood Urea Nitrogen 17 mg/dL (7-18) Creatinine 1.0 MG/DL (0.55-1.30) Estimat Glomerular Filtration Rate > 60 mL/min (>60) Glucose Level 110 MG/DL (74-106) Calcium Level 7.7 MG/DL (8.5-10.1) Height (Feet): 5 Height (Inches): 9.00 Weight (Pounds): 177 Objective Physical Exam General Appearance: WD/WN, no apparent distress HEENT: normocephalic, atraumatic ++blind Neck: non-tender, supple Respiratory/Chest: chest wall non-tender, lungs clear Cardiovascular/Chest: normal peripheral pulses, normal rate Abdomen: normal bowel sounds, non tender Rey Flaherty MD May 23, 2020 08:40
--- NOTE | 2020-05-23 09:05 | General Progress Note ---
Subjective ROS Limited/Unobtainable: No Allergies: Coded Allergies: No Known Allergies (Unverified , 03/01/20) Objective Last 24 Hour Vital Signs Date Time Temp Pulse Resp B/P (MAP) Pulse Ox O2 Delivery O2 Flow Rate FiO2 05/23/20 08:00 97.9 64 20 142/70 (94) 100 05/23/20 08:00 61 05/23/20 04:00 97.9 61 16 120/57 (78) 97 05/23/20 04:00 61 05/23/20 00:00 60 05/23/20 00:00 98.1 61 20 133/80 (97) 98 05/22/20 20:00 62 05/22/20 20:00 97.9 60 20 130/64 (86) 98 05/22/20 17:34 61 117/81 05/22/20 16:00 96.7 80 20 117/81 (93) 96 05/22/20 16:00 61 05/22/20 12:00 98.7 71 19 114/71 (85) 98 05/22/20 12:00 68 05/22/20 09:26 68 112/61 Intake and Output 05/22/20 05/23/20 19:00 07:00 Intake Total 120 ml Output Total 1200 ml 1100 ml Balance -1080 ml -1100 ml Intake Oral 120 ml Output Urine Total 1200 ml 1100 ml # Voids 3 1 # Bowel Movements 1 1 Laboratory Tests 05/22/20 11:54: POC Whole Blood Glucose 104 05/22/20 12:30: Stool Occult Blood [Pending] 05/22/20 17:02: POC Whole Blood Glucose 108H 05/22/20 21:01: POC Whole Blood Glucose 116H 05/23/20 05:06: POC Whole Blood Glucose 97 05/23/20 06:29: White Blood Count 8.1, Red Blood Count 2.82L, Hemoglobin 9.1L, Hematocrit 27.5L, Mean Corpuscular Volume 97, Mean Corpuscular Hemoglobin 32.2H, Mean Corpuscular Hemoglobin Concent 33.1, Red Cell Distribution Width 13.3, Platelet Count 250, Mean Platelet Volume 6.3L, Neutrophils (%) (Auto) 62.9, Lymphocytes (%) (Auto) 24.5, Monocytes (%) (Auto) 7.6, Eosinophils (%) (Auto) 4.0H, Basophils (%) (Auto) 1.0, Sodium Level 128L, Potassium Level 4.7, Chloride Level 99, Carbon Dioxide Level 25, Anion Gap 4L, Blood Urea Nitrogen 17, Creatinine 1.0, Estimat Glomerular Filtration Rate > 60, Glucose Level 110H, Calcium Level 7.7L Height (Feet): 5 Height (Inches): 9.00 Weight (Pounds): 177 General Appearance: no apparent distress EENT: normal ENT inspection Neck: supple Cardiovascular: normal rate Respiratory/Chest: decreased breath sounds Abdomen: normal bowel sounds, non tender, soft Extremities: non-tender Assessment/Plan Assessment/Plan: 1. Hypertension. 2. Diabetes. 3. Chronic kidney disease. 4. History of UTI. 5. History of suprapubic catheter placement. 6. Hypothyroidism. 7. Dementia. 8. Hypercholesterolemia. 9. Atrophic gastritis. s/p blood transfusion on Xeralto for possible LV cloth pending stool ob had BM per nurses and looked brown plan colonoscopy if stool ob positive Jorigto Hidalgo MD May 23, 2020 09:05
[2020-05-23] MEDS: Docusate 100mg cap ORAL SCH (09:27)
[2020-05-23] MEDS: Os-Cal (Oyster Shell) 500mg tab ORAL SCH (09:28)
[2020-05-23] MEDS: Magnesium Oxide 400mg tab ORAL SCH (09:28)
[2020-05-23] MEDS: Xarelto 10mg tab ORAL SCH (09:28)
[2020-05-23] MEDS: Amiodarone 200mg tab ORAL SCH (09:28)
[2020-05-23] MEDS: Sodium Chloride 1gm Tab ORAL SCH ×2 (09:29→13:54)
[2020-05-23] MEDS: Sertraline 50mg tab ORAL SCH (09:29)
[2020-05-23] MEDS: Metoprolol Succinate XL 25mg tab ORAL SCH (09:30)
[2020-05-23 12:00] VITALS: BP 125/64
--- NOTE | 2020-05-23 12:42 | Nephrology Progress Note ---
Assessment/Plan Plan #Hyponatemia - #hypothyroidism-freeT4 WNL #HTN #afib #HLD #GERD #depression - replete mag and phos - continue salt tab 1g TID - continue levothyroxine 100mcg daily - consider holding sertraline - monitor BMP - check metop 12.5 BID - monitor UOP - check bmp daily Subjective Subjective urine chem consistent with SIADH sodium remains low on salt tabs replete mag and phos Objective Objective Last 24 Hour Vital Signs Date Time Temp Pulse Resp B/P (MAP) Pulse Ox O2 Delivery O2 Flow Rate FiO2 05/23/20 09:30 62 142/70 05/23/20 09:00 Room Air 05/23/20 08:00 97.9 64 20 142/70 (94) 100 05/23/20 08:00 61 05/23/20 04:00 97.9 61 16 120/57 (78) 97 05/23/20 04:00 61 05/23/20 00:00 60 05/23/20 00:00 98.1 61 20 133/80 (97) 98 05/22/20 20:00 62 05/22/20 20:00 97.9 60 20 130/64 (86) 98 05/22/20 17:34 61 117/81 05/22/20 16:00 96.7 80 20 117/81 (93) 96 05/22/20 16:00 61 Intake and Output 05/22/20 05/23/20 19:00 07:00 Intake Total 120 ml Output Total 1200 ml 1100 ml Balance -1080 ml -1100 ml Intake Oral 120 ml Output Urine Total 1200 ml 1100 ml # Voids 3 1 # Bowel Movements 1 1 Laboratory Tests 05/22/20 17:02: POC Whole Blood Glucose 108H 05/22/20 21:01: POC Whole Blood Glucose 116H 05/23/20 05:06: POC Whole Blood Glucose 97 05/23/20 06:29: White Blood Count 8.1, Red Blood Count 2.82L, Hemoglobin 9.1L, Hematocrit 27.5L, Mean Corpuscular Volume 97, Mean Corpuscular Hemoglobin 32.2H, Mean Corpuscular Hemoglobin Concent 33.1, Red Cell Distribution Width 13.3, Platelet Count 250, Mean Platelet Volume 6.3L, Neutrophils (%) (Auto) 62.9, Lymphocytes (%) (Auto) 24.5, Monocytes (%) (Auto) 7.6, Eosinophils (%) (Auto) 4.0H, Basophils (%) (Auto) 1.0, Sodium Level 128L, Potassium Level 4.7, Chloride Level 99, Carbon Dioxide Level 25, Anion Gap 4L, Blood Urea Nitrogen 17, Creatinine 1.0, Estimat Glomerular Filtration Rate > 60, Glucose Level 110H, Calcium Level 7.7L Height (Feet): 5 Height (Inches): 9.00 Weight (Pounds): 177 Jered Huertas M.D. May 23, 2020 12:42
--- NOTE | 2020-05-23 12:51 | Cardiac Electrophysiology PN ---
Assessment/Plan Assessment/Plan 1. Paroxysmal atrial fibrillation. Continue Xarelto 20 mg daily, Toprol-XL 12.5 mg b.i.d. and amiodarone 200 daily 2. Hypertension. On Toprol 12.5 mg b.i.d. 3. CHF with EF 30-35% On Toprol and Lisinopril 5 daily 4. Questionable coronary artery disease. Continue Toprol and Lipitor. Off aspirin while the patient is anemic and he is also on Xarelto. Ruled out for CT. 5. Possible LV clot. On Xarelto already 6. Foot ulcer and sepsis, on IV antibiotics. 7. Hyponatremia. Sodium 125. Decrease free water intake. Fu by Nephrology. 8. Anemia, colonoscopy/EGD completed and hemoclip of colon ulcer completed, cleared by GI for anti-coag Stool OB pending 9. Hyperlipidemia, on Lipitor. 10. Diabetes. MARIZOL RN Subjective Subjective Alert in NAD S/P PRBC. Likely will need colonoscopy Echo EF 30-35% with possible thrombus. Stool OB pending DC planning in progress Objective Last 24 Hour Vital Signs Date Time Temp Pulse Resp B/P (MAP) Pulse Ox O2 Delivery O2 Flow Rate FiO2 05/23/20 09:30 62 142/70 05/23/20 09:00 Room Air 05/23/20 08:00 97.9 64 20 142/70 (94) 100 05/23/20 08:00 61 05/23/20 04:00 97.9 61 16 120/57 (78) 97 05/23/20 04:00 61 05/23/20 00:00 60 05/23/20 00:00 98.1 61 20 133/80 (97) 98 05/22/20 20:00 62 05/22/20 20:00 97.9 60 20 130/64 (86) 98 05/22/20 17:34 61 117/81 05/22/20 16:00 96.7 80 20 117/81 (93) 96 05/22/20 16:00 61 Intake and Output 05/22/20 05/23/20 19:00 07:00 Intake Total 120 ml Output Total 1200 ml 1100 ml Balance -1080 ml -1100 ml Intake Oral 120 ml Output Urine Total 1200 ml 1100 ml # Voids 3 1 # Bowel Movements 1 1 Laboratory Tests Test 05/22/20 17:02 05/22/20 21:01 05/23/20 05:06 05/23/20 06:29 POC Whole Blood Glucose 108 MG/DL (74-106) H 116 MG/DL (74-106) H 97 MG/DL (74-106) White Blood Count 8.1 K/UL (4.8-10.8) Red Blood Count 2.82 M/UL (4.70-6.10) L Hemoglobin 9.1 G/DL (14.2-18.0) L Hematocrit 27.5 % (42.0-52.0) L Mean Corpuscular Volume 97 FL (80-99) Mean Corpuscular Hemoglobin 32.2 PG (27.0-31.0) H Mean Corpuscular Hemoglobin Concent 33.1 G/DL (32.0-36.0) Red Cell Distribution Width 13.3 % (11.6-14.8) Platelet Count 250 K/UL (150-450) Mean Platelet Volume 6.3 FL (6.5-10.1) L Neutrophils (%) (Auto) 62.9 % (45.0-75.0) Lymphocytes (%) (Auto) 24.5 % (20.0-45.0) Monocytes (%) (Auto) 7.6 % (1.0-10.0) Eosinophils (%) (Auto) 4.0 % (0.0-3.0) H Basophils (%) (Auto) 1.0 % (0.0-2.0) Sodium Level 128 MMOL/L (136-145) L Potassium Level 4.7 MMOL/L (3.5-5.1) Chloride Level 99 MMOL/L (98-107) Carbon Dioxide Level 25 MMOL/L (21-32) Anion Gap 4 mmol/L (5-15) L Blood Urea Nitrogen 17 mg/dL (7-18) Creatinine 1.0 MG/DL (0.55-1.30) Estimat Glomerular Filtration Rate > 60 mL/min (>60) Glucose Level 110 MG/DL (74-106) H Calcium Level 7.7 MG/DL (8.5-10.1) L Objective HEAD AND NECK: Shows no JVD. LUNGS: Clear. CARDIOVASCULAR: Shows regular S1 and S2 with no gallop or murmur. ABDOMEN: Soft. EXTREMITIES: Right heel ulcer with dressing. Toluie,Sergio MD May 23, 2020 12:51
[2020-05-23] MEDS ORDERED: ZOLOFT50 MG ORAL (12:53)
[2020-05-23] MEDS ORDERED: Metoprolol Succinate XL ORAL (12:53)
[2020-05-23] MEDS ORDERED: SYNTHROID112 MCG ORAL (12:53)
[2020-05-23] MEDS ORDERED: XARELTO10 MG ORAL (12:53)
[2020-05-23] MEDS ORDERED: SYNTHROID25 MCG ORAL (12:53)
[2020-05-23] MEDS ORDERED: MAG-OX 400400 MG ORAL (12:53)
[2020-05-23] MEDS ORDERED: SENNA8.6 M2 ORAL (12:53)
[2020-05-23] MEDS ORDERED: PANTOPRAZOLE SO40 MG ORAL (12:53)
--- NOTE | 2020-05-23 13:01 | Discharge Instructions ---
Discharge Instructions Discharge Instructions Follow up with: primary care physician, GI, Nephrology, Endocrinology Call MD/Return to Hospital if: symptoms worsen or fail to improve Services at Discharge: physical therapy, occupational therapy Diet: low fat Activity: as tolerated Follow Up Orders Follow up with GI Dr. Hidalgo in 1-2 weeks. Check TSH in 2 weeks. Follow up with Endocrinology Dr. Mcdonough in 3 weeks. Check BMP twice a week to monitor sodium level. Follow up with Nephrology Dr. Huertas in 1-2 weeks. For Surgical Patients Contact your physician for: Yimi Lutz M.D. May 23, 2020 13:01
--- NOTE | 2020-05-23 13:30 | Discharge Summary ---
Discharge Summary Hospital Course Date of Admission May 16, 2020 at 21:32 Date of Discharge 05/23/2020 Admitting Diagnosis hyponatremia Reason for Hospitalization: Hyponatremia, anemia HPI Drew Rodriguez is a 74 year old male who was admitted on May 16, 2020 at 21:32 for Hyponatremia Consultations GI Dr. Hidalgo Endocrinology Dr. Mcdonough Nephrology Dr. Huertas Surgery Dr. Oakley Cardiology Dr. Irwin Heme/Onc Dr. Flaherty Hospital Course Drew Rodriguez is a 74 yo Bulgarian speaking male who reported from [facility] for hyponatremia. He has a past medical history for hypertension, diabetes, hypothyroidism, hyperlipidemia and atrial fibrillation. During hospitalization, sodium levels stayed in 120s but remained stable on salt tabs. 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 Patient has anemia and required 1 unit of blood transfusion. No evidence of bleeding noted during hospitalization and Hgb appropriately responded to transfusion. He needs to follow up with GI, Endocrine, nephrology. He also has an outpatient ophthalmology appointment on 05/26/20. He needs BMP checked twice weekly to monitor sodium levels. Recheck TSH in 2 weeks since he is on a higher Synthroid dose. May need outpatient colonoscopy per GI Dr. Hidalgo. Monitor CBC weekly for anemia. Follow up with GI Dr. Hidalgo in 1-2 weeks. Check TSH in 2 weeks. Follow up with Endocrinology Dr. Mcdonough in 3 weeks. Check BMP twice a week to monitor sodium level. Follow up with Nephrology Dr. Huertas in 1-2 weeks. Follow up with Dr. Flaherty in 2-4 weeks. Follow up ophthalmology 05/26/2020, appointment already scheduled # Hypo-osmotic euvolemic hyponatremia - Na level uptrending 2/2 SIADH versus hypothyroidism versus adrenal insufficiency # Chronic Encephalopathy - stable/improving # Subclinical Hypothyroidism # Paroxysmal Afib on anticoagulation # Hx of Left Soleal DVT # Chronic HFrEF 2/2 ischemic cardiomyopathy - hypovolemic # Hx of CAD s/p Stents # Severe Gastritis # Essential hypertension # Pre-Diabetes mellitus # CKD # Suprapubic catheter # Normocytic anemia 2/2 likely ACD versus CKD - Hgb improving # ?Dementia # Depression # HLD P: - hemodynamically stable - Hgb improved appropriately after transfusion - monitor sodium levels - urine studies reviewed - UA positive for angie, colonization - continue Xarelto from previous admission, colonoscopy/EGD completed and hemoclip of colon ulcer completed, cleared by GI for anti-coag - continue home metoprolol 12.5 mg BID, okay for amiodarone per cardiology - Levothyroxine dose per Endocrinology, Dr. Mcdonough, recs appreciated, repeat TSH in 2-3 weeks - continue atorvastatin - continue sertraline - continue senna and Colace - consulted Dr. Huertas, nephrology, recs appreciated - consulted Dr. Irwin, cardiology, recs appreciated - consulted Dr. Oakley, gen surgery, recs appreciated - consulted Dr. Flaherty, Heme/onc, recs appreciated - GI consulted, Dr. Hidalgo, for anemia without clear evidence of bleeding Laboratory Tests Test 05/21/20 14:04 05/21/20 17:21 05/21/20 20:45 05/22/20 06:12 POC Whole Blood Glucose Pending 130 MG/DL (74-106) H 144 MG/DL (74-106) H White Blood Count 8.6 K/UL (4.8-10.8) Red Blood Count 2.59 M/UL (4.70-6.10) L Hemoglobin 8.3 G/DL (14.2-18.0) L Hematocrit 24.4 % (42.0-52.0) L Mean Corpuscular Volume 94 FL (80-99) Mean Corpuscular Hemoglobin 31.9 PG (27.0-31.0) H Mean Corpuscular Hemoglobin Concent 33.9 G/DL (32.0-36.0) Red Cell Distribution Width 13.1 % (11.6-14.8) Platelet Count 216 K/UL (150-450) Mean Platelet Volume 6.2 FL (6.5-10.1) L Neutrophils (%) (Auto) 62.8 % (45.0-75.0) Lymphocytes (%) (Auto) 25.7 % (20.0-45.0) Monocytes (%) (Auto) 7.8 % (1.0-10.0) Eosinophils (%) (Auto) 2.9 % (0.0-3.0) Basophils (%) (Auto) 0.8 % (0.0-2.0) Sodium Level 129 MMOL/L (136-145) L Potassium Level 4.6 MMOL/L (3.5-5.1) Chloride Level 100 MMOL/L (98-107) Carbon Dioxide Level 25 MMOL/L (21-32) Anion Gap 4 mmol/L (5-15) L Blood Urea Nitrogen 17 mg/dL (7-18) Creatinine 1.0 MG/DL (0.55-1.30) Estimated Glomerular Filtration Rate > 60 mL/min (>60) Glucose Level 91 MG/DL (74-106) Calcium Level 7.4 MG/DL (8.5-10.1) L Test 05/22/20 06:22 05/22/20 11:54 05/22/20 12:30 05/22/20 17:02 POC Whole Blood Glucose 98 MG/DL (74-106) 104 MG/DL (74-106) 108 MG/DL (74-106) H Stool Occult Blood Negative (NEGATIVE) Test 05/22/20 21:01 05/23/20 05:06 05/23/20 06:29 POC Whole Blood Glucose 116 MG/DL (74-106) H 97 MG/DL (74-106) White Blood Count 8.1 K/UL (4.8-10.8) Red Blood Count 2.82 M/UL (4.70-6.10) L Hemoglobin 9.1 G/DL (14.2-18.0) L Hematocrit 27.5 % (42.0-52.0) L Mean Corpuscular Volume 97 FL (80-99) Mean Corpuscular Hemoglobin 32.2 PG (27.0-31.0) H Mean Corpuscular Hemoglobin Concent 33.1 G/DL (32.0-36.0) Red Cell Distribution Width 13.3 % (11.6-14.8) Platelet Count 250 K/UL (150-450) Mean Platelet Volume 6.3 FL (6.5-10.1) L Neutrophils (%) (Auto) 62.9 % (45.0-75.0) Lymphocytes (%) (Auto) 24.5 % (20.0-45.0) Monocytes (%) (Auto) 7.6 % (1.0-10.0) Eosinophils (%) (Auto) 4.0 % (0.0-3.0) H Basophils (%) (Auto) 1.0 % (0.0-2.0) Sodium Level 128 MMOL/L (136-145) L Potassium Level 4.7 MMOL/L (3.5-5.1) Chloride Level 99 MMOL/L (98-107) Carbon Dioxide Level 25 MMOL/L (21-32) Anion Gap 4 mmol/L (5-15) L Blood Urea Nitrogen 17 mg/dL (7-18) Creatinine 1.0 MG/DL (0.55-1.30) Estimated Glomerular Filtration Rate > 60 mL/min (>60) Glucose Level 110 MG/DL (74-106) H Calcium Level 7.7 MG/DL (8.5-10.1) L Time spent on this discharge was 43 minutes which included 25 minutes of counseling and care coordination. I discussed with the nurse at bedside and consulting physicians from GI, nephrology regarding patient's hemoglobin, sodium level, bowel regimen, outpatient follow up appointments. Time of note may not reflect time patient was seen. Discharge Medications New Medications: Levothyroxine Sodium* (Synthroid*) 112 Mcg Tablet 112 MCG ORAL DAILY@0630 for 30 Days, TAB Take in the morning on an empty stomach, at least 30 minutes before food. Levothyroxine Sodium* (Synthroid*) 25 Mcg Tablet 25 MCG ORAL DAILY@0630 for 30 Days, TAB Take in the morning on an empty stomach, at least 30 minutes before food. Magnesium Oxide (Magnesium Oxide) 400 Mg Tablet 400 MG ORAL DAILY for 30 Days, TAB [Metoprolol Succinate XL] () 25 MG TABCR 12.5 MG ORAL BID for 30 Days Pantoprazole* (Pantoprazole*) 40 Mg Tablet.dr 40 MG ORAL DAILY for 30 Days, TAB Rivaroxaban (Xarelto*) 10 Mg Tablet 20 MG ORAL DAILY for 30 Days, TAB Sennosides (Senna) 8.6 Mg Tablet 8.6 MG ORAL DAILYPRN PRN for 30 Days, TAB Sertraline Hcl* (Zoloft*) 50 Mg Tablet 25 MG ORAL DAILY for 30 Days, TAB Continued Medications: Amiodarone Hcl* (Cordarone*) 200 Mg Tablet 200 MG ORAL DAILY for ARRYTHMIA, TAB Ascorbic Acid* (Vitamin C*) 250 Mg Tablet 250 MG ORAL DAILY for sup, #30 TAB 0 Refills Aspirin* (Aspirin*) 81 Mg Tab.chew 81 MG ORAL DAILY for CVA PPX, TAB Atorvastatin Calcium* (Lipitor*) 80 Mg Tablet 80 MG ORAL BEDTIME for HLD, TAB Calcium Carbonate (Oyster Shell Calcium) 500 Mg Tablet 500 MG PO DAILY for SUPPLEMENT, TAB Docusate Sodium* (Docusate Sodium*) 250 Mg Capsule 250 MG ORAL DAILY for BM, CAP Discontinued Medications: Levothyroxine Sodium* (Synthorid*) 75 Mcg Tablet 75 MCG ORAL DAILY for HYPOTHYROIDISM, TAB Take in the morning on an empty stomach, at least 30 minutes before food. Metoprolol Succinate* (Metoprolol Succinate*) 25 Mg Tab.er.24h 12.5 MG ORAL BID for HTN, TAB Sertraline Hcl* (Sertraline Hcl*) 25 Mg Tablet 25 MG ORAL DAILY for DEPRESSION, TAB Discharge Condition Upon Discharge: stable Discharge Vital Signs Last Vital Signs Date Time Temp Pulse Resp B/P (MAP) Pulse Ox O2 Delivery O2 Flow Rate FiO2 05/23/20 09:30 62 142/70 05/23/20 09:00 Room Air 05/23/20 08:00 97.9 20 100 Exam on day of discharge General Appearance: no apparent distress, awake, alert, conversant EENT: PERRL/EOMI Neck: non-tender, normal inspection Cardiovascular: normal rate, regular rhythm, no JVD, no audible murmurs Respiratory/Chest: lungs clear, normal breath sounds, no respiratory distress Abdomen: normal bowel sounds, non tender, soft Genitourinary/Rectal: deferred Edema: no edema noted Arm (L), no edema noted Arm (R), no edema noted Leg (L), no edema noted Leg (R), no edema noted Pedal (L), no edema noted Pedal (R), no edema noted Generalized Neurologic: customer trainer II-XII grossly normal, alert Discharge Disposition Patient was discharged to SNF Discharge Diagnoses: (1) Hyponatremia (2) Hypothyroidism (3) Anemia (4) Suprapubic catheter (5) BPH (benign prostatic hyperplasia) (6) Sacral decubitus ulcer (7) Renal insufficiency Discharge Instructions Discharge Instructions Follow up with: primary care physician, GI, Nephrology, Endocrinology Call MD/Return to Hospital if: symptoms worsen or fail to improve Services Upon Discharge: physical therapy, occupational therapy Activity: as tolerated For Surgical Patients Contact your physician for: bleeding Yimi Ortiz M.D. May 23, 2020 13:30
--- NOTE | 2020-05-23 14:06 | Surgery Progress Note ---
Surgery Progress Note Subjective Symptoms: improved, tolerating diet, passing flatus, BM Additional Comments okay to d/c cont rx comfortable cont local care outpt wound care thank you Objective Last 24 Hour Vital Signs Date Time Temp Pulse Resp B/P (MAP) Pulse Ox O2 Delivery O2 Flow Rate FiO2 05/23/20 12:00 97.5 63 20 125/64 (84) 98 05/23/20 12:00 63 05/23/20 09:30 62 142/70 05/23/20 09:00 Room Air 05/23/20 08:00 97.9 64 20 142/70 (94) 100 05/23/20 08:00 61 05/23/20 04:00 97.9 61 16 120/57 (78) 97 05/23/20 04:00 61 05/23/20 00:00 60 05/23/20 00:00 98.1 61 20 133/80 (97) 98 05/22/20 20:00 62 05/22/20 20:00 97.9 60 20 130/64 (86) 98 05/22/20 17:34 61 117/81 05/22/20 16:00 96.7 80 20 117/81 (93) 96 05/22/20 16:00 61 I&O Intake and Output 05/22/20 05/23/20 19:00 07:00 Intake Total 120 ml Output Total 1200 ml 1100 ml Balance -1080 ml -1100 ml Intake Oral 120 ml Output Urine Total 1200 ml 1100 ml # Voids 3 1 # Bowel Movements 1 1 Dressing: saturated Cardiovascular: RSR Respiratory: decreased breath sounds Abdomen: non-tender, present bowel sounds Extremities: no edema, no tenderness, no cyanosis Laboratory Tests Test 05/22/20 17:02 05/22/20 21:01 05/23/20 05:06 05/23/20 06:29 POC Whole Blood Glucose 108 MG/DL (74-106) H 116 MG/DL (74-106) H 97 MG/DL (74-106) White Blood Count 8.1 K/UL (4.8-10.8) Red Blood Count 2.82 M/UL (4.70-6.10) L Hemoglobin 9.1 G/DL (14.2-18.0) L Hematocrit 27.5 % (42.0-52.0) L Mean Corpuscular Volume 97 FL (80-99) Mean Corpuscular Hemoglobin 32.2 PG (27.0-31.0) H Mean Corpuscular Hemoglobin Concent 33.1 G/DL (32.0-36.0) Red Cell Distribution Width 13.3 % (11.6-14.8) Platelet Count 250 K/UL (150-450) Mean Platelet Volume 6.3 FL (6.5-10.1) L Neutrophils (%) (Auto) 62.9 % (45.0-75.0) Lymphocytes (%) (Auto) 24.5 % (20.0-45.0) Monocytes (%) (Auto) 7.6 % (1.0-10.0) Eosinophils (%) (Auto) 4.0 % (0.0-3.0) H Basophils (%) (Auto) 1.0 % (0.0-2.0) Sodium Level 128 MMOL/L (136-145) L Potassium Level 4.7 MMOL/L (3.5-5.1) Chloride Level 99 MMOL/L (98-107) Carbon Dioxide Level 25 MMOL/L (21-32) Anion Gap 4 mmol/L (5-15) L Blood Urea Nitrogen 17 mg/dL (7-18) Creatinine 1.0 MG/DL (0.55-1.30) Estimat Glomerular Filtration Rate > 60 mL/min (>60) Glucose Level 110 MG/DL (74-106) H Calcium Level 7.7 MG/DL (8.5-10.1) L Plan Problems: (1) Hyponatremia (2) Dehydration Assessment & Plan: DAILY ESTIMATED NEEDS: Needs based on Wound, 77kg 25-30 kcals/kg 9386-6654 total kcals 1.25-2 g protein/kg 96-154 g total protein 25-30 mL/kg 0664-9522 total fluid mLs NUTRITION DIAGNOSIS: Increased kcal and prot needs r/t wound healing as evidenced by admitted w/ multiple wounds, including stage 4 L-heel pressure injury as per recent adm. 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 Resolving Pressure Sacral Pressure Injury. Surrounding maroon borders but without induration.(L)10.5cm x (W)10cm. BIlat lower ext are edematous. DTPI distal/lateral L Tibia(L)11.4cm x (W)2.7cm. Base of injury is purpuric with maroon borders. DTPI lateral L Malleolus(L)1cm x (W)0.7cm. Base of injury is maroon and indurated. Non-Blanchable erythema without induration or fluctuance medial L foot (L)1.6cm x (W)1cm. Unstageable Pressure injury R heel(L)7.7cm x (W)6.8cm. Base of is 70%necrotic and dry,10% slough with remaining 20% alyssia base. Marginal erythema along edges.Periwound is fluctuant with pale skin color. DTPI Lateral R Malleolus(L)2.6cm x (W)1.4cm. Base of injury is purpuric with maroon borders. DTPI medial R Malleolus(L)2.5cm x (W)2.4cm. Base of injury is purpuric with maroon borders. DTPI medial R foot (L)1.3cm x (W)3.6cm. Base of injury is indurated purpuric with surrounding maroon borders that are irregular. DTPI lateral R foot (L)0.7cm x (W)0.9cm. Base of injury is maroon in colour with marginal erythema. DTPI noted to tip of R 1st metatarsal(L)1.4cm x (W)1.2cm. Base of injury presents as an intact blood Blister. Unstageable Pressure injury lateral R 1st metatarsal(L)0.5cm x (W)0.8cm. Dry eschar with marginal erythema along edges. DTPI tip of R 2nd metatarsal.(L)1cm x (W)1.3cm. Base of injury presents as an intact blood blister with marginal erythema along edges. Surgical incisions noted to R hip, R femur and R knee. Incision sites approxim ated with oswaldo that are intact and dry. No erythema noted. Tx.Plan: Apply Moisture Barrier Paste to Sacrum. Cover with Optifoam drsgs. Change every 3 days and prn. Apply Betadine to DTPI's L Tibia, R and L feet. Cover each site with Optifoam drsgs. Change every 7 days and prn. Cleanse R Heel with Saline. Apply TheraHoney.Apply Maxsorb Extra(calcium Al ginate. Apply Cavilon Skin Barrier periwound. Cover with Abd Pad and wrap with Kerlix Daily and prn. Reposition at least every 2hours or as tolerated. Off-load heels with pillows. nutritional optimization (11) Renal insufficiency (12) Suprapubic catheter dysfunction (13) BPH (benign prostatic hyperplasia) (14) Urinary retention Guy Oakley May 23, 2020 14:05
--- NOTE | 2020-05-30 17:12 | Cardiology Report ---
APPROVED REPORT EKG Measurement Heart [id number] <Conclusion> Sinus bradycardia with 1st degree AV block Anteroseptal infarct, age undetermined Abnormal ECG
== END 2020-05-23 17:39 | DRG 640 ==
LOC: EDBD 19:25 → EMR 19:45 → 2W 21:32 → EDBEDREQ 22:39 → 2E 05-17 18:24
DX: E87.1 Hypo-osmolality and hyponatremia (principal); L89.624 Pressure ulcer of left heel, stage 4; N39.0 Urinary tract infection, site not specified; G93.40 Encephalopathy, unspecified; I50.22 Chronic systolic (congestive) heart failure; N17.9 Acute kidney failure, unspecified; I13.0 Hypertensive heart and chronic kidney disease with heart failure and stage 1 through stage 4 chronic kidney disease, or unspecified chronic kidney disease; M86.9 Osteomyelitis, unspecified; I48.0 Paroxysmal atrial fibrillation; E03.9 Hypothyroidism, unspecified; L89.152 Pressure ulcer of sacral region, stage 2; N18.9 Chronic kidney disease, unspecified; K29.70 Gastritis, unspecified, without bleeding; D63.8 Anemia in other chronic diseases classified elsewhere; Z86.718 Personal history of other venous thrombosis and embolism; F32.9 Major depressive disorder, single episode, unspecified; Z93.50 Unspecified cystostomy status; E86.0 Dehydration; E11.65 Type 2 diabetes mellitus with hyperglycemia; L89.526 Pressure-induced deep tissue damage of left ankle; L89.516 Pressure-induced deep tissue damage of right ankle; L89.896 Pressure-induced deep tissue damage of other site; N40.0 Benign prostatic hyperplasia without lower urinary tract symptoms; Z79.82 Long term (current) use of aspirin; E11.22 Type 2 diabetes mellitus with diabetic chronic kidney disease; I25.10 Atherosclerotic heart disease of native coronary artery without angina pectoris; Z95.5 Presence of coronary angioplasty implant and graft; F03.90 Unspecified dementia, unspecified severity, without behavioral disturbance, psychotic disturbance, mood disturbance, and anxiety; E78.5 Hyperlipidemia, unspecified; Z79.01 Long term (current) use of anticoagulants; D63.1 Anemia in chronic kidney disease; N40.1 Benign prostatic hyperplasia with lower urinary tract symptoms; R33.8 Other retention of urine
CPT/HCPCS: 36415; 80048; 80053; 80061; 81001; 82270; 82533; 82570; 82728; 82962; 83540; 83550; 83735; 83880; 83930; 83935; 84100; 84300; 84439; 84443; 84484; 85007; 85025; 85044; 85610; 85730; 86850; 86900; 86901; 86920; 87081; 87086; 93005; 93306; 96361; 96365; 96375; 99291; J1815; J7030; U0002